=== PATIENT | male | born 1960 | race Caucasian/White ===

== ENCOUNTER 2019-09-05 16:35 | Inpatient (IN) | payer OTHER ==
[~2019-09-05] VITALS: Ht 180.3 cm; Wt 149.7 kg
[2019-09-05] VITALS (7 sets, daily range): BP systolic 113–131; BP diastolic 67–86
--- NOTE | 2019-09-05 16:40 | NUR ---
CODE STEMI CALLED; PT BROUGHT IMMEDIATLEY TO RM 5 FOR TX; DR. VALENZUELA AT BEDSIDE FOR EVAL.
--- NOTE | 2019-09-05 16:51 | NUR ---
PT BEING TRANSPORTED TO SHOT LIGHTER AT THIS TIME.
[2019-09-05] MEDS ORDERED: MIDAZOLAM HCL 2 MG/2 ML VIAL ONE ×2 (16:57→17:15)
[2019-09-05] MEDS ORDERED: ATROPINE SULFATE 0.1 MG/ML 10ML SYR ONE (16:57)
[2019-09-05] MEDS ORDERED: FENTANYL CITRATE/PF 100MCG/2 ML INJ ONE (16:57)
[2019-09-05] MEDS ORDERED: HEPARIN SOD/SOD CHLORIDE 2,000 ML ONE (16:58)
[2019-09-05] MEDS ORDERED: IOPAMIDOL 370 MG/ML 200 ML INFUS..BTL INJ ONE (16:58)
[2019-09-05] MEDS ORDERED: LIDOCAINE HCL 2% LOCAL 20 ML VIAL ONE (16:58)
[2019-09-05] MEDS ORDERED: ONDANSETRON HCL INJ 2MG/ML 2ML 2 MG/ML VIAL IV PRN ×2 (17:00→18:15)
[2019-09-05] MEDS ORDERED: SODIUM CHLORIDE 0.9% 50ML 50 ML ONE (17:00)
[2019-09-05 17:03] LABS: BASOPHILS % 0.6 % (0.0-1.0); EOSINOPHILS # (AUTO) 0.1 (0.0-0.4); EOSINOPHILS % 3.2 % (0.0-6.0); HEMATOCRIT 45.1 % (38.2-49.6); HEMOGLOBIN 16.6 g/dL (14.0-18.0); LYMPHOCYTES % 30.1 % (18.0-39.1); MEAN CORPUSCULAR HEMOGLOBIN 35.1 pg (28-32); MEAN CORPUSCULAR HGB CONC 36.8 g/dL (31-35); MEAN CORPUSCULAR VOLUME 95.3 fL (81-99); MONOCYTES # (AUTO) 0.4 (0.2-0.8); MONOCYTES % 10.4 % (4.4-11.3); NEUTROPHILS # (AUTO) 1.9 (2.1-6.9); NEUTROPHILS % 55.1 % (38.7-80.0); PLATELET COUNT 60 x10e3/uL (140-360); RED BLOOD COUNT 4.73 x10e6/uL (4.3-5.7); RED CELL DISTRIBUTION WIDTH 12.6 % (11.7-14.4)
[2019-09-05 17:19] LABS: INR 1.05; PROTHROMBIN TIME 14.2 seconds (11.9-14.5)
[2019-09-05 17:20] LABS: PARTIAL THROMBOPLASTIN TIME 29.2 seconds (23.8-35.5)
[2019-09-05] MEDS ORDERED: EPTIFIBATIDE 75mg 100ML 0 ML ONE (17:21)
[2019-09-05] MEDS ORDERED: EPTIFIBATIDE 20 ML ONE (17:21)
[2019-09-05 17:29] LABS: ALANINE AMINOTRANSFERASE 42 IU/L (0-55); ALBUMIN 3.4 g/dL (3.5-5.0); ALBUMIN/GLOBULIN RATIO 0.9 (0.8-2.0); ALKALINE PHOSPHATASE 135 IU/L (40-150); ANION GAP 15.7 mmol/L (8-16); BLOOD UREA NITROGEN 13 mg/dL (7-26); BUN/CREATININE RATIO 13 (6-25); CALCIUM 9.8 mg/dL (8.4-10.2); CARBON DIOXIDE 24 mmol/L (22-29); CHLORIDE 99 mmol/L (98-107); CREATINE KINASE 217 IU/L (30-200); CREATININE, SERUM 0.99 mg/dL (0.72-1.25); EST GLOMERULAR FILTRATION RATE > 60 ML/MIN (60-); GLUCOSE 261 mg/dL (74-118); POTASSIUM 3.7 mmol/L (3.5-5.1); SODIUM 135 mmol/L (136-145)
[2019-09-05] MEDS ORDERED: PRASUGREL 10 MG TAB ONE (17:34)
[2019-09-05] MEDS ORDERED: PROMETHAZINE HCL (IM) 25 MG/ML VIAL IV PRN (18:15)
[2019-09-05] MEDS ORDERED: ASPIRIN 81 MG CHEW TAB PO ONE (18:15)
[2019-09-05] MEDS ORDERED: HYDROMORPHONE 1MG/1ML INJ IV PRN (18:15)
[2019-09-05] MEDS ORDERED: NITROGLYCERIN 0.4 MG SUBL SL PRN (18:15)
[2019-09-05] MEDS ORDERED: MORPHINE SULFATE 2 MG/ML SYR 1ML IV PRN (18:15)
[2019-09-05] MEDS: SODIUM CHLORIDE 0.9% 1000ML 1,000 ML IV SCH ×2 (18:43→22:40)
[2019-09-05] MEDS: FAMOTIDINE 20 MG TAB PO SCH (18:43)
[2019-09-05] MEDS: LISINOPRIL 10 MG TAB PO SCH (18:43)
[2019-09-05] MEDS: METOPROLOL SUCCINATE 25 MG TAB XL PO SCH (18:44)
[2019-09-05] MEDS ORDERED: PROMETHAZINE 12.5MG/ NACL 0.9% 50 ML IV PRN (18:45)
--- NOTE | 2019-09-05 19:05 | Diagnostic Imaging Report ---
EXAMINATION: CHEST SINGLE (PORTABLE) COMPARISON: None INDICATION: Chest pain, nausea ^UT ^[id number] ^1830 DISCUSSION: Frontal view of the chest obtained at 1824 hours. HEART AND MEDIASTINUM: The heart is mildly enlarged. The aorta is tortuous LINES: None. LUNGS: Central pulmonary vasculature is prominent. No pneumonia or pulmonary edema. Small focus of atelectasis in the left lung base. PLEURA: No pleural effusion or pneumothorax. BONES AND SOFT TISSUES: No focal osseous lesion. The soft tissues are normal. IMPRESSION: Cardiomegaly and central pulmonary vascular congestion. Signed by: Dr. Laurita Enrique MD on 09/05/2019 7:02 PM
--- NOTE | 2019-09-05 19:18 | Pre Op History & Physical ---
INDICATION: Myocardial infarction. HISTORY OF PRESENT ILLNESS: Mr. Arnett is a 59-year-old gentleman with history of hypertension, hyperlipidemia, who comes into the hospital with 1 hour of chest pain. EKG shows inferior ST elevation. He continues to have persistent pain at the time of evaluation. He has been noncompliant with his metformin. Dr. Bhandari is his primary care physician. He has never had coronary artery disease. PAST MEDICAL HISTORY: Hypertension, diabetes mellitus. SOCIAL HISTORY: The patient does not smoke or drink. He is accompanied by his . FAMILY HISTORY: Significant for coronary artery disease in his grandfather. REVIEW OF SYSTEMS: Negative except as dictated in the history of present illness. PHYSICAL EXAMINATION: VITAL SIGNS: Afebrile. Heart rate 73, blood pressure 147/80, O2 saturation is 99%. CARDIOVASCULAR: Regular rhythm, S4 gallop, systolic murmur. LUNGS: Clear to auscultation bilaterally. ABDOMEN: Distended, soft. 1+ edema. Pedal pulses 1+. LABORATORY DATA: Serum creatinine is normal. Remaining labs are reviewed. ASSESSMENT: Acute inferior ST-elevation myocardial infarction. PLAN: Mr. Niño is taking emergently to the cardiac collaborating supervising physician. Risks, benefits, alternatives of the procedure were discussed with the patient. He is agreeable for the same. Aggressive medical therapy has been initiated. MD ARETHA Mota/AGNES /[id number]
--- NOTE | 2019-09-05 19:44 | NUR ---
Patient arrived to ICU at 1830 with R groin sheath in place. Orders to remove sheath at 2100, bedrest until 0500. Patient educated on importance of bedrest Pedal pulses palpable to bilateral feet. Patient able to wiggle toes and move feet on command. Patient does not appear to be in any distress at this time. Shift report given to manager night RN.
[2019-09-05] MEDS: RIVAROXABAN 10 MG TABLET PO SCH (21:00)
[2019-09-05] MEDS ORDERED: ATORVASTATIN 20 MG TAB PO SCH (21:00)
[2019-09-05 21:33] LABS: CREATINE KINASE MB 109.2 ng/mL (0-5.0)
[2019-09-06] VITALS (20 sets, daily range): BP systolic 94–124; BP diastolic 51–84
[2019-09-06] MEDS ORDERED: LISINOPRIL10 MG PO (02:14)
[2019-09-06] MEDS ORDERED: METFORMIN HCL500 M2 PO (02:14)
--- NOTE | 2019-09-06 03:04 | Operative Report ---
DATE OF PROCEDURE: 09/05/2019 SURGEON: Yahir Ibanez MD INDICATION: Acute inferior ST-elevation myocardial infarction. PROCEDURES PERFORMED: 1. Left heart catheterization, selective coronary angiography. 2. Thrombectomy, PTCA and stent placement to the distal right coronary artery. 3. Deployment of right central venous catheter. COMPLICATIONS: None. RECOMMENDATIONS: Dual antiplatelet therapy. DESCRIPTION OF PROCEDURE: Access obtained in the right femoral artery. A 6-Ethiopian sheath was placed. Access obtained in the right femoral vein. A 6-Ethiopian sheath was placed. 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 Distal right coronary artery is occluded with KATHLEEN zero flow. The patient received Angiomax for anticoagulation. Wire was advanced across the lesion. Thrombectomy with [id number] time of 38 minutes was performed. Using a GuideLiner predilatation with 2.5 mm stent. Following which, a 3.5 x 18 mm Synergy stent was deployed, post dilated with a 4.5 mm balloon. Excellent end result, less than 10% residual stenosis, KATHLEEN-3 flow. No complications. Left coronary system had mild disease. Sheath was secured in place. The patient was transferred to ICU in stable condition. Yahir Ibanez MD KSB/MODL /[id number]
--- NOTE | 2019-09-06 04:10 | NUR ---
R femoral sheath removed at 2210. No s/s of complications. Pedal pulses palpable & strong bilaterally, skin warm to touch. Patient able to move bilateral feet, no c/o numbness or tingling to RLE. VS maintained normal during removal of sheath. Education regarding positing and reporting s/s of complications to staff pharmacist hospital reinforced, patient acknowledges & understands. Will continue to monitor.
[2019-09-06 05:15] LABS: BASOPHILS % 0.4 % (0.0-1.0); EOSINOPHILS # (AUTO) 0.1 (0.0-0.4); EOSINOPHILS % 2.6 % (0.0-6.0); HEMOGLOBIN 14.3 g/dL (14.0-18.0); LYMPHOCYTES # (AUTO) 1.1 (1.0-3.2); LYMPHOCYTES % 22.6 % (18.0-39.1); MEAN CORPUSCULAR HEMOGLOBIN 34.5 pg (28-32); MEAN CORPUSCULAR HGB CONC 35.8 g/dL (31-35); MEAN CORPUSCULAR VOLUME 96.6 fL (81-99); MONOCYTES # (AUTO) 0.5 (0.2-0.8); MONOCYTES % 9.8 % (4.4-11.3); NEUTROPHILS # (AUTO) 3.2 (2.1-6.9); NEUTROPHILS % 64.4 % (38.7-80.0); PLATELET COUNT 63 x10e3/uL (140-360); RED BLOOD COUNT 4.14 x10e6/uL (4.3-5.7); RED CELL DISTRIBUTION WIDTH 13.2 % (11.7-14.4)
[2019-09-06 05:48] LABS: ALANINE AMINOTRANSFERASE 52 IU/L (0-55); ALBUMIN 2.8 g/dL (3.5-5.0); ALBUMIN/GLOBULIN RATIO 0.8 (0.8-2.0); ALKALINE PHOSPHATASE 95 IU/L (40-150); ANION GAP 11.5 mmol/L (8-16); BLOOD UREA NITROGEN 15 mg/dL (7-26); BUN/CREATININE RATIO 21 (6-25); CALCIUM 9.1 mg/dL (8.4-10.2); CARBON DIOXIDE 23 mmol/L (22-29); CHLORIDE 105 mmol/L (98-107); CHOL/HDL RATIO 3.8 (3.9-4.7); CHOLESTEROL 169 MD/DL (0-199); CREATININE, SERUM 0.72 mg/dL (0.72-1.25); EST GLOMERULAR FILTRATION RATE > 60 ML/MIN (60-); GLUCOSE 187 mg/dL (74-118); HDL CHOLESTEROL 45 MG/DL (40-60); LDL CHOLESTEROL 102 MG/DL (60-130); POTASSIUM 3.5 mmol/L (3.5-5.1); SODIUM 136 mmol/L (136-145); TRIGLYCERIDES 110 MG/DL (0-149)
[2019-09-06 06:48] LABS: CREATINE KINASE MB 90.3 ng/mL (0-5.0)
--- NOTE | 2019-09-06 07:00 | NUR ---
Notified Dr. Mederos @ 2190 of elevated trops ([phone]) and BS (189). New orders to recheck cardiac labs in 6 hrs and start pt on low dose SS ACHS. Pt denies pain/discomfort/chest pain. A&Ox4. RA. VS WNL. No complications to R groin. Will continue to monitor.
[2019-09-06] MEDS ORDERED: DEXTROSE 50% SYRINGE 50 ML IV PRN (07:15)
[2019-09-06] MEDS ORDERED: ASPIRIN 81 MG ENTERIC COATED PO SCH (09:00)
[2019-09-06] MEDS ORDERED: CLOPIDOGREL BISULFATE 75 MG TAB PO SCH (09:00)
[2019-09-06] MEDS ORDERED: RIVAROXABAN 15 MG TABLET PO SCH (09:00)
[2019-09-06] MEDS: INSULIN LISPRO 100 UNIT/1 ML 3ML VIAL SQ SCH ×4 (09:15→20:51)
[2019-09-06] MEDS: CLOPIDOGREL BISULFATE 75 MG TAB PO SCH (09:35)
[2019-09-06] MEDS: RIVAROXABAN 10 MG TABLET PO SCH ×2 (09:35→20:50)
[2019-09-06] MEDS: ASPIRIN 81 MG ENTERIC COATED PO SCH (09:35)
[2019-09-06] MEDS: METOPROLOL SUCCINATE 25 MG TAB XL PO SCH (09:35)
[2019-09-06] MEDS: FAMOTIDINE 20 MG TAB PO SCH ×2 (09:35→17:48)
[2019-09-06] MEDS: LISINOPRIL 10 MG TAB PO SCH (09:35)
[2019-09-06 13:06] LABS: CREATINE KINASE MB 56.4 ng/mL (0-5.0)
--- NOTE | 2019-09-06 15:49 | NUR ---
RECEIVED REPORT FROM ESOL TEACHER, AWAITING PT ARRIVAL TO UNIT.
--- NOTE | 2019-09-06 15:50 | NUR ---
Report given to RASHIDA Green for Room 101. Patient transported via wheelchair.
--- NOTE | 2019-09-06 18:43 | Diagnostic Imaging Report ---
HISTORY: Right lower quadrant pain TECHNIQUE: Selected static images from complete abdominal ultrasound provided for INTERPRETATION: COMPARISON: None. FINDINGS: Pancreas: Not visualized due to bowel gas Liver: Measures 14.5 cm in sagittal plane. The echotexture is heterogeneous. The contours are lobulated. No mass in the visualized portions. Portal Vein: Measures 1.0 cm. Hepatopetal flow on spectral Doppler interrogation. Biliary Tree: No intrahepatic biliary ductal dilatation Gallbladder: No evidence of gallstone or gallbladder wall thickening. CBD: 0.5 cm. Right Kidney: Length is 12.8cm. Echotexture is normal. There is mild hydronephrosis. Calculus in the renal pelvis measures 16 x 25 x 26 mm. There is debris in a lower pole calyx versus a cyst containing a soft tissue mass within the overall size of 2.0 x 3.0 cm. Left Kidney: Length is 12.6cm. Echotexture is normal. Cyst in the interpolar cortex measures 2.0 x 2.0 x 2.4 cm. No hydronephrosis.. Spleen: 13.7cm in length. No evidence for mass. Aorta and IVC are poorly visualized due to bowel gas. No free fluid IMPRESSION: 1. Cirrhosis with normal portal vein diameter. Mild splenomegaly. No ascites. 2. 26 mm right intrarenal calculus with mild hydronephrosis. Cystic structure in the lower pole the right kidney may represent a calyx containing debris or cystic mass containing soft tissue. Recommend further characterization with CT urogram if clinically feasible. 3. Normal left kidney. 4. Poor visualization of the pancreas, aorta, and IVC, due to bowel gas. 5. Normal gallbladder and biliary tree. Signed by: Dr. Laurita Enrique MD on 09/06/2019 6:39 PM
--- NOTE | 2019-09-06 18:50 | NUR ---
RECEIVED REPORT FROM PREVIOUS NURSE. CALL LIGHT WITHIN REACH. PATIENT IN BED. AND FRIENDS AT BEDSIDE
--- NOTE | 2019-09-06 19:48 | Progress Note ---
DATE: 09/06/2019 Cardiology Progress Note SUBJECTIVE: No major events overnight. No more chest pain. OBJECTIVE: VITAL SIGNS: Temperature afebrile, pulse 85, blood pressure 114/70, saturating 99% on nasal cannula. GENERAL: Obese white man, in no acute distress. CARDIOVASCULAR: Regular rate and rhythm. No murmurs, rubs, or gallops. LUNGS: Clear to auscultation bilaterally. ABDOMEN: Soft, mildly tender, right lower quadrant nondistended. NEURO AND PSYCH: Alert and oriented to person, place, and time. Normal affect. VASCULAR: Right groin without any hematoma, soft. No bleeding. Good pulses. INPATIENT MEDICATIONS: Reviewed. LABORATORY DATA: Reviewed. TELEMETRY DATA: Reviewed, shows normal sinus rhythm. ASSESSMENT/PLAN: 1. ST-elevation myocardial infarction, status post percutaneous coronary intervention. 2. Coronary artery disease. 3. Hypertension. 4. Hyperlipidemia. PLAN: Continue dual-antiplatelet therapy with aspirin, Plavix with addition of Xarelto 2.5 mg b.i.d. Given significant thrombus burden, continue high-intensity statin, lisinopril, and metoprolol. The patient is okay to be transferred to the floor, so he can ambulate and if he is feeling well, plan to discharge tomorrow. Thank you for this consult. We will continue to follow. MD SOMMER Causey/AGNES /[id number]
[2019-09-06] MEDS: ATORVASTATIN 40 MG TAB PO SCH (20:50)
[2019-09-06] MEDS ORDERED: ATORVASTATIN 20 MG TAB PO SCH (21:00)
[2019-09-07] VITALS (7 sets, daily range): BP systolic 105–114; BP diastolic 56–66
--- NOTE | 2019-09-07 07:31 | NUR ---
Gave report to oncoming nurse. Patient in bed. at bedside. Call light within reach.
[2019-09-07] MEDS: ASPIRIN 81 MG ENTERIC COATED PO SCH (08:39)
[2019-09-07] MEDS: CLOPIDOGREL BISULFATE 75 MG TAB PO SCH (08:39)
[2019-09-07] MEDS: FAMOTIDINE 20 MG TAB PO SCH ×2 (08:39→17:20)
[2019-09-07] MEDS: LISINOPRIL 10 MG TAB PO SCH (08:40)
[2019-09-07] MEDS: METOPROLOL SUCCINATE 25 MG TAB XL PO SCH (08:41)
[2019-09-07] MEDS: RIVAROXABAN 10 MG TABLET PO SCH (08:43)
[2019-09-07] MEDS: INSULIN LISPRO 100 UNIT/1 ML 3ML VIAL SQ SCH ×4 (08:48→21:56)
--- NOTE | 2019-09-07 11:29 | NUR ---
during rounds, pt informed nurse he is urinating blood; moderate amount of dark blood noted in toilet bowl; awaiting Dr Jacobs's arrival on unit. will continue to monitor.
--- NOTE | 2019-09-07 19:05 | NUR ---
Received report from previous nurse. Call light within reach. at bedside. Patient in bed
[2019-09-07 20:46] LABS: BASOPHILS % 0.5 % (0.0-1.0); EOSINOPHILS # (AUTO) 0.2 (0.0-0.4); EOSINOPHILS % 5.2 % (0.0-6.0); HEMATOCRIT 40.2 % (38.2-49.6); HEMOGLOBIN 14.5 g/dL (14.0-18.0); LYMPHOCYTES # (AUTO) 1.6 (1.0-3.2); LYMPHOCYTES % 38.2 % (18.0-39.1); MEAN CORPUSCULAR HEMOGLOBIN 34.8 pg (28-32); MEAN CORPUSCULAR HGB CONC 36.1 g/dL (31-35); MEAN CORPUSCULAR VOLUME 96.4 fL (81-99); MONOCYTES # (AUTO) 0.5 (0.2-0.8); MONOCYTES % 12.8 % (4.4-11.3); NEUTROPHILS # (AUTO) 1.8 (2.1-6.9); NEUTROPHILS % 43.1 % (38.7-80.0); PLATELET COUNT 56 x10e3/uL (140-360); RED BLOOD COUNT 4.17 x10e6/uL (4.3-5.7); RED CELL DISTRIBUTION WIDTH 12.9 % (11.7-14.4)
[2019-09-07 20:51] LABS: INR 1.24; PROTHROMBIN TIME 16.2 seconds (11.9-14.5)
[2019-09-07 20:52] LABS: PARTIAL THROMBOPLASTIN TIME 31.9 seconds (23.8-35.5)
[2019-09-07 20:58] LABS: ALANINE AMINOTRANSFERASE 47 IU/L (0-55); ALBUMIN 2.9 g/dL (3.5-5.0); ALBUMIN/GLOBULIN RATIO 0.8 (0.8-2.0); ALKALINE PHOSPHATASE 93 IU/L (40-150); ANION GAP 10.8 mmol/L (8-16); BLOOD UREA NITROGEN 17 mg/dL (7-26); BUN/CREATININE RATIO 20 (6-25); CALCIUM 9.5 mg/dL (8.4-10.2); CARBON DIOXIDE 23 mmol/L (22-29); CHLORIDE 105 mmol/L (98-107); CREATININE, SERUM 0.87 mg/dL (0.72-1.25); EST GLOMERULAR FILTRATION RATE > 60 ML/MIN (60-); GLUCOSE 204 mg/dL (74-118); POTASSIUM 3.8 mmol/L (3.5-5.1); SODIUM 135 mmol/L (136-145)
[2019-09-07 21:02] LABS: CLARITY,URINE SL CLOUDY (CLEAR); COLOR,URINE AMBER (YELLOW); LEUKOCYTE ESTERASE ,URINE NEGATIVE (NEGATIVE); NITRITE,URINE NEGATIVE (NEGATIVE); PROTEIN,URINE DIPSTICK 2+ (NEGATIVE)
[2019-09-07 21:03] LABS: BILIRUBIN,URINE 1+ (NEGATIVE); KETONES,URINE NEGATIVE (NEGATIVE)
[2019-09-07 21:10] LABS: AMYLASE 42 U/L (25-125); LIPASE 22 U/L (8-78)
[2019-09-07 21:15] LABS: BACTERIA,URINE FEW /HPF; RBC,URINE >50 /HPF (0-5)
[2019-09-07] MEDS: ATORVASTATIN 40 MG TAB PO SCH (21:48)
--- NOTE | 2019-09-07 23:51 | Progress Note ---
DATE: 09/07/2019 SUBJECTIVE: No major events overnight. Transferred to the floor, walking around without issues. OBJECTIVE: VITAL SIGNS: Temperature afebrile, pulse 62, respiratory rate 18, blood pressure 114/66, saturating 98% on room air. GENERAL: Middle-aged man, in no acute distress. CARDIOVASCULAR: Regular rate and rhythm. No murmurs, rubs, or gallops. Right groin site inspected. There was some razor burn and some redness or exudates. A cath site itself looks clean. There was no bleeding. There is no signs of infection or drainage. No evidence of pseudoaneurysm by physical exam. LUNGS: Clear to auscultation bilaterally. ABDOMEN: Soft, nontender, nondistended. Obese. NEURO AND PSYCH: Alert, oriented to person, place, and time. Normal affect. INPATIENT MEDICATIONS: Reviewed. TELEMETRY DATA: Reviewed shows normal sinus rhythm. LABORATORY DATA: Reviewed. IMAGING DATA: Reviewed. Abdominal ultrasound shows right renal calculus with hydronephrosis. ASSESSMENT: 1. ST-elevation myocardial infarction. 2. Hematuria. 3. Hypertension. 4. Hyperlipidemia. PLAN: We will consult Urology given hematuria. We will discontinue 2.5 mg of Xarelto b.i.d. Continue aspirin and Plavix. Continue other cardiovascular medications. Blood pressure is well controlled. Thank you for this consult. We will continue to follow. MD SOMMER Causey/AGNES /[id number]
[2019-09-08] VITALS (7 sets, daily range): BP systolic 105–130; BP diastolic 58–71
--- NOTE | 2019-09-08 01:36 | Consultation ---
DATE OF CONSULTATION: 09/07/2019 Medical Consult ADMITTING DOCTOR: Dr. Yahir Ibanez. HISTORY OF PRESENT ILLNESS: This is a 59-year-old male with past medical history of hypertension, diabetes, and remote history of renal stone, who was in his usual state of health until 3 days ago. He was admitted with chest pain with acute KS and coronary angiogram and coronary stent was placed by Dr. Yahir Ibanez. At that time, the patient was given IV heparin. Today, he was feeling better after the stent. He was started having some intermittent hematuria and right abdominal pain. The patient's distribution warehouse manager Dr. Karel Jacobs asked me to do medical management. The patient was also consulted by Dr. March for renal stone. At the present time, some right-sided abdominal pain. No nausea. No vomiting. He has hematuria. No backache. No chest pain. No shortness of breath. No headache. No focal weakness. No seizure. PAST MEDICAL HISTORY: 1. CAD. 2. Hypertension. 3. Hyperlipidemia. 4. Diabetes mellitus type 2. 5. Morbid obesity. PAST SURGICAL HISTORY: History of coronary stent 2 days ago. SOCIAL HISTORY: The patient is . Lives with his . Habits; denies smoking, denies alcohol use, denies illicit drug use. MEDICATIONS: List attached. PHYSICAL EXAMINATION: GENERAL: This is a 59-year-old male, who is alert and oriented x3. No gross distress. VITAL SIGNS: Temperature 96.7, pulse is 66, respiratory rate 20, blood pressure 112/61. HEENT: Head is atraumatic and normocephalic. Pupils bilaterally equal and reactive to light. Extraocular muscles are intact. NECK: Supple. No JVD. No carotid bruit. LUNGS: Clear to auscultation and percussion bilaterally. No added sounds. HEART: S1 and S2. Regular rate and rhythm. No cyanosis or murmur. ABDOMEN: Soft. Right-sided mild flank tenderness. No guarding. No rigidity. EXTREMITIES: No pedal edema. Peripheral pluses +1. CLEAN RICE GRADER AND REEL TENDER: Grossly nonfocal. IMAGING DATA: Chest x-ray, cardiomegaly and some central vascular congestion. Ultrasound of abdomen showed cirrhosis, 26 mm right internal calculus with mild hydronephrosis. Cystic structure in the lower pole of right kidney, represent debris. Normal left kidney. Normal gallbladder. LABORATORY DATA: No labs today. Yesterday's labs, potassium 3.5, BUN and creatinine normal, sugar 187. LFT mild high. White count 4.99, hemoglobin 14.3, hematocrit 40.0, and platelets 63. ASSESSMENT: 1. Hematuria, rule out possibly from renal stone. 2. Thrombocytopenia, possibly heparin-induced thrombocytopenia. 3. Status post myocardial infarction, coronary artery disease, status post stent by Dr. Ibanez 2 days ago. 4. Diabetes mellitus type 2. 5. Obesity. 6. Hypertension. PLAN: Discussed the case with Dr. Ibanez, distribution warehouse manager. Stop Xarelto. Continue aspirin and Plavix. CBC, CMP, UA, amylase, lipase, and HIT panel. CT abdomen and pelvis in the morning. Urology consult with Dr. March. Continue other medicines. CBC and BMP in the morning. Case discussed with the patient and . Condition and prognosis explained. Case discussed with Dr. Ibanez, distribution warehouse manager. We will follow patient with you. Thank you, Dr. Karel Jacobs, for allowing me to taking care of this patient in medical management. MD CRUZ Tinajero/AGNES /[id number]
[2019-09-08 05:07] LABS: BASOPHILS % 0.7 % (0.0-1.0); EOSINOPHILS # (AUTO) 0.3 (0.0-0.4); EOSINOPHILS % 6.4 % (0.0-6.0); HEMATOCRIT 41.2 % (38.2-49.6); HEMOGLOBIN 14.4 g/dL (14.0-18.0); LYMPHOCYTES # (AUTO) 1.6 (1.0-3.2); LYMPHOCYTES % 38.1 % (18.0-39.1); MEAN CORPUSCULAR HEMOGLOBIN 34.2 pg (28-32); MEAN CORPUSCULAR VOLUME 97.9 fL (81-99); MONOCYTES # (AUTO) 0.6 (0.2-0.8); MONOCYTES % 13.4 % (4.4-11.3); NEUTROPHILS # (AUTO) 1.7 (2.1-6.9); NEUTROPHILS % 40.9 % (38.7-80.0); PLATELET COUNT 58 x10e3/uL (140-360); RED BLOOD COUNT 4.21 x10e6/uL (4.3-5.7); RED CELL DISTRIBUTION WIDTH 12.6 % (11.7-14.4)
[2019-09-08 05:28] LABS: ANION GAP 11.7 mmol/L (8-16); BLOOD UREA NITROGEN 15 mg/dL (7-26); BUN/CREATININE RATIO 20 (6-25); CALCIUM 9.4 mg/dL (8.4-10.2); CARBON DIOXIDE 23 mmol/L (22-29); CHLORIDE 104 mmol/L (98-107); CREATININE, SERUM 0.74 mg/dL (0.72-1.25); EST GLOMERULAR FILTRATION RATE > 60 ML/MIN (60-); GLUCOSE 153 mg/dL (74-118); POTASSIUM 3.7 mmol/L (3.5-5.1); SODIUM 135 mmol/L (136-145)
--- NOTE | 2019-09-08 06:08 | NUR ---
Patient left via wheelchair for CT abd/pelvis. Patient in no pain or distress.
--- NOTE | 2019-09-08 06:18 | NUR ---
Patient arrived back from CT via wheelchair. No pain or distress.
--- NOTE | 2019-09-08 07:21 | NUR ---
Gave report to oncoming nurse. Patient in bed. at bedside. call light within reach.
[2019-09-08] MEDS: FAMOTIDINE 20 MG TAB PO SCH ×2 (07:30→16:30)
[2019-09-08] MEDS: INSULIN LISPRO 100 UNIT/1 ML 3ML VIAL SQ SCH ×4 (07:30→21:32)
--- NOTE | 2019-09-08 07:33 | NUR ---
Rcvd patient in report this am. Patient is asleep in bed at this time. No s/s of distress noted
[2019-09-08] MEDS: LISINOPRIL 10 MG TAB PO SCH (08:52)
[2019-09-08] MEDS: METOPROLOL SUCCINATE 25 MG TAB XL PO SCH (08:52)
--- NOTE | 2019-09-08 08:59 | Diagnostic Imaging Report ---
ADDENDUM #1 An addendum is being issued per request of Dr. March for measurement of prostate volume. The prostate measures 7.4 x 6.8 x 6.1 cm with a volume estimate of 306 cc. Signed by: Elvi Leavitt MD on 09/11/2019 12:24 PM ORIGINAL REPORT EXAM: CT Abdomen and Pelvis WITHOUT intravenous contrast INDICATION: Flank pain COMPARISON: Abdominal ultrasound of 09/06/2019 TECHNIQUE: Abdomen and pelvis were scanned utilizing a multidetector helical scanner from the lung base to the pubic symphysis without administration of IV contrast. Coronal and sagittal reformations were obtained. IV CONTRAST: None ORAL CONTRAST: None COMPLICATIONS: None RADIATION DOSE: Total DLP: 835.5 mGy*cm Dose modulation, iterative reconstruction, and/or weight based adjustment of the mA/kV was utilized to reduce the radiation dose to as low as reasonably achievable. FINDINGS: LOWER THORAX: No focal consolidation. Mild scattered atherosclerotic coronary artery calcifications. HEPATOBILIARY: Subcentimeter calcified granulomas in the left liver. Nodular liver surface contour consistent with hepatic cirrhosis. No other focal liver lesions. Dependent gallstones in the gallbladder. No CT evidence of cholecystitis. SPLEEN: Splenomegaly to 16.7 cm. PANCREAS: No focal masses or ductal dilatation. ADRENALS: No adrenal nodules. KIDNEYS/URETERS: 3.0 cm calculus in the right renal pelvis. 4 mm right upper pole renal calculus. Mild right hydronephrosis. No left renal calculi. No left hydronephrosis. Left lower pole 1.7 cm cyst. PELVIC ORGANS/BLADDER: Prostatomegaly to 7.4 cm with indentation of the posterior bladder. PERITONEUM / RETROPERITONEUM: No free air or fluid. LYMPH NODES: Prominent leena hepatis lymph node measuring 1.3 cm short axis. Scattered prominent retroperitoneal lymph nodes not meeting size criteria for lymphadenopathy. VESSELS: Minimal scattered atherosclerotic calcifications. Nonaneurysmal abdominal aorta. Prominent upper abdominal portosystemic varices. GI TRACT: Diverticulosis without CT evidence of diverticulitis. No abnormal bowel wall thickening. No bowel obstruction. Normal appendix. BONES AND SOFT TISSUES: No acute osseous injury. No suspicious lytic or blastic lesions. IMPRESSION: 3.0 cm calculus in the right renal pelvis and 4 mm right upper pole renal calculus. Mild right hydronephrosis. No left renal calculi or hydronephrosis. Hepatic cirrhosis with splenomegaly and upper abdominal portosystemic varices consistent with portal hypertension. Prostatomegaly to 7.4 cm. Signed by: Elvi Leavitt MD on 09/08/2019 8:55 AM
[2019-09-08] MEDS: CEFTRIAXONE SOD 1 GM/NS 50 ML 50 ML IV SCH (09:37)
[2019-09-08] MEDS ORDERED: LIDOCAINE HCL 2% LOCAL INJ 5 ML SDV VIAL INJ ONE (12:40)
[2019-09-08] MEDS ORDERED: PROPOFOL IV EMULSION 10 MG/ML 20 ML VIAL ONE (12:40)
[2019-09-08] MEDS ORDERED: DEXAMETHASONE SOD PHOS INJ 4 MG/ML VIAL ONE (12:40)
[2019-09-08] MEDS ORDERED: ONDANSETRON HCL INJ 2MG/ML 2ML 2 MG/ML VIAL ONE (12:40)
--- NOTE | 2019-09-08 12:40 | NUR ---
Patient is AAOx3. Patient is post op heart cath. Right groin incision clean and dry. No c/o chest pain. Patient ambulates on his own. Patient has had some hematuria noted. Patient is NPO for stent placement d/t kidney stones. Right AC IV in place.
[2019-09-08] MEDS ORDERED: MIDAZOLAM HCL 2 MG/2 ML VIAL ONE (12:48)
[2019-09-08] MEDS ORDERED: FENTANYL CITRATE/PF 100MCG/2 ML INJ ONE (12:48)
[2019-09-08] MEDS ORDERED: ASPIRIN 81 MG CHEW TAB PO STA (13:49)
[2019-09-08] MEDS ORDERED: CLOPIDOGREL BISULFATE 75 MG TAB PO ONE (14:00)
--- NOTE | 2019-09-08 16:38 | NUR ---
Patient went to OR at this time.
[2019-09-08] MEDS ORDERED: B&O 60MG R/S 60 MG SUPP PR ONE (17:00)
[2019-09-08] MEDS ORDERED: IOPAMIDOL 300MG/ML 50ML INFUS..BTL IV ONE (17:00)
--- NOTE | 2019-09-08 18:45 | NUR ---
Patient returned from surgery at this time. Patient is post op stone removal and adames placement. Noted to have gross hematuria urine noted. no c/o pain. Manual irrigation ordered. Flushed at this time. Informed nurse to call dr. booker if need be to change out catheter and place irrigation
--- NOTE | 2019-09-08 20:21 | Progress Note ---
DATE: 09/08/2019 Cardiology Progress Note SUBJECTIVE: No major events overnight. OBJECTIVE: VITAL SIGNS: Temperature 97.7, pulse 60, respiratory rate 17, blood pressure 116/67, and saturating 98% on room air. GENERAL: Obese, white man, well-developed, well-nourished, no acute distress. CARDIOVASCULAR: Regular rate and rhythm. No murmurs, rubs, or gallops. LUNGS: Clear to auscultation bilaterally. ABDOMEN: Soft, nontender, and nondistended. NEURO AND PSYCH: Alert and oriented to person, place, and time. Normal affect. VASCULAR: Right groin site well healed. No bleeding. No pseudoaneurysm. Razor burn, that is getting better with local wound care. INTPATIENT MEDICATIONS: Reviewed. LABORATORY DATA: Reviewed. TELEMETRY DATA: Reviewed. Shows normal rhythm. ASSESSMENT AND PLAN: 1. ST-elevation myocardial infarction, status post PCI to the RCA. 2. Hematuria. 3. Kidney stones, hydronephrosis. 4. Hypertension. 5. Hyperlipidemia. 6. Diabetes. PLAN: Urology plans on doing ureteral stenting today given very recent stenting and I will stop aspirin and Plavix. Discussed with his urologist, Dr. March and he is in agreement. Given the recent CA, although he has been revascularized, so he will be at high risk for general anesthesia and cardiovascular complications. However, given hydronephrosis and ongoing hematuria, Urology feels like surgery is necessary and they plan to proceed later today. We will monitor closely before and after the surgery for any complication. Meanwhile, he is doing well from a cardiovascular standpoint and he is okay to be discharged once his urological issues resolve. Thank you for this consult. We will continue to follow. MD SOMMER Causey/AGNES /[id number]
[2019-09-08] MEDS: ATORVASTATIN 40 MG TAB PO SCH (21:32)
[2019-09-09] VITALS (8 sets, daily range): BP systolic 89–122; BP diastolic 52–66
--- NOTE | 2019-09-09 05:49 | Consultation ---
DATE OF CONSULTATION: 09/08/2019 Urology Consultation REASON FOR CONSULTATION: Gross hematuria. HISTORY OF PRESENT ILLNESS: Selwyn Niño Jr, is a 59-year-old man, who has had intermittent gross hematuria for at least 3 years. The patient has also had some vague pains in the right side intermittently over the last 3 years. The patient was admitted on September 05 with a myocardial infarction. He emergently went to the [facility] and had a coronary stent placed following angioplasty. The patient has been anticoagulated and yesterday he was noted to have significant gross hematuria, and urological consultation was subsequently sought. The patient denies previous urinary tract infections or urolithiasis. He has never seen urologist. PAST MEDICAL AND SURGICAL HISTORY: 1. Hypertension. 2. Diabetes mellitus. 3. Obesity. ALLERGIES: NONE KNOWN. CURRENT MEDICATIONS: Please refer to the MAR. SOCIAL HISTORY: The patient denies smoking, ethanol, or drug use. He has very supportive family at the bedside. 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 FAMILY HISTORY: Noncontributory to the active urological problems. REVIEW OF SYSTEMS: Consistent with history of present illness and past medical history otherwise negative for all systems. PHYSICAL EXAMINATION: GENERAL: Very pleasant 59-year-old man sitting up in bed, in no apparent distress. VITAL SIGNS: He is currently afebrile. Vitals are currently stable. ABDOMEN: Soft, nondistended, and nontender without costovertebral angle tenderness. Kidneys not palpable without hepatosplenomegaly. The patient is obese. GENITOURINARY: Testes descended bilaterally. Testes and epididymides bilaterally palpably normal. The patient has a normal circumcised male phallus with normal meatus without any lesion. Digital rectal examination is deferred for the operating room. For the remaining physical examination systems, please refer to the admission history and physical on the chart and other documentation. LABORATORY STUDIES: Urine culture is pending. White blood cell count is low at 4250, hemoglobin 14.4, and platelets are low at 58,000. The patient's sodium is low at 135. His calcium is normal at 9.4, creatinine is normal at 0.74. PT is elevated 16.2. Urinalysis significant for greater than 50 rbc's, 2+ protein, and 3+ glucose. Abdominal ultrasound was performed, it revealed cirrhosis as well as a 26 mm right intrarenal calculus with mild hydronephrosis and a cystic structure in the lower pole which may represent a calyx containing debris or cystic mass. CT was recommended. CT scan of the abdomen and pelvis revealed a 3 cm stone in the right renal pelvis and a 4 mm right upper pole stone. There is mild right-sided hydronephrosis and there is a left lower pole 1.7 cm cyst. In the pelvis, there was significant prostatomegaly with a prostate at 7.4 cm in diameter with an indentation of the posterior bladder. ASSESSMENT: 1. Right hydronephrosis. 2. Gross hematuria. 3. Leukopenia. 4. Thrombocytopenia. 5. Hyponatremia. 6. Obesity. 7. Right renal colic. 8. Right renal cyst. 9. Glycosuria. 10. Proteinuria. PLAN: 1. I posted the patient emergently to the operating room for cystoscopy, retrograde pyelograms and insertion of stent. I discussed with the patient's casting operator. He feels the patient is safe to go to the operating room now that his coronary arteries have been revascularized, however, insist that we maintained the patient on Plavix and aspirin despite the gross hematuria. 2. I will follow up on the patient's final urine culture and sensitivity. 3. The patient needs ongoing urological followup. 4. I defer the hematological and electrolyte abnormalities to the admitting physician. Thank you much for involving us in care of your patient. We will be happy to follow him along with you as well as an outpatient. Braxton MD Joaquim [place]/MODL /[id number] cc: MD Juan Mota
[2019-09-09 05:55] LABS: BASOPHILS % 0.2 % (0.0-1.0); EOSINOPHILS % 0.2 % (0.0-6.0); HEMATOCRIT 33.3 % (38.2-49.6); HEMOGLOBIN 12.1 g/dL (14.0-18.0); LYMPHOCYTES # (AUTO) 0.8 (1.0-3.2); LYMPHOCYTES % 12.1 % (18.0-39.1); MEAN CORPUSCULAR HEMOGLOBIN 35.1 pg (28-32); MEAN CORPUSCULAR HGB CONC 36.3 g/dL (31-35); MEAN CORPUSCULAR VOLUME 96.5 fL (81-99); MONOCYTES # (AUTO) 0.5 (0.2-0.8); MONOCYTES % 8.3 % (4.4-11.3); NEUTROPHILS # (AUTO) 5.2 (2.1-6.9); PLATELET COUNT 71 x10e3/uL (140-360); RED BLOOD COUNT 3.45 x10e6/uL (4.3-5.7); RED CELL DISTRIBUTION WIDTH 12.6 % (11.7-14.4)
--- NOTE | 2019-09-09 05:59 | Operative Report ---
DATE OF PROCEDURE: 09/08/2019 SURGEON: Braxton March MD PREOPERATIVE DIAGNOSIS: Right nephrolithiasis with hydronephrosis and gross hematuria. POSTOPERATIVE DIAGNOSES: 1. Right nephrolithiasis with hydronephrosis and gross hematuria. 2. Bladder stones. 3. Severe trilobar benign prostatic hyperplasia. OPERATIONS PERFORMED: 1. Cystourethroscopy with cystolitholapaxy (separately performed to manage the patient's bladder stones). 2. Failed extensive attempt at locating the ureteral orifices performing retrograde ureteropyelography and placing a stent. 3. Injection procedure for cystography. 4. Interpretation of cystography. 5. Supervision of fluoroscopy, no radiologist present. ANESTHESIA: General. COMPLICATIONS: None. CLINICAL SUMMARY: Please refer to consultation dictation from the same date. OPERATIVE PROCEDURE IN DETAIL: Informed consent was verified. Selwyn Niño junior was properly identified, taken to the operating room, placed on the cystoscopy table in supine position. Anesthesia was uneventfully begun. The patient was then carefully and gently repositioned in dorsal lithotomy position with all pressure points well padded. His genitalia were prepared and draped in usual sterile fashion. The cystoscope sheath with the visual obturator in place was atraumatically inserted in the patient's urethra. It was guided down the unremarkable urethra through the normal sphincteric region through the prostate bed. The prostate bed was significant for trilobar prostatic hypertrophy with an intravesical median lobe and an extremely long prostatic urethra with huge lateral lobes causing visual obstruction as they kissed at the level of the prostatic urethra. I went to the patient's bladder and drained it. Panendoscopy was difficult to perform ideally due to ongoing hematuria. The exact source of the hematuria is not clear. A thorough cystoscopy was attempted with both 30 and 70 degree lenses, but there seemed to be significant oozing, which I believe is from the prostate bed, although this is not ideal cystoscopy to completely rule out bladder tumors. Nevertheless, I did not see any bladder tumor today. These stones were visualized. These stones were then extracted. Due to the inability to locate the ureteral orifices and decreased visualization from the hematuria, it was felt best to allow the patient's hematuria to try to clear prior to pursuing another stent attempt. The cystoscope was withdrawn. A 24-[place] Burnette catheter was placed, 15 mL of water were placed into the 10 mL balloon. Catheter was then irrigated to and fro with blood-tinged efflux obtained. A belladonna opium suppository was placed revealing a larger than 50 g prostate that is smooth, nonfluctuant without any nodules. The patient was then uneventfully reversed from anesthesia and taken to recovery room in stable condition. There were no complications to the procedure. The patient tolerated the procedure well. ESTIMATED BLOOD LOSS: Minimal. PLAN: 1. We will leave the Burnette catheter in place, so we can monitor the patient's degree of hematuria. 2. Should the patient's hemoglobin drops, transfusion needs to be performed. This management needs to be carried out due to the fact that we cannot hold the patient's Plavix and aspirin at the present time. 3. We will need to return back to the operating room to perform cystoscopy with retrograde pyelogram and insertion of stent. Hopefully, we will get better visualization once the hematuria has stopped. We need to be prepared to ablate prostatic tissue, specifically the median lobe either by resection or vaporization. Interpretation of cystography: Contrast was instilled in a retrograde fashion via the Burnette catheter. The bladder wall was heavily trabeculated. The bladder seemed to have rather increased capacity probably from years of significant obstruction. The Burnette catheter was in good position with the balloon within the bladder lumen. There was no evidence of extravasation. Braxton March MD OH/MODL /[id number] cc: Juan Ibanez MD
[2019-09-09 06:20] LABS: ANION GAP 12.2 mmol/L (8-16); BLOOD UREA NITROGEN 16 mg/dL (7-26); BUN/CREATININE RATIO 22 (6-25); CALCIUM 8.7 mg/dL (8.4-10.2); CARBON DIOXIDE 23 mmol/L (22-29); CHLORIDE 102 mmol/L (98-107); CREATININE, SERUM 0.74 mg/dL (0.72-1.25); EST GLOMERULAR FILTRATION RATE > 60 ML/MIN (60-); GLUCOSE 230 mg/dL (74-118); POTASSIUM 4.2 mmol/L (3.5-5.1); SODIUM 133 mmol/L (136-145)
--- NOTE | 2019-09-09 06:35 | NUR ---
DAVIS CATH IRRIGATED MANUALLY Q1H PER MD ORDER
[2019-09-09] MEDS: INSULIN LISPRO 100 UNIT/1 ML 3ML VIAL SQ SCH ×4 (07:30→21:00)
[2019-09-09] MEDS: CLOPIDOGREL BISULFATE 75 MG TAB PO SCH (08:21)
[2019-09-09] MEDS: FAMOTIDINE 20 MG TAB PO SCH (08:21)
[2019-09-09] MEDS: CEFTRIAXONE SOD 1 GM/NS 50 ML 50 ML IV SCH (08:21)
[2019-09-09] MEDS: ASPIRIN 81 MG CHEW TAB PO SCH (08:21)
[2019-09-09] MEDS: LISINOPRIL 10 MG TAB PO SCH (08:22)
[2019-09-09] MEDS: METOPROLOL SUCCINATE 25 MG TAB XL PO SCH (08:22)
[2019-09-09] MEDS: PANTOPRAZOLE SOD 40 MG TABEC PO SCH (15:15)
[2019-09-09] MEDS ORDERED: LACTULOSE SYRUP 20 GM/30 ML UDC PO PRN (15:15)
--- NOTE | 2019-09-09 15:30 | Progress Note ---
DATE: 09/09/2019 Cardiology Progress Note SUBJECTIVE: The patient denies chest pain or shortness of breath. OBJECTIVE: VITAL SIGNS: Temperature 98.2 degrees, pulse 70, respiratory rate 15, blood pressure 105/57, oxygen saturation 99%. GENERAL: Awake, alert, in no acute distress. LUNGS: Clear to auscultation bilaterally. No wheezes or crackles. CARDIOVASCULAR: Normal rate, regular rhythm. No murmur. Normal S1, S2. ABDOMEN: Soft, nontender. EXTREMITIES: No edema. CARDIAC MEDICATIONS: Lisinopril 10 mg p.o. daily, metoprolol succinate 25 mg p.o. daily, aspirin 81 mg p.o. daily, Plavix 75 mg p.o. daily, atorvastatin 80 mg p.o. at bedtime. LABORATORY DATA: WBC 6.52, hemoglobin 12.1, hematocrit 33.3, platelets 71. Sodium 133, potassium 4.2, chloride 102, CO2 of 23, BUN 16, and creatinine 0.74. TELEMETRY: Normal sinus rhythm IMPRESSION: 1. ST-elevation myocardial infarction status post percutaneous coronary intervention to the right coronary artery. 2. Hematuria. 3. Kidney stones. 4. Hydronephrosis. 5. Hypertension. 6. Hyperlipidemia. 7. Diabetes mellitus. RECOMMENDATIONS: Given recent stent, continue dual anti-platelet therapy with aspirin and Plavix. Monitor patient closely on telemetry. Continue current cardiac medications. The patient is stable from a cardiac standpoint. He may be discharged to follow up with Dr. Ibanez in the office in two weeks after his urologic issues have improved. Thank you for this consult. We will continue to follow. Jenny Mederos MD ABS/MODL /[id number]
--- NOTE | 2019-09-09 16:15 | NUR ---
PT ATTEMPTED WALKING HALLWAY. QUICKLY BECAME TIRED. REPORTED FEELING "WOOSY". ASSISTED PT TO SIT DOWN. BP 89/52. HEMATURIA DARK RED AFTER MANUAL FLUSHING. DR MAYORGA NOTIFIED WHILE IN FACILITY, CBC ORDER MOVED UP TO CHECK HH. PT HAS BEEN RESTING, CURRENT BP 95/53. AWAITING CBC STAT RESULTS FOR UPDATE TO MD AND POSSIBLE ORDERS.
[2019-09-09 17:52] LABS: BASOPHILS % 0.4 % (0.0-1.0); EOSINOPHILS # (AUTO) 0.2 (0.0-0.4); EOSINOPHILS % 1.5 % (0.0-6.0); HEMOGLOBIN 11.7 g/dL (14.0-18.0); LYMPHOCYTES # (AUTO) 1.9 (1.0-3.2); LYMPHOCYTES % 19.5 % (18.0-39.1); MEAN CORPUSCULAR HGB CONC 36.6 g/dL (31-35); MEAN CORPUSCULAR VOLUME 95.8 fL (81-99); MONOCYTES # (AUTO) 1.1 (0.2-0.8); MONOCYTES % 11.1 % (4.4-11.3); NEUTROPHILS # (AUTO) 6.6 (2.1-6.9); NEUTROPHILS % 67.1 % (38.7-80.0); PLATELET COUNT 85 x10e3/uL (140-360); RED BLOOD COUNT 3.34 x10e6/uL (4.3-5.7); RED CELL DISTRIBUTION WIDTH 12.7 % (11.7-14.4)
[2019-09-09] MEDS: HYDROCODONE/APAP 5MG-325MG TAB PO PRN (20:15)
[2019-09-09] MEDS: ATORVASTATIN 40 MG TAB PO SCH (20:15)
[2019-09-09] MEDS: SODIUM CHLORIDE 0.9% 1000ML 1,000 ML IV SCH (20:40)
[2019-09-10] VITALS (7 sets, daily range): BP systolic 94–116; BP diastolic 54–57
[2019-09-10] MEDS: SODIUM CHLORIDE 0.9% 1000ML 1,000 ML IV SCH ×2 (05:00→12:59)
[2019-09-10 05:39] LABS: BASOPHILS % 0.4 % (0.0-1.0); EOSINOPHILS # (AUTO) 0.2 (0.0-0.4); EOSINOPHILS % 3.1 % (0.0-6.0); HEMATOCRIT 30.5 % (38.2-49.6); HEMOGLOBIN 10.9 g/dL (14.0-18.0); LYMPHOCYTES % 27.6 % (18.0-39.1); MEAN CORPUSCULAR HEMOGLOBIN 34.8 pg (28-32); MEAN CORPUSCULAR HGB CONC 35.7 g/dL (31-35); MEAN CORPUSCULAR VOLUME 97.4 fL (81-99); MONOCYTES # (AUTO) 0.9 (0.2-0.8); NEUTROPHILS % 56.5 % (38.7-80.0); PLATELET COUNT 66 x10e3/uL (140-360); RED BLOOD COUNT 3.13 x10e6/uL (4.3-5.7); RED CELL DISTRIBUTION WIDTH 12.9 % (11.7-14.4)
[2019-09-10 06:06] LABS: ALANINE AMINOTRANSFERASE 31 IU/L (0-55); ALBUMIN 2.5 g/dL (3.5-5.0); ALKALINE PHOSPHATASE 70 IU/L (40-150); ANION GAP 14.8 mmol/L (8-16); BLOOD UREA NITROGEN 21 mg/dL (7-26); BUN/CREATININE RATIO 28 (6-25); CALCIUM 8.6 mg/dL (8.4-10.2); CARBON DIOXIDE 21 mmol/L (22-29); CHLORIDE 103 mmol/L (98-107); CREATININE, SERUM 0.76 mg/dL (0.72-1.25); EST GLOMERULAR FILTRATION RATE > 60 ML/MIN (60-); GLUCOSE 139 mg/dL (74-118); LACTATE DEHYDROGENASE 277 IU/L (125-220); POTASSIUM 3.8 mmol/L (3.5-5.1); SODIUM 135 mmol/L (136-145)
[2019-09-10] MEDS: INSULIN LISPRO 100 UNIT/1 ML 3ML VIAL SQ SCH ×4 (07:30→20:00)
[2019-09-10] MEDS: PANTOPRAZOLE SOD 40 MG TABEC PO SCH (08:00)
[2019-09-10] MEDS: HYDROCODONE/APAP 5MG-325MG TAB PO PRN ×2 (08:08→21:34)
[2019-09-10] MEDS: CEFTRIAXONE SOD 1 GM/NS 50 ML 50 ML IV SCH (08:18)
[2019-09-10] MEDS: LISINOPRIL 10 MG TAB PO SCH (09:00)
[2019-09-10] MEDS: CLOPIDOGREL BISULFATE 75 MG TAB PO SCH (09:00)
[2019-09-10] MEDS: METOPROLOL SUCCINATE 25 MG TAB XL PO SCH (09:00)
[2019-09-10] MEDS: ASPIRIN 81 MG CHEW TAB PO SCH (09:00)
--- NOTE | 2019-09-10 09:29 | NUR ---
PT REPORTS "NOT FEELING WELL" THIS MORNING AND DOESNT WANT MEDS AT THIS TIME
--- NOTE | 2019-09-10 14:43 | Diagnostic Imaging Report ---
Frontal views of the chest - 2 images HISTORY: Chest pain, nausea, shortness of breath, trouble breathing COMPARISON: Chest radiograph September 05, 2019 DISCUSSION: Portable technique, limits sensitivity of the exam. Soft tissue attenuation partially limits sensitivity of the exam. Numerous overlying artifacts. Tubes/Lines: None Lungs and pleura: Minimal left basilar atelectasis. No evidence of a consolidative pneumonia or pulmonary alveolar edema. No definite pleural effusion or pneumothorax is identified. Heart and mediastinum: The cardiomediastinal silhouette appear(s) unremarkable. Bones and soft tissues: Appear unremarkable, given this limited exam. IMPRESSION: 1. Minimal left basilar atelectasis. 2. Otherwise, no significant interval change. Signed by: Dr. Ki Whitlock D.O., M.M.M. on 09/10/2019 2:39 PM
--- NOTE | 2019-09-10 15:01 | Consultation ---
DATE OF CONSULTATION: 09/10/2019 HISTORY OF PRESENT ILLNESS: This is a [id number], who has history of diabetes and history of hypertension. The patient was initially admitted to the hospital because of non-STEMI. The patient also has been having several hematuria and apparently, he did have a CAT scan of the abdomen and pelvis that was done 2 days ago, which shows a 3 cm calculus in the right renal pelvis and also evidence of hepatic cirrhosis with splenomegaly, and possible varices as best portal hypertension. He denies any history of alcohol use. He denies any history of hepatitis in the past or any family history of liver disease in the past. PAST MEDICAL HISTORY: Significant for history of coronary artery disease, hypertension, hyperlipidemia, diabetes, and obesity. ALLERGIES: NONE. SOCIAL HISTORY: Denies any alcohol use. FAMILY HISTORY: Noncontributory. REVIEW OF SYSTEMS: At this point, he denies any chest pain. Denies any shortness of breath. Denies any dysphagia, odynophagia. Denies any dysuria, hematuria, or any kind of syncopal episode. PHYSICAL EXAMINATION: GENERAL: The patient is awake, alert, appears to be stable. VITAL SIGNS: Afebrile currently. HEAD, EYES, EARS, NOSE, AND THROAT: Normocephalic, atraumatic. Sclerae are anicteric. NECK: Supple. HEART: Regular. LUNGS: Clear. ABDOMEN: Soft. There is no distention at this point. He is nontender. EXTREMITIES: At this time shows no clubbing. LABORATORY VALUES: Significant for BUN of 21, creatinine 0.75, AST of 50, total bilirubin 1.4, ALT of 31, ammonia level of 46. WBC of 7.11, hemoglobin of 10.9, and hematocrit of 30.5, platelet count of 66,000. Hepatitis profile is pending. IMPRESSION: 1. Cirrhosis with possible portal hepatitis at this point. Viral hepatitis is pending still. Rule out possibility of fatty liver, also any other kind of autoimmune or hereditary disorder. 2. [id number] myocardial infarction. 3. Kidney stones. RECOMMENDATIONS: Continue current care at this point. We will obtain some blood tests for his workup. The patient will eventually need to have an upper endoscopy at some point as an outpatient when all this problem resolved. MD ROBERT Ricks/AGNES /[id number] cc: Jamal Jacbos MD
--- NOTE | 2019-09-10 15:46 | Progress Note ---
DATE: 09/10/2019 Cardiology Progress Note SUBJECTIVE: The patient denies chest pain, however, he does endorse dyspnea on walking to the bathroom as well as dizziness. He continues to have gross hematuria in his Burnette. OBJECTIVE: VITAL SIGNS: Temperature 96.7 degrees, pulse 93, respiratory rate 15, blood pressure 97/55, and oxygen saturation 93% on room air. GENERAL: Awake, alert, in no acute distress. LUNGS: Clear to auscultation bilaterally. No wheezes or crackles. CARDIOVASCULAR: Normal rate. Regular rhythm. No murmur. Normal S1, S2. ABDOMEN: Soft, nontender. EXTREMITIES: No edema. CARDIAC MEDICATIONS: 1. Atorvastatin 80 mg p.o. at bedtime. 2. Aspirin 81 mg p.o. daily. 3. Plavix 75 mg p.o. daily. 4. Lisinopril 10 mg p.o. daily. 5. Metoprolol succinate 25 mg p.o. daily. LABORATORY DATA: WBC 7.1, hemoglobin 10.9, hematocrit 30.5, platelets 66. Sodium 135, potassium 3.8, chloride 103, CO2 of 21, BUN 29, and creatinine 0.76. TELEMETRY: Normal sinus rhythm. IMPRESSION: 1. ST-elevation myocardial infarction, status post percutaneous coronary intervention to the right coronary artery. 2. Hematuria. 3. Kidney stones. 4. Hydronephrosis. 5. Hypertension. 6. Diabetes mellitus. 7. Hyperlipidemia. RECOMMENDATIONS: Continue recent stent. The patient must be continued on dual antiplatelet therapy with aspirin and Plavix. Monitor the patient closely on telemetry. Check chest x-ray and BNP given dyspnea on exertion. Continue current cardiac medications otherwise. Thank you for this consult. We will continue to follow. Jenny Mederos MD ABS/MODL /[id number]
--- NOTE | 2019-09-10 19:27 | NUR ---
SPOKE TO DR. JOHNSON AT THIS TIME. NEW ORDERS RECEIVED FOR STAT D-DIMER AND ROUTINE BLE VENOUS DOPPLER. CHANGE VENOUS DOPPLER TO STAT IF D-DIMER IS ELEVATED.
--- NOTE | 2019-09-10 21:10 | NUR ---
INFORMED NURSING ASSEMBLY MACHINE TENDER AT THIS TIME REGARDING STAT VENOUS DOPPLER ORDER. PER ASSEMBLY MACHINE TENDER SHE WILL CALL IN DOPPLER TECH.
[2019-09-10] MEDS: ATORVASTATIN 40 MG TAB PO SCH (21:29)
--- NOTE | 2019-09-10 22:46 | NUR ---
INFORMED DR. ZAZUETA REGARDING VENOUS DOPPLER RESULT. NEW ORDER RECEIVED FOR STAT CT OF THE CHEST TO RULE OUT PULMONARY EMBOLISM.
[2019-09-10] MEDS ORDERED: SODIUM CHLORIDE 0.9% 50ML 50 ML ONE (23:24)
[2019-09-10] MEDS ORDERED: IOPAMIDOL 370 MG/ML 200 ML INFUS..BTL INJ ONE (23:24)
[2019-09-11] VITALS (8 sets, daily range): BP systolic 107–141; BP diastolic 50–67
--- NOTE | 2019-09-11 00:25 | Diagnostic Imaging Report ---
EXAM: CT Chest WITH contrast (PE Protocol) INDICATION: ^RULE OUT PULMONARY EMBOLISM ^[id number] ^[id number] COMPARISON: Same day chest x-ray TECHNIQUE: Chest was scanned utilizing a multidetector helical scanner from the lung apex through the level of the diaphragm after administration of IV contrast. Thin section reconstructions were obtained with special concentration on the pulmonary arteries. Coronal and sagittal reformations were obtained. Dose modulation, iterative reconstruction, and/or weight based adjustment of the mA/kV was utilized to reduce the radiation dose to as low as reasonably achievable. Pulmonary embolism protocol was performed. IV CONTRAST: 100 mL of Isovue-370 COMPLICATIONS: None RADIATION DOSE: Total DLP: 679.97 mGy*cm Estimated effective dose: (DLP x 0.014 x size factor) mSv CTDIvol has been reviewed. It is below the limits set by the Radiation Protocol Committee (RPC). FINDINGS: LINES/ TUBES: None. LUNGS AND AIRWAYS: Suboptimal opacification of the pulmonary arteries. No filling defect is identified within the pulmonary arteries to the lobar level. The lungs are unremarkable. Airways are normal. PLEURA: The pleural spaces are clear. HEART AND MEDIASTINUM: Questionable right hypodense thyroid nodule versus artifact. No mediastinal, hilar or axillary lymphadenopathy. The heart is normal in size.. There is no pericardial effusion. . Main pulmonary artery measures 3.8 cm in diameter, suggestive of pulmonary hypertension. UPPER ABDOMEN: Hepatic calcified granulomas. Cirrhotic changes of liver. Splenomegaly. Partially seen 3 cm calculus seen right renal pelvis. Recanalized umbilical vein and splenorenal shunts. Cholelithiasis. Partially seen left renal midpole hypodensity. BONES: Old fracture deformities of the posterior left seventh and eighth ribs. Degenerative changes of spine. SOFT TISSUES: Unremarkable. IMPRESSION: 1. Suboptimal opacification of the pulmonary arteries. Within this context, there is no central pulmonary embolism. Limited for evaluation of segmental and subsegmental branches. 2. No lung consolidation. 3. Dilated main pulmonary artery, suggestive of pulmonary hypertension. 4. Cirrhotic liver with signs of portal hypertension. 5. Right renal calculus. 6. Cholelithiasis without evidence of cholecystitis. Signed by: Dr. Max Hua MD on 09/11/2019 12:22 AM
[2019-09-11] MEDS: SODIUM CHLORIDE 0.9% 1000ML 1,000 ML IV SCH ×3 (01:40→21:39)
[2019-09-11 06:25] LABS: BASOPHILS % 0.7 % (0.0-1.0); EOSINOPHILS # (AUTO) 0.3 (0.0-0.4); EOSINOPHILS % 6.3 % (0.0-6.0); HEMATOCRIT 26.2 % (38.2-49.6); HEMOGLOBIN 9.4 g/dL (14.0-18.0); LYMPHOCYTES # (AUTO) 1.2 (1.0-3.2); LYMPHOCYTES % 25.9 % (18.0-39.1); MEAN CORPUSCULAR HEMOGLOBIN 34.3 pg (28-32); MEAN CORPUSCULAR HGB CONC 35.9 g/dL (31-35); MEAN CORPUSCULAR VOLUME 95.6 fL (81-99); MONOCYTES # (AUTO) 0.7 (0.2-0.8); NEUTROPHILS # (AUTO) 2.3 (2.1-6.9); NEUTROPHILS % 51.9 % (38.7-80.0); PLATELET COUNT 51 x10e3/uL (140-360); RED BLOOD COUNT 2.74 x10e6/uL (4.3-5.7); RED CELL DISTRIBUTION WIDTH 12.8 % (11.7-14.4)
[2019-09-11 06:44] LABS: INR 1.21; PROTHROMBIN TIME 15.9 seconds (11.9-14.5)
[2019-09-11 06:52] LABS: ALANINE AMINOTRANSFERASE 31 IU/L (0-55); ALBUMIN 2.3 g/dL (3.5-5.0); ALBUMIN/GLOBULIN RATIO 0.9 (0.8-2.0); ALKALINE PHOSPHATASE 74 IU/L (40-150); ANION GAP 8.7 mmol/L (8-16); BLOOD UREA NITROGEN 12 mg/dL (7-26); BUN/CREATININE RATIO 19 (6-25); CARBON DIOXIDE 25 mmol/L (22-29); CHLORIDE 104 mmol/L (98-107); CREATININE, SERUM 0.64 mg/dL (0.72-1.25); EST GLOMERULAR FILTRATION RATE > 60 ML/MIN (60-); GLUCOSE 138 mg/dL (74-118); POTASSIUM 3.7 mmol/L (3.5-5.1); SODIUM 134 mmol/L (136-145)
--- NOTE | 2019-09-11 06:53 | NUR ---
Received patient lying in bed. Respiration even and unlabored without SOB. Call light in reach.
[2019-09-11] MEDS: LISINOPRIL 10 MG TAB PO SCH (09:19)
[2019-09-11] MEDS: PANTOPRAZOLE SOD 40 MG TABEC PO SCH (09:19)
[2019-09-11] MEDS: CLOPIDOGREL BISULFATE 75 MG TAB PO SCH (09:19)
[2019-09-11] MEDS: ASPIRIN 81 MG CHEW TAB PO SCH (09:19)
[2019-09-11] MEDS: ENOXAPARIN INJ 80 MG/0.8 ML SYR SC SCH ×2 (09:21→21:39)
[2019-09-11] MEDS: METOPROLOL SUCCINATE 25 MG TAB XL PO SCH (09:21)
[2019-09-11] MEDS: CEFTRIAXONE SOD 1 GM/NS 50 ML 50 ML IV SCH (09:39)
[2019-09-11] MEDS: INSULIN LISPRO 100 UNIT/1 ML 3ML VIAL SQ SCH ×4 (09:42→21:39)
[2019-09-11 11:05] LABS: FERRITIN 198.61 ng/mL (21.81-274.66)
--- NOTE | 2019-09-11 11:37 | NUR ---
New 20G IV inserted to the left forearm
--- NOTE | 2019-09-11 14:47 | NUR ---
Nutrition Screen Note RD Recommendation for Physician: - Continue current diet Plan of Care: RD following, monitoring for tolerance and adequacy Nutrition reason for involvement: LOS Primary Diagnose(s): chest pain, nausea, armpit pain, gas PMH: DM, HTN, HLD Ht: 71 in Wt: 270 lb BMI: 37.7kg/m2 IBW: [address] Assessment: (09/11) 59 YOM admitted for chest pain, seen today for LOS. Pt discussed during am rounds. 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 Pt denies wt loss or GI distress. Pt reports DM controlled with diet and oral medication at home. Chart reviewed. Labs and meds reviewed. No questions or concerns at this time. Current Diet: Cardiac Malnutrition Evaluation (09/11/19) The patient does not meet criteria for a specified degree of malnutrition at this time. Will re-evaluate at follow-up as appropriate. Diet Education Needs Assessment: Diet education not indicated. Nutrition Care Level: Low Signed: Karina Mi RD, LD, [facility]
--- NOTE | 2019-09-11 15:03 | Consultation ---
DATE OF CONSULTATION: 09/11/2019 REASON FOR CONSULTATION: Thrombocytopenia and left lower extremity edema and thrombosis. HISTORY OF PRESENT ILLNESS: A 59-year-old gentleman with history of coronary artery disease, hypertension, hyperlipidemia, diabetes, and morbid obesity. He was recently hospitalized with non-ST elevation myocardial infarction. He was followed with talent buyer. He required a stent placement. He also has a history of chronic liver disease with portal hypertension and splenomegaly. He developed hematuria while in hospital. CAT scan shows 3 cm calculus in the right renal pelvic area. The patient had been followed with carpet cleaner, urologist, and talent buyer. He was on aspirin and Plavix. Hematuria partially improved. Recent blood work shows worsening anemia and thrombocytopenia. He also had left lower extremity swelling. Doppler prelim report shows stable thrombosis. CT angiography did not show any pulmonary embolism. The patient was not alcoholic. PAST MEDICAL HISTORY: Coronary artery disease, hypertension, hyperlipidemia, diabetes, morbid obesity, and history of alcoholic cirrhosis. ALLERGIES: NONE. FAMILY HISTORY: Noncontributory. SOCIAL HISTORY: No history of any alcohol . REVIEW OF SYSTEMS: A 12-point review as per HPI. PHYSICAL EXAMINATION: GENERAL: Alert, awake, and communicative. HEENT: Normocephalic. Conjunctivae clear. NECK: Supple. CHEST: Decreased breath sounds on bases. CARDIOVASCULAR: Regular rate and rhythm. ABDOMEN: Soft. EXTREMITIES: No edema. LABORATORY AND IMAGING DATA: Reviewed. ASSESSMENT AND PLAN: The patient with history of multiple medical conditions. I am currently involved with anemia. The patient with worsening anemia, possibly due to hematuria. Recent history of procedure. Complete the anemia evaluation. Further recommendation and treatment as per workup. Thrombocytopenia. Recent blood work shows persistent thrombocytopenia. The patient had CAT scan which is consistent with chronic liver disease with portal hypertension, likely responsible for current condition. The patient might have fatty liver responsible for chronic liver disease. No history of alcoholism. GI on the case. Avoid thrombocytopenic medication. Deep vein thrombosis, left lower extremity. . RECOMMENDATIONS: We will start the patient on anticoagulation. We will start the patient on Lovenox. We will anticoagulation after Urology procedure. We will monitor CPK. We will monitor platelet count. Non-ST elevation myocardial infarction. The patient is currently on aspirin and Plavix. We will continue Plavix. Hold and discontinue aspirin while he is on anticoagulation treatment. Kidney stone. The patient continue following urologist. The patient scheduled for procedure on Wednesday. We will follow. MD EDIL Gan/AGNES /[id number]
--- NOTE | 2019-09-11 18:00 | Progress Note ---
DATE: 09/11/2019 Cardiology Progress Note SUBJECTIVE: The patient is feeling well. Denies any chest pain, shortness of breath. OBJECTIVE: VITAL SIGNS: Temperature is 99.9, heart rate is 84, respirations are 18, blood pressure is 112/58, ox saturation 97% on 2 L nasal cannula. GENERAL: Well appearing, well built, no apparent distress. CARDIOVASCULAR: Regular rate and rhythm. LUNGS: Clear to auscultation. ABDOMEN: Soft, nontender, nondistended. EXTREMITIES: No edema. LABORATORY DATA: Reviewed. TELEMETRY: Monitoring revealed normal sinus rhythm with premature ventricular complex. IMPRESSION: 1. ST-elevation myocardial infarction, status post percutaneous coronary intervention to the right coronary artery. 2. Nephrolithiasis. 3. Hematuria. 4. Hydronephrosis. 5. Hypertension. 6. Diabetes mellitus. 7. Hyperlipidemia. RECOMMENDATIONS: Continue dual antiplatelet therapy with aspirin and Plavix. Continue all other current cardiovascular medications. Continue to monitor closely on telemetry. Urology workup ongoing. Gerald Goodwin DO BM/MODL /[id number]
--- NOTE | 2019-09-11 19:05 | NUR ---
Walking rounds and report received. Patient up in chair without any complaints voiced. Patient instructed to call for assistance as needed and verbalized understanding.
--- NOTE | 2019-09-11 19:22 | NUR ---
Report given to night nurse. respiration even and unlabored without SOB. Call light in reach.
[2019-09-11] MEDS: HYDROCODONE/APAP 5MG-325MG TAB PO PRN (19:34)
[2019-09-11] MEDS: ATORVASTATIN 40 MG TAB PO SCH (21:39)
[2019-09-12] VITALS (7 sets, daily range): BP systolic 101–136; BP diastolic 69–80
[2019-09-12 07:15] LABS: BASOPHILS % 0.6 % (0.0-1.0); EOSINOPHILS # (AUTO) 0.3 (0.0-0.4); EOSINOPHILS % 8.3 % (0.0-6.0); HEMATOCRIT 25.2 % (38.2-49.6); HEMOGLOBIN 8.8 g/dL (14.0-18.0); LYMPHOCYTES # (AUTO) 1.2 (1.0-3.2); LYMPHOCYTES % 35.1 % (18.0-39.1); MEAN CORPUSCULAR HEMOGLOBIN 34.6 pg (28-32); MEAN CORPUSCULAR HGB CONC 34.9 g/dL (31-35); MEAN CORPUSCULAR VOLUME 99.2 fL (81-99); MONOCYTES # (AUTO) 0.5 (0.2-0.8); MONOCYTES % 13.4 % (4.4-11.3); NEUTROPHILS # (AUTO) 1.5 (2.1-6.9); NEUTROPHILS % 42.3 % (38.7-80.0); RED BLOOD COUNT 2.54 x10e6/uL (4.3-5.7); RED CELL DISTRIBUTION WIDTH 12.7 % (11.7-14.4)
--- NOTE | 2019-09-12 07:22 | NUR ---
Walking rounds and report given. Call simpson within reach.
[2019-09-12] MEDS: INSULIN LISPRO 100 UNIT/1 ML 3ML VIAL SQ SCH ×4 (07:30→21:00)
[2019-09-12 07:34] LABS: PLATELET COUNT 46 x10e3/uL (140-360)
[2019-09-12 07:55] LABS: ANION GAP 10.8 mmol/L (8-16); BLOOD UREA NITROGEN 9 mg/dL (7-26); BUN/CREATININE RATIO 13 (6-25); CALCIUM 8.2 mg/dL (8.4-10.2); CARBON DIOXIDE 25 mmol/L (22-29); CHLORIDE 105 mmol/L (98-107); CREATININE, SERUM 0.68 mg/dL (0.72-1.25); EST GLOMERULAR FILTRATION RATE > 60 ML/MIN (60-); GLUCOSE 129 mg/dL (74-118); POTASSIUM 3.8 mmol/L (3.5-5.1); SODIUM 137 mmol/L (136-145)
[2019-09-12] MEDS: CEFTRIAXONE SOD 1 GM/NS 50 ML 50 ML IV SCH (08:52)
[2019-09-12] MEDS: PANTOPRAZOLE SOD 40 MG TABEC PO SCH (08:52)
[2019-09-12] MEDS: CLOPIDOGREL BISULFATE 75 MG TAB PO SCH (09:09)
[2019-09-12] MEDS: METOPROLOL SUCCINATE 25 MG TAB XL PO SCH (09:10)
[2019-09-12] MEDS: SODIUM CHLORIDE 0.9% 1000ML 1,000 ML IV SCH ×2 (09:10→16:16)
[2019-09-12] MEDS: ENOXAPARIN INJ 80 MG/0.8 ML SYR SC SCH (09:10)
[2019-09-12] MEDS: LISINOPRIL 10 MG TAB PO SCH (09:10)
--- NOTE | 2019-09-12 11:44 | Progress Note ---
DATE: 09/12/2019 SUBJECTIVE: The patient is seen and examined today. The patient appeared comfortable, clinically doing better. No chest pain or shortness of breath. OBJECTIVE: GENERAL: Alert, awake, and communicative. HEENT: Normocephalic, atraumatic. Sclerae are pink. Conjunctivae are clear. NECK: Supple. CHEST: Decreased breath sounds in the bases. ABDOMEN: Soft. EXTREMITIES: No edema. LABORATORY AND IMAGING: Reviewed. ASSESSMENT AND PLAN: The patient with history of multiple medical conditions, currently in the hospital with coronary artery disease, status post cardiac stent. The patient has had postprocedure deep venous thrombosis. He has a history of thrombocytopenia. Workup so far shows chronic liver disease. Current hemoglobin 8.8. Platelet count slightly dropped. RECOMMENDATION: 1. Follow Doppler report. 2. Continue Lovenox. 3. We will discuss with clinical research administrator about continue blood thinner include Eliquis and Plavix, and hold on aspirin. 4. The patient is high risk for any procedure. 5. Thrombocytopenia, likely etiology of chronic liver disease. 6. GI on the case. 7. Recommend to monitor current ferritin, level is pending, we will follow ferritin, might require . MD EDIL Gan/AGNES /[id number]
--- NOTE | 2019-09-12 12:30 | Progress Note ---
DATE: 09/13/2019 Cardiology Progress Note SUBJECTIVE: The patient is feeling well. Denies any chest pain or shortness of breath. OBJECTIVE: VITAL SIGNS: Temperature is 97.5, heart rate is 79, respirations are 19, blood pressure is 107/79, ox saturation is 98% on 2 L nasal cannula. GENERAL: Well appearing, no apparent distress. CARDIOVASCULAR: Regular rate and rhythm. LUNGS: Clear to auscultation. ABDOMEN: Soft, nontender, nondistended. EXTREMITIES: Trace edema. CARDIOVASCULAR MEDICATIONS: Reviewed. LABORATORY DATA: Reviewed. Hemoglobin is 8.8, platelets are 46, creatinine is 0.68. IMPRESSION: 1. ST-elevation myocardial infarction, status post percutaneous coronary intervention to the right coronary artery. 2. Nephrolithiasis. 3. Hematuria. 4. Hydronephrosis. 5. Hypertension. 6. Diabetes mellitus. 7. Hyperlipidemia. 8. Thrombocytopenia. 9. Liver disease. 10. Small deep venous thrombosis. RECOMMENDATIONS: Continue Plavix for his recent percutaneous coronary intervention. Continue all other current cardiovascular medications. His venous Doppler showed a very short small segment of his posterior tibial that possibly has a partial thrombosis. All large vessels were patent. May consider short course of anticoagulation. However, we need to monitor his platelets given significant bleeding risks. Continue his nephrolithiasis treatment per Urology. Gerald Goodwin DO BM/MODL /[id number]
--- NOTE | 2019-09-12 12:34 | NUR ---
call to Dr. Aguilar with result of doppler.
--- NOTE | 2019-09-12 12:36 | NUR ---
call to Dr. Juan Jacobs with results of doppler
--- NOTE | 2019-09-12 14:02 | NUR ---
irrigation done pt tolerated well
[2019-09-12] MEDS: RIVAROXABAN 10 MG TABLET PO SCH (16:16)
--- NOTE | 2019-09-12 18:45 | NUR ---
WALKING ROUNDS AND REPORT RECEIVED. PATIENT IS AWAKE, ALERT, AND ABLE TO MAKE NEEDS KNOWN. SPOUSE AT THE BEDSIDE. BOTH INSTRUCTED TO CALL FOR ASSISTANCE NEEDED AND VERBALIZED UNDERSTANDING. CALL ROSENTHAL WITHIN REACH.
--- NOTE | 2019-09-12 19:26 | NUR ---
report given to oncoming nurse. pt stable.
--- NOTE | 2019-09-12 19:27 | NUR ---
report given to oncoming nurse. pt stable.
[2019-09-12] MEDS: ATORVASTATIN 40 MG TAB PO SCH (21:35)
[2019-09-12] MEDS: B&O 60MG R/S 60 MG SUPP PR PRN (21:35)
[2019-09-13] VITALS (8 sets, daily range): BP systolic 105–130; BP diastolic 54–64
[2019-09-13] MEDS: SODIUM CHLORIDE 0.9% 1000ML 1,000 ML IV SCH ×2 (01:52→13:00)
--- NOTE | 2019-09-13 03:00 | NUR ---
Patient resting in bed in NAD. at bedside. Call simpson within reach.
[2019-09-13 06:16] LABS: BASOPHILS % 0.6 % (0.0-1.0); EOSINOPHILS # (AUTO) 0.2 (0.0-0.4); EOSINOPHILS % 6.7 % (0.0-6.0); HEMATOCRIT 23.4 % (38.2-49.6); HEMOGLOBIN 7.9 g/dL (14.0-18.0); LYMPHOCYTES # (AUTO) 1.4 (1.0-3.2); LYMPHOCYTES % 39.5 % (18.0-39.1); MEAN CORPUSCULAR HEMOGLOBIN 34.6 pg (28-32); MEAN CORPUSCULAR HGB CONC 33.8 g/dL (31-35); MEAN CORPUSCULAR VOLUME 102.6 fL (81-99); MONOCYTES # (AUTO) 0.4 (0.2-0.8); MONOCYTES % 12.8 % (4.4-11.3); NEUTROPHILS # (AUTO) 1.4 (2.1-6.9); NEUTROPHILS % 40.1 % (38.7-80.0); PLATELET COUNT 62 x10e3/uL (140-360); RED BLOOD COUNT 2.28 x10e6/uL (4.3-5.7); RED CELL DISTRIBUTION WIDTH 13.2 % (11.7-14.4)
[2019-09-13 06:24] LABS: ALANINE AMINOTRANSFERASE 27 IU/L (0-55); ALBUMIN 2.2 g/dL (3.5-5.0); ALBUMIN/GLOBULIN RATIO 0.8 (0.8-2.0); ALKALINE PHOSPHATASE 78 IU/L (40-150); ANION GAP 9.7 mmol/L (8-16); BLOOD UREA NITROGEN 8 mg/dL (7-26); BUN/CREATININE RATIO 12 (6-25); CALCIUM 8.1 mg/dL (8.4-10.2); CARBON DIOXIDE 25 mmol/L (22-29); CHLORIDE 105 mmol/L (98-107); CREATININE, SERUM 0.68 mg/dL (0.72-1.25); EST GLOMERULAR FILTRATION RATE > 60 ML/MIN (60-); GLUCOSE 141 mg/dL (74-118); POTASSIUM 3.7 mmol/L (3.5-5.1); SODIUM 136 mmol/L (136-145)
[2019-09-13] MEDS: CLOPIDOGREL BISULFATE 75 MG TAB PO SCH (08:06)
[2019-09-13] MEDS: CEFTRIAXONE SOD 1 GM/NS 50 ML 50 ML IV SCH (08:06)
[2019-09-13] MEDS: PANTOPRAZOLE SOD 40 MG TABEC PO SCH (08:06)
[2019-09-13] MEDS: METOPROLOL SUCCINATE 25 MG TAB XL PO SCH (08:07)
[2019-09-13] MEDS: RIVAROXABAN 10 MG TABLET PO SCH ×2 (08:07→17:20)
[2019-09-13] MEDS: INSULIN LISPRO 100 UNIT/1 ML 3ML VIAL SQ SCH ×4 (08:07→20:00)
[2019-09-13] MEDS ORDERED: SODIUM CHLORIDE 0.9% 250ML 250 ML IV ONE ×2 (08:45→14:00)
--- NOTE | 2019-09-13 08:48 | NUR ---
tele called pt running run of v tach check on pt. pt sitting up walking in room , checked leads pt is in no s/s of distress called tele again. pt is now running sr paged md gill to notify of run awaiting for call back
[2019-09-13] MEDS ORDERED: DEXAMETHASONE SOD PHOS 10 MG/1 ML VIAL IV SCH (09:00)
[2019-09-13] MEDS ORDERED: ACETAMINOPHEN 325 MG TAB PO SCH (09:00)
[2019-09-13] MEDS ORDERED: DIPHENHYDRAMINE HCL INJ 50 MG/ML VIAL IV SCH (09:00)
[2019-09-13] MEDS: LISINOPRIL 2.5 MG TAB PO SCH (09:00)
--- NOTE | 2019-09-13 09:26 | NUR ---
PT HAS SINGED CONSENT FOR BLOOD AT THIS TIME
[2019-09-13] MEDS ORDERED: ONDANSETRON HCL 4 MG ORAL DISINTEGRATING TAB PO PRN (10:30)
[2019-09-13] MEDS: B&O 60MG R/S 60 MG SUPP PR PRN ×2 (11:00→21:10)
--- NOTE | 2019-09-13 11:00 | NUR ---
MD MAYORGA REMOVED CURRENT DAVIS CATH, INSERTED NEW ONE AND STARTED CBI AT THIS TIME
--- NOTE | 2019-09-13 11:54 | Progress Note ---
DATE: 09/13/2019 SUBJECTIVE: The patient is seen and examined. The patient appeared comfortable, clinically doing better. No chest pain or shortness of breath. He has persistent hematuria. Hemoglobin trending down. OBJECTIVE: GENERAL: Alert, awake, and communicative. HEENT: Normocephalic, atraumatic. Slightly conjunctivae clear. NECK: Supple. CHEST: Decreased breath sounds in the bases. ABDOMEN: Soft. EXTREMITIES: No edema. LABORATORY AND IMAGING DATA: Reviewed. ASSESSMENT: The patient with history of multiple medical conditions includin. Nephrolithiasis. 2. Coronary artery disease. 3. Hypertension. 4. Diabetes. 5. Hyperlipidemia. 6. Liver disease. 7. A small deep vein thrombosis, status post recent cardiac intervention. The patient clinically doing okay. 8. The patient had persistent hematuria causing worsening anemia. RECOMMENDATIONS: 1. Blood transfusion. 2. The patient's Doppler report showed very small short segment blood clot involved posterior tibial. 3. It is partial thrombosis. 4. Recommendation at least short course of anticoagulation. Plan to anticoagulate for 6 weeks. 5. Monitor the remaining: a. Platelet counts are trending upward. b. Continue Plavix and Eliquis. c. We will follow the patient. MD EDIL Gan/AGNES /[id number]
[2019-09-13] MEDS ORDERED: DIPHENHYDRAMINE HCL INJ 50 MG/ML VIAL IV ONE (13:45)
[2019-09-13] MEDS ORDERED: SODIUM CHLORIDE 0.9% 250ML 500 ML ONE (13:51)
[2019-09-13] MEDS ORDERED: DEXAMETHASONE SOD PHOS 10 MG/1 ML VIAL IV ONE (14:00)
[2019-09-13] MEDS ORDERED: ACETAMINOPHEN 325 MG TAB PO ONE (14:00)
--- NOTE | 2019-09-13 19:22 | Progress Note ---
DATE: 09/13/2019 Cardiology Progress Note SUBJECTIVE: The patient felt fatigued and lethargic this morning. Denies any chest pain. OBJECTIVE: VITAL SIGNS: Temperature is 97.5, heart rate is 67, respirations are 16, blood pressure is 117/56, oxygen saturation 100% on room air. GENERAL: Well appearing, no apparent distress. Alert and oriented x3. CARDIOVASCULAR: Regular rate and rhythm. LUNGS: Clear to auscultation. ABDOMEN: Soft, nontender, nondistended. EXTREMITIES: No edema. LABORATORY DATA: Reviewed. Hemoglobin 7.9. Creatinine is 0.68. Platelets are 62. Telemetry monitoring revealed a short episode of nonsustained ventricular tachycardia. IMPRESSION: 1. ST-elevation myocardial infarction, status post percutaneous coronary intervention of the right coronary artery. 2. Nephrolithiasis. 3. Hematuria. 4. Hypertension. 5. Hyperlipidemia. 6. Diabetes mellitus. 7. Thrombocytopenia. 8. Liver disease. 9. Deep venous thrombosis in the posterior tibial vein. RECOMMENDATIONS: Continue Plavix for his recent percutaneous coronary intervention. Continue all the current cardiovascular medications. Venous Doppler showed a short small segment of his posterior tibial with partial thrombosis. Continue hematuria treatment per Urology. If needed, we may discontinue his anticoagulation given the extent of his thrombosis was trivial. We will continue to follow along with you. Gerald Goodwin DO BM/MODL /[id number]
--- NOTE | 2019-09-13 19:25 | NUR ---
SHIFT REPORT TAKEN FROM MORNING RN.PT IS LYEING IN THE BED.STABLE CONDITION.ASSESSMENT DONE.NO RESP.DISTRESS.FAMILY MEMBER AT BED SIDE.BED LOCKED AND IN LOWEST POSITION.PHONE AND CALL LIGHT WITHIN REACH.INSTRUCTED TO CALL FOR ASSISTANCE NEEDED.
[2019-09-13] MEDS ORDERED: SODIUM CHLORIDE 0.9% 50ML 50 ML ONE (19:38)
[2019-09-13] MEDS: ATORVASTATIN 40 MG TAB PO SCH (19:59)
--- NOTE | 2019-09-13 20:30 | NUR ---
BLOOD TRANSFUSION STARTED WITH VERIFICATION OF ANOTHER RN.V/S STABLE.BLOOD COLORED URINE DRAINING.ON CONTD.BLADDER IRRIGATION.
--- NOTE | 2019-09-13 23:30 | NUR ---
Blood transfusion completed.stable condition.
[2019-09-14] VITALS (8 sets, daily range): BP systolic 111–149; BP diastolic 53–79
[2019-09-14 06:38] LABS: HEMATOCRIT 24.6 % (38.2-49.6); HEMOGLOBIN 8.8 g/dL (14.0-18.0); LYMPHOCYTES # (AUTO) 0.6 (1.0-3.2); MEAN CORPUSCULAR HEMOGLOBIN 33.5 pg (28-32); MEAN CORPUSCULAR HGB CONC 35.8 g/dL (31-35); MEAN CORPUSCULAR VOLUME 93.5 fL (81-99); MONOCYTES # (AUTO) 0.3 (0.2-0.8); MONOCYTES % 7.1 % (4.4-11.3); NEUTROPHILS # (AUTO) 3.7 (2.1-6.9); PLATELET COUNT 72 x10e3/uL (140-360); RED BLOOD COUNT 2.63 x10e6/uL (4.3-5.7); RED CELL DISTRIBUTION WIDTH 14.6 % (11.7-14.4)
--- NOTE | 2019-09-14 06:50 | NUR ---
Bed side shift report given to oncoming Rn.stable condition.
[2019-09-14 07:09] LABS: BLOOD UREA NITROGEN 13 mg/dL (7-26); BUN/CREATININE RATIO 18 (6-25); CALCIUM 8.3 mg/dL (8.4-10.2); CARBON DIOXIDE 25 mmol/L (22-29); CHLORIDE 106 mmol/L (98-107); CREATININE, SERUM 0.71 mg/dL (0.72-1.25); EST GLOMERULAR FILTRATION RATE > 60 ML/MIN (60-); GLUCOSE 172 mg/dL (74-118); SODIUM 135 mmol/L (136-145)
[2019-09-14] MEDS: LISINOPRIL 2.5 MG TAB PO SCH (08:15)
[2019-09-14] MEDS: CLOPIDOGREL BISULFATE 75 MG TAB PO SCH (08:15)
[2019-09-14] MEDS: METOPROLOL SUCCINATE 25 MG TAB XL PO SCH (08:15)
[2019-09-14] MEDS: SODIUM CHLORIDE 0.9% 1000ML 1,000 ML IV SCH ×2 (08:15→22:07)
[2019-09-14] MEDS: PANTOPRAZOLE SOD 40 MG TABEC PO SCH (08:15)
[2019-09-14] MEDS: CEFTRIAXONE SOD 1 GM/NS 50 ML 50 ML IV SCH (08:15)
[2019-09-14] MEDS: RIVAROXABAN 10 MG TABLET PO SCH (08:15)
[2019-09-14] MEDS: INSULIN LISPRO 100 UNIT/1 ML 3ML VIAL SQ SCH ×4 (08:30→21:01)
--- NOTE | 2019-09-14 11:46 | Progress Note ---
DATE: 09/14/2019 SUBJECTIVE: The patient is seen and examined today. The patient appeared better. Clinical condition has improved. OBJECTIVE: GENERAL: Alert, awake, communicative. HEENT: Normocephalic, atraumatic. Sclerae are pink. Conjunctivae are clear. NECK: Supple. LUNGS: Clear to auscultation. ABDOMEN: Soft, nontender. EXTREMITIES: No edema. LABORATORY AND IMAGING DATA: Reviewed. ASSESSMENT AND PLAN: 1. The patient with history of coronary artery disease, status post stent, currently on Plavix. 2. New onset of left lower extremity deep vein thrombosis, was on low dose Xarelto, changed to the Eliquis. 3. The patient will benefit with short-term of anticoagulation treatment. 4. History of thrombocytopenia related with chronic liver disease, platelet counts are improving. Recommendation, close observation. Avoid thrombocytopenic medication. 5. Hematuria. 6. Urology is on the case. 7. Continue to follow their recommendations. 8. Anemia. 9. Acute blood loss. Hemoglobin stable. 10. Recommendation, treatment as outpatient. 11. We will continue remaining care. 12. We will follow. MD EDIL Gan/AGNES /[id number]
[2019-09-14] MEDS ORDERED: APIXABAN 5 MG TABLET PO SCH (17:00)
--- NOTE | 2019-09-14 17:13 | Progress Note ---
DATE: 09/14/2019 Cardiology Progress Note SUBJECTIVE: The patient is feeling well. Denies any chest pain or shortness of breath. OBJECTIVE: VITAL SIGNS: Temperature is 96.2, heart rate 74, respirations are 14, blood pressure is 121/67, and oxygen saturation 98% on room air. GENERAL: Well-appearing, in no apparent distress. CARDIOVASCULAR: Regular rate and rhythm. LUNGS: Clear to auscultation. ABDOMEN: Soft, nontender, and nondistended. EXTREMITIES: No clubbing, cyanosis, or edema. MEDICATIONS: Cardiovascular medications reviewed include: 1. Metoprolol succinate. 2. Clopidogrel. 3. Lisinopril. 4. Atorvastatin. 5. Eliquis. TELEMETRY: Monitoring revealed normal sinus rhythm. LABORATORY DATA: Reviewed hemoglobin 8.8, creatinine 0.7. IMPRESSION: 1. ST-elevation myocardial infarction, status post percutaneous coronary intervention of the right coronary artery. 2. Nephrolithiasis. 3. Hematuria. 4. Hypertension. 5. Hyperlipidemia. 6. Diabetes mellitus. 7. Thrombocytopenia. 8. Anemia. 9. Liver disease knee. 10. Deep venous thrombosis. RECOMMENDATIONS: Continue clopidogrel for his recent percutaneous coronary intervention. Continue titrated antihypertensives as needed and his current cardiovascular medications. Monitor on telemetry. The patient has continued hematuria. His venous Doppler showed a small short segment of the posterior tibial with partial thrombosis. Treatment of his hematuria per Urology. If needed, we may need to discontinue his anticoagulation given the extent of the thrombosis was not large in burden. Gerald Goodwin DO BM/MODL /[id number]
--- NOTE | 2019-09-14 19:00 | NUR ---
Bed side shift report received from morning rn.stable condition.
[2019-09-14] MEDS: ATORVASTATIN 40 MG TAB PO SCH (21:00)
--- NOTE | 2019-09-14 22:04 | NUR ---
Assessment done.no resp.distress.no pain voiced.bright colored urine draining.on contd.bladder irrigation.bed locked and in lowest position.phone and call light within reach.instructed to call for assistance as needed.
[2019-09-15] VITALS (8 sets, daily range): BP systolic 97–125; BP diastolic 53–70
[2019-09-15] MEDS: SODIUM CHLORIDE 0.9% 1000ML 1,000 ML IV SCH (06:01)
[2019-09-15 06:26] LABS: BASOPHILS % 0.3 % (0.0-1.0); EOSINOPHILS # (AUTO) 0.1 (0.0-0.4); EOSINOPHILS % 2.3 % (0.0-6.0); HEMATOCRIT 21.9 % (38.2-49.6); HEMOGLOBIN 7.7 g/dL (14.0-18.0); LYMPHOCYTES # (AUTO) 1.7 (1.0-3.2); LYMPHOCYTES % 27.2 % (18.0-39.1); MEAN CORPUSCULAR HEMOGLOBIN 33.8 pg (28-32); MEAN CORPUSCULAR HGB CONC 35.2 g/dL (31-35); MEAN CORPUSCULAR VOLUME 96.1 fL (81-99); MONOCYTES # (AUTO) 0.6 (0.2-0.8); MONOCYTES % 9.7 % (4.4-11.3); NEUTROPHILS # (AUTO) 3.7 (2.1-6.9); NEUTROPHILS % 59.8 % (38.7-80.0); PLATELET COUNT 80 x10e3/uL (140-360); RED BLOOD COUNT 2.28 x10e6/uL (4.3-5.7); RED CELL DISTRIBUTION WIDTH 15.8 % (11.7-14.4)
[2019-09-15 06:49] LABS: ALANINE AMINOTRANSFERASE 34 IU/L (0-55); ALBUMIN 2.1 g/dL (3.5-5.0); ALBUMIN/GLOBULIN RATIO 0.9 (0.8-2.0); ALKALINE PHOSPHATASE 75 IU/L (40-150); ANION GAP 8.9 mmol/L (8-16); BLOOD UREA NITROGEN 12 mg/dL (7-26); BUN/CREATININE RATIO 16 (6-25); CALCIUM 8.1 mg/dL (8.4-10.2); CARBON DIOXIDE 25 mmol/L (22-29); CHLORIDE 108 mmol/L (98-107); CREATININE, SERUM 0.74 mg/dL (0.72-1.25); EST GLOMERULAR FILTRATION RATE > 60 ML/MIN (60-); GLUCOSE 138 mg/dL (74-118); POTASSIUM 3.9 mmol/L (3.5-5.1); SODIUM 138 mmol/L (136-145)
--- NOTE | 2019-09-15 07:15 | NUR ---
Bed side shift report given to the oncoming Rn.stable condition.
[2019-09-15] MEDS: PANTOPRAZOLE SOD 40 MG TABEC PO SCH (07:30)
[2019-09-15] MEDS: INSULIN LISPRO 100 UNIT/1 ML 3ML VIAL SQ SCH ×4 (07:30→21:38)
--- NOTE | 2019-09-15 07:56 | NUR ---
Received patient, a/ox3, in bed, call light within reach, bed in low locked position, will monitor.
[2019-09-15] MEDS ORDERED: ACETAMINOPHEN 325 MG TAB PO STA (08:53)
[2019-09-15] MEDS ORDERED: DEXAMETHASONE SOD PHOS 10 MG/1 ML VIAL IV ONE (09:00)
[2019-09-15] MEDS ORDERED: SODIUM CHLORIDE 0.9% 250ML 250 ML IV ONE (09:00)
[2019-09-15] MEDS ORDERED: DIPHENHYDRAMINE HCL INJ 50 MG/ML VIAL IV ONE (09:00)
[2019-09-15] MEDS: APIXABAN 5 MG TABLET PO SCH ×2 (09:19→16:18)
[2019-09-15] MEDS: CLOPIDOGREL BISULFATE 75 MG TAB PO SCH (09:19)
[2019-09-15] MEDS: CEFTRIAXONE SOD 1 GM/NS 50 ML 50 ML IV SCH (09:19)
[2019-09-15] MEDS: LISINOPRIL 2.5 MG TAB PO SCH (09:19)
[2019-09-15] MEDS: METOPROLOL SUCCINATE 25 MG TAB XL PO SCH (09:19)
--- NOTE | 2019-09-15 09:35 | NUR ---
Rounds by Dr. Aguilar, orders for one more unit of blood, patient c/o being tired, Burnette in place draining hematuria, CBI ongoing, denies any pains, will monitor.
--- NOTE | 2019-09-15 12:29 | NUR ---
Patient started blood transfusion at this time, no reaction noted, VSS and no resp distress, no chest pains, pre-medicated as ordered, will monitor.
--- NOTE | 2019-09-15 15:35 | NUR ---
Patient completed blood transfusion x1 unit, no reaction noted, VSS and no c/o pains, will monitor.
--- NOTE | 2019-09-15 19:00 | NUR ---
RECEIVED PATIENT IN BEDSIDE REPORT. PATIENT SITTING IN CHAIR AT BEDSIDE. NO PAIN REPORTED. NO S&S OF DISTRESS NOTED. BED LOCKED IN LOWEST POSITION, SIDE RAILS UPX2, CALL LIGHT IN REACH.
[2019-09-15] MEDS: ATORVASTATIN 40 MG TAB PO SCH (21:19)
--- NOTE | 2019-09-15 23:16 | Progress Note ---
DATE: 09/15/2019 Cardiology Progress Note SUBJECTIVE: The patient denies chest pain or shortness of breath. He continues to have hematuria. OBJECTIVE: VITAL SIGNS: Temperature 96.8 degrees, pulse 68, respiratory rate 18, blood pressure 122/60, oxygen saturation 100% on room air. GENERAL: Awake and alert, in no acute distress. LUNGS: Clear to auscultation bilaterally. No wheezes or crackles. CARDIOVASCULAR: Normal rate, regular rhythm. No murmur. Normal S1 and S2. ABDOMEN: Soft, nontender. EXTREMITIES: No edema. CARDIAC MEDICATIONS: Atorvastatin 80 mg p.o. at bedtime, apixaban 2.5 p.o. b.i.d., lisinopril 2.5 mg p.o. daily, metoprolol succinate 12.5 mg p.o. daily, Plavix 75 mg p.o. daily. LABORATORY DATA: WBC 6.1, hemoglobin 7.7, hematocrit 21.9, and platelets 80. Sodium 138, potassium 3.9, chloride 108, CO2 of 25, BUN 12, creatinine 0.74. TELEMETRY: Normal sinus rhythm with PVCs. IMPRESSION: 1. Myocardial infarction, status post RCA PCI. 2. Nephrolithiasis. 3. Hematuria. 4. Hypertension. 5. Hyperlipidemia. 6. Diabetes mellitus. 7. Cytopenia. 8. Anemia. 9. Posterior tibial vein deep venous thrombosis. RECOMMENDATIONS: Continue current cardiac medications including Plavix given recent PCI. No aspirin given concomitant use of Eliquis. If necessary Eliquis can be stopped due to continued hematuria as DVT is not large or extensive. However, he would need to be placed back on aspirin at that point. Monitor the patient on telemetry. Blood pressure is well controlled. Thank you for this consult. We will continue to follow. Jenny Mederos MD ABS/MODL /[id number]
[2019-09-16] VITALS (7 sets, daily range): BP systolic 108–132; BP diastolic 56–65
[2019-09-16] MEDS: SODIUM CHLORIDE 0.9% 1000ML 1,000 ML IV SCH ×2 (02:40→13:27)
[2019-09-16 06:01] LABS: BASOPHILS % 0.2 % (0.0-1.0); HEMATOCRIT 24.2 % (38.2-49.6); HEMOGLOBIN 8.1 g/dL (14.0-18.0); LYMPHOCYTES # (AUTO) 0.9 (1.0-3.2); LYMPHOCYTES % 14.8 % (18.0-39.1); MEAN CORPUSCULAR HGB CONC 33.5 g/dL (31-35); MEAN CORPUSCULAR VOLUME 95.7 fL (81-99); MONOCYTES # (AUTO) 0.6 (0.2-0.8); MONOCYTES % 8.6 % (4.4-11.3); NEUTROPHILS # (AUTO) 4.8 (2.1-6.9); NEUTROPHILS % 75.5 % (38.7-80.0); PLATELET COUNT 77 x10e3/uL (140-360); RED BLOOD COUNT 2.53 x10e6/uL (4.3-5.7); RED CELL DISTRIBUTION WIDTH 16.2 % (11.7-14.4)
[2019-09-16 06:36] LABS: BLOOD UREA NITROGEN 13 mg/dL (7-26); BUN/CREATININE RATIO 19 (6-25); CALCIUM 7.5 mg/dL (8.4-10.2); CARBON DIOXIDE 23 mmol/L (22-29); CHLORIDE 108 mmol/L (98-107); CREATININE, SERUM 0.68 mg/dL (0.72-1.25); EST GLOMERULAR FILTRATION RATE > 60 ML/MIN (60-); GLUCOSE 173 mg/dL (74-118); SODIUM 136 mmol/L (136-145)
--- NOTE | 2019-09-16 07:14 | NUR ---
Received patient this morning, alert and in bed sleeping,rounds completed, no resp distress, will monitor.
[2019-09-16] MEDS: PANTOPRAZOLE SOD 40 MG TABEC PO SCH (07:30)
[2019-09-16] MEDS: INSULIN LISPRO 100 UNIT/1 ML 3ML VIAL SQ SCH ×4 (07:30→21:25)
[2019-09-16] MEDS: CEFTRIAXONE SOD 1 GM/NS 50 ML 50 ML IV SCH (08:15)
[2019-09-16] MEDS: APIXABAN 5 MG TABLET PO SCH (09:17)
[2019-09-16] MEDS: CLOPIDOGREL BISULFATE 75 MG TAB PO SCH (09:17)
[2019-09-16] MEDS: LISINOPRIL 2.5 MG TAB PO SCH (09:20)
[2019-09-16] MEDS: METOPROLOL SUCCINATE 25 MG TAB XL PO SCH (09:20)
--- NOTE | 2019-09-16 09:34 | NUR ---
Rounds by urology and wants patient to stay and monitor hematuria, cardiology rounded she was going to hold Eliquis temporarily till resolution of hematuria, will monitor.
--- NOTE | 2019-09-16 13:39 | Progress Note ---
DATE: 09/16/2019 Cardiology Progress Note SUBJECTIVE: The patient complains of ongoing hematuria despite irrigation. Denies any chest pain, shortness of breath, edema or palpitations. CARDIOVASCULAR MEDICATIONS: Lisinopril 2.5 mg p.o. daily, metoprolol succinate 12.5 mg p.o. daily, Plavix 75 mg p.o. daily, Eliquis 2.5 mg p.o. b.i.d., atorvastatin 80 mg p.o. at bedtime. LABORATORY DATA: WBC 6.37. Hemoglobin 8.1, hematocrit 24.2, platelets 77. Sodium 136, potassium 4.0. BUN 13, creatinine 0.68, GFR greater than 60. TELEMETRY: Normal sinus rhythm. OBJECTIVE: VITAL SIGNS: Temperature 96.9, pulse 73, respiratory rate 18, blood pressure 108/59, oxygen saturation 98% on room air. GENERAL: Alert and oriented x3. Resting comfortably in bed. Does not appear to be in any acute distress. NECK: Supple. No JVD noted. CARDIOVASCULAR: Regular rate and rhythm. Normal S1 and S2. No murmurs. No gallops. LUNGS: Clear to auscultation throughout. No wheezing. No rhonchi or crackles. ABDOMEN: Soft, nontender. EXTREMITIES: Lower extremities, no edema. 2+ pedal pulses. IMPRESSION: 1. Myocardial infarction, status post RCA PCI. 2. Nephrolithiasis. 3. Hematuria. 4. Hypertension. 5. Hyperlipidemia. 6. Diabetes mellitus. 7. Thrombocytopenia. 8. Anemia. 9. Posterior tibial vein deep venous thrombosis. RECOMMENDATION: Resume aspirin and continue Plavix given recent PCI. Discontinue Eliquis given hematuria as DVT is no larger extensive. We will monitor symptoms of the left lower extremity closely. May resume in a few days. Continue to monitor this patient on telemetry. Monitor blood pressure closely. We will continue to follow this patient very closely. Dictated by Meseret Overton NP MD VONDA Mota/AGNES /[id number]
--- NOTE | 2019-09-16 17:04 | NUR ---
Patient alert and responsive, no resp distress, OOB to chair most of the day, Burnette in place draining still with mild hematuria but much clearer, medicated with Lactulose due to no BM in 3 days, will monitor.
--- NOTE | 2019-09-16 19:00 | NUR ---
RECEIVED PATIENT IN BEDSIDE REPORT. PATIENT RESTING IN BED AT THIS TIME, NO PAIN REPORTED. NO S&S OF DISTRESS NOTED. DAVIS DRAINING TO GRAVITY, MILD HEMATURIA NOTED, CBI RUNNING. BED LOCKED IN LOWEST POSITION, SIDE RAILS UPX2, CALL LIGHT IN REACH.
--- NOTE | 2019-09-16 19:03 | NUR ---
Report given to on coming nurse, rounds completed and patient is stable.
[2019-09-16] MEDS: ATORVASTATIN 40 MG TAB PO SCH (21:13)
--- NOTE | 2019-09-16 21:33 | NUR ---
PATIENT REPORTS HE HAD A BM EARLIER THIS EVENING. REPORTS HE SAW NO BLOOD AND DID NOT STRAIN. REPORTS HE CONTINUES TO HAVE GAS. WILL CONTINUE TO MONITOR.
[2019-09-17] VITALS (8 sets, daily range): BP systolic 107–125; BP diastolic 57–69
[2019-09-17] MEDS: SODIUM CHLORIDE 0.9% 1000ML 1,000 ML IV SCH ×2 (06:13→22:19)
--- NOTE | 2019-09-17 07:25 | NUR ---
Received patient, a/ox3, no c/o pains, call light within reach and bed in low locked position, will monitor.
[2019-09-17] MEDS: INSULIN LISPRO 100 UNIT/1 ML 3ML VIAL SQ SCH ×4 (07:30→21:50)
[2019-09-17] MEDS: PANTOPRAZOLE SOD 40 MG TABEC PO SCH (07:30)
[2019-09-17] MEDS: CEFTRIAXONE SOD 1 GM/NS 50 ML 50 ML IV SCH (08:43)
[2019-09-17] MEDS: LISINOPRIL 2.5 MG TAB PO SCH (09:00)
[2019-09-17] MEDS: CLOPIDOGREL BISULFATE 75 MG TAB PO SCH (09:00)
[2019-09-17] MEDS: METOPROLOL SUCCINATE 25 MG TAB XL PO SCH (09:00)
[2019-09-17] MEDS ORDERED: ASPIRIN 325 MG TAB PO SCH (09:00)
--- NOTE | 2019-09-17 14:04 | Progress Note ---
DATE: 09/17/2019 Cardiology Progress Note SUBJECTIVE: The patient is without any new complaints this morning. He does report that his hematuria is resolving since he stopped his Eliquis yesterday. OBJECTIVE: VITAL SIGNS: Temperature 97, pulse 66, respiratory rate 18, blood pressure 125/60, and oxygen saturation 96% on room air. GENERAL: Alert and oriented x3, resting comfortably in chair. Does not appear to be in acute distress. NECK: Supple. No JVD noted. LUNGS: Clear to auscultation throughout. No wheezing. No rhonchi or crackles. CARDIOVASCULAR: Regular rate and rhythm. Normal S1 and S2. No murmurs. No gallops. ABDOMEN: Soft and nontender. EXTREMITIES: Lower extremity, no edema. 2+ pedal pulses. CARDIOVASCULAR MEDICATIONS: Aspirin 81 mg p.o. daily, lisinopril 2.5 mg p.o. daily, Plavix 75 p.o. daily, atorvastatin 80 p.o. at bedtime. LABORATORY DATA: No new labs today. TELEMETRY: Normal sinus rhythm. IMPRESSION: 1. Myocardial infarction, status post RCA PCI. 2. Nephrolithiasis. 3. Hematuria. 4. Hypertension. 5. Hyperlipidemia. 6. Diabetes mellitus. 7. Thrombocytopenia. 8. Anemia. 9. Posterior tibial vein deep venous thrombosis. RECOMMENDATIONS: Continue dual anti-platelet therapy given recent PCI. We have discontinued Eliquis at this time. Continue to monitor hematuria. DVT was noted to be not large or extensive. We will monitor left lower extremity for any symptoms. We will consider resuming Eliquis in a few days. Continue to monitor this patient on telemetry. Continue to monitor blood pressure closely. Dictated by Meseret Overton NP MD VONDA Mota/AGNES /[id number]
--- NOTE | 2019-09-17 18:49 | NUR ---
Patient alert and responsive, pains well controlled, no resp distress, call light within reach, report given to on coming nurse and rounds completed. Patient stable.
--- NOTE | 2019-09-17 19:00 | NUR ---
RECEIVED PATIENT IN BEDSIDE REPORT. PATIENT RESTING IN BED AT THIS TIME, NO PAIN REPORTED, NO S&S OF DISTRESS NOTED. URINE DRAINING TO GRAVITY, LIGHT AMOL IN COLOR, CBI RUNNING. BED LOCKED IN LOWEST POSITION, SIDE RAILS UPX2, CALL LIGHT IN REACH.
[2019-09-17] MEDS: ATORVASTATIN 40 MG TAB PO SCH (21:47)
[2019-09-18] VITALS (9 sets, daily range): BP systolic 107–132; BP diastolic 63–81
[2019-09-18 06:32] LABS: BASOPHILS % 0.2 % (0.0-1.0); EOSINOPHILS # (AUTO) 0.2 (0.0-0.4); EOSINOPHILS % 3.6 % (0.0-6.0); HEMATOCRIT 25.5 % (38.2-49.6); HEMOGLOBIN 8.6 g/dL (14.0-18.0); LYMPHOCYTES # (AUTO) 1.3 (1.0-3.2); MEAN CORPUSCULAR HEMOGLOBIN 33.2 pg (28-32); MEAN CORPUSCULAR HGB CONC 33.7 g/dL (31-35); MEAN CORPUSCULAR VOLUME 98.5 fL (81-99); MONOCYTES # (AUTO) 0.5 (0.2-0.8); MONOCYTES % 11.6 % (4.4-11.3); NEUTROPHILS # (AUTO) 2.4 (2.1-6.9); NEUTROPHILS % 54.1 % (38.7-80.0); PLATELET COUNT 68 x10e3/uL (140-360); RED BLOOD COUNT 2.59 x10e6/uL (4.3-5.7); RED CELL DISTRIBUTION WIDTH 17.2 % (11.7-14.4)
--- NOTE | 2019-09-18 06:50 | NUR ---
Received patient lying in bed with eyes open. Respiration even and unlabored without SOB. Call light in reach.
[2019-09-18 07:00] LABS: ALANINE AMINOTRANSFERASE 49 IU/L (0-55); ALBUMIN 2.2 g/dL (3.5-5.0); ALBUMIN/GLOBULIN RATIO 0.9 (0.8-2.0); ALKALINE PHOSPHATASE 102 IU/L (40-150); ANION GAP 8.4 mmol/L (8-16); BLOOD UREA NITROGEN 8 mg/dL (7-26); BUN/CREATININE RATIO 13 (6-25); CALCIUM 7.6 mg/dL (8.4-10.2); CARBON DIOXIDE 23 mmol/L (22-29); CHLORIDE 108 mmol/L (98-107); CREATININE, SERUM 0.63 mg/dL (0.72-1.25); EST GLOMERULAR FILTRATION RATE > 60 ML/MIN (60-); GLUCOSE 134 mg/dL (74-118); POTASSIUM 3.4 mmol/L (3.5-5.1); SODIUM 136 mmol/L (136-145)
[2019-09-18] MEDS: INSULIN LISPRO 100 UNIT/1 ML 3ML VIAL SQ SCH ×4 (08:18→20:59)
[2019-09-18] MEDS: PANTOPRAZOLE SOD 40 MG TABEC PO SCH (08:22)
[2019-09-18] MEDS: CLOPIDOGREL BISULFATE 75 MG TAB PO SCH (08:22)
[2019-09-18] MEDS: LISINOPRIL 2.5 MG TAB PO SCH (08:23)
[2019-09-18] MEDS: METOPROLOL SUCCINATE 25 MG TAB XL PO SCH (08:24)
[2019-09-18] MEDS: ASPIRIN 81 MG CHEW TAB PO SCH (08:26)
[2019-09-18] MEDS: SODIUM CHLORIDE 0.9% 1000ML 1,000 ML IV SCH ×2 (10:44→11:23)
[2019-09-18] MEDS ORDERED: POTASSIUM CHLORIDE 10MEQ EA PO ONE (15:30)
--- NOTE | 2019-09-18 17:13 | NUR ---
Nutrition Screen Note RD Recommendation for Physician: - Continue current diet Plan of Care: RD following, monitoring for tolerance and adequacy Nutrition reason for involvement: follow up Primary Diagnose(s): chest pain, nausea, armpit pain, gas PMH: DM, HTN, HLD Ht: 71 in Wt: 270 lb BMI: 37.7kg/m2 IBW: [address] Assessment: 09/18: Follow up. Pt ambulating at time of visit, reports good appetite and po intake. Noted 75-100% intake per chart. Pt denies GI distress. No questions or concerns at time of visit. Labs and meds reviewed. Will monitor and continue to follow. (09/11) 59 YOM admitted for chest pain, seen today for LOS. Pt discussed during am rounds. 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 Pt denies wt loss or GI distress. Pt reports DM controlled with diet and oral medication at home. Chart reviewed. Labs and meds reviewed. No questions or concerns at this time. Current Diet: Cardiac Malnutrition Evaluation (09/11/19) The patient does not meet criteria for a specified degree of malnutrition at this time. Will re-evaluate at follow-up as appropriate. Diet Education Needs Assessment: Diet education not indicated. Nutrition Care Level: Low Signed: Karina Mi RD, LD, [facility]
--- NOTE | 2019-09-18 19:20 | NUR ---
Report given to night club manager. respiration even and unlabored without SOB. Call light in reach.
--- NOTE | 2019-09-18 19:22 | NUR ---
PT IS RESTING IN BED. RESPIRATION IS EVEN AND UNLABORED, NO DISTRESS NOTED. BED IN THE LOWEST POSITION, LOCKED, AND CALL LIGHT WITHIN REACH. WILL CONTINUE TO MONITOR.
--- NOTE | 2019-09-18 20:08 | Progress Note ---
DATE: 09/18/2019 SUBJECTIVE: The patient is seen and examined today. The patient appeared comfortable, clinically doing better. Persistent hematuria. Platelet count also slightly trending down. Hemoglobin stable. OBJECTIVE: GENERAL: Alert, awake, and communicative. HEENT: Normocephalic, atraumatic. Sclerae pale. Conjunctivae clear. NECK: Supple. CHEST: Decreased breath sounds in the bases. ABDOMEN: Soft. EXTREMITIES: No edema. LABORATORY AND IMAGING DATA: Reviewed. ASSESSMENT AND PLAN: The patient with history of multiple medical conditions. I am currently following for : 1. Symptomatic anemia related with hematuria, required blood transfusion. Hemoglobin stable. Recommendation, close observation. 2. Thrombocytopenia related with chronic liver disease. Monitor platelet count very closely. 3. Partial deep vein thrombosis, currently on low-dose of anticoagulation. Recommendation, continue currently. 4. Hematuria. Following urologist. We will follow their recommendation. We will follow the patient. MD EDIL Gan/AGNES /[id number]
[2019-09-18] MEDS: ATORVASTATIN 40 MG TAB PO SCH (20:58)
--- NOTE | 2019-09-18 21:03 | Progress Note ---
DATE: 09/18/2019 Cardiology Progress Note SUBJECTIVE: The patient denies chest pain or shortness of breath. OBJECTIVE: VITAL SIGNS: Temperature 97.3 degrees, pulse 76, respiratory rate 18, blood pressure 120/66, oxygen saturation 100% on room air. GENERAL: Awake, alert, no acute distress. LUNGS: Clear to auscultation bilaterally. No wheezes or crackles. CARDIOVASCULAR: Normal rate, regular rhythm. No murmur. Normal S1, S2. ABDOMEN: Soft and nontender. EXTREMITIES: No edema. GENITOURINARY: Continues to have faint hematuria. CARDIAC MEDICATIONS: 1. Aspirin 81 mg p.o. daily. 2. Metoprolol succinate 12.5 mg p.o. daily. 3. Lisinopril 2.5 mg p.o. daily. 4. Plavix 75 mg p.o. daily. 5. Atorvastatin 80 mg p.o. q.h.s. LABORATORY DATA: WBC 4.4, hemoglobin 8.6, hematocrit 25.5, platelets 68. Sodium 136, potassium 3.4, chloride 108, CO2 of 23, BUN 8, and creatinine 0.63. TELEMETRY: Normal sinus rhythm. IMPRESSION: 1. Mild acute ST-elevation myocardial function, status post right coronary artery percutaneous coronary intervention. 2. Nephrolithiasis. 3. Hematuria. 4. Hypertension. 5. Hyperlipidemia. 6. Diabetes mellitus. 7. Thrombocytopenia. 8. Anemia. 9. Posterior tibial vein deep venous thrombosis. 10. Liver disease. RECOMMENDATIONS: Continue aspirin and Plavix given very recent stent as the posterior vein thrombus was not large or extensive. Eliquis has been stopped due to continued hematuria. Monitor the patient closely on telemetry, monitor for symptoms. Continue current cardiac medications. Resume Eliquis once hematuria has resolved. Thank you for this consult. We will continue to follow. Jenny Mederos MD ABS/MODL /[id number]
[2019-09-19] MEDS: SODIUM CHLORIDE 0.9% 1000ML 1,000 ML IV SCH (01:19)
--- NOTE | 2019-09-19 03:49 | Progress Note ---
DATE: 09/15/2019 SUBJECTIVE: The patient is seen and examined today. The patient appeared lethargic. Still has hematuria. Hemoglobin dropped to 7.7. PHYSICAL EXAMINATION: GENERAL: Alert, awake, communicative. HEENT: Normocephalic and atraumatic. Sclerae pale. Conjunctivae clear. NECK: Supple. CHEST: Decreased breath sounds at the bases. ABDOMEN: Soft, nontender. EXTREMITIES: No clubbing, cyanosis, or edema. LABORATORY AND IMAGING DATA: Reviewed. ASSESSMENT AND PLAN: The patient with history of multiple medical condition. 1. Thrombocytopenia. 2. Workup is consistent with chronic liver disease. 3. Platelet counts are trending upward. We will follow. 4. Acute partial DVT. 5. The patient currently on 5 mg of Eliquis. 6. He has persistent hematuria. RECOMMENDATIONS: 1. Reduced dose 2.5 mg twice a day. 2. Anemia. 3. Related with hematuria. 4. Recommendation blood transfusion. 5. We will monitor the patient. 6. Coronary artery disease. 7. The patient currently on Plavix and Eliquis. We will follow. MD EDIL Gan/AGNES /[id number]
[2019-09-19 04:00] VITALS: BP 123/72
[2019-09-19 06:45] LABS: BASOPHILS % 0.5 % (0.0-1.0); EOSINOPHILS # (AUTO) 0.2 (0.0-0.4); EOSINOPHILS % 4.3 % (0.0-6.0); HEMATOCRIT 25.1 % (38.2-49.6); HEMOGLOBIN 8.4 g/dL (14.0-18.0); LYMPHOCYTES # (AUTO) 1.1 (1.0-3.2); LYMPHOCYTES % 30.1 % (18.0-39.1); MEAN CORPUSCULAR HEMOGLOBIN 33.2 pg (28-32); MEAN CORPUSCULAR HGB CONC 33.5 g/dL (31-35); MEAN CORPUSCULAR VOLUME 99.2 fL (81-99); MONOCYTES # (AUTO) 0.4 (0.2-0.8); MONOCYTES % 11.2 % (4.4-11.3); NEUTROPHILS % 53.6 % (38.7-80.0); PLATELET COUNT 69 x10e3/uL (140-360); RED BLOOD COUNT 2.53 x10e6/uL (4.3-5.7); RED CELL DISTRIBUTION WIDTH 17.2 % (11.7-14.4)
--- NOTE | 2019-09-19 06:58 | NUR ---
Received patient lying in bed with eyes open. Respiration even and unlabored without SOB. Burnette catheter in placed draining dark jorge colored urine to bag. Call light in reach.
[2019-09-19 07:08] LABS: ANION GAP 8.7 mmol/L (8-16); BLOOD UREA NITROGEN 7 mg/dL (7-26); BUN/CREATININE RATIO 11 (6-25); CALCIUM 7.7 mg/dL (8.4-10.2); CARBON DIOXIDE 24 mmol/L (22-29); CHLORIDE 107 mmol/L (98-107); CREATININE, SERUM 0.64 mg/dL (0.72-1.25); EST GLOMERULAR FILTRATION RATE > 60 ML/MIN (60-); GLUCOSE 119 mg/dL (74-118); MAGNESIUM 1.6 MG/DL (1.3-2.1); POTASSIUM 3.7 mmol/L (3.5-5.1); SODIUM 136 mmol/L (136-145)
[2019-09-19 08:02] VITALS: BP 119/75
[2019-09-19 08:03] LABS: ALPHA-1-ANTITRYPSIN 129
[2019-09-19] MEDS: ASPIRIN 81 MG CHEW TAB PO SCH (08:15)
[2019-09-19] MEDS: PANTOPRAZOLE SOD 40 MG TABEC PO SCH (08:15)
[2019-09-19] MEDS: LISINOPRIL 2.5 MG TAB PO SCH (08:15)
[2019-09-19] MEDS: CLOPIDOGREL BISULFATE 75 MG TAB PO SCH (08:15)
[2019-09-19] MEDS: METOPROLOL SUCCINATE 25 MG TAB XL PO SCH (08:16)
[2019-09-19] MEDS: INSULIN LISPRO 100 UNIT/1 ML 3ML VIAL SQ SCH ×3 (08:16→17:52)
--- NOTE | 2019-09-19 09:08 | NUR ---
Removed indwelling adames catheter as ordered, catheter intact, straw colored urine noted draining to bag. Respiration even nd unlabored without SOB.
[2019-09-19 09:27] VITALS: BP 119/75
[2019-09-19] MEDS ORDERED: FINASTERIDE 5 MG TAB PO SCH (09:30)
[2019-09-19 11:41] VITALS: BP 146/86
--- NOTE | 2019-09-19 13:20 | NUR ---
Patient voided and collected the first serial urine at this time.
[2019-09-19 16:24] VITALS: BP 121/70
--- NOTE | 2019-09-19 16:25 | NUR ---
Patient has voided 4 serial urines. Patient has had no complications. Urine noted to improve in color. No clots noted. Call being placed to dr. booker for clearance
--- NOTE | 2019-09-19 16:35 | NUR ---
Spoke with Dr. March and elizabeht to discharge home and follow up in a few weeks
[2019-09-19] MEDS ORDERED: LIPITOR20 MG PO (16:45)
[2019-09-19] MEDS ORDERED: PANTOPRAZOLE SO40 MG PO (16:46)
[2019-09-19] MEDS ORDERED: TOPROL XL25 MG PO (16:46)
[2019-09-19] MEDS ORDERED: LISINOPRIL2.5 MG PO (16:46)
[2019-09-19] MEDS ORDERED: PLAVIX75 MG PO (16:46)
[2019-09-19] MEDS ORDERED: ASPIR 8181 MG PO (16:47)
[2019-09-19] MEDS ORDERED: FLOMAX0.4 MG PO (16:55)
[2019-09-19] MEDS ORDERED: PROSCAR5 MG PO (16:55)
--- NOTE | 2019-09-19 17:53 | NUR ---
PIV to left FA discontinued, catheter intact, no bleeding noted. Respiration even and unlabored.
--- NOTE | 2019-09-19 18:03 | Progress Note ---
DATE: 09/19/2019 Cardiology Progress Note SUBJECTIVE: The patient denies chest pain or shortness of breath. OBJECTIVE: VITAL SIGNS: Temperature 97.1 degrees, pulse 70, respiratory rate 18, blood pressure 119/75, oxygen saturation 98% on room air. GENERAL: Awake, alert, in no acute distress. LUNGS: Clear to auscultation bilaterally. No wheezes or crackles. CARDIOVASCULAR: Normal rate. Regular rhythm. No murmur. Normal S1, S2. ABDOMEN: Soft, nontender. EXTREMITIES: No edema. Burnette removed. CARDIAC MEDICATIONS: 1. Metoprolol succinate 12.5 mg p.o. daily. 2. Aspirin 81 mg p.o. daily. 3. Plavix 75 mg p.o. daily. 4. Atorvastatin 80 mg p.o. at bedtime. LABORATORY DATA: WBC 3.76, hemoglobin 8.4, hematocrit 25.1, platelets 69. Sodium 136, potassium 3.7, chloride 107, CO2 of 24, BUN 7, and creatinine 0.64. TELEMETRY: Normal sinus rhythm. IMPRESSION: 1. Acute ST-elevation myocardial infarction, status post RCA PCI. 2. Posterior tibial vein deep venous thrombosis. 3. Hematuria. 4. Hypertension. 5. Hyperlipidemia. 6. Diabetes mellitus. 7. Anemia. 8. Thrombocytopenia. 9. Liver disease. 10. Nephrolithiasis. RECOMMENDATIONS: Continue aspirin and Plavix given very recent stent. No anticoagulation at this time given thrombocytopenia and small size of the posterior tibial vein DVT and continued hematuria. Monitor patient closely on telemetry. Continue current cardiac medications. If platelets improved and hematuria resolves, we will discuss resuming Eliquis. Continue supportive care. Monitor for symptoms. Thank you for this consult. We will continue to follow. Jenny Mederos MD ABS/MODL /[id number]
[2019-09-19] MEDS: ATORVASTATIN 40 MG TAB PO SCH (18:24)
--- NOTE | 2019-09-19 18:29 | Progress Note ---
DATE: 09/19/2019 SUBJECTIVE: The patient is seen and examined today. The patient appeared comfortable, clinically doing better. No chest pain or shortness of breath. Catheter was discontinued. OBJECTIVE: GENERAL: Alert, awake, communicative. HEENT: Normocephalic, atraumatic. Sclerae pink. Conjunctivae clear. NECK: Supple. CHEST: Decreased breath sounds in the bases. ABDOMEN: Soft. EXTREMITIES: No edema. LABORATORY AND IMAGING DATA: Reviewed. ASSESSMENT AND PLAN: The patient with history of multiple medical conditions including anemia requiring blood transfusion. Clinically doing better. Hemoglobin is stable. Thrombocytopenia related to his chronic liver disease. Platelet count low, but stable. Continue current care. Partial DVT. Currently on low dose of Eliquis. Tolerating very well. Continue current care. We will monitor the patient very closely. MD EDIL Gan/AGNES /[id number]
--- NOTE | 2019-09-19 18:30 | NUR ---
Patient discharged from facility to home. Patient assisted out via staff. Reviewed all discharge paperwork, follow up appts, and RX's given. Reviewed all detailed instructions. No questions or concerns at this time.
[2019-09-19] MEDS ORDERED: TAMSULOSIN HCL 0.4 MG CAP PO SCH (21:00)
--- NOTE | 2019-10-09 17:12 | Discharge Summary ---
DISCHARGE DIAGNOSES: 1. Acute inferior ST-elevation myocardial infarction, status post stent placement with distal right coronary artery. 2. Hematuria due to renal stones. 3. Heparin-induced thrombocytopenia. 4. Cirrhosis of the liver. DISCHARGE CONDITION: Stable. DISCHARGE INSTRUCTIONS: Follow up with primary care physician and Cardiology within 2 weeks off discharge. DISCHARGE MEDICATIONS: Please see MAR. HOSPITAL COURSE: Mr. Niño was admitted with acute inferior ST-elevation myocardial infarction. He underwent intervention to his distal right coronary artery with stent placement. He did well. However, post procedure, he had persistent hematuria for which his anticoagulants needed to undergo cessation. He was seen by Dr. March, Dr. Jamal Jacobs provide primary care and medical management. Overall, he remained chest free during the admission. He did have a DVT for which his anticoagulation was restarted at the time of discharge. His creatinine was 0.6, hemoglobin 8.4. MD ARETHA Mota/AGNES /[id number]
== END 2019-09-19 18:30 | disposition home or self-care (01) | DRG 247 ==
LOC: ER 16:35 → OR 17:48 → ICU 17:49 → MED/SURG 09-06 16:05
PROVIDERS: ADMIT Internal Medicine; ATTEND Internal Medicine
PROC: 027034Z Dilation of Coronary Artery, One Artery with Drug-eluting Intraluminal Device, Percutaneous Approach (ICD-10-PCS; principal; 2019-09-05)
PROC: 4A023N7 Measurement of Cardiac Sampling and Pressure, Left Heart, Percutaneous Approach (ICD-10-PCS; 2019-09-05)
PROC: B2111ZZ Fluoroscopy of Multiple Coronary Arteries using Low Osmolar Contrast (ICD-10-PCS; 2019-09-05)
PROC: B2151ZZ Fluoroscopy of Left Heart using Low Osmolar Contrast (ICD-10-PCS; 2019-09-05)
PROC: 02C03ZZ Extirpation of Matter from Coronary Artery, One Artery, Percutaneous Approach (ICD-10-PCS; 2019-09-05)
PROC: 0TCB8ZZ Extirpation of Matter from Bladder, Via Natural or Artificial Opening Endoscopic (ICD-10-PCS; 2019-09-08)
PROC: BT141ZZ Fluoroscopy of Kidneys, Ureters and Bladder using Low Osmolar Contrast (ICD-10-PCS; 2019-09-08)
PROC: 30233N1 Transfusion of Nonautologous Red Blood Cells into Peripheral Vein, Percutaneous Approach (ICD-10-PCS; 2019-09-13)
DX: I21.19 ST elevation (STEMI) myocardial infarction involving other coronary artery of inferior wall (principal); N13.2 Hydronephrosis with renal and ureteral calculous obstruction; I82.442 Acute embolism and thrombosis of left tibial vein; Z68.42 Body mass index [BMI] 45.0-49.9, adult; E87.1 Hypo-osmolality and hyponatremia; K76.6 Portal hypertension; D62 Acute posthemorrhagic anemia; I10 Essential (primary) hypertension; E11.9 Type 2 diabetes mellitus without complications; E78.5 Hyperlipidemia, unspecified; D69.6 Thrombocytopenia, unspecified; R31.0 Gross hematuria; N21.0 Calculus in bladder; N40.0 Benign prostatic hyperplasia without lower urinary tract symptoms; E66.01 Morbid (severe) obesity due to excess calories; Z82.49 Family history of ischemic heart disease and other diseases of the circulatory system; Z91.14 Patient's other noncompliance with medication regimen; Z87.442 Personal history of urinary calculi; R80.9 Proteinuria, unspecified; N28.1 Cyst of kidney, acquired; R81 Glycosuria; D72.819 Decreased white blood cell count, unspecified; K74.60 Unspecified cirrhosis of liver; K75.89 Other specified inflammatory liver diseases; K52.9 Noninfective gastroenteritis and colitis, unspecified
CPT/HCPCS: 36415; 71045; 71260; 74176; 74430; 76700; 80048; 80053; 80061; 81001; 82103; 82140; 82150; 82390; 82550; 82553; 82607; 82728; 82948; 82977; 83036; 83540; 83615; 83690; 83735; 83880; 84466; 84484; 85025; 85379; 85610; 85730; 86022; 86039; 86255; 86850; 86900; 86920; 87086; 88300; 92928; 92973; 93005; 93306; 93970; 96361; 99152; 99153; 99284; C1725; C1757; C1758; C1769; C1874; J0696; J1100; J1170; J1200; J1327; J1650; J2001; J2250; J2405; J3010; J7030; J7050; P9016; Q9967

== ENCOUNTER → 2019-10-13 | Outpatient (CLI) | payer OTHER ==
[~2019-10-13] MED LIST: ASPIR 8181 MG PO; FLOMAX0.4 MG PO; LIPITOR20 MG PO; LISINOPRIL10 MG PO; LISINOPRIL2.5 MG PO; METFORMIN HCL500 M2 PO; PANTOPRAZOLE SO40 MG PO; PLAVIX75 MG PO; PROSCAR5 MG PO; TOPROL XL25 MG PO
--- NOTE | 2019-10-13 12:07 | Diagnostic Imaging Report ---
Radiographs of the right shoulder - 2 views HISTORY: Pain COMPARISON: None available. FINDINGS: Bones: No acute displaced fracture. Osseous alignment is within normal limits. Joints: Scattered degenerative change. No osseous erosion. Soft tissues: The soft tissues appear unremarkable. IMPRESSION: Scattered degenerative change. No osseous erosion Signed by: Dr. Carlos Hargrove M.D. on 10/13/2019 12:04 PM
== END ==
LOC: RAD 11:42
PROVIDERS: ATTEND Internal Medicine
DX: M25.511 Pain in right shoulder (principal)

== ENCOUNTER → 2019-10-23 | Outpatient (CLI) | payer OTHER ==
--- NOTE | 2019-10-24 09:41 | Diagnostic Imaging Report ---
TECHNIQUE: Magnetic resonance imaging of the RIGHT SHOULDER was performed WITHOUT injected contrast. COMPARISON: None available. HISTORY: Pain FINDINGS: MUSCLES AND TENDONS: Rotator Cuff: Tendons: Rotator cuff tendinosis with full-thickness tear of the anterior supraspinatus tendon measuring approximately 1 cm in AP dimension with posterior propagation as a partial-thickness articular sided tear into the posterior supraspinatus. Tendon retraction up to 1 cm. Subscapularis partial-thickness tearing. Muscles: No focal muscle atrophy. Biceps Tendon: The long head of the biceps tendon is torn and retracted GLENOHUMERAL JOINT: Joint effusion Glenoid Labrum: Superior labral tearing. Articular Cartilage: Partial-thickness cartilage loss AC JOINT AND ACROMION: Moderate hypertrophic degenerative changes of the acromioclavicular joint. Subacromial spurring BONE: Bone marrow edema within the humeral head No acute fracture. SOFT TISSUES: Otherwise, the soft tissues appear unremarkable. IMPRESSION: Supraspinatus full-thickness tear to the anterior fibers with underlying rotator cuff tendinosis. Mild retraction without atrophy. Subscapularis partial-thickness tearing and long head biceps tendon complete tear with retraction. 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 Signed by: Dr. Dillon Yarbrough M.D. on 10/24/2019 9:38 AM
== END ==
LOC: MRI 15:56
PROVIDERS: ATTEND Specialist
DX: M75.121 Complete rotator cuff tear or rupture of right shoulder, not specified as traumatic (principal)

== ENCOUNTER 2020-01-19 09:00 | Outpatient (RCR) | payer OTHER | END 2020-01-20 | LOC: PT 09:00 | PROVIDERS: ATTEND Specialist | DX: M75.01 Adhesive capsulitis of right shoulder (principal); M75.101 Unspecified rotator cuff tear or rupture of right shoulder, not specified as traumatic | CPT/HCPCS: 97139 ==

== ENCOUNTER 2020-01-31 09:00 | Outpatient (RCR) | payer OTHER | END 2020-02-20 | LOC: PT 09:00 | PROVIDERS: ATTEND Specialist | DX: M75.101 Unspecified rotator cuff tear or rupture of right shoulder, not specified as traumatic (principal); M75.01 Adhesive capsulitis of right shoulder | CPT/HCPCS: 97139 ==

== ENCOUNTER 2020-04-30 19:42 | Inpatient (IN) | payer OTHER ==
[~2020-04-30] VITALS: Ht 180.3 cm; Wt 117.9 kg
--- OUTSIDE RECORDS SUMMARY | 2020-04-30 19:47 | XMS REPORT | Continuity of Care Document ---
Author Author [facility] Organization [facility] Address 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 Name Role Phone SERJIO FRANCISCO PCP Sylwia GRAY Attphys Unavailable BANUELOSNAVIN Attphys Unavailable JACOBS, DILIPKRAMON Attphys Unavailable JACOBS, DILIPKUMAR Admphys Unavailable Payers Payer Name Policy Type Policy Number Effective Date Expiration Date Sylwia l[facility] Ppo [id number] [facility] Problems Condition Name Condition Details Condition Category Status Onset Date Resolution Date Last Treatment Date Treating Clinician Comments Source ST elevation myocardial infarction (STEMI) STEMI (ST e levation myocardial infarction) Problem Active [facility] Allergies, Adverse Reactions, Alerts This patient has no known allergies or adverse reactions. Medications Ordered Medication Name Filled Medication Name Start Date Stop Da te Current Medication? Ordering Clinician Indication Dosage Frequency Signature (SIG) Comments Components Source Aspirin (Aspir 81) 81 Mg Tablet. Aspirin (Aspir 81) 81 Mg Tablet. Yes 81 Daily [facility] Atorvastatin Calcium (Lipitor) 20 Mg Tablet Atorvastat in Calcium (Lipitor) 20 Mg Tablet Yes 80 Daily [facility] Clopidogrel Bisulfate (Plavix) 75 Mg Tablet Clopidogre l Bisulfate (Plavix) 75 Mg Tablet Yes 75 Daily [facility] Finasteride (Proscar) 5 Mg Tablet Finasteride (Proscar) 5 Mg Tablet Yes 5 Daily [facility] Lisinopril 2.5 Mg Tablet Lisinopril 2.5 Mg Tablet Yes 2.5 Daily [facility] Metoprolol Succinate (Toprol Xl) 25 Mg Tab.er.24h Meto prolol Succinate (Toprol Xl) 25 Mg Tab.er.24h Yes 12.5 Daily [facility] Pantoprazole Sodium (Protonix) 40 Mg Tablet. Pantopr azole Sodium (Protonix) 40 Mg Tablet. Yes 40 Daily [facility] Tamsulosin Hcl (Flomax*) 0.4 Mg Cap Tamsulosin Hcl (Flomax*) 0.4 Mg C ap Yes .4 Bedtime [facility] Lisinopril 10 Mg Tablet, 20 Mg Oral Lisinopril 10 Mg Tablet, 20 Mg Oral 2019-09-19 00:00:00 No 20 Daily [facility] Metformin Hcl (Metformin Hcl Er) 500 Mg Tab.er.24, 200 0 Mg Oral Metformin Hcl (Metformin Hcl Er) 500 Mg Tab.er.24, 2000 Mg Oral 2019-09-19 00:00:00 No 2000 Daily [facility] Procedures Procedure Date / Time Performed Performing Clinician Sourc e MRI joint upr extrem w/o dye 2019-10-23 00:00:00 NAVIN BANUELOS [facility] TRANSFUSE NONAUT RED BLOOD CELLS IN PERIPH VEIN, PERC 2018-11 0-23 00:00:00 JANICE RABAGO [facility] Computed tomography of chest with contrast 2019-09-10 00:00:00 NATANAEL COX [facility] CT of abdomen and pelvis without contrast 2019-09-08 00:00:00 CHARAN WOLFE [facility] EXTIRPATION OF MATTER FROM BLADDER, ENDO 2019-09-08 00:00:00 TOMMIE PEL, GAVINO [facility] FLUOROSCOPY OF KIDNEY, URETER & BLADDER USING L OSM CO NTRAST 2019-09-08 00:00:00 HAMPEL, GAVINO [facility] US abdomen complete 2019-09-06 00:00:00 BRADY JACOBS V [facility] DILATION OF 1 COR ART WITH DRUG-ELUT INTRA, PERC APPROACH 09-09-15 00:00:00 RAE VALENZUELA [facility] MEASURE OF CARDIAC SAMPL & PRESSURE, L HEART, PERC APPROACH 2019-09-05 00:00:00 RAE VALENZUELA [facility] FLUOROSCOPY OF MULT COR ART USING L OSM CONTRAST 2019-09-05 00:00:00 NICOLAS [facility] FLUOROSCOPY OF LEFT HEART USING LOW OSMOLAR CONTRAST 2019-08 00:00:00 RAE VALENZUELA [facility] EXTIRPATION OF MATTER FROM 1 COR ART, PERC APPROACH 00:00:00 RAE VALENZUELA [facility] Encounters Start Date/Time End Date/Time Encounter Type Admission Type [facility] Care Department Encounter ID Source 2020-01-22 10:13:00 2020-02-20 23:59:00 Discharged Recurring [facility] [id number] [facility] 2019-12-25 09:37:00 2020-01-20 23:59:00 Discharged Recurring [facility] [id number] [facility] 2019-11-27 09:29:00 2019-12-22 23:59:00 Discharged Recurring [facility] [id number] [facility] 2019-12-07 08:58:00 2019-12-07 08:58:00 Registered Clinic 3 CARLY GRAY [facility] [id number] [facility] 2019-11-01 12:51:00 2019-11-21 23:59:00 Discharged Recurring [facility] [id number] [facility] 2019-10-23 15:56:00 2019-10-23 15:56:00 Registered Clinic 3 NAVIN BANUELOS [facility] [id number] [facility] 2019-10-13 11:42:00 2019-10-13 11:42:00 Registered Clinic 3 CHARAN JACOBS [facility] [id number] [facility] 2019-09-05 17:49:00 2019-09-19 18:30:00 Discharged Inpatient 1 CHARAN JACOBS [facility] [id number] [facility] Results Test Description Test Time Test Comments Results Result Comments Source BONE and/or JOINT WHOLE BODY 2019-12-07 20:26:00 [facility] [address] [address] Patient Name: LIZBETH ALANIS JR MR #: [id number] : 1960 Age/Sex: 59/M Req #: [id number] Adm Physician: Ordered by: CARLY GRAY MD Report #: [id number] Location: [place] Room/Bed: Procedure: [id number] NM/BONE and/or JOINT WHOLE BODY Exam Date: 12/07/19 Exam Time: 1000 REPORT STATUS: Signed Bone Scan, delayed phase INDICATION: 59 M with right shoulder mass COMPARISON: MRI shoulder 10/23/2019 REPORT: Approximately 3 hours following intravenous administration of 26.9 mCi of Tc-99m MDP, delayed total body images in the anterior and posterior projections and selected spot images were obtained. Focal markedly increased tracer activity is seen in the right humeral head. Two small round foci of markedly increased tracer are seen in the left 7th and 8th ribs posteriorly in an adjacent pattern. Otherwise, distribution of tracer activity is unremarkable throughout the skeletal system. No abn ormal accumulation of tracer is seen in the soft tissues or renal collecting systems. The patient was not able to completely empty his bladder on void immediately prior to imaging. The full bladder obscures the inferior sacrum and superior pubic rami.. IMPRESSION: 1. Acute osteoblastic lesion in the right humeral head may be due to a posttraumatic, inflammatory or neoplastic process. 2. Acute osteoblastic lesions in the left 7th and 8th ribs posteriorly in an adjacent pattern represent healing rib fractures. 3. No scan pattern of metastatic or metabolic bone disease. Signed by: Dr. Osman Hearn M.D. on 12/07/2019 8:34 PM Dictated By: OSMAN HEARN MD 33 Transcribed By: PETERSON on 12/07/192033 COPY TO: CARLY GRAY MD MRI SHOULDER RIGHT WO 2019-10-24 09:33:[address] [address] Patient Name: LIZBETH ALANIS JR MR #: [id number] : 1960 Age/Sex: 59/M Req #: [id number] Adm Physician: Ordered by: NAVIN BANUELOS MD Report #: [id number] Location: MRI Room/Bed: Procedure: [id number] MRI/MRI SHOULDER RIGHT WO Exam Date: Exam Time: REPORT STATUS: Signed TECHNIQUE: Magnetic resonance imaging of the RIGHT SHOULDER was performed WITHOUT injected contrast. COMPARISON: None available. HISTORY: Pain FINDINGS: MUSCLES AND TENDONS: Rotator Cuff: Tendons: Rotator cuff tendinosis with full-thickness tear of the anterior supraspinatus tendon measuring approximately 1 cm in AP dimension with posterior propagation as a partial-thickness articular sided tear into the posterior supraspinatus. Tendon retraction up to 1 cm. Subscapularis partial-thickness tearing. Muscles: No focal muscle atrophy. Biceps Tendon: The long head of t he biceps tendon is torn and retracted GLENOHUMERAL JOINT: Joint effusion Glenoid Labrum: Superior labral tearing. Articular Cartilage: Partial-thickness cartilage loss AC JOINT AND ACROMION: Moderate hypertrophic degenerative changes of the acromioclavicular joint. Subacromial spurring BONE: Bone marrow edema within the humeral head No acute fracture. SOFT TISSUES: Otherwise, the soft tissues appear unremarkable. IMPRESSION: Supraspinatus full-thickness tear to the anterior fibers with underlying rotator cuff tendinosis. Mild retraction w ithout atrophy. Subscapularis partial-thickness tearing and long head biceps tendon complete tear with retraction. 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 Signed by: Dr. Klaus Sharpe M.D. on 10/24/2019 9:38 AM Dictated By: KLAUS SHARPE MD 7 Transcribed By: PETERSON on 10/24/19937 COPY TO: NAVIN BANUELOS MD SHOULDER RIGHT COMPLETE 2019-10-13 12:03:00 [address] [address] Patient Name: LIZBETH ALANIS JR MR #: [id number] : 1960 Age/Sex: 59/M Req #: [id number] Adm Physician: Ordered by: CHARAN JACOBS MD Report #: [id number] Location: [facility] Room/Bed: Procedure: [id number] DX/SHOULDER RIGHT COMPLETE Exam Date: 10/13/19 Exam Time: 1145 REPORT STATUS: Signed Radiographs of the right shoulder - 2 views HISTORY: Pain COMPARISON: None available. FINDINGS: Bones: No acute displaced fracture. Osseous alignment is within normal limits. Joints: Scattered degenerative change. No osseous erosion. Soft tissues: The soft tissues appear unremarkable. IMPRESSION: Scattered degenerative change. No osseous erosion Signed by: Dr. Josefa Hargrove M.D. on 10/13/2019 12:04 PM Dictated By: JOSEFA HARGROVE MD, MD 03 Transcribed By: PETERSON on 10/13/191203 COPY TO: CHARAN JACOBS MD Bedside Glucose 2019-09-19 16:08:00 Test Item Bedside Glucose (test code = 60099-9) 182 70-120 H Meter ID: [id number] [facility] Glucose 2019-09-19 16:08:00* Test Item Value Reference Range Interpretation Comments Bedside Glucose (test code = 51466-5) 182 70-120 H Meter ID: [id number] [facility] Glucose 2019-09-19 16:08:00* Test Item Value Reference Range Interpretation Comments Bedside Glucose (test code = 04863-2) 182 70-120 H Meter ID: [id number] Glucose 2019-09-19 16:08:00* Test Item Value Reference Range Interpretation Comments Bedside Glucose (test code = 84946-4) 182 70-120 H Meter ID: [id number] [facility] Glucose 2019-09-19 16:08:00* Test Item Value Reference Range Interpretation Comments Bedside Glucose (test code = 51683-8) 182 70-120 H Meter ID: [id number] Health [facility]neAlpha-1-Antitrypsin 2019-09-19 08:03:00* Test Item Value Reference Range Interpretation Comments Kvpiy-3-Tkuldhklcwy (test code = 1825-9) 129 Reference Range: 90 - 200 mg/dL Effective September 18, 2019 Gvqxq-9-Dbzdegwemka , Serum reference interval will be changing to: Age Male Female0 - 7 days 102 - 186 102 - 1868 days - 30 days 73 - 187 73 - 08316 days - 5 years 86 - 173 86 - 1736 years - 12 years 99 - 156 99 - 22422 years - 40 years 95 - 164 100 - 188>40 years 101 - 187 101 - 187[facility] Dweonahlklwsw4383-84-14 08:03:00* Test Item Value Reference Range Interpretation Comments Ceruloplasmin (test code = 2064-4) 18.3 Reference Range:16.0 - 31.0 mg/dLLabCorp [address], [place] [address]Qmg: DHAVAL Bray [facility]- Mitochondrial Keunywag8672-73-44 08:03:00* Test Item Value Reference Range Interpretation Comments Anti-Mitochondrial Antibody (test code = 65869-6) <20.0 Reference Range: 0.0 - 20.0 Units Negative 0.0 - 20.0 Equivocal 20.1 - 24.9 Posi tive >24.9 Mitochondrial (M2) Antibodies are found in 90-96% of patients with primary biliary cirrhosis.[facility]neAnti-Smooth Muscle Dxviddnx8843-97-50 08:03:00* Test Item Value Reference Range Interpretation Comments Anti-Smooth Muscle Antibody (test code = 38806-7) 11 Reference Range: 0 - 19 Units Negative 0 - 19 Weak positive 20 - 30 Moderate to strong positive >30 Actin Antibodies are found in 52-85% of patients with autoimmune hepatitis or chronic active hepatitis and in 22% of patients with primary biliary cirrhosis.[facility] Aqxpy-6-Lbfizxhxynz9780-10-29 08:03:00* Test Item Value Reference Range Interpretation Comments Whllb-5-Epqlsxaskou (test code = 1825-9) 129 Reference Range: 90 - 200 mg/dL Effective September 18, 2019 Ytobu-2-Czhococzazl , Serum reference interval will be changing to: Age Male Female0 - 7 days 102 - 186 102 - 1868 days - 30 days 73 - 187 73 - 19753 days - 5 years 86 - 173 86 - 1736 years - 12 years 99 - 156 99 - 83733 years - 40 years 95 - 164 100 - 188>40 years 101 - 187 101 - 187[facility] Wagtqekvcyvmd1541-97-69 08:03:00* Test Item Value Reference Range Interpretation Comments Ceruloplasmin (test code = 2064-4) 18.3 Reference Range:16.0 - 31.0 mg/dLLabCorp [address], [place] [address]Wfn: DHAVAL Bray [facility]Anti- Mitochondrial Xzkhdhiw9845-86-35 08:03:00* Test Item Value Reference Range Interpretation Comments Anti-Mitochondrial Antibody (test code = 60488-1) <20.0 Reference Range: 0.0 - 20.0 Units Negative 0.0 - 20.0 Equivocal 20.1 - 24.9 Posi tive >24.9 Mitochondrial (M2) Antibodies are found in 90-96% of patients with primary biliary cirrhosis.[facility]neAnti-Smooth Muscle Njmbnsef1439-29-11 08:03:00* Test Item Value Reference Range Interpretation Comments Anti-Smooth Muscle Antibody (test code = 04339-6) 11 Reference Range: 0 - 19 Units Negative 0 - 19 Weak positive 20 - 30 Moderate to strong positive >30 Actin Antibodies are found in 52-85% of patients with autoimmune hepatitis or chronic active hepatitis and in 22% of patients with primary biliary cirrhosis.[facility] Cvjmf-1-Nmaspoaboqj0521-10-29 08:03:00* Test Item Value Reference Range Interpretation Comments Klzji-1-Brodetpqdor (test code = 1825-9) 129 Reference Range: 90 - 200 mg/dL Effective September 18, 2019 Bysdo-8-Azydbgoqqtm , Serum reference interval will be changing to: Age Male Female0 - 7 days 102 - 186 102 - 1868 days - 30 days 73 - 187 73 - 38183 days - 5 years 86 - 173 86 - 1736 years - 12 years 99 - 156 99 - 95668 years - 40 years 95 - 164 100 - 188>40 years 101 - 187 101 - 187[facility] Vxhatqozukpwv5905-13-18 08:03:00* Test Item Value Reference Range Interpretation Comments Ceruloplasmin (test code = 2064-4) 18.3 Reference Range:16.0 - 31.0 mg/dLLabCorp [address], [place] [address]Ckz: DHAVAL Bray [facility]Anti- Mitochondrial Rjhioiro1583-48-29 08:03:00* Test Item Value Reference Range Interpretation Comments Anti-Mitochondrial Antibody (test code = 61860-3) <20.0 Reference Range: 0.0 - 20.0 Units Negative 0.0 - 20.0 Equivocal 20.1 - 24.9 Posi tive >24.9 Mitochondrial (M2) Antibodies are found in 90-96% of patients with primary biliary cirrhosis.[facility]neAnti-Smooth Muscle Uggrzhju0459-09-97 08:03:00* Test Item Value Reference Range Interpretation Comments Anti-Smooth Muscle Antibody (test code = 99073-2) 11 Reference Range: 0 - 19 Units Negative 0 - 19 Weak positive 20 - 30 Moderate to strong positive >30 Actin Antibodies are found in 52-85% of patients with autoimmune hepatitis or chronic active hepatitis and in 22% of patients with primary biliary cirrhosis.[facility] Strln-0-Ipahapqoyoz3961-10-29 08:03:00* Test Item Value Reference Range Interpretation Comments Nujnk-1-Grivlsvznfn (test code = 1825-9) 129 Reference Range: 90 - 200 mg/dL Effective September 18, 2019 Zibil-7-Bylzkkynxlo , Serum reference interval will be changing to: Age Male Female0 - 7 days 102 - 186 102 - 1868 days - 30 days 73 - 187 73 - 99352 days - 5 years 86 - 173 86 - 1736 years - 12 years 99 - 156 99 - 52210 years - 40 years 95 - 164 100 - 188>40 years 101 - 187 101 - 187[facility] Syzuzqfzaxdwq1236-19-46 08:03:00* Test Item Value Reference Range Interpretation Comments Ceruloplasmin (test code = 2064-4) 18.3 Reference Range:16.0 - 31.0 mg/dLLabCorp [address], [place] [address]Dmv: DHAVAL Bray [facility] HospitalAnti- Mitochondrial Cjezdmlj6070-95-08 08:03:00* Test Item Value Reference Range Interpretation Comments Anti-Mitochondrial Antibody (test code = 22980-8) <20.0 Reference Range: 0.0 - 20.0 Units Negative 0.0 - 20.0 Equivocal 20.1 - 24.9 Posi tive >24.9 Mitochondrial (M2) Antibodies are found in 90-96% of patients with primary biliary cirrhosis.[facility]neAnti-Smooth Muscle Hkitkaak7130-69-31 08:03:00* Test Item Value Reference Range Interpretation Comments Anti-Smooth Muscle Antibody (test code = 01714-9) 11 Reference Range: 0 - 19 Units Negative 0 - 19 Weak positive 20 - 30 Moderate to strong positive >30 Actin Antibodies are found in 52-85% of patients with autoimmune hepatitis or chronic active hepatitis and in 22% of patients with primary biliary cirrhosis.[facility] Ezuxt-2-Kclgillknpt3429-10-29 08:03:00* Test Item Value Reference Range Interpretation Comments Pulfq-5-Uquwqqvajdk (test code = 1825-9) 129 Reference Range: 90 - 200 mg/dL Effective September 18, 2019 Vxecs-2-Iawhyhcnxnq , Serum reference interval will be changing to: Age Male Female0 - 7 days 102 - 186 102 - 1868 days - 30 days 73 - 187 73 - 63710 days - 5 years 86 - 173 86 - 1736 years - 12 years 99 - 156 99 - 16713 years - 40 years 95 - 164 100 - 188>40 years 101 - 187 101 - 187[facility] Qcirzcywbxtve8604-77-37 08:03:00* Test Item Value Reference Range Interpretation Comments Ceruloplasmin (test code = 2064-4) 18.3 Reference Range:16.0 - 31.0 mg/dLLabCorp [address] [place], [place] [address]Vpc: DHAVAL Bray [facility]Anti- Mitochondrial Iefrihaw3878-54-25 08:03:00* Test Item Value Reference Range Interpretation Comments Anti-Mitochondrial Antibody (test code = 60120-5) <20.0 Reference Range: 0.0 - 20.0 Units Negative 0.0 - 20.0 Equivocal 20.1 - 24.9 Posi tive >24.9 Mitochondrial (M2) Antibodies are found in 90-96% of patients with primary biliary cirrhosis.[facility]neAnti-Smooth Muscle Wzkbnmgc3349-49-40 08:03:00* Test Item Value Reference Range Interpretation Comments Anti-Smooth Muscle Antibody (test code = 72559-7) 11 Reference Range: 0 - 19 Units Negative 0 - 19 Weak positive 20 - 30 Moderate to strong positive >30 Actin Antibodies are found in 52-85% of patients with autoimmune hepatitis or chronic active hepatitis and in 22% of patients with primary biliary cirrhosis.[facility]neAnti-Nuclear Antibody Gkdnzi6700-38-90 07:54:00* Test Item Value Reference Range Interpretation Comments Anti-Nuclear Antibody Screen (test code = 5048-4) Negative Reference Range:Negative <1:80Borderline 1:80Positive >1:80Testing performed by:[facility] [employer] [place] [address] [phone]: [place] [facility]Anti-Nuclear Antibody Cymqow5822-07-74 07:54:00* Test Item Value Reference Range Interpretation Comments Anti-Nuclear Antibody Screen (test code = 5048-4) Negative Reference Range:Negative <1:80Borderline 1:80Positive >1:80Testing performed by:[employer] [place] [address] [phone]: [place] [facility] HospitalAnti-Nuclear Antibody Sbgjuv3188-04-56 07:54:00* Test Item Value Reference Range Interpretation Comments Anti-Nuclear Antibody Screen (test code = 5048-4) Negative Reference Range:Negative <1:80Borderline 1:80Positive >1:80Testing performed by:[facility] [employer] [place] [address] [phone]: [place] [facility] HospitalAnti-Nuclear Antibody Zzfxvn6591-13-20 07:54:00* Test Item Value Reference Range Interpretation Comments Anti-Nuclear Antibody Screen (test code = 5048-4) Negative Reference Range:Negative <1:80Borderline 1:80Positive >1:80Testing performed by:[facility] [employer] [place] [address] [phone]: [place] [facility] HospitalAnti-Nuclear Antibody Qgwlyj9247-93-18 07:54:00* Test Item Value Reference Range Interpretation Comments Anti-Nuclear Antibody Screen (test code = 5048-4) Negative Reference Range:Negative <1:80Borderline 1:80Positive >1:80Testing performed by:[facility] [address] [place], [place] [phone]: [place] [facility]odium Bctpy8333-49-51 07:08:00* Test Item Value Reference Range Interpretation Comments Sodium Level (test code = 2951-2) 136 136-145 [facility]nePotassium Mleva0033-86-70 07:08:00* Test Item Value Reference Range Interpretation Comments Potassium Level (test code = 2823-3) 3.7 3.5-5.1 [facility]neChloride Cxgiz1679-32-50 07:08:00* Test Item Value Reference Range Interpretation Comments Chloride Level (test code = 2075-0) 107 98-107 [facility] CleburneCarbon Dioxide Npxel2280-00-96 07:08:00* Test Item Value Reference Range Interpretation Comments Carbon Dioxide Level (test code = 2028-9) 24 22- [facility] CleburneAnion Sbc6974-72-05 07:08:00* Test Item Value Reference Range Interpretation Comments Anion Gap (test code = 42047-4) 8.7 8-16 [facility] Cle[facility]neBlood Urea Qzcbnnua9038-73-73 07:08:00* Test Item Value Reference Range Interpretation Comments Blood Urea Nitrogen (test code = 3094-0) 7 7-26 [facility] Cle[facility]neCreatinine2019-10-29 07:08:00* Test Item Value Reference Range Interpretation Comments Creatinine (test code = 2160-0) 0.64 0.72-1.25 L [facility] Cle[facility]neBUN/Creatinine Faztq1012-67-58 07:08:00* Test Item Value Reference Range Interpretation Comments BUN/Creatinine Ratio (test code = 3097-3) 11 6- [facility] CleburneEstimat Glomerular Filtration Rate 2019-09-19 07:08:00* Test Item Value Reference Range Interpretation Comments Estimat Glomerular Filtration Rate (test code = 948072823) > 60 >60 Ranges were taken from the National Kidney Disease Education Program and the [facility] Foundation literature.Reference ranges:60 or greater: Grltra56-78 ( for 3 consecutive months): Chronic kidney disease 15 or less: Kidney failureTexas Health [facility] CleburneGlucose Gggnq0078-44-87 07:08:00* Test Item Value Reference Range Interpretation Comments Glucose Level (test code = KZJ0745) 119 74-118 H [facility]neCalcium Fmogj7889-29-62 07:08:00* Test Item Value Reference Range Interpretation Comments Calcium Level (test code = 16604-1) 7.7 8.4-10.2 L [facility] Cle[facility]neMagnesium Eilho8280-62-01 07:08:00* Test Item Value Reference Range Interpretation Comments Magnesium Level (test code = 31124-0) 1.6 1.3-2.1 [facility] Loarz7189-48-56 07:08:00* Test Item Value Reference Range Interpretation Comments Sodium Level (test code = 2951-2) 136 136-145 [facility]nePotassium Ttqaj3397-06-48 07:08:00* Test Item Value Reference Range Interpretation Comments Potassium Level (test code = 2823-3) 3.7 3.5-5.1 [facility] [facility]neChloride Eyjhf9048-57-79 07:08:00* Test Item Value Reference Range Interpretation Comments Chloride Level (test code = 2075-0) 107 98-107 [facility]neCarbon Dioxide Mgzva1928-26-85 07:08:00* Test Item Value Reference Range Interpretation Comments Carbon Dioxide Level (test code = 2028-9) 24 22-29 [facility]neAnion Bgv9551-60-54 07:08:00* Test Item Value Reference Range Interpretation Comments Anion Gap (test code = 94951-3) 8.7 8-16 [facility]neBlood Urea Szjnqwut7343-30-21 07:08:00* Test Item Value Reference Range Interpretation Comments Blood Urea Nitrogen (test code = 3094-0) 7 7-26 [facility]neCreatinine2019-10-29 07:08:00* Test Item Value Reference Range Interpretation Comments Creatinine (test code = 2160-0) 0.64 0.72-1.25 L [facility]neBUN/Creatinine Nssdf2945-87-41 07:08:00* Test Item Value Reference Range Interpretation Comments BUN/Creatinine Ratio (test code = 3097-3) 11 6-25 [facility]neEstimat Glomerular Filtration Rate 2019-09-19 07:08:00* Test Item Value Reference Range Interpretation Comments Estimat Glomerular Filtration Rate (test code = 426082715) > 60 >60 Ranges were taken from the National Kidney Disease Education Program and the [facility] literature.Reference ranges:60 or greater: Tycjoo81-49 ( for 3 consecutive months): Chronic kidney disease 15 or less: Kid[facility] failureTexas [facility]neGlucose Qcrak6213-79-36 07:08:00* Test Item Value Reference Range Interpretation Comments Glucose Level (test code = YEB9278) 119 74-118 H [facility]neCalcium Fftoz7525-23-35 07:08:00* Test Item Value Reference Range Interpretation Comments Calcium Level (test code = 11933-8) 7.7 8.4-10.2 L [facility]neMagnesium Piwyu0262-64-92 07:08:00* Test Item Value Reference Range Interpretation Comments Magnesium Level (test code = 15900-5) 1.6 1.3-2.1 [facility] Ddrli0263-55-03 07:08:00* Test Item Value Reference Range Interpretation Comments Sodium Level (test code = 2951-2) 136 136-145 [facility]nePotassium Ontwz5918-14-23 07:08:00* Test Item Value Reference Range Interpretation Comments Potassium Level (test code = 2823-3) 3.7 3.5-5.1 [facility]neChloride Dgedu9025-19-68 07:08:00* Test Item Value Reference Range Interpretation Comments Chloride Level (test code = 2075-0) 107 98-107 [facility]neCarbon Dioxide Jqbvl1879-10-87 07:08:00* Test Item Value Reference Range Interpretation Comments Carbon Dioxide Level (test code = 2028-9) 24 - [facility]neAnion Zis2840-37-48 07:08:00* Test Item Value Reference Range Interpretation Comments Anion Gap (test code = 93010-1) 8.7 8-16 [facility]neBlood Urea Sqyifbed7789-34-58 07:08:00* Test Item Value Reference Range Interpretation Comments Blood Urea Nitrogen (test code = 3094-0) 7 7-26 [facility]neCreatinine2019-10-29 07:08:00* Test Item Value Reference Range Interpretation Comments Creatinine (test code = 2160-0) 0.64 0.72-1.25 L [facility]neBUN/Creatinine Enita3861-14-37 07:08:00* Test Item Value Reference Range Interpretation Comments BUN/Creatinine Ratio (test code = 3097-3) 11 05-16 [facility]neEstimat Glomerular Filtration Rate 2019-09-19 07:08:00* Test Item Value Reference Range Interpretation Comments Estimat Glomerular Filtration Rate (test code = 548560878) > 60 >60 Ranges were taken from the National Kidney Disease Education Program and the [facility] literature.Reference ranges:60 or greater: Pkvzzx06-64 ( for 3 consecutive months): Chronic kidney disease 15 or less: Kid[facility] failureTexas [facility]neGlucose Iwkkx2825-94-63 07:08:00* Test Item Value Reference Range Interpretation Comments Glucose Level (test code = SCE9620) 119 74-118 H [facility]neCalcium Thvbl6702-61-73 07:08:00* Test Item Value Reference Range Interpretation Comments Calcium Level (test code = 23879-4) 7.7 8.4-10.2 L [facility]neMagnesium Dghib4556-08-88 07:08:00* Test Item Value Reference Range Interpretation Comments Magnesium Level (test code = 88509-2) 1.6 1.3-2.1 [facility]odium Puftj1130-11-60 07:08:00* Test Item Value Reference Range Interpretation Comments Sodium Level (test code = 2951-2) 136 136-145 [facility]nePotassium Ueosg3927-10-95 07:08:00* Test Item Value Reference Range Interpretation Comments Potassium Level (test code = 2823-3) 3.7 3.5-5.1 [facility]neChloride Kcjoo3075-91-24 07:08:00* Test Item Value Reference Range Interpretation Comments Chloride Level (test code = 2075-0) 107 98-107 [facility]neCarbon Dioxide Pbtlj9613-95-15 07:08:00* Test Item Value Reference Range Interpretation Comments Carbon Dioxide Level (test code = 2028-9) 24 22-29 [facility]neAnion Crg8294-45-84 07:08:00* Test Item Value Reference Range Interpretation Comments Anion Gap (test code = 00437-8) 8.7 8-16 [facility]neBlood Urea Iemdcibw6998-46-69 07:08:00* Test Item Value Reference Range Interpretation Comments Blood Urea Nitrogen (test code = 3094-0) 7 7-26 [facility]neCreatinine2019-10-29 07:08:00* Test Item Value Reference Range Interpretation Comments Creatinine (test code = 2160-0) 0.64 0.72-1.25 L [facility]neBUN/Creatinine Efxnd9800-98-91 07:08:00* Test Item Value Reference Range Interpretation Comments BUN/Creatinine Ratio (test code = 3097-3) 11 6-25 [facility]neEstimat Glomerular Filtration Rate 2019-09-19 07:08:00* Test Item Value Reference Range Interpretation Comments Estimat Glomerular Filtration Rate (test code = 912894545) > 60 >60 Ranges were taken from the National Kidney Disease Education Program and the [facility] literature.Reference ranges:60 or greater: Zlxonh32-97 ( for 3 consecutive months): Chronic kidney disease 15 or less: Kidney failureTexas [facility]neGlucose Gbqrs9326-09-78 07:08:00* Test Item Value Reference Range Interpretation Comments Glucose Level (test code = IVV5185) 119 74-118 H [facility]neCalcium Mxfcp5901-87-94 07:08:00* Test Item Value Reference Range Interpretation Comments Calcium Level (test code = 09219-7) 7.7 8.4-10.2 L [facility]neMagnesium Ryvvi8202-09-96 07:08:00* Test Item Value Reference Range Interpretation Comments Magnesium Level (test code = 71844-0) 1.6 1.3-2.1 [facility]odium Irlel1369-59-52 07:08:00* Test Item Value Reference Range Interpretation Comments Sodium Level (test code = 2951-2) 136 136-145 [facility]nePotassium Wuuly7083-50-88 07:08:00* Test Item Value Reference Range Interpretation Comments Potassium Level (test code = 2823-3) 3.7 3.5-5.1 [facility]neChloride Srbov8037-84-16 07:08:00* Test Item Value Reference Range Interpretation Comments Chloride Level (test code = 2075-0) 107 98-107 [facility]neCarbon Dioxide Fhkyb8244-04-88 07:08:00* Test Item Value Reference Range Interpretation Comments Carbon Dioxide Level (test code = 2028-9) 24 - [facility]neAnion Qoa6151-21-93 07:08:00* Test Item Value Reference Range Interpretation Comments Anion Gap (test code = 15305-2) 8.7 8-16 [facility]neBlood Urea Rfasvadg3684-35-65 07:08:00* Test Item Value Reference Range Interpretation Comments Blood Urea Nitrogen (test code = 3094-0) 7 7-26 [facility]neCreatinine2019-10-29 07:08:00* Test Item Value Reference Range Interpretation Comments Creatinine (test code = 2160-0) 0.64 0.72-1.25 L [facility]neBUN/Creatinine Qmhlw2022-77-96 07:08:00* Test Item Value Reference Range Interpretation Comments BUN/Creatinine Ratio (test code = 3097-3) 11 6-25 [facility]neEstimat Glomerular Filtration Rate 2019-09-19 07:08:00* Test Item Value Reference Range Interpretation Comments Estimat Glomerular Filtration Rate (test code = 409957459) > 60 >60 Ranges were taken from the National Kidney Disease Education Program and the [facility] literature.Reference ranges:60 or greater: Myvqsw21-31 ( for 3 consecutive months): Chronic kidney disease 15 or less: Kidney failureTexas [facility] Cle[facility]neGlucose Exqph8002-65-48 07:08:00* Test Item Value Reference Range Interpretation Comments Glucose Level (test code = KEZ4122) 119 74-118 H [facility]neCalcium Mzcme3458-43-44 07:08:00* Test Item Value Reference Range Interpretation Comments Calcium Level (test code = 01630-3) 7.7 8.4-10.2 L [facility]neMagnesium Sdakb4229-24-81 07:08:00* Test Item Value Reference Range Interpretation Comments Magnesium Level (test code = 88845-6) 1.6 1.3-2.1 [facility]neWhite Blood Iekom3778-81-58 06:47:00* Test Item Value Reference Range Interpretation Comments White Blood Count (test code = 6690-2) 3.76 4.8-10.8 L [facility]neRed Blood Vdqit1881-49-09 06:47:00* Test Item Value Reference Range Interpretation Comments Red Blood Count (test code = 789-8) 2.53 4.3-5.7 L [facility]neHemoglobin2019-10-29 06:47:00* Test Item Value Reference Range Interpretation Comments Hemoglobin (test code = 65405-6) 8.4 14.0-18.0 L [facility]neHematocrit2019-10-29 06:47:00* Test Item Value Reference Range Interpretation Comments Hematocrit (test code = 4544-3) 25.1 38.2-49.6 L [facility]neMean Corpuscular Pglmvg1317-16-16 06:47:00* Test Item Value Reference Range Interpretation Comments Mean Corpuscular Volume (test code = 787-2) 99.2 81-99 H [facility]neMean Corpuscular Iyhtwebmta7079-76-65 06:47:00* Test Item Value Reference Range Interpretation Comments Mean Corpuscular Hemoglobin (test code = 785-6) 33.2 28-32 H [facility]neMean Corpuscular Hemoglobin Concent 2019-09-19 06:47:00* Test Item Value Reference Range Interpretation Comments Mean Corpuscular Hemoglobin Concent (test code = 786-4) 33.5 31-35 [facility]neRed Cell Distribution Mjocq1685-62-97 06:47:00* Test Item Value Reference Range Interpretation Comments Red Cell Distribution Width (test code = 59932-8) 17.2 11.7 -14.4 H [facility]nePlatelet Yvggw6589-31-22 06:47:00* Test Item Value Reference Range Interpretation Comments Platelet Count (test code = 777-3) 69 140-360 L [facility]neNeutrophils (%) (Auto)2019-09-19 06:47:00 * Test Item Value Reference Range Interpretation Comments Neutrophils (%) (Auto) (test code = 35332-3) 53.6 38.7-80.0 [facility]neLymphocytes (%) (Auto)2019-09-19 06:47:00 * Test Item Value Reference Range Interpretation Comments Lymphocytes (%) (Auto) (test code = 736-9) 30.1 18.0-39.1 [facility]neMonocytes (%) (Auto)2019-09-19 06:47:00* Test Item Value Reference Range Interpretation Comments Monocytes (%) (Auto) (test code = 5905-5) 11.2 4.4-11.3 [facility]neEosinophils (%) (Auto)2019-09-19 06:47:00 * Test Item Value Reference Range Interpretation Comments Eosinophils (%) (Auto) (test code = 713-8) 4.3 0.0-6.0 [facility]neBasophils (%) (Auto)2019-09-19 06:47:00* Test Item Value Reference Range Interpretation Comments Basophils (%) (Auto) (test code = 706-2) 0.5 0.0-1.0 [facility]neIM GRANULOCYTES %2019-09-19 06:47:00* Test Item Value Reference Range Interpretation Comments IM GRANULOCYTES % (test code = IM GRANULOCYTES %) 0.3 0.0- 1.0 [facility]neNeutrophils # (Auto)2019-09-19 06:47:00* Test Item Value Reference Range Interpretation Comments Neutrophils # (Auto) (test code = 751-8) 2.0 2.1-6.9 L [facility]neLymphocytes # (Auto)2019-09-19 06:47:00* Test Item Value Reference Range Interpretation Comments Lymphocytes # (Auto) (test code = 16130-8) 1.1 1.0-3.2 [facility]neMonocytes # (Auto)2019-09-19 06:47:00* Test Item Value Reference Range Interpretation Comments Monocytes # (Auto) (test code = 742-7) 0.4 0.2-0.8 [facility]neEosinophils # (Auto)2019-09-19 06:47:00* Test Item Value Reference Range Interpretation Comments Eosinophils # (Auto) (test code = 711-2) 0.2 0.0-0.4 [facility]neBasophils # (Auto)2019-09-19 06:47:00* Test Item Value Reference Range Interpretation Comments Basophils # (Auto) (test code = 704-7) 0.0 0.0-0.1 [facility]neAbsolute Immature Granulocyte (auto 2019-09-19 06:47:00* Test Item Value Reference Range Interpretation Comments Absolute Immature Granulocyte (auto (nir t code = Absolute Immature Granulocyte (auto) 0.01 0-0.1 [facility]neWhite Blood Zkaie1742-40-10 06:47:00* Test Item Value Reference Range Interpretation Comments White Blood Count (test code = 6690-2) 3.76 4.8-10.8 L [facility]neRed Blood Rjbtv6975-32-63 06:47:00* Test Item Value Reference Range Interpretation Comments Red Blood Count (test code = 789-8) 2.53 4.3-5.7 L [facility]neHemoglobin2019-10-29 06:47:00* Test Item Value Reference Range Interpretation Comments Hemoglobin (test code = 60981-0) 8.4 14.0-18.0 L [facility]neHematocrit2019-10-29 06:47:00* Test Item Value Reference Range Interpretation Comments Hematocrit (test code = 4544-3) 25.1 38.2-49.6 L [facility]neMean Corpuscular Kfzrsz0821-03-85 06:47:00* Test Item Value Reference Range Interpretation Comments Mean Corpuscular Volume (test code = 787-2) 99.2 81-99 H [facility]neMean Corpuscular Mcnaeubkoy1887-62-04 06:47:00* Test Item Value Reference Range Interpretation Comments Mean Corpuscular Hemoglobin (test code = 785-6) 33.2 28-[address] [facility] Hemoglobin Concent 2019-09-19 06:47:00* Test Item Value Reference Range Interpretation Comments Mean Corpuscular Hemoglobin Concent (test code = 786-4) 33.5 31-35 [facility]neRed Cell Distribution Rfyej0160-16-81 06:47:00* Test Item Value Reference Range Interpretation Comments Red Cell Distribution Width (test code = 41328-3) 17.2 11.7 -14.4 H [facility] Cle[facility]nePlatelet Dpgxl1451-78-52 06:47:00* Test Item Value Reference Range Interpretation Comments Platelet Count (test code = 777-3) 69 140-360 L [facility]neNeutrophils (%) (Auto)2019-09-19 06:47:00 * Test Item Value Reference Range Interpretation Comments Neutrophils (%) (Auto) (test code = 44324-7) 53.6 38.7-80.0 [facility]neLymphocytes (%) (Auto)2019-09-19 06:47:00 * Test Item Value Reference Range Interpretation Comments Lymphocytes (%) (Auto) (test code = 736-9) 30.1 18.0-39.1 [facility]neMonocytes (%) (Auto)2019-09-19 06:47:00* Test Item Value Reference Range Interpretation Comments Monocytes (%) (Auto) (test code = 5905-5) 11.2 4.4-11.3 [facility]neEosinophils (%) (Auto)2019-09-19 06:47:00 * Test Item Value Reference Range Interpretation Comments Eosinophils (%) (Auto) (test code = 713-8) 4.3 0.0-6.0 [facility]neBasophils (%) (Auto)2019-09-19 06:47:00* Test Item Value Reference Range Interpretation Comments Basophils (%) (Auto) (test code = 706-2) 0.5 0.0-1.0 [facility]neIM GRANULOCYTES %2019-09-19 06:47:00* Test Item Value Reference Range Interpretation Comments IM GRANULOCYTES % (test code = IM GRANULOCYTES %) 0.3 0.0- 1.0 [facility]neNeutrophils # (Auto)2019-09-19 06:47:00* Test Item Value Reference Range Interpretation Comments Neutrophils # (Auto) (test code = 751-8) 2.0 2.1-6.9 L [facility]neLymphocytes # (Auto)2019-09-19 06:47:00* Test Item Value Reference Range Interpretation Comments Lymphocytes # (Auto) (test code = 79028-4) 1.1 1.0-3.2 [facility]neMonocytes # (Auto)2019-09-19 06:47:00* Test Item Value Reference Range Interpretation Comments Monocytes # (Auto) (test code = 742-7) 0.4 0.2-0.8 [facility]neEosinophils # (Auto)2019-09-19 06:47:00* Test Item Value Reference Range Interpretation Comments Eosinophils # (Auto) (test code = 711-2) 0.2 0.0-0.4 [facility]neBasophils # (Auto)2019-09-19 06:47:00* Test Item Value Reference Range Interpretation Comments Basophils # (Auto) (test code = 704-7) 0.0 0.0-0.1 [facility]neAbsolute Immature Granulocyte (auto 2019-09-19 06:47:00* Test Item Value Reference Range Interpretation Comments Absolute Immature Granulocyte (auto (nir t code = Absolute Immature Granulocyte (auto) 0.01 0-0.1 [facility]neWhite Blood Oetok2166-14-71 06:47:00* Test Item Value Reference Range Interpretation Comments White Blood Count (test code = 6690-2) 3.76 4.8-10.8 L [facility]neRed Blood Zymhv9767-13-55 06:47:00* Test Item Value Reference Range Interpretation Comments Red Blood Count (test code = 789-8) 2.53 4.3-5.7 L [facility]neHemoglobin2019-10-29 06:47:00* Test Item Value Reference Range Interpretation Comments Hemoglobin (test code = 73881-5) 8.4 14.0-18.0 L [facility]neHematocrit2019-10-29 06:47:00* Test Item Value Reference Range Interpretation Comments Hematocrit (test code = 4544-3) 25.1 38.2-49.6 L [facility]neMean Corpuscular Hqmuvh3180-43-82 06:47:00* Test Item Value Reference Range Interpretation Comments Mean Corpuscular Volume (test code = 787-2) 99.2 81-99 H [facility]neMean Corpuscular Itsmymcyfp9502-57-74 06:47:00* Test Item Value Reference Range Interpretation Comments Mean Corpuscular Hemoglobin (test code = 785-6) 33.2 28-32 H [facility]neMean Corpuscular Hemoglobin Concent 2019-09-19 06:47:00* Test Item Value Reference Range Interpretation Comments Mean Corpuscular Hemoglobin Concent (test code = 786-4) 33.5 31-35 [facility]neRed Cell Distribution Pupfl8760-82-63 06:47:00* Test Item Value Reference Range Interpretation Comments Red Cell Distribution Width (test code = 89800-5) 17.2 11.7 -14.4 H [facility] Cle[facility]nePlatelet Tdugt3740-87-26 06:47:00* Test Item Value Reference Range Interpretation Comments Platelet Count (test code = 777-3) 69 140-360 L [facility]neNeutrophils (%) (Auto)2019-09-19 06:47:00 * Test Item Value Reference Range Interpretation Comments Neutrophils (%) (Auto) (test code = 54584-7) 53.6 38.7-80.0 [facility]neLymphocytes (%) (Auto)2019-09-19 06:47:00 * Test Item Value Reference Range Interpretation Comments Lymphocytes (%) (Auto) (test code = 736-9) 30.1 18.0-39.1 [facility]neMonocytes (%) (Auto)2019-09-19 06:47:00* Test Item Value Reference Range Interpretation Comments Monocytes (%) (Auto) (test code = 5905-5) 11.2 4.4-11.3 [facility]neEosinophils (%) (Auto)2019-09-19 06:47:00 * Test Item Value Reference Range Interpretation Comments Eosinophils (%) (Auto) (test code = 713-8) 4.3 0.0-6.0 [facility]neBasophils (%) (Auto)2019-09-19 06:47:00* Test Item Value Reference Range Interpretation Comments Basophils (%) (Auto) (test code = 706-2) 0.5 0.0-1.0 [facility]neIM GRANULOCYTES %2019-09-19 06:47:00* Test Item Value Reference Range Interpretation Comments IM GRANULOCYTES % (test code = IM GRANULOCYTES %) 0.3 0.0- 1.0 [facility]neNeutrophils # (Auto)2019-09-19 06:47:00* Test Item Value Reference Range Interpretation Comments Neutrophils # (Auto) (test code = 751-8) 2.0 2.1-6.9 L [facility]neLymphocytes # (Auto)2019-09-19 06:47:00* Test Item Value Reference Range Interpretation Comments Lymphocytes # (Auto) (test code = 56638-5) 1.1 1.0-3.2 [facility]neMonocytes # (Auto)2019-09-19 06:47:00* Test Item Value Reference Range Interpretation Comments Monocytes # (Auto) (test code = 742-7) 0.4 0.2-0.8 [facility]neEosinophils # (Auto)2019-09-19 06:47:00* Test Item Value Reference Range Interpretation Comments Eosinophils # (Auto) (test code = 711-2) 0.2 0.0-0.4 [facility]neBasophils # (Auto)2019-09-19 06:47:00* Test Item Value Reference Range Interpretation Comments Basophils # (Auto) (test code = 704-7) 0.0 0.0-0.1 [facility]neAbsolute Immature Granulocyte (auto 2019-09-19 06:47:00* Test Item Value Reference Range Interpretation Comments Absolute Immature Granulocyte (auto (nir t code = Absolute Immature Granulocyte (auto) 0.01 0-0.1 [facility]neWhite Blood Glsid2343-40-03 06:47:00* Test Item Value Reference Range Interpretation Comments White Blood Count (test code = 6690-2) 3.76 4.8-10.8 L [facility]neRed Blood Nuwli1086-95-12 06:47:00* Test Item Value Reference Range Interpretation Comments Red Blood Count (test code = 789-8) 2.53 4.3-5.7 L [facility]neHemoglobin2019-10-29 06:47:00* Test Item Value Reference Range Interpretation Comments Hemoglobin (test code = 42666-8) 8.4 14.0-18.0 L [facility]neHematocrit2019-10-29 06:47:00* Test Item Value Reference Range Interpretation Comments Hematocrit (test code = 4544-3) 25.1 38.2-49.6 L [facility]neMean Corpuscular Jlqlpv0831-82-36 06:47:00* Test Item Value Reference Range Interpretation Comments Mean Corpuscular Volume (test code = 787-2) 99.2 81-99 H [facility]neMean Corpuscular Ndtmarrttb3893-39-68 06:47:00* Test Item Value Reference Range Interpretation Comments Mean Corpuscular Hemoglobin (test code = 785-6) 33.2 28-32 H [facility]neMean Corpuscular Hemoglobin Concent 2019-09-19 06:47:00* Test Item Value Reference Range Interpretation Comments Mean Corpuscular Hemoglobin Concent (test code = 786-4) 33.5 31-35 [facility]neRed Cell Distribution Umtyh0392-49-92 06:47:00* Test Item Value Reference Range Interpretation Comments Red Cell Distribution Width (test code = 26778-9) 17.2 11.7 -14.4 [facility]nePlatelet Baqlh6867-16-19 06:47:00* Test Item Value Reference Range Interpretation Comments Platelet Count (test code = 777-3) 69 140-360 L [facility]neNeutrophils (%) (Auto)2019-09-19 06:47:00 * Test Item Value Reference Range Interpretation Comments Neutrophils (%) (Auto) (test code = 67501-3) 53.6 38.7-80.0 [facility]neLymphocytes (%) (Auto)2019-09-19 06:47:00 * Test Item Value Reference Range Interpretation Comments Lymphocytes (%) (Auto) (test code = 736-9) 30.1 18.0-39.1 [facility]neMonocytes (%) (Auto)2019-09-19 06:47:00* Test Item Value Reference Range Interpretation Comments Monocytes (%) (Auto) (test code = 5905-5) 11.2 4.4-11.3 [facility]Eosinophils (%) (Auto)2019-09-19 06:47:00 * Test Item Value Reference Range Interpretation Comments Eosinophils (%) (Auto) (test code = 713-8) 4.3 0.0-6.0 [facility]neBasophils (%) (Auto)2019-09-19 06:47:00* Test Item Value Reference Range Interpretation Comments Basophils (%) (Auto) (test code = 706-2) 0.5 0.0-1.0 [facility]neIM GRANULOCYTES %2019-09-19 06:47:00* Test Item Value Reference Range Interpretation Comments IM GRANULOCYTES % (test code = IM GRANULOCYTES %) 0.3 0.0- 1.0 [facility]neNeutrophils # (Auto)2019-09-19 06:47:00* Test Item Value Reference Range Interpretation Comments Neutrophils # (Auto) (test code = 751-8) 2.0 2.1-6.9 L [facility]neLymphocytes # (Auto)2019-09-19 06:47:00* Test Item Value Reference Range Interpretation Comments Lymphocytes # (Auto) (test code = 61446-5) 1.1 1.0-3.2 [facility]neMonocytes # (Auto)2019-09-19 06:47:00* Test Item Value Reference Range Interpretation Comments Monocytes # (Auto) (test code = 742-7) 0.4 0.2-0.8 [facility]neEosinophils # (Auto)2019-09-19 06:47:00* Test Item Value Reference Range Interpretation Comments Eosinophils # (Auto) (test code = 711-2) 0.2 0.0-0.4 [facility]neBasophils # (Auto)2019-09-19 06:47:00* Test Item Value Reference Range Interpretation Comments Basophils # (Auto) (test code = 704-7) 0.0 0.0-0.1 [facility]neAbsolute Immature Granulocyte (auto 2019-09-19 06:47:00* Test Item Value Reference Range Interpretation Comments Absolute Immature Granulocyte (auto (nir t code = Absolute Immature Granulocyte (auto) 0.01 0-0.1 [facility]neWhite Blood Okdlo5674-41-01 06:47:00* Test Item Value Reference Range Interpretation Comments White Blood Count (test code = 6690-2) 3.76 4.8-10.8 L [facility]neRed Blood Zxdvy8054-10-11 06:47:00* Test Item Value Reference Range Interpretation Comments Red Blood Count (test code = 789-8) 2.53 4.3-5.7 L [facility]neHemoglobin2019-10-29 06:47:00* Test Item Value Reference Range Interpretation Comments Hemoglobin (test code = 54377-2) 8.4 14.0-18.0 L [facility]neHematocrit2019-10-29 06:47:00* Test Item Value Reference Range Interpretation Comments Hematocrit (test code = 4544-3) 25.1 38.2-49.6 L [facility]neMean Corpuscular Qyrkwp4832-04-13 06:47:00* Test Item Value Reference Range Interpretation Comments Mean Corpuscular Volume (test code = 787-2) 99.2 81-99 H [facility]neMean Corpuscular Sdqgltzklx9490-92-09 06:47:00* Test Item Value Reference Range Interpretation Comments Mean Corpuscular Hemoglobin (test code = 785-6) 33.2 28-32 H [facility]neMean Corpuscular Hemoglobin Concent 2019-09-19 06:47:00* Test Item Value Reference Range Interpretation Comments Mean Corpuscular Hemoglobin Concent (test code = 786-4) 33.5 31-35 [facility]neRed Cell Distribution Dshbn1333-24-85 06:47:00* Test Item Value Reference Range Interpretation Comments Red Cell Distribution Width (test code = 20774-5) 17.2 11.7 -14.4 H [facility]nePlatelet Hvvdy4271-82-83 06:47:00* Test Item Value Reference Range Interpretation Comments Platelet Count (test code = 777-3) 69 140-360 L [facility]neNeutrophils (%) (Auto)2019-09-19 06:47:00 * Test Item Value Reference Range Interpretation Comments Neutrophils (%) (Auto) (test code = 00282-1) 53.6 38.7-80.0 [facility]neLymphocytes (%) (Auto)2019-09-19 06:47:00 * Test Item Value Reference Range Interpretation Comments Lymphocytes (%) (Auto) (test code = 736-9) 30.1 18.0-39.1 [facility]neMonocytes (%) (Auto)2019-09-19 06:47:00* Test Item Value Reference Range Interpretation Comments Monocytes (%) (Auto) (test code = 5905-5) 11.2 4.4-11.3 [facility]neEosinophils (%) (Auto)2019-09-19 06:47:00 * Test Item Value Reference Range Interpretation Comments Eosinophils (%) (Auto) (test code = 713-8) 4.3 0.0-6.0 [facility]neBasophils (%) (Auto)2019-09-19 06:47:00* Test Item Value Reference Range Interpretation Comments Basophils (%) (Auto) (test code = 706-2) 0.5 0.0-1.0 [facility]neIM GRANULOCYTES %2019-09-19 06:47:00* Test Item Value Reference Range Interpretation Comments IM GRANULOCYTES % (test code = IM GRANULOCYTES %) 0.3 0.0- 1.0 [facility]neNeutrophils # (Auto)2019-09-19 06:47:00* Test Item Value Reference Range Interpretation Comments Neutrophils # (Auto) (test code = 751-8) 2.0 2.1-6.9 L [facility]neLymphocytes # (Auto)2019-09-19 06:47:00* Test Item Value Reference Range Interpretation Comments Lymphocytes # (Auto) (test code = 77616-4) 1.1 1.0-3.2 [facility]neMonocytes # (Auto)2019-09-19 06:47:00* Test Item Value Reference Range Interpretation Comments Monocytes # (Auto) (test code = 742-7) 0.4 0.2-0.8 [facility]neEosinophils # (Auto)2019-09-19 06:47:00* Test Item Value Reference Range Interpretation Comments Eosinophils # (Auto) (test code = 711-2) 0.2 0.0-0.4 [facility]neBasophils # (Auto)2019-09-19 06:47:00* Test Item Value Reference Range Interpretation Comments Basophils # (Auto) (test code = 704-7) 0.0 0.0-0.1 [facility]neAbsolute Immature Granulocyte (auto 2019-09-19 06:47:00* Test Item Value Reference Range Interpretation Comments Absolute Immature Granulocyte (auto (nir t code = Absolute Immature Granulocyte (auto) 0.01 0-0.1 [facility]neTotal Hpbuhgjfn0245-91-35 07:05:00* Test Item Value Reference Range Interpretation Comments Total Bilirubin (test code = 1975-2) 0.7 0.2-1.2 [facility] CleburneAspartate Amino Transf (AST/SGOT) 2019-09-18 07:05:00* Test Item Value Reference Range Interpretation Comments Aspartate Amino Transf (AST/SGOT) (test code = Aspartate Amino Transf (AST/SGOT)) 54 5-34 H [facility]neAlanine Aminotransferase (ALT/SGPT) 2019-09-18 07:05:00* Test Item Value Reference Range Interpretation Comments Alanine Aminotransferase (ALT/SGPT) (test code = 1742-6) 49 0-55 [facility]neTotal Ffmqwjq0973-46-11 07:05:00* Test Item Value Reference Range Interpretation Comments Total Protein (test code = 2885-2) 4.7 6.5-8.1 L [facility]neAlbumin2019-10-28 07:05:00* Test Item Value Reference Range Interpretation Comments Albumin (test code = 1751-7) 2.2 3.5-5.0 L [facility]neGlobulin2019-10-28 07:05:00* Test Item Value Reference Range Interpretation Comments Globulin (test code = 38114-8) 2.5 2.3-3.5 [facility]neAlbumin/Globulin Rdauu2342-81-33 07:05:00 * Test Item Value Reference Range Interpretation Comments Albumin/Globulin Ratio (test code = 1759-0) 0.9 0.8-2.0 [facility]neAlkaline Xlncvjhfhft3942-72-07 07:05:00* Test Item Value Reference Range Interpretation Comments Alkaline Phosphatase (test code = 6768-6) 102 40-150 [facility]neTotal Iqathuaqc1804-92-07 07:05:00* Test Item Value Reference Range Interpretation Comments Total Bilirubin (test code = 1975-2) 0.7 0.2-1.2 [facility]neAspartate Amino Transf (AST/SGOT) 2019-09-18 07:05:00* Test Item Value Reference Range Interpretation Comments Aspartate Amino Transf (AST/SGOT) (test code = Aspartate Amino Transf (AST/SGOT)) 54 5-34 H [facility]neAlanine Aminotransferase (ALT/SGPT) 2019-09-18 07:05:00* Test Item Value Reference Range Interpretation Comments Alanine Aminotransferase (ALT/SGPT) (test code = 1742-6) 49 0-55 [facility]neTotal Avxndtm1114-56-85 07:05:00* Test Item Value Reference Range Interpretation Comments Total Protein (test code = 2885-2) 4.7 6.5-8.1 L [facility]neAlbumin2019-10-28 07:05:00* Test Item Value Reference Range Interpretation Comments Albumin (test code = 1751-7) 2.2 3.5-5.0 L [facility]neGlobulin2019-10-28 07:05:00* Test Item Value Reference Range Interpretation Comments Globulin (test code = 87282-7) 2.5 2.3-3.5 [facility]neAlbumin/Globulin Qeafj4765-07-02 07:05:00 * Test Item Value Reference Range Interpretation Comments Albumin/Globulin Ratio (test code = 1759-0) 0.9 0.8-2.0 [facility]neAlkaline Ycklnggyikw6312-27-89 07:05:00* Test Item Value Reference Range Interpretation Comments Alkaline Phosphatase (test code = 6768-6) 102 40-150 [facility]neTotal Kmfpnhdcu8251-76-96 07:05:00* Test Item Value Reference Range Interpretation Comments Total Bilirubin (test code = 1975-2) 0.7 0.2-1.2 [facility]neAspartate Amino Transf (AST/SGOT) 2019-09-18 07:05:00* Test Item Value Reference Range Interpretation Comments Aspartate Amino Transf (AST/SGOT) (test code = Aspartate Amino Transf (AST/SGOT)) 54 5-34 H [facility]neAlanine Aminotransferase (ALT/SGPT) 2019-09-18 07:05:00* Test Item Value Reference Range Interpretation Comments Alanine Aminotransferase (ALT/SGPT) (test code = 1742-6) 49 0-55 [facility]neTotal Fbycqpy1208-74-68 07:05:00* Test Item Value Reference Range Interpretation Comments Total Protein (test code = 2885-2) 4.7 6.5-8.1 L [facility]neAlbumin2019-10-28 07:05:00* Test Item Value Reference Range Interpretation Comments Albumin (test code = 1751-7) 2.2 3.5-5.0 L [facility]neGlobulin2019-10-28 07:05:00* Test Item Value Reference Range Interpretation Comments Globulin (test code = 91138-5) 2.5 2.3-3.5 [facility]neAlbumin/Globulin Pcmld1746-63-75 07:05:00 * Test Item Value Reference Range Interpretation Comments Albumin/Globulin Ratio (test code = 1759-0) 0.9 0.8-2.0 [facility]neAlkaline Uawovifmwuo2911-60-39 07:05:00* Test Item Value Reference Range Interpretation Comments Alkaline Phosphatase (test code = 6768-6) 102 40-150 [facility] Orxgpsthl4403-88-65 07:05:00* Test Item Value Reference Range Interpretation Comments Total Bilirubin (test code = 1975-2) 0.7 0.2-1.2 [facility]neAspartate Amino Transf (AST/SGOT) 2019-09-18 07:05:00* Test Item Value Reference Range Interpretation Comments Aspartate Amino Transf (AST/SGOT) (test code = Aspartate Amino Transf (AST/SGOT)) 54 5-34 H [facility]neAlanine Aminotransferase (ALT/SGPT) 2019-09-18 07:05:00* Test Item Value Reference Range Interpretation Comments Alanine Aminotransferase (ALT/SGPT) (test code = 1742-6) 49 0-55 [facility] Odcjbds8741-72-86 07:05:00* Test Item Value Reference Range Interpretation Comments Total Protein (test code = 2885-2) 4.7 6.5-8.1 L [facility]neAlbumin2019-10-28 07:05:00* Test Item Value Reference Range Interpretation Comments Albumin (test code = 1751-7) 2.2 3.5-5.0 L [facility]neGlobulin2019-10-28 07:05:00* Test Item Value Reference Range Interpretation Comments Globulin (test code = 22999-7) 2.5 2.3-3.5 [facility]neAlbumin/Globulin Dooze4474-06-95 07:05:00 * Test Item Value Reference Range Interpretation Comments Albumin/Globulin Ratio (test code = 1759-0) 0.9 0.8-2.0 [facility]neAlkaline Reviaponnjg0270-81-35 07:05:00* Test Item Value Reference Range Interpretation Comments Alkaline Phosphatase (test code = 6768-6) 102 40-150 [facility] Frpwahkdr4839-20-58 07:05:00* Test Item Value Reference Range Interpretation Comments Total Bilirubin (test code = 1975-2) 0.7 0.2-1.2 [facility]neAspartate Amino Transf (AST/SGOT) 2019-09-18 07:05:00* Test Item Value Reference Range Interpretation Comments Aspartate Amino Transf (AST/SGOT) (test code = Aspartate Amino Transf (AST/SGOT)) 54 5-34 H [facility]neAlanine Aminotransferase (ALT/SGPT) 2019-09-18 07:05:00* Test Item Value Reference Range Interpretation Comments Alanine Aminotransferase (ALT/SGPT) (test code = 1742-6) 49 0-55 [facility]neTointermount[facility] center Fwnzkhg4245-04-17 07:05:00* Test Item Value Reference Range Interpretation Comments Total Protein (test code = 2885-2) 4.7 6.5-8.1 L [facility]neAlbumin2019-10-28 07:05:00* Test Item Value Reference Range Interpretation Comments Albumin (test code = 1751-7) 2.2 3.5-5.0 L [facility]neGlobulin2019-10-28 07:05:00* Test Item Value Reference Range Interpretation Comments Globulin (test code = 82606-9) 2.5 2.3-3.5 [facility]neAlbumin/Globulin Uwugy4789-17-83 07:05:00 * Test Item Value Reference Range Interpretation Comments Albumin/Globulin Ratio (test code = 1759-0) 0.9 0.8-2.0 [facility]neAlkaline Rcdehnimlcx4284-70-87 07:05:00* Test Item Value Reference Range Interpretation Comments Alkaline Phosphatase (test code = 6768-6) 102 40-150 [facility]neHepatitis A IgM Gbjhbgkn1829-88-89 21:43:00* Test Item Value Reference Range Interpretation Comments Hepatitis A IgM Antibody (test code = 97534-2) NEGATIVE [facility]: [facility] Vltivwv5179-81-33 21:43:00* Test Item Value Reference Range Interpretation Comments Hepatitis B Surface Antigen (test code = 5196-1) NEGATIVE Reference: [facility] Core IgM Fibqylij2336-11-50 21:43:00* Test Item Value Reference Range Interpretation Comments Hepatitis B Core IgM Antibody (test code = 06168-3) NEGATIVE Reference: [facility] Antibody 2019-09-14 21:43:00* Test Item Value Reference Range Interpretation Comments Hepatitis C Antibody (test code = 77427-2) 0.2 s/co ration: 0.0-0.9 Negative: <0.8Intermediate: 0.8-0.9 Positive: >0.9 [facility]neGamma Glutamyl Oehsnezwvsbexm0514-29-13 21:43:00* Test Item Value Reference Range Interpretation Comments Gamma Glutamyl Transpeptidase (test code = 2324-2) 50 Units: IU/LReference: 0-65[facility] A IgM Lyxozfvc5495-19-85 21:43:00* Test Item Value Reference Range Interpretation Comments Hepatitis A IgM Antibody (test code = 58720-1) NEGATIVE Reference: [facility] Surface Jsackrx9179-26-20 21:43:00* Test Item Value Reference Range Interpretation Comments Hepatitis B Surface Antigen (test code = 5196-1) NEGATIVE Reference: [facility] Core IgM Lrshmugg7566-55-12 21:43:00* Test Item Value Reference Range Interpretation Comments Hepatitis B Core IgM Antibody (test code = 05887-3) NEGATIVE Reference: [facility] Antibody 2019-09-14 21:43:00* Test Item Value Reference Range Interpretation Comments Hepatitis C Antibody (test code = 74393-7) 0.2 s/co ration: 0.0-0.9 Negative: <0.8Intermediate: 0.8-0.9 Positive: >0.9 [facility]neGamma Glutamyl Cpicshkqesmann3314-93-92 21:43:00* Test Item Value Reference Range Interpretation Comments Gamma Glutamyl Transpeptidase (test code = 2324-2) 50 Units: IU/LReference: 0-65[facility] A IgM Yrctfjdg4937-51-24 21:43:00* Test Item Value Reference Range Interpretation Comments Hepatitis A IgM Antibody (test code = 12095-7) NEGATIVE Reference: [facility] Surface Bgdrejk6190-83-67 21:43:00* Test Item Value Reference Range Interpretation Comments Hepatitis B Surface Antigen (test code = 5196-1) NEGATIVE Reference: [facility] Core IgM Uvlabjcq4824-83-75 21:43:00* Test Item Value Reference Range Interpretation Comments Hepatitis B Core IgM Antibody (test code = 93154-8) NEGATIVE Reference: [facility] Antibody 2019-09-14 21:43:00* Test Item Value Reference Range Interpretation Comments Hepatitis C Antibody (test code = 93006-0) 0.2 s/co ration: 0.0-0.9 Negative: <0.8Intermediate: 0.8-0.9 Positive: >0.9 [facility]neGamma Glutamyl Flylprfqwowwmk7049-42-70 21:43:00* Test Item Value Reference Range Interpretation Comments Gamma Glutamyl Transpeptidase (test code = 2324-2) 50 Units: IU/LReference: 0-65[facility] A IgM Yfojzjgp5372-96-50 21:43:00* Test Item Value Reference Range Interpretation Comments Hepatitis A IgM Antibody (test code = 24651-1) NEGATIVE Reference: [facility] Surface Frzgsot6890-81-43 21:43:00* Test Item Value Reference Range Interpretation Comments Hepatitis B Surface Antigen (test code = 5196-1) NEGATIVE Reference: [facility] Core IgM Lbmwincj5168-94-89 21:43:00* Test Item Value Reference Range Interpretation Comments Hepatitis B Core IgM Antibody (test code = 38811-7) NEGATIVE Reference: Negative[facility]neHepatitis C Antibody 2019-09-14 21:43:00* Test Item Value Reference Range Interpretation Comments Hepatitis C Antibody (test code = 53928-6) 0.2 s/co ration: 0.0-0.9 Negative: <0.8Intermediate: 0.8-0.9 Positive: >0.9 [facility]neGamma Glutamyl Gctnpvgyztekwn4920-64-25 21:43:00* Test Item Value Reference Range Interpretation Comments Gamma Glutamyl Transpeptidase (test code = 2324-2) 50 Units: IU/LReference: 0-65[facility] A IgM Pxcasfnb2500-03-28 21:43:00* Test Item Value Reference Range Interpretation Comments Hepatitis A IgM Antibody (test code = 97834-0) NEGATIVE Reference: [facility] Surface Ezxoajl9379-59-82 21:43:00* Test Item Value Reference Range Interpretation Comments Hepatitis B Surface Antigen (test code = 5196-1) NEGATIVE Reference: [facility] Core IgM Oamvzplx9224-76-35 21:43:00* Test Item Value Reference Range Interpretation Comments Hepatitis B Core IgM Antibody (test code = 62411-3) NEGATIVE Reference: [facility] Antibody 2019-09-14 21:43:00* Test Item Value Reference Range Interpretation Comments Hepatitis C Antibody (test code = 64477-5) 0.2 s/co ration: 0.0-0.9 Negative: <0.8Intermediate: 0.8-0.9 Positive: >0.9 [facility] Glutamyl Kbcekowkmuwoaj6175-56-09 21:43:00* Test Item Value Reference Range Interpretation Comments Gamma Glutamyl Transpeptidase (test code = 2324-2) 50 Units: IU/LReference: 0-65[facility]neHeparin-Induced Platelet Ancupgcj3675-82-30 22:10:00* Test Item Value Reference Range Interpretation Comments Heparin-Induced Platelet Antibody (test code = 03410-1) 0.354 0.000-0.400 Performed at: [facility] [id number] Forklift Picker: Akanksha Plummer MD, Phone: [phone] Hermann [facility]-Induced Platelet Kcbbsxjo1324-42-85 22:10:00* Test Item Value Reference Range Interpretation Comments Heparin-Induced Platelet Antibody (test code = 43796-8) 0.354 0.000-0.400 Performed at: [address] [id number] Forklift Picker: Akanksha Plummer MD, Phone: [phone] Health [facility] CleburneHeparin-Induced Platelet Izlntcgj5543-13-09 22:10:00* Test Item Value Reference Range Interpretation Comments Heparin-Induced Platelet Antibody (test code = 43614-5) 0.354 0.000-0.400 Performed at: [address] [id number] Forklift Picker: Akanksha Plummer MD, Phone: [phone] Health [facility] Cle[facility]neHeparin-Induced Platelet Vypkmlph2282-83-33 22:10:00* Test Item Value Reference Range Interpretation Comments Heparin-Induced Platelet Antibody (test code = 19570-4) 0.354 0.000-0.400 Performed at: [address] [id number] Forklift Picker: Akanksha Plummer MD, Phone: [phone] Health [facility] CleburneHeparin-Induced Platelet Ryycwxno3724-12-39 22:10:00* Test Item Value Reference Range Interpretation Comments Heparin-Induced Platelet Antibody (test code = 32779-6) 0.354 0.000-0.400 Performed at: [address] [id number] Forklift Picker: Akanksha Plummer MD, Phone: [phone] Health Harris [facility] Hospital CleburneVitamin B12 Ykxde0903-12-17 12:23:00* Test Item Value Reference Range Interpretation Comments Vitamin B12 Level (test code = 44199-9) 219 024-677 [facility] CleburneVitamin B12 Wejef9614-52-60 12:23:00* Test Item Value Reference Range Interpretation Comments Vitamin B12 Level (test code = 86666-8) 501 213-881 [facility] CleburneVitamin B12 Levhf0946-44-67 12:23:00* Test Item Value Reference Range Interpretation Comments Vitamin B12 Level (test code = 99490-4) 605 213-816 [facility] CleburneVitamin B12 Tdndg5325-77-53 12:23:00* Test Item Value Reference Range Interpretation Comments Vitamin B12 Level (test code = 28804-2) 605 213-816 [facility] CleburneVitamin B12 Tmrln9520-24-96 12:23:00* Test Item Value Reference Range Interpretation Comments Vitamin B12 Level (test code = 48661-0) 605 213-816 [facility] CleburneFerritin2019-10-21 11:06:00* Test Item Value Reference Range Interpretation Comments Ferritin (test code = 2276-4) 198.61 21.81-274.66 [facility]neFerritin2019-10-21 11:06:00* Test Item Value Reference Range Interpretation Comments Ferritin (test code = 2276-4) 198.61 21.81-274.66 [facility]neFerritin2019-10-21 11:06:00* Test Item Value Reference Range Interpretation Comments Ferritin (test code = 2276-4) 198.61 21.81-274.66 [facility]neFerritin2019-10-21 11:06:00* Test Item Value Reference Range Interpretation Comments Ferritin (test code = 2276-4) 198.61 21.81-274.66 [facility]burneFerritin2019-10-21 11:06:00* Test Item Value Reference Range Interpretation Comments Ferritin (test code = 2276-4) 198.61 21.81-274.66 [facility] Cle[facility]neIron Dedoo2933-80-44 09:45:00* Test Item Value Reference Range Interpretation Comments Iron Level (test code = 2498-4) 37 65-175 L [facility]ne[facility] Iron Binding Ammbgyed7941-74-11 09:45:00* Test Item Value Reference Range Interpretation Comments Total Iron Binding Capacity (test code = 2500-7) 204 261-4 78 L [facility]nePercent Iron Gnhhmoufro2411-36-84 09:45:00* Test Item Value Reference Range Interpretation Comments Percent Iron Saturation (test code = 2502-3) 18 15-50 [facility]neTransferrin2019-10-21 09:45:00* Test Item Value Reference Range Interpretation Comments Transferrin (test code = 3034-6) 146 174-364 L [facility]neLactate Ptbptvhmmxlvu3207-15-08 09:45:00 * Test Item Value Reference Range Interpretation Comments Lactate Dehydrogenase (test code = 956727768) 262 125-220 [facility] Ncvjs7091-19-24 09:45:00* Test Item Value Reference Range Interpretation Comments Iron Level (test code = 2498-4) 37 65-175 L [facility]neTotal Iron Binding Zrrqgsnm0116-16-26 09:45:00* Test Item Value Reference Range Interpretation Comments Total Iron Binding Capacity (test code = 2500-7) 204 261-4 78 L [facility] Iron Hfyibbncda2935-39-06 09:45:00* Test Item Value Reference Range Interpretation Comments Percent Iron Saturation (test code = 2502-3) 18 15-50 [facility]neTransferrin2019-10-21 09:45:00* Test Item Value Reference Range Interpretation Comments Transferrin (test code = 3034-6) 146 174-364 L [facility]neLactcommunity [facility] Ydzqxschpuyls2705-63-30 09:45:00 * Test Item Value Reference Range Interpretation Comments Lactate Dehydrogenase (test code = 010851154) 262 125-220 H [facility] Hulyt4378-29-05 09:45:00* Test Item Value Reference Range Interpretation Comments Iron Level (test code = 2498-4) 37 65-175 L [facility]neTotal Iron Binding Frvvgtic9614-71-77 09:45:00* Test Item Value Reference Range Interpretation Comments Total Iron Binding Capacity (test code = 2500-7) 204 261-4 78 L [facility] Ueixvvoqzd9030-12-25 09:45:00* Test Item Value Reference Range Interpretation Comments Percent Iron Saturation (test code = 2502-3) 18 50 [facility]neTransferrin2019-10-21 09:45:00* Test Item Value Reference Range Interpretation Comments Transferrin (test code = 3034-6) 146 174-364 L [facility]burneLactate Seyofounyttnm6436-36-84 09:45:00 * Test Item Value Reference Range Interpretation Comments Lactate Dehydrogenase (test code = 527363933) 262 125-220 H [facility]neIron Huykk3756-79-32 09:45:00* Test Item Value Reference Range Interpretation Comments Iron Level (test code = 2498-4) 37 65-175 L [facility]neTotal Iron Binding Rbnvdcpx4336-50-24 09:45:00* Test Item Value Reference Range Interpretation Comments Total Iron Binding Capacity (test code = 2500-7) 204 261-4 78 L [facility]nePercent Iron Pceksibzus5751-56-36 09:45:00* Test Item Value Reference Range Interpretation Comments Percent Iron Saturation (test code = 2502-3) 18 [facility]neTransferrin2019-10-21 09:45:00* Test Item Value Reference Range Interpretation Comments Transferrin (test code = 3034-6) 146 174-364 L [facility]neLactcommunity [facility] Ofgcrqurigadm1784-99-28 09:45:00 * Test Item Value Reference Range Interpretation Comments Lactate Dehydrogenase (test code = 704357523) 262 125-220 H [facility]neIron Nyics9274-55-74 09:45:00* Test Item Value Reference Range Interpretation Comments Iron Level (test code = 2498-4) 37 65-175 L [facility]neTotal Iron Binding Znfcwcty4669-98-94 09:45:00* Test Item Value Reference Range Interpretation Comments Total Iron Binding Capacity (test code = 2500-7) 204 261-4 78 L [facility]nePercent Iron Zadoyrurcb1496-38-80 09:45:00* Test Item Value Reference Range Interpretation Comments Percent Iron Saturation (test code = 2502-3) 18 50 [facility]neTransferrin2019-10-21 09:45:00* Test Item Value Reference Range Interpretation Comments Transferrin (test code = 3034-6) 146 174-364 L [facility] CleburneLactate Oobqokiajokby7846-72-83 09:45:00 * Test Item Value Reference Range Interpretation Comments Lactate Dehydrogenase (test code = 173374168) 262 125-220 H [facility] CleburneProthrombin Nfkt3897-94-85 06:49:00* Test Item Value Reference Range Interpretation Comments Prothrombin Time (test code = 5902-2) 15.9 11.9-14.5 H [facility]burneProthromb Time International Ratio 2019-09-11 06:49:00* Test Item Value Reference Range Interpretation Comments Prothromb Time International Ratio (test code = 6301-6) 1.21 Oral Anticoagulant Therapy INR Values:1. Low Intensity Therapy 1.5 - 2.02 . Moderate Intensity Therapy 2.0 - 3.03. High Intensity Therapy(1) 2.5 - 3. 54. High Intensity Therapy(2) 3.0 - 4.05. Panic Value INR > 5.0 [facility] CleburneProthrombco Thmt0857-81-55 06:49:00* Test Item Value Reference Range Interpretation Comments Prothrombin Time (test code = 5902-2) 15.9 11.9-14.5 H [facility]neProthromb Time International Ratio 2019-09-11 06:49:00* Test Item Value Reference Range Interpretation Comments Prothromb Time International Ratio (test code = 6301-6) 1.21 Oral Anticoagulant Therapy INR Values:1. Low Intensity Therapy 1.5 - 2.02 . Moderate Intensity Therapy 2.0 - 3.03. High Intensity Therapy(1) 2.5 - 3. 54. High Intensity Therapy(2) 3.0 - 4.05. Panic Value INR > 5.0 [facility] Cle[facility]neProthrombin Bksq3782-93-99 06:49:00* Test Item Value Reference Range Interpretation Comments Prothrombin Time (test code = 5902-2) 15.9 11.9-14.5 H [facility]neProthromb Time International Ratio 2019-09-11 06:49:00* Test Item Value Reference Range Interpretation Comments Prothromb Time International Ratio (test code = 6301-6) 1.21 Oral Anticoagulant Therapy INR Values:1. Low Intensity Therapy 1.5 - 2.02 . Moderate Intensity Therapy 2.0 - 3.03. High Intensity Therapy(1) 2.5 - 3. 54. High Intensity Therapy(2) 3.0 - 4.05. Panic Value INR > 5.0 [facility]neProthrombin Nauy5868-34-35 06:49:00* Test Item Value Reference Range Interpretation Comments Prothrombin Time (test code = 5902-2) 15.9 11.9-14.5 H [facility]neProthromb Time International Ratio 2019-09-11 06:49:00* Test Item Value Reference Range Interpretation Comments Prothromb Time International Ratio (test code = 6301-6) 1.21 Oral Anticoagulant Therapy INR Values:1. Low Intensity Therapy 1.5 - 2.02 . Moderate Intensity Therapy 2.0 - 3.03. High Intensity Therapy(1) 2.5 - 3. 54. High Intensity Therapy(2) 3.0 - 4.05. Panic Value INR > 5.0 [facility] Cle[facility]neProthrombin Kpmi5241-39-76 06:49:00* Test Item Value Reference Range Interpretation Comments Prothrombin Time (test code = 5902-2) 15.9 11.9-14.5 H [facility] CleburneProthromb Time International Ratio 2019-09-11 06:49:00* Test Item Value Reference Range Interpretation Comments Prothromb Time International Ratio (test code = 6301-6) 1.21 Oral Anticoagulant Therapy INR Values:1. Low Intensity Therapy 1.5 - 2.02 . Moderate Intensity Therapy 2.0 - 3.03. High Intensity Therapy(1) 2.5 - 3. 54. High Intensity Therapy(2) 3.0 - 4.05. Panic Value INR > 5.0 [facility] CleburneCT CHEST [id number] 00:09:00 [place] [address] Patient Name: LIZBETH ALANIS JR MR #: [id number] : 1960 Age/Sex: 59/M Req #: [id number] [facility] Physician: CHARAN JACOBS MD Ordered by: NATANAEL ZAZUETA MD Report #: [id number] Location: MED/SURG Room/Bed: [facility] Procedure: 1020- 0024 CT/CT CHEST W Exam Date: 09/10/19 Exam Time: 23 35 REPORT STATUS: Signed EXAM: C T Chest WITH contrast (PE Protocol) INDICATION: RULE OUT PULMONARY EM [facility] [id number] COMPARISON: Same day chest x-ray TECHNIQUE: Chest was scanned utilizing a multidetector helical scanner from the lung apex through the level of the diaphragm after administration of IV contrast. Thin section reconstructions were obtained with special concentration on the pulm onary arteries. Coronal and sagittal reformations were obtained. Dose modulati on, iterative reconstruction, and/or weight based adjustment of the mA/kV was utilized to reduce the radiation dose to as low as reasonably achievable. Pulm onary embolism protocol was performed. IV CONTRAST: 100 mL of Isovue-370 COMPLICATIONS: None RADIATION DOSE: Total DLP: 679.97 mGy*cm Estimated effective dose: (DLP x 0.014 x size factor) mSv CTDIvol has been reviewed. It is below the limits set by the Radiation Protocol Committee (RPC). FINDINGS: LINES/ TUBES: None. LUNGS AND AIRWAYS: Subopt imal opacification of the pulmonary arteries. No filling defect is identified within the pulmonary arteries to the lobar level. The lungs are unremarkable. Airways are normal. PLEURA: The pleural spaces are clear. HEART AND MEDIASTINUM: Questionable right hypodense thyroid nodule versus artifact. No mediastinal, hilar or axillary lymphadenopathy. The heart is normal in size.. There is no pericardial effusion. . Main pulmonary artery measures 3.8 cm in diameter, suggestive of pulmonary hypertension. UPPER ABDOMEN: Hepatic calcified granulomas. Cirrhotic changes of liver. Splenomegaly. Partially seen 3 cm calculus seen right renal pelvis. 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 Cholelithiasis. Partially seen left renal midpole hypodensity. BONES: Old fracture deformities of the posterior left seventh and eighth rib s. Degenerative changes of spine. SOFT TISSUES: Unremarkable. IMPRES LUCITA: 1. Suboptimal opacification of the pulmonary arteries. Within this con text, there is no central pulmonary embolism. Limited for evaluation of segmen aislinn and subsegmental branches. 2. No lung consolidation. 3. Dilated main pulmonary artery, suggestive of pulmonary hypertension. 4. Cirrhotic liver w ith signs of portal hypertension. 5. Right renal calculus. 6. Cholelithias is without evidence of cholecystitis. Signed by: Dr. Max Bush MD on 12:22 AM Dictated By: MAX BUSH MD Transcribed By: PETERSON on 09/11/1921 COPY TO: NATANAEL ZAZUETA MD D-Dimer Quantitative (PE/DVT)2019-09-10 20:40:00* Test Item Value Reference Range Interpretation Comments D-Dimer Quantitative (PE/DVT) (test code = 75640-7) 877 0- 400 H The Triage D-Dimer Test has not been evaluated for use as sole evidence for the presence or absence of PE or DVT. As with all in vitro diagnostic tests, the te st results should be interpreted by the physician in conjunction with clinical f indings and other test results.Test results are reported in D-dimer units.[facility]neD-Dimer Quantitative (PE/DVT)2019-09-10 20:40:00* Test Item Value Reference Range Interpretation Comments D-Dimer Quantitative (PE/DVT) (test code = 41965-0) 877 0- 400 H The Triage D-Dimer Test has not been evaluated for use as sole evidence for the presence or absence of PE or DVT. As with all in vitro diagnostic tests, the te st results should be interpreted by the physician in conjunction with clinical f indings and other test results.Test results are reported in D-dimer units.[facility]neD-Dimer Quantitative (PE/DVT)2019-09-10 20:40:00* Test Item Value Reference Range Interpretation Comments D-Dimer Quantitative (PE/DVT) (test code = 41479-6) 877 0- 400 H The Triage D-Dimer Test has not been evaluated for use as sole evidence for the presence or absence of PE or DVT. As with all in vitro diagnostic tests, the te st results should be interpreted by the physician in conjunction with clinical f indings and other test results.Test results are reported in D-dimer units.[facility]neD-Dimer Quantitative (PE/DVT)2019-09-10 20:40:00* Test Item Value Reference Range Interpretation Comments D-Dimer Quantitative (PE/DVT) (test code = 72484-8) 877 0- 400 H The Triage D-Dimer Test has not been evaluated for use as sole evidence for the presence or absence of PE or DVT. As with all in vitro diagnostic tests, the te st results should be interpreted by the physician in conjunction with clinical f indings and other test results.Test results are reported in D-dimer units.[facility]neD-Dimer Quantitative (PE/DVT)2019-09-10 20:40:00* Test Item Value Reference Range Interpretation Comments D-Dimer Quantitative (PE/DVT) (test code = 51496-7) 877 0- 400 H The Triage D-Dimer Test has not been evaluated for use as sole evidence for the presence or absence of PE or DVT. As with all in vitro diagnostic tests, the te st results should be interpreted by the physician in conjunction with clinical f indings and other test results.Test results are reported in D-dimer units.[facility]neB-Type Natriuretic Dmdfsev4393-81-41 15:09:00 * Test Item Value Reference Range Interpretation Comments B-Type Natriuretic Peptide (test code = 65641-7) 11.8 0-100 [facility]neB-Type Natriuretic Ejqonma6254-38-16 15:09:00* Test Item Value Reference Range Interpretation Comments B-Type Natriuretic Peptide (test code = 87367-7) 11.8 0-100 [facility]neB-Type Natriuretic Meguflx7185-32-45 15:09:00* Test Item Value Reference Range Interpretation Comments B-Type Natriuretic Peptide (test code = 68033-2) 11.8 0-100 [facility]neB-Type Natriuretic Gqtdqjj4432-40-94 15:09:00* Test Item Value Reference Range Interpretation Comments B-Type Natriuretic Peptide (test code = 90021-0) 11.8 0-100 [facility]neB-Type Natriuretic Jkdwpwd8301-83-77 15:09:00* Test Item Value Reference Range Interpretation Comments B-Type Natriuretic Peptide (test code = 69493-9) 11.8 0-100 [facility]neCHES SINGLE (PORTABLE)2019-09-10 14:37:00 [facility] [address] [place] [address] Patient Name: LIZBETH ALANIS JR MR #: [id number] : 1960 Age/Sex: 59/M Req #: [id number] Adm Physician: CHARAN JACOBS MD Ordered by: NATANAEL ZAZUETA MD Report #: [id number] Location: MED/SURG Room/Bed: [facility] Procedure: 1020- 0029 DX/CHEST SINGLE (PORTABLE) Exam Date: 09/10/19 Exam Time: 1401 REPORT STATUS: Sign ed Frontal views of the chest - 2 images HISTORY: Chest pain, nausea, s hortness of breath, trouble breathing COMPARISON: Chest radiograph August DISCUSSION: Portable technique, limits sensitivity of the ex am. Soft tissue attenuation partially limits sensitivity of the exam. Marychuy us overlying artifacts. Tubes/Lines: None Lungs and pleura: Minimal left basilar atelectasis. No evidence of a consolidative pneumonia or pulmon mejia alveolar edema. No definite pleural effusion or pneumothorax is identified . Heart and mediastinum: The cardiomediastinal silhouette appear(s) unr emarkable. Bones and soft tissues: Appear unremarkable, given this limi shu exam. IMPRESSION: 1. Minimal left basilar atelectasis. 2. Oth erwise, no significant interval change. Signed by: Dr. Ki Gonzalez D.O., M.M.M. on 09/10/2019 2:39 PM Dictated By: KI GONZALEZ DO E lectronically Signed By: KI GONZALEZ DO on 09/10/191438 Transcribed By: ELOISE Richard on 09/10/191438 COPY TO: NATANAEL ZAZUETA MD Gbjatdp7800-82-79 06:02:00* Test Item Value Reference Range Interpretation Comments Ammonia (test code = 81888-5) 46 31-123 [facility]2019-10-20 06:02:00* Test Item Value Reference Range Interpretation Comments Ammonia (test code = 43598-1) 46 31-123 [facility]2019-10-20 06:02:00* Test Item Value Reference Range Interpretation Comments Ammonia (test code = 14160-2) 46 -123 [facility]2019-10-20 06:02:00* Test Item Value Reference Range Interpretation Comments Ammonia (test code = 42323-8) 46 31-123 [facility]2019-10-20 06:02:00* Test Item Value Reference Range Interpretation Comments Ammonia (test code = 02352-7) 46 31-123 [facility]CT ABDOMEN/PELVIS [id number] 08:45:00 [place] [address] Patient Name: LIZBETH ALANIS JR MR #: [id number] : 1960 Age/Sex: 59/M Req #: [id number] Adm Physician: CHARAN JACOBS MD Ordered by: CHARAN JACOBS MD Report #: [id number] Location: MED/SURG Room/Bed: [facility] Procedure: CT/CT ABDOMEN/PELVIS WO Exam Date: 09/08/19 E xam Time: 06 REPORT STATUS: Helen d ADDENDUM #1 An addendum is being issued per reque st of Dr. March for measurement of prostate volume. The prostate measur es 7.4 x 6.8 x 6.1 cm with a volume estimate of 306 cc. Signed by: Karina Tomlinson MD on 09/11/2019 12:24 PM ORIGINAL REPORT EXAM: CT Abdomen and Pelvis WITHOUT intravenous contrast INDICATION: Flank pain COMPARISON: Abdominal ultrasound of 09/06/2019 TECHNIQUE: Abdomen and pe lvis were scanned utilizing a multidetector helical scanner from the lung base to the pubic symphysis without administration of IV contrast. Coronal and sag ittal reformations were obtained. IV CONTRAST: None ORAL CONTRAST: None COMPLICATIONS: None RADIATION DOSE: Total DLP: 835 .5 mGy*cm Dose modulation, iterative reconstruction, and/or weight based ad justment of the mA/kV was utilized to reduce the radiation dose to as low as r easonably achievable. FINDINGS: LOWER THORAX: No focal consolidation. Mild scattered atherosclerotic coronary artery calcifications. HEPATOBILI MEJIA: Subcentimeter calcified granulomas in the left liver. Nodular liver surfa ce contour consistent with hepatic cirrhosis. No other focal liver lesions. De pendent gallstones in the gallbladder. No CT evidence of cholecystitis. S PLEEN: Splenomegaly to 16.7 cm. PANCREAS: No focal masses or ductal dilatat ion. ADRENALS: No adrenal nodules. KIDNEYS/URETERS: 3.0 cm calculus in the right renal pelvis. 4 mm right upper pole renal calculus. Mild right hydr onephrosis. No left renal calculi. No left hydronephrosis. Left lower pole 1.7 cm cyst. PELVIC ORGANS/BLADDER: Prostatomegaly to 7.4 cm with indentation of the posterior bladder. PERITONEUM / RETROPERITONEUM: No free air or fl uid. LYMPH NODES: Prominent leena hepatis lymph node measuring 1.3 cm short ax is. Scattered prominent retroperitoneal lymph nodes not meeting size criteria for lymphadenopathy. VESSELS: Minimal scattered atherosclerotic calcificatio ns. Nonaneurysmal abdominal aorta. Prominent upper abdominal portosystemic tanesha ices. GI TRACT: Diverticulosis without CT evidence of diverticulitis. No ab normal bowel wall thickening. No bowel obstruction. Normal appendix. BONE S AND SOFT TISSUES: No acute osseous injury. No suspicious lytic or blastic le sions. IMPRESSION: 3.0 cm calculus in the right renal pelvis and 4 mm ri ght upper pole renal calculus. Mild right hydronephrosis. No left renal calcul i or hydronephrosis. Hepatic cirrhosis with splenomegaly and upper abdomina l portosystemic varices consistent with portal hypertension. Prostatomega ly to 7.4 cm. Signed by: Karina Tomlinson MD on 09/08/2019 8:55 AM Dic tated By: KARINA TOMLINSON MD 122 4 Transcribed By: PETERSON on 09/08/19 0855 COPY TO: CHARAN JACOBS MD Hemoglobin A1c Lvalkiu8568-45-02 05:16:00* Test Item Value Reference Range Interpretation Comments Hemoglobin A1c Percent (test code = Hemoglobin A1c Percent) 8.5 4.0-7.0 H [facility]neHemoglobin A1c Kwdxjte5586-82-99 05:16:00 * Test Item Value Reference Range Interpretation Comments Hemoglobin A1c Percent (test code = Hemoglobin A1c Percent) 8.5 4.0-7.0 H [facility]neHemoglobin A1c Kajvoas5154-92-26 05:16:00 * Test Item Value Reference Range Interpretation Comments Hemoglobin A1c Percent (test code = Hemoglobin A1c Percent) 8.5 4.0-7.0 H [facility]neHemoglobin A1c Ayslyva8988-60-58 05:16:00 * Test Item Value Reference Range Interpretation Comments Hemoglobin A1c Percent (test code = Hemoglobin A1c Percent) 8.5 4.0-7.0 H [facility]neHemoglobin A1c Urwoqbl6060-75-97 05:16:00 * Test Item Value Reference Range Interpretation Comments Hemoglobin A1c Percent (test code = Hemoglobin A1c Percent) 8.5 4.0-7.0 H [facility]neUrine [id number] 21:15:00* Test Item Value Reference Range Interpretation Comments Urine WBC (test code = 5821-4) NONE 0-5 [facility]neUrine [id number] 21:15:00* Test Item Value Reference Range Interpretation Comments Urine RBC (test code = 32632-5) >50 0-5 H [facility]neUrine Czwlmhcp2744-34-67 21:15:00* Test Item Value Reference Range Interpretation Comments Urine Bacteria (test code = 62359-7) FEW NONE [facility]neUrine Epithelial Hayme4775-63-64 21:15:00 * Test Item Value Reference Range Interpretation Comments Urine Epithelial Cells (test code = 97196-7) NONE NONE [facility]neU[facility] [id number] 21:15:00* Test Item Value Reference Range Interpretation Comments Urine WBC (test code = 5821-4) NONE 0-5 [facility]neU[facility] [id number] 21:15:00* Test Item Value Reference Range Interpretation Comments Urine RBC (test code = 21554-5) >50 0-5 H [facility]neU[facility] Fifsvpzb7369-45-99 21:15:00* Test Item Value Reference Range Interpretation Comments Urine Bacteria (test code = 64669-9) FEW NONE [facility]neU[facility] Epithelial Nwqwp2189-73-42 21:15:00 * Test Item Value Reference Range Interpretation Comments Urine Epithelial Cells (test code = 14625-7) NONE NONE [facility]neU[facility] [id number] 21:15:00* Test Item Value Reference Range Interpretation Comments Urine WBC (test code = 5821-4) NONE 0-5 [facility]neU[facility] [id number] 21:15:00* Test Item Value Reference Range Interpretation Comments Urine RBC (test code = 62254-7) >50 0-5 H [facility]neU[facility] Lqyycmdz4993-55-76 21:15:00* Test Item Value Reference Range Interpretation Comments Urine Bacteria (test code = 38408-3) FEW NONE [facility]neU[facility] Epithelial Isayc1076-49-21 21:15:00 * Test Item Value Reference Range Interpretation Comments Urine Epithelial Cells (test code = 20908-4) NONE NONE [facility] [id number] 21:15:00* Test Item Value Reference Range Interpretation Comments Urine WBC (test code = 5821-4) NONE 0-5 [facility] [id number] 21:15:00* Test Item Value Reference Range Interpretation Comments Urine RBC (test code = 11268-9) >50 0-5 H [facility] Fcouhktl7822-14-72 21:15:00* Test Item Value Reference Range Interpretation Comments Urine Bacteria (test code = 36636-1) FEW NONE [facility]neUrine Epithelial Lqtoi9797-60-65 21:15:00 * Test Item Value Reference Range Interpretation Comments Urine Epithelial Cells (test code = 42364-7) NONE NONE [facility] [id number] 21:15:00* Test Item Value Reference Range Interpretation Comments Urine WBC (test code = 5821-4) NONE 0-5 [facility] [id number] 21:15:00* Test Item Value Reference Range Interpretation Comments Urine RBC (test code = 32962-9) >50 0-5 H [facility] [facility] Wnthujsc1819-93-44 21:15:00* Test Item Value Reference Range Interpretation Comments Urine Bacteria (test code = 50629-8) FEW NONE [facility] Epithelial Dcpdw1831-51-20 21:15:00 * Test Item Value Reference Range Interpretation Comments Urine Epithelial Cells (test code = 91239-5) NONE NONE [facility] Partial Thromboplast Time 2019-09-07 21:12:00* Test Item Value Reference Range Interpretation Comments Activated Partial Thromboplast Time (test code = 44383-7) 31.9 23.8-35.5 [facility] Ukxbl5159-75-89 21:12:00* Test Item Value Reference Range Interpretation Comments Amylase Level (test code = 1798-8) 42 25-125 [facility]2019-10-17 21:12:00* Test Item Value Reference Range Interpretation Comments Lipase (test code = 3040-3) 78 [facility]ne[facility] Partial Thromboplast Time 2019-09-07 21:12:00* Test Item Value Reference Range Interpretation Comments Activated Partial Thromboplast Time (test code = 02155-3) 31.9 23.8-35.5 [facility] Zwiyx2119-24-29 21:12:00* Test Item Value Reference Range Interpretation Comments Amylase Level (test code = 1798-8) 42 25-125 [facility]2019-10-17 21:12:00* Test Item Value Reference Range Interpretation Comments Lipase (test code = 3040-3) [facility] Partial Thromboplast Time 2019-09-07 21:12:00* Test Item Value Reference Range Interpretation Comments Activated Partial Thromboplast Time (test code = 81093-3) 31.9 23.8-35.5 [facility] Yfncg5774-21-90 21:12:00* Test Item Value Reference Range Interpretation Comments Amylase Level (test code = 1798-8) 42 25-125 [facility]2019-10-17 21:12:00* Test Item Value Reference Range Interpretation Comments Lipase (test code = 3040-3) [facility] Partial Thromboplast Time 2019-09-07 21:12:00* Test Item Value Reference Range Interpretation Comments Activated Partial Thromboplast Time (test code = 84090-3) 31.9 23.8-35.5 [facility] Pqlsq8463-94-35 21:12:00* Test Item Value Reference Range Interpretation Comments Amylase Level (test code = 1798-8) 42 25-125 [facility]2019-10-17 21:12:00* Test Item Value Reference Range Interpretation Comments Lipase (test code = 3040-3) 22 78 [facility]ne[facility] Partial Thromboplast Time 2019-09-07 21:12:00* Test Item Value Reference Range Interpretation Comments Activated Partial Thromboplast Time (test code = 58972-1) 31.9 23.8-35.5 [facility]neAm[facility] Ivrms4171-32-85 21:12:00* Test Item Value Reference Range Interpretation Comments Amylase Level (test code = 1798-8) 42 25-125 [facility]2019-10-17 21:12:00* Test Item Value Reference Range Interpretation Comments Lipase (test code = 3040-3) [facility] Xghdg4522-10-32 21:03:00* Test Item Value Reference Range Interpretation Comments Urine Color (test code = 5778-6) AMOL YELLOW H [facility]neUrine Lhsfylc8017-27-64 21:03:00* Test Item Value Reference Range Interpretation Comments Urine Clarity (test code = 03171-5) SL CLOUDY CLEAR H [facility]neU[facility] Specific Rrnwaye6198-94-69 21:03:00 * Test Item Value Reference Range Interpretation Comments Urine Specific [place] (test code = 5811-5) 1.020 1.010-1.02 5 [facility]neU[facility] vR1109-95-49 21:03:00* Test Item Value Reference Range Interpretation Comments Urine pH (test code = 31570-5) 6 5-7 [facility] Leukocyte Hiuxioff6134-53-68 21:03:00* Test Item Value Reference Range Interpretation Comments Urine Leukocyte Esterase (test code = 5799-2) NEGATIVE NEGATIVE [facility] Iazpvci0291-33-25 21:03:00* Test Item Value Reference Range Interpretation Comments Urine Nitrite (test code = 45656-8) NEGATIVE NEGATIVE [facility] Lmoviij1249-24-68 21:03:00* Test Item Value Reference Range Interpretation Comments Urine Protein (test code = 5804-0) 2+ NEGATIVE H [facility] Glucose (UA)2019-09-07 21:03:00* Test Item Value Reference Range Interpretation Comments Urine Glucose (UA) (test code = 2349-9) 3+ NEGATIVE H [facility] Gaxniqr7418-43-59 21:03:00* Test Item Value Reference Range Interpretation Comments Urine Ketones (test code = 59867-9) NEGATIVE NEGATIVE [facility] Orhzqobdnbpx4565-78-99 21:03:00* Test Item Value Reference Range Interpretation Comments Urine Urobilinogen (test code = 18633-0) 8.0 0.2-1 H [facility] Lqqwuvjab9857-15-83 21:03:00* Test Item Value Reference Range Interpretation Comments Urine Bilirubin (test code = 1978-6) 1+ NEGATIVE H Confirmatory test currently unavailable. False positive results may occur.[facility] Vmsjx3337-08-91 21:03:00* Test Item Value Reference Range Interpretation Comments Urine Blood (test code = 06871-0) 4+ NEGATIVE H [facility] Fnosq6912-61-85 21:03:00* Test Item Value Reference Range Interpretation Comments Urine Color (test code = 5778-6) AMOL YELLOW H [facility] Xdhludk4869-08-54 21:03:00* Test Item Value Reference Range Interpretation Comments Urine Clarity (test code = 11330-5) SL CLOUDY CLEAR H [facility] Specific Pxuagxk8767-66-45 21:03:00 * Test Item Value Reference Range Interpretation Comments Urine Specific [place] (test code = 5811-5) 1.020 1.010-1.02 5 [facility] eU7833-45-88 21:03:00* Test Item Value Reference Range Interpretation Comments Urine pH (test code = 69830-6) 6 5-7 [facility] Leukocyte Shjjesoi3827-42-24 21:03:00* Test Item Value Reference Range Interpretation Comments Urine Leukocyte Esterase (test code = 5799-2) NEGATIVE NEGATIVE [facility] Zdzbwpz7065-89-54 21:03:00* Test Item Value Reference Range Interpretation Comments Urine Nitrite (test code = 16432-5) NEGATIVE NEGATIVE [facility] Ksmgaij3284-98-90 21:03:00* Test Item Value Reference Range Interpretation Comments Urine Protein (test code = 5804-0) 2+ NEGATIVE H [facility] Glucose (UA)2019-09-07 21:03:00* Test Item Value Reference Range Interpretation Comments Urine Glucose (UA) (test code = 2349-9) 3+ NEGATIVE H [facility] Uigvgvf7063-75-82 21:03:00* Test Item Value Reference Range Interpretation Comments Urine Ketones (test code = 52701-1) NEGATIVE NEGATIVE [facility] Dzeewghbegod7484-38-44 21:03:00* Test Item Value Reference Range Interpretation Comments Urine Urobilinogen (test code = 35378-0) 8.0 0.2-1 H [facility] Kufbajxsp1153-65-17 21:03:00* Test Item Value Reference Range Interpretation Comments Urine Bilirubin (test code = 1978-6) 1+ NEGATIVE H Confirmatory test currently unavailable. False positive results may occur.[facility] Bdlik6301-74-19 21:03:00* Test Item Value Reference Range Interpretation Comments Urine Blood (test code = 91094-1) 4+ NEGATIVE H [facility] Mzqud9343-09-96 21:03:00* Test Item Value Reference Range Interpretation Comments Urine Color (test code = 5778-6) AMOL YELLOW H [facility] Gnmrujy4742-82-09 21:03:00* Test Item Value Reference Range Interpretation Comments Urine Clarity (test code = 19758-7) SL CLOUDY CLEAR H [facility]neU[facility] Specific Enxbdnp0855-96-50 21:03:00 * Test Item Value Reference Range Interpretation Comments Urine Specific [place] (test code = 5811-5) 1.020 1.010-1.02 5 [facility] zK1567-08-88 21:03:00* Test Item Value Reference Range Interpretation Comments Urine pH (test code = 64631-0) 6 5-7 [facility] Leukocyte Qdkeorrq7660-26-30 21:03:00* Test Item Value Reference Range Interpretation Comments Urine Leukocyte Esterase (test code = 5799-2) NEGATIVE NEGATIVE [facility] Xrmjgkh8880-58-40 21:03:00* Test Item Value Reference Range Interpretation Comments Urine Nitrite (test code = 36019-6) NEGATIVE NEGATIVE [facility] Moccepf4528-15-07 21:03:00* Test Item Value Reference Range Interpretation Comments Urine Protein (test code = 5804-0) 2+ NEGATIVE H [facility] Glucose (UA)2019-09-07 21:03:00* Test Item Value Reference Range Interpretation Comments Urine Glucose (UA) (test code = 2349-9) 3+ NEGATIVE H [facility] Ytlgrqk7278-04-91 21:03:00* Test Item Value Reference Range Interpretation Comments Urine Ketones (test code = 40001-6) NEGATIVE NEGATIVE [facility] Ivgvmegzasyq7159-52-52 21:03:00* Test Item Value Reference Range Interpretation Comments Urine Urobilinogen (test code = 59534-4) 8.0 0.2-1 H [facility] Mcvmlcupl2647-59-91 21:03:00* Test Item Value Reference Range Interpretation Comments Urine Bilirubin (test code = 1978-6) 1+ NEGATIVE H Confirmatory test currently unavailable. False positive results may occur.[facility] Dfxfq7238-04-73 21:03:00* Test Item Value Reference Range Interpretation Comments Urine Blood (test code = 98123-2) 4+ NEGATIVE H [facility] Flack6605-80-60 21:03:00* Test Item Value Reference Range Interpretation Comments Urine Color (test code = 5778-6) AMOL YELLOW H [facility] Uumjuwq8831-05-71 21:03:00* Test Item Value Reference Range Interpretation Comments Urine Clarity (test code = 39542-4) SL CLOUDY CLEAR H [facility] Specific Wbtxziw8154-71-17 21:03:00 * Test Item Value Reference Range Interpretation Comments Urine Specific [place] (test code = 5811-5) 1.020 1.010-1.02 5 [facility] qB7896-56-66 21:03:00* Test Item Value Reference Range Interpretation Comments Urine pH (test code = 51700-3) 6 5-7 [facility] Leukocyte Alrxvsdc9937-86-22 21:03:00* Test Item Value Reference Range Interpretation Comments Urine Leukocyte Esterase (test code = 5799-2) NEGATIVE NEGATIVE [facility] Uigbwny8245-83-50 21:03:00* Test Item Value Reference Range Interpretation Comments Urine Nitrite (test code = 63818-6) NEGATIVE NEGATIVE [facility] Wxrigbe1600-24-31 21:03:00* Test Item Value Reference Range Interpretation Comments Urine Protein (test code = 5804-0) 2+ NEGATIVE H [facility] Glucose (UA)2019-09-07 21:03:00* Test Item Value Reference Range Interpretation Comments Urine Glucose (UA) (test code = 2349-9) 3+ NEGATIVE H [facility] Boweozq6698-75-33 21:03:00* Test Item Value Reference Range Interpretation Comments Urine Ketones (test code = 87601-4) NEGATIVE NEGATIVE [facility] Bvtcjqbwrfcz7803-78-20 21:03:00* Test Item Value Reference Range Interpretation Comments Urine Urobilinogen (test code = 02252-8) 8.0 0.2-1 H [facility] Jhhfickea0133-62-63 21:03:00* Test Item Value Reference Range Interpretation Comments Urine Bilirubin (test code = 1978-6) 1+ NEGATIVE H Confirmatory test currently unavailable. False positive results may occur.[facility] Cstlg8131-26-68 21:03:00* Test Item Value Reference Range Interpretation Comments Urine Blood (test code = 01532-0) 4+ NEGATIVE H [facility] Qzxvo1278-62-21 21:03:00* Test Item Value Reference Range Interpretation Comments Urine Color (test code = 5778-6) AMOL YELLOW H [facility] Tezqvls8367-97-72 21:03:00* Test Item Value Reference Range Interpretation Comments Urine Clarity (test code = 48196-9) SL CLOUDY CLEAR H [facility] Specific Rnjdqim3860-65-38 21:03:00 * Test Item Value Reference Range Interpretation Comments Urine Specific [place] (test code = 5811-5) 1.020 1.010-1.02 5 [facility] rH1195-84-52 21:03:00* Test Item Value Reference Range Interpretation Comments Urine pH (test code = 96349-1) 6 5-7 [facility] Leukocyte Opqqbnzk7274-96-59 21:03:00* Test Item Value Reference Range Interpretation Comments Urine Leukocyte Esterase (test code = 5799-2) NEGATIVE NEGATIVE [facility] Crbsorg3123-51-40 21:03:00* Test Item Value Reference Range Interpretation Comments Urine Nitrite (test code = 02035-1) NEGATIVE NEGATIVE [facility] Wpewtqz2743-06-76 21:03:00* Test Item Value Reference Range Interpretation Comments Urine Protein (test code = 5804-0) 2+ NEGATIVE H [facility] Glucose (UA)2019-09-07 21:03:00* Test Item Value Reference Range Interpretation Comments Urine Glucose (UA) (test code = 2349-9) 3+ NEGATIVE H [facility] Ektlbmm5859-18-02 21:03:00* Test Item Value Reference Range Interpretation Comments Urine Ketones (test code = 11761-8) NEGATIVE NEGATIVE [facility] Vmshamuwbgte1085-91-49 21:03:00* Test Item Value Reference Range Interpretation Comments Urine Urobilinogen (test code = 04685-6) 8.0 0.2-1 H [facility] Pxadirkhf8613-29-59 21:03:00* Test Item Value Reference Range Interpretation Comments Urine Bilirubin (test code = 1978-6) 1+ NEGATIVE H Confirmatory test currently unavailable. False positive results may occur.[facility] Pnaoy5940-07-84 21:03:00* Test Item Value Reference Range Interpretation Comments Urine Blood (test code = 48498-2) 4+ NEGATIVE H [facility]neUS ABDOMEN CCYXTQZB2539-27-06 18:34:00 [facility] [address] [address] Patient Name: LIZBETH ALANIS JR MR #: [id number] : 1960 Age/Sex: 59/M Req #: [id number] Adm Physician: RAE VALENZUELA MD Ordered by: BRADY JACOBS MD Report #: [id number] Location: MED/SURG Room/Bed: [facility] Procedure: 1016-001 3 US/US ABDOMEN COMPLETE Exam Date: 09/06/19 Exam Ti me: 1637 REPORT STATUS: Signed H ISTORY: Right lower quadrant pain TECHNIQUE: Selected static images from [facility] abdominal ultrasound provided for INTERPRETATION: COMPARISON: None . FINDINGS: Pancreas: Not visualized due to bowel gas Liver: Measures 14.5 cm in sagittal plane. The echotexture is heterogeneous. The cont ours are lobulated. No mass in the visualized portions. Portal Vein: Measures 1.0 cm. Hepatopetal flow on spectral Doppler interrogation. Biliary Tree : No intrahepatic biliary ductal dilatation Gallbladder: No evidence of gal lstone or gallbladder wall thickening. CBD: 0.5 cm. Right Kidney: Ynes th is 12.8cm. Echotexture is normal. There is mild hydronephrosis. Calculus i n the renal pelvis measures 16 x 25 x 26 mm. There is debris in a lower pole calyx versus a cyst containing a soft tissue mass within the overall size of 2 .0 x 3.0 cm. Left Kidney: Length is 12.6cm. Echotexture is normal. Cyst in the interpolar cortex measures 2.0 x 2.0 x 2.4 cm. No hydronephrosis.. Spleen: 13.7cm in length. No evidence for mass. Aorta and IVC are poorly v isualized due to bowel gas. No free fluid IMPRESSION: 1. Cirr hosis with normal portal vein diameter. Mild splenomegaly. No ascites. 2. 2 6 mm right intrarenal calculus with mild hydronephrosis. Cystic structure in t he lower pole the right kidney may represent a calyx containing debris or cyst ic mass containing soft tissue. Recommend further characterization with CT uro gram if clinically feasible. 3. Normal left kidney. 4. Poor visualizat ion of the pancreas, aorta, and IVC, due to bowel gas. 5. Normal gallbladde r and biliary tree. Signed by: Dr. Violeta Castellon MD on 09/06/2019 6:39 PM Dictated By: VIOLETA CASTELLON MD 38 Transcribed By: PETERSON on 09/06/191838 CO PY TO: BRADY JACOBS MD Creatine Kinase [id number] 13:11:00* Test Item Value Reference Range Interpretation Comments Creatine Kinase MB (test code = 37856-6) 56.40 0-5.0 H [facility] C3034-87-25 13:11:00* Test Item Value Reference Range Interpretation Comments Troponin I (test code = HVK2189) 80.154 0-0.300 H Elevated result called to RAFIA FLORES at 1309 on 09/06/19 by Emilio Jacobs.[facility]ne[facility] [id number] 13:11:00* Test Item Value Reference Range Interpretation Comments Creatine Kinase MB (test code = 99002-2) 56.40 0-5.0 H [facility] [id number] 13:11:00* Test Item Value Reference Range Interpretation Comments Troponin I (test code = UBK0126) 80.154 0-0.300 H Elevated result called to RAFIA FLORES at 1309 on 09/06/19 by Emilio Jacobs.[facility] PQ3089-77-66 13:11:00* Test Item Value Reference Range Interpretation Comments Creatine Kinase MB (test code = 28868-4) 56.40 0-5.0 H [place] [id number] 13:11:00* Test Item Value Reference Range Interpretation Comments Troponin I (test code = CXR6674) 80.154 0-0.300 H Elevated result called to RAFIA FLORES at 1309 on 09/06/19 by Emilio Jacobs.[facility] KI3829-87-77 13:11:00* Test Item Value Reference Range Interpretation Comments Creatine Kinase MB (test code = 54208-3) 56.40 0-5.0 H [place] [id number] 13:11:00* Test Item Value Reference Range Interpretation Comments Troponin I (test code = TWI0167) 80.154 0-0.300 H Elevated result called to RAFIA FLORES at 1309 on 09/06/19 by Emilio Jacobs.[facility] GY4487-45-96 13:11:00* Test Item Value Reference Range Interpretation Comments Creatine Kinase MB (test code = 08941-0) 56.40 0-5.0 H [place] [id number] 13:11:00* Test Item Value Reference Range Interpretation Comments Troponin I (test code = 41698-4) 80.154 0-0.300 H Elevated result called to RAFIA FLORES at 1309 on 09/06/19 by Emilio Jacobs.[facility]neCreat[facility] Mnwjht6044-05-29 12:42:00* Test Item Value Reference Range Interpretation Comments Creatine Kinase (test code = 2157-6) 610 30-200 [facility] Exfavn2453-02-84 12:42:00* Test Item Value Reference Range Interpretation Comments Creatine Kinase (test code = 2157-6) 610 30-200 H [facility] Jkgfpb6438-33-29 12:42:00* Test Item Value Reference Range Interpretation Comments Creatine Kinase (test code = 2157-6) 610 30-200 H [facility]neCreat[facility] Bzvbxi0611-92-51 12:42:00* Test Item Value Reference Range Interpretation Comments Creatine Kinase (test code = 2157-6) 610 30-200 H [facility]neCreat[facility] Rrtumc2808-48-04 12:42:00* Test Item Value Reference Range Interpretation Comments Creatine Kinase (test code = 2157-6) 610 30-200 H [facility]neTriglycerides Kghbe5958-82-16 05:49:00* Test Item Value Reference Range Interpretation Comments Triglycerides Level (test code = 2571-8) 110 0-149 [facility]neCh[facility] Dwoop2625-01-33 05:49:00* Test Item Value Reference Range Interpretation Comments Cholesterol Level (test code = 2093-3) 169 0-199 Less than 200 mg/dL Low Qsra188 - 239 mg/dL Borderline Smvp973 m g/dl and greater High Risk [facility]neLDL Srqovnkommy5861-72-63 05:49:00* Test Item Value Reference Range Interpretation Comments LDL Cholesterol (test code = 2089-1) 102 60-130 [facility]neHDL Nhyewpcmavc5794-71-55 05:49:00* Test Item Value Reference Range Interpretation Comments HDL Cholesterol (test code = 2085-9) 45 40-60 [facility]neCh[facility]/HDL Flgvs1352-37-70 05:49:00 * Test Item Value Reference Range Interpretation Comments Cholesterol/HDL Ratio (test code = 9830-1) 3.8 3.9-4.7 L [facility]neTriglycerides Dkopc8224-68-43 05:49:00* Test Item Value Reference Range Interpretation Comments Triglycerides Level (test code = 2571-8) 110 0-149 [facility]neCh[facility] Nttjt5401-93-16 05:49:00* Test Item Value Reference Range Interpretation Comments Cholesterol Level (test code = 2093-3) 169 0-199 Less than 200 mg/dL Low Ykiz486 - 239 mg/dL Borderline Woew949 m g/dl and greater High Risk [facility] Cle[facility]neLDL Sdmllhwlhne8587-52-85 05:49:00* Test Item Value Reference Range Interpretation Comments LDL Cholesterol (test code = 2089-1) 102 60-130 [facility] Kqfzcbapvfk1854-68-02 05:49:00* Test Item Value Reference Range Interpretation Comments HDL Cholesterol (test code = 2085-9) 45 40-60 [facility]Ch[facility]HDL Zjqzh3775-75-74 05:49:00 * Test Item Value Reference Range Interpretation Comments Cholesterol/HDL Ratio (test code = 9830-1) 3.8 3.9-4.7 L [facility]neTriglycerides Ocjvo7780-27-33 05:49:00* Test Item Value Reference Range Interpretation Comments Triglycerides Level (test code = 2571-8) 110 0-149 [facility]Ch[facility] Rtxcs8146-67-74 05:49:00* Test Item Value Reference Range Interpretation Comments Cholesterol Level (test code = 2093-3) 169 0-199 Less than 200 mg/dL Low Tuvn576 - 239 mg/dL Borderline Cgva030 m g/dl and greater High Risk [facility]neLDL Mkroioqevac2735-07-10 05:49:00* Test Item Value Reference Range Interpretation Comments LDL Cholesterol (test code = 2089-1) 102 60-130 [facility] Rlmcglqvpeh0064-31-98 05:49:00* Test Item Value Reference Range Interpretation Comments HDL Cholesterol (test code = 2085-9) 45 40-60 [facility]HDL Cffyv3080-08-19 05:49:00 * Test Item Value Reference Range Interpretation Comments Cholesterol/HDL Ratio (test code = 9830-1) 3.8 3.9-4.7 L [facility]neTriglycer[facility] Dsofs4777-52-25 05:49:00* Test Item Value Reference Range Interpretation Comments Triglycerides Level (test code = 2571-8) 110 0-149 [facility]Ch[facility] Focqe2765-93-90 05:49:00* Test Item Value Reference Range Interpretation Comments Cholesterol Level (test code = 2093-3) 169 0-199 Less than 200 mg/dL Low Nslc996 - 239 mg/dL Borderline Oxjo692 m g/dl and greater High Risk [facility]neLDL Fzbueqchzcv5627-92-72 05:49:00* Test Item Value Reference Range Interpretation Comments LDL Cholesterol (test code = 2089-1) 102 60-130 [facility] Edlrnvnljmc8556-30-33 05:49:00* Test Item Value Reference Range Interpretation Comments HDL Cholesterol (test code = 2085-9) 45 40-60 [facility]Ch[facility]/HDL Agaup1957-67-58 05:49:00 * Test Item Value Reference Range Interpretation Comments Cholesterol/HDL Ratio (test code = 9830-1) 3.8 3.9-4.7 L [facility]neTr[facility]lycer[facility] Dnaos6401-49-92 05:49:00* Test Item Value Reference Range Interpretation Comments Triglycerides Level (test code = 2571-8) 110 0-149 [facility]neCh[facility] Jdwwk5092-00-57 05:49:00* Test Item Value Reference Range Interpretation Comments Cholesterol Level (test code = 2093-3) 169 0-199 Less than 200 mg/dL Low Gogl552 - 239 mg/dL Borderline Utoj902 m g/dl and greater [facility] [place] [id number] 05:49:00* Test Item Value Reference Range Interpretation Comments LDL Cholesterol (test code = 2089-1) 102 60-130 [facility] Eugpeovqhkh6390-35-55 05:49:00* Test Item Value Reference Range Interpretation Comments HDL Cholesterol (test code = 2085-9) 45 40-60 [facility]HDL Zuayc6655-56-49 05:49:00 * Test Item Value Reference Range Interpretation Comments Cholesterol/HDL Ratio (test code = 9830-1) 3.8 3.9-4.7 L [facility]2019-09-05 19:01:00 [facility] [address] [address] Patient Name: LIZBETH ALANIS JR MR #: [id number] : 1960 Age/Sex: 59/M Req #: [id number] Adm Physician: RAE VALENZUELA MD Ordered by: RAE VALENZUELA MD Report #: [id number] Location: ICU Room/Bed: ICU [facility] Procedure: [id number] D X/CHEST SINGLE (PORTABLE) Exam Date: 09/05/19 Exam T paddy: 183 REPORT STATUS: Signed EXAMINATION: CHEST SINGLE (PORTABLE) COMPARISON: None INDICATION: Chest pain, nausea [place] [id number] DISCUSSION: Frontal view of the chest obtained at 1824 hours. HEART AND MEDIASTINUM: The heart is mildly enlarged. The aorta is tortuous LINES: None. LUNGS: Central pulmonary vasculature is prominent. No pneumonia or pulmonary edema. Small fo cus of atelectasis in the left lung base. PLEURA: No pleural effusion or p neumothorax. BONES AND SOFT TISSUES: No focal osseous lesion. The soft tis sues are normal. IMPRESSION: Cardiomegaly and central pulmonary vascu lar congestion. Signed by: Dr. Violeta Castellon MD on 09/05/2019 7:02 PM Dictated By: VIOLETA CASTELLON MD 01 Transcribed By: PETERSON on 09/05/191901 COPY T O: RAE VALENZUELA MD White Blood Kelsh5937-12-74 17:15:00* Test Item Value Reference Range Interpretation Comments White Blood Count (test code = 6690-2) 3.46 4.8-10.8 L [facility]neRed Blood Hnfoi2318-33-85 17:15:00* Test Item Value Reference Range Interpretation Comments Red Blood Count (test code = 789-8) 4.73 4.3-5.7 [facility]neHemoglobin2019-10-15 17:15:00* Test Item Value Reference Range Interpretation Comments Hemoglobin (test code = 83159-0) 16.6 14.0-18.0 [facility]neHematocrit2019-10-15 17:15:00* Test Item Value Reference Range Interpretation Comments Hematocrit (test code = 4544-3) 45.1 38.2-49.6 [facility] [place]neMean Corpuscular Dqzcwh2496-83-73 17:15:00* Test Item Value Reference Range Interpretation Comments Mean Corpuscular Volume (test code = 787-2) 95.3 81-99 [facility]Mean Corpuscular Qvjrwrxrib9871-10-25 17:15:00* Test Item Value Reference Range Interpretation Comments Mean Corpuscular Hemoglobin (test code = 785-6) 35.1 28-32 H [facility] [place]neMean Corpuscular Hemoglobin Concent 2019-09-05 17:15:00* Test Item Value Reference Range Interpretation Comments Mean Corpuscular Hemoglobin Concent (test code = 786-4) 36.8 31-35 H [facility] [place]neRed Cell Distribution Sgoxj4592-06-93 17:15:00* Test Item Value Reference Range Interpretation Comments Red Cell Distribution Width (test code = 48351-7) 12.6 11.7 -14.4 [facility] CleburnePlatelet Qlnnf3278-25-78 17:15:00* Test Item Value Reference Range Interpretation Comments Platelet Count (test code = 777-3) 60 140-360 L [facility]neNeutrophils (%) (Auto)2019-09-05 17:15:00 * Test Item Value Reference Range Interpretation Comments Neutrophils (%) (Auto) (test code = 96655-7) 55.1 38.7-80.0 [facility]neLymphocytes (%) (Auto)2019-09-05 17:15:00 * Test Item Value Reference Range Interpretation Comments Lymphocytes (%) (Auto) (test code = 736-9) 30.1 18.0-39.1 [facility] [place]neMonocytes (%) (Auto)2019-09-05 17:15:00* Test Item Value Reference Range Interpretation Comments Monocytes (%) (Auto) (test code = 5905-5) 10.4 4.4-11.3 [facility]neEosinophils (%) (Auto)2019-09-05 17:15:00 * Test Item Value Reference Range Interpretation Comments Eosinophils (%) (Auto) (test code = 713-8) 3.2 0.0-6.0 [facility] [place]neBasophils (%) (Auto)2019-09-05 17:15:00* Test Item Value Reference Range Interpretation Comments Basophils (%) (Auto) (test code = 706-2) 0.6 0.0-1.0 [facility] [place]neIM GRANULOCYTES %2019-09-05 17:15:00* Test Item Value Reference Range Interpretation Comments IM GRANULOCYTES % (test code = IM GRANULOCYTES %) 0.6 0.0- 1.0 [facility] [place]neNeutrophils # (Auto)2019-09-05 17:15:00* Test Item Value Reference Range Interpretation Comments Neutrophils # (Auto) (test code = 751-8) 1.9 2.1-6.9 L [facility] [place]neLymphocytes # (Auto)2019-09-05 17:15:00* Test Item Value Reference Range Interpretation Comments Lymphocytes # (Auto) (test code = 22481-0) 1.0 1.0-3.2 [facility] [place]neMonocytes # (Auto)2019-09-05 17:15:00* Test Item Value Reference Range Interpretation Comments Monocytes # (Auto) (test code = 742-7) 0.4 0.2-0.8 [facility]neEosinophils # (Auto)2019-09-05 17:15:00* Test Item Value Reference Range Interpretation Comments Eosinophils # (Auto) (test code = 711-2) 0.1 0.0-0.4 [facility] [place]neBasophils # (Auto)2019-09-05 17:15:00* Test Item Value Reference Range Interpretation Comments Basophils # (Auto) (test code = 704-7) 0.0 0.0-0.1 [facility] Cle[place]neAbsolute Immature Granulocyte (auto 2019-09-05 17:15:00* Test Item Value Reference Range Interpretation Comments Absolute Immature Granulocyte (auto (nir t code = Absolute Immature Granulocyte (auto) 0.02 0-0.1 [facility] [place]
[2020-04-30] MEDS ORDERED: SODIUM CHLORIDE 0.9% 1000ML 1,000 ML IV STA ×2 (20:35→22:34)
[2020-04-30] MEDS ORDERED: ACETAMINOPHEN 325 MG TAB PO STA (20:35)
--- NOTE | 2020-04-30 21:24 | Emergency Department Note ---
History of Present Illnes History of Present Illness Chief Complaint: General Medicine Complaints History of Present Illness This is a 59 year old male presents to the ED for malaise and weakness of 2 days duration with fever and cough. Patient sent by PCP for evaluation of possible COVID-19 infection . 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 Any updates have been documented here. Past Medical History Recent Fever: Yes Clinical Suspicion of Infectio: Yes New/Unexplained Change in Ment: No Past Medical History: Hypertension, Diabetes, CAD Other Medical History: non-compliance with DM. Education given to patient and discussed in full detail & reinforced. Past Surgical History: None Other Surgery: CARDIAC STENT X1 KIDNEY STONES Social History Smoking Cessation: Never Smoker Alcohol Use: None Any Illegal Drug Use: No Family History Family history of heart diseas: No Other Last Tetanus: UNKNOWN Review of Systems Review of Systems Constitutional: Reports fever, Reports malaise, Reports weakness EENTM: Reports no symptoms Cardiovascular: Reports no symptoms Respiratory: Reports cough Gastrointestinal: Reports no symptoms Genitourinary: Reports no symptoms Musculoskeletal: Reports muscle pain Integumentary: Reports no symptoms Neurological: Reports no symptoms Psychological: Reports no symptoms Endocrine: Reports no symptoms Hematological/Lymphatic: Reports no symptoms Review of other systems All other systems reviewed and negative. Physical Exam Related Data Allergies: Coded Allergies: No Known Allergies (Unverified , 09/05/19) Triage Vital Signs Vital Signs Date Time Temp Pulse Resp B/P (MAP) Pulse Ox O2 Delivery O2 Flow Rate FiO2 04/30/20 20:17 101.7 113 15 146/84 93 Vital signs reviewed: Yes Physical Exam CONSTITUTIONAL Constitutional: Reports morbidly obese, Reports ill appearing HENT HENT: Reports normocephalic, Reports atraumatic, Reports oropharynx clear/moist, Reports nose normal HENT L/R: Reports left ext ear normal, Reports right ext ear normal EYES Eyes: Reports PERRL, Reports conjunctivae normal NECK Neck: Reports ROM normal PULMONARY Pulmonary: Reports effort normal, Reports breath sounds normal CARDIOVASCULAR Cardiovascular: Reports tachycardia GASTROINTESTINAL Abdominal: Reports soft, Reports nontender, Reports bowel sounds normal GENITOURINARY Genitourinary: Reports exam deferred SKIN Skin: Reports warm, Reports dry MUSCULOSKELETAL Musculoskeletal: Reports ROM normal NEUROLOGICAL Neurological: Reports alert, Reports oriented x 3, Reports no gross motor or sensory deficits PSYCHOLOGICAL Psychological: Reports mood/affect normal, Reports judgement normal Results Laboratory Laboratory Acetaminophen 975 mg ONCE STAT PO Last administered on 04/30/20at 21:35; Admin Dose 975 MG; Start 04/30/20 at 20:35; Stop 04/30/20 at 20:51; Status DC Piperacillin Sod/ Tazobactam Sod 50 ml @ 100 mls/hr 0300,0900,1500,2100 IV Last administered on 04/30/20at 21:36; Admin Dose 100 MLS/HR; Start 04/30/20 at 21:00; Stop 05/07/20 at 20:59 Sodium Chloride 1,000 ml @ 0 mls/hr Q0M STAT IV Last administered on 04/30/20at 21:35; Admin Dose 1,000 MLS/HR; Start 04/30/20 at 20:35; Stop 04/30/20 at 20:39; Status DC Sodium Chloride 1,000 ml @ 0 mls/hr Q0M STAT IV Last administered on 05/01/20at 00:00; Admin Dose 1,000 MLS/HR; Start 04/30/20 at 22:34; Stop 04/30/20 at 22:36; Status DC Lab results reviewed: Yes Imaging Imaging results reviewed: Yes Impressions [address] [address] Patient Name: LIZBETH ALANIS JR MR #: [id number] : 1960 Age/Sex: 59/M Req #: [id number] Adm Physician: Ordered by: CYDNEY MAGDALENO DO Report #: [id number] Location: ER Room/Bed: Procedure: [id number] DX/CHEST SINGLE (PORTABLE) Exam Date: 04/30/20 Exam Time: 2199 REPORT STATUS: Signed EXAMINATION: CHEST SINGLE (PORTABLE) INDICATION: ^Y ^ERMD ORDER ^[id number] ^2199 ^Y COMPARISON: Chest CT dated 09/10/2019 FINDINGS: AP view Limited study due to motion. TUBES and LINES: None. LUNGS: Lungs are well inflated. No definite focal consolidations. PLEURA: No significant pleural effusion or pneumothorax. HEART AND MEDIASTINUM: The cardiomediastinal silhouette is mildly enlarged on this AP view.. BONES AND SOFT TISSUES: No acute osseous lesion. Soft tissues are unremarkable. UPPER ABDOMEN: No free air under the diaphragm. IMPRESSION: Limited study. No definite focal consolidations. Consider repeat x-ray with better technique. Signed by: Dr. 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 COVID-19 test pending. Patient given abx early in the course of ED evaluation for treatment of Sepsis. Plan to admit as an in-patient. DDX : COVID-19, Pneuomnia, UTI, Sepsis Assessment & Plan Final Impression: (1) Sepsis (2) UTI (urinary tract infection) Depart Disposition: ADMITTED Last Vital Signs Date Time Temp Pulse Resp B/P (MAP) Pulse Ox O2 Delivery O2 Flow Rate FiO2 04/30/20 20:17 101.7 113 15 146/84 93 Date Time Temp Pulse Resp B/P (MAP) Pulse Ox O2 Delivery O2 Flow Rate FiO2 04/30/20 20:17 101.7 113 15 146/84 93 Home Meds Reported Medications Finasteride (PROSCAR) 5 Mg Tablet, 5 MG PO DAILY 09/19/19 Tamsulosin Hcl* (FLOMAX*) 0.4 Mg Cap, 0.4 MG PO HS, #30 CAP 09/19/19 Aspirin (ASPIR 81) 81 Mg Tablet.dr, 81 MG PO DAILY 09/19/19 Metoprolol Succinate (TOPROL XL) 25 Mg Tab.er.24h, 12.5 MG PO DAILY, #30 TAB 09/19/19 Lisinopril (LISINOPRIL) 2.5 Mg Tablet, 2.5 MG PO DAILY, #30 TAB 09/19/19 Clopidogrel Bisulfate* (PLAVIX) 75 Mg Tablet, 75 MG PO DAILY, #30 TAB 09/19/19 Discontinued Reported Medications Pantoprazole Sodium* (PROTONIX) 40 Mg Tablet.dr, 40 MG PO DAILY, TAB 09/19/19 Atorvastatin Calcium (LIPITOR) 20 Mg Tablet, 80 MG PO DAILY, #30 TAB 09/19/19 Medications in the ED Acetaminophen 975 mg ONCE STAT PO ; Start 04/30/20 at 20:35; Stop 04/30/20 at 20:51; Status DC Piperacillin Sod/ Tazobactam Sod 50 ml @ 100 mls/hr 0300,0900,1500,2100 IV ; Start 04/30/20 at 21:00; Stop 05/07/20 at 20:59 Sodium Chloride 1,000 ml @ 0 mls/hr Q0M STAT IV ; Start 04/30/20 at 20:35; Stop 04/30/20 at 20:39; Status DC CYDNEY MAGDALENO DO Apr 30, 2020 21:24
[2020-04-30 21:36] LABS: BASOPHILS % 0.3 % (0.0-1.0); EOSINOPHILS % 0.2 % (0.0-6.0); HEMOGLOBIN 15.3 g/dL (14.0-18.0); LYMPHOCYTES # (AUTO) 0.9 (1.0-3.2); LYMPHOCYTES % 14.5 % (18.0-39.1); MEAN CORPUSCULAR HEMOGLOBIN 33.3 pg (28-32); MEAN CORPUSCULAR HGB CONC 34.8 g/dL (31-35); MEAN CORPUSCULAR VOLUME 95.7 fL (81-99); MONOCYTES # (AUTO) 0.8 (0.2-0.8); MONOCYTES % 14.3 % (4.4-11.3); NEUTROPHILS # (AUTO) 4.1 (2.1-6.9); NEUTROPHILS % 70.2 % (38.7-80.0); PLATELET COUNT 62 x10e3/uL (140-360); RED CELL DISTRIBUTION WIDTH 13.2 % (11.7-14.4)
[2020-04-30] MEDS: PIPER-TAZ 3.375 GM 50 ML IV SCH (21:36)
[2020-04-30 21:37] LABS: BILIRUBIN,URINE NEGATIVE (NEGATIVE); CLARITY,URINE CLOUDY (CLEAR); COLOR,URINE STRAW (YELLOW); KETONES,URINE NEGATIVE (NEGATIVE); LEUKOCYTE ESTERASE ,URINE SMALL (NEGATIVE); NITRITE,URINE NEGATIVE (NEGATIVE); PROTEIN,URINE DIPSTICK 1+ (NEGATIVE); URINE UROBILINOGEN 8 mg/dL (0.2 - 1)
[2020-04-30 21:49] LABS: ALANINE AMINOTRANSFERASE 30 IU/L (0-55); ALBUMIN 3.5 g/dL (3.5-5.0); ALBUMIN/GLOBULIN RATIO 0.8 (0.8-2.0); ALKALINE PHOSPHATASE 89 IU/L (40-150); ANION GAP 13.9 mmol/L (8-16); BLOOD UREA NITROGEN 12 mg/dL (7-26); BUN/CREATININE RATIO 15 (6-25); CALCIUM 8.9 mg/dL (8.4-10.2); CARBON DIOXIDE 23 mmol/L (22-29); CHLORIDE 96 mmol/L (98-107); CREATINE KINASE 230 IU/L (30-200); CREATININE, SERUM 0.78 mg/dL (0.72-1.25); EST GLOMERULAR FILTRATION RATE > 60 ML/MIN (60-); GLUCOSE 180 mg/dL (74-118); POTASSIUM 3.9 mmol/L (3.5-5.1); SODIUM 129 mmol/L (136-145)
[2020-04-30 21:50] LABS: BACTERIA,URINE MANY /HPF; EPITHELIAL CELLS,URINE FEW /LPF
--- NOTE | 2020-04-30 22:00 | NUR ---
PT RESTING, VITAL SIGNS STABLE, PT AWARE OF POC, PT VOICES NO COMPLAINTS AT THIS TIME
--- NOTE | 2020-04-30 22:51 | Diagnostic Imaging Report ---
EXAMINATION: CHEST SINGLE (PORTABLE) INDICATION: ^Y ^ERMD ORDER ^[id number] ^0 ^Y COMPARISON: Chest CT dated 09/10/2019 FINDINGS: AP view Limited study due to motion. TUBES and LINES: None. LUNGS: Lungs are well inflated. No definite focal consolidations. PLEURA: No significant pleural effusion or pneumothorax. HEART AND MEDIASTINUM: The cardiomediastinal silhouette is mildly enlarged on this AP view.. BONES AND SOFT TISSUES: No acute osseous lesion. Soft tissues are unremarkable. UPPER ABDOMEN: No free air under the diaphragm. IMPRESSION: Limited study. No definite focal consolidations. Consider repeat x-ray with better technique. Signed by: Dr. Max Hua MD on 04/30/2020 10:47 PM
[2020-04-30] MEDS ORDERED: SODIUM CHLORIDE 0.9% 1000ML 1,000 ML IV SCH (23:45)
[2020-04-30] MEDS ORDERED: MORPHINE SULFATE INJ 4 MG/ML INJ 1ML IV PRN (23:45)
[2020-04-30] MEDS ORDERED: ONDANSETRON HCL INJ 2MG/ML 2ML 2 MG/ML VIAL IV PRN (23:45)
--- OUTSIDE RECORDS SUMMARY | 2020-04-30 23:48 | XMS REPORT | Continuity of Care Document ---
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 [employer] Name Role Phone SERJIO FRANCISCO PCP CYDNEY MAGDALENO Attphys Unavailable BROWN, Sylwia CARROLL Attphys Unavailable NAVIN BANUELOS Attphys Unavailable JACOBS, DILIPKRAMON Attphys Unavailable JACOBS, DILIPKUMAR Admphys Unavailable Payers Payer Name Policy Type Policy Number Effective Date Expiration Date Sylwia lerner [facility] Ppo [id number] [facility] Problems Condition Name Condition Details Condition Category Status Onset Date Resolution Date Last Treatment Date Treating Clinician Comments Source ST elevation myocardial infarction (STEMI) STEMI (ST e levation myocardial infarction) Problem Active [facility] Allergies, Adverse Reactions, Alerts This patient has no known allergies or adverse reactions. Medications Ordered Medication Name Filled Medication Name Start Date Stop Da te Current Medication? Ordering Clinician Indication Dosage Frequency Signature (SIG) Comments Components Source Aspirin (Aspir 81) 81 Mg Tablet. Aspirin (Aspir 81) 81 Mg Tablet. Yes 81 Daily [facility] Atorvastatin Calcium (Lipitor) 20 Mg Tablet Atorvastat in Calcium (Lipitor) 20 Mg Tablet Yes 80 Daily [facility] Clopidogrel Bisulfate (Plavix) 75 Mg Tablet Clopidogre l Bisulfate (Plavix) 75 Mg Tablet Yes 75 Daily [facility] Finasteride (Proscar) 5 Mg Tablet Finasteride (Proscar) 5 Mg Tablet Yes 5 Daily [facility] Lisinopril 2.5 Mg Tablet Lisinopril 2.5 Mg Tablet Yes 2.5 Daily [facility] Metoprolol Succinate (Toprol Xl) 25 Mg Tab.er.24h Meto prolol Succinate (Toprol Xl) 25 Mg Tab.er.24h Yes 12.5 Daily [facility] Pantoprazole Sodium (Protonix) 40 Mg Tablet. Pantopr azole Sodium (Protonix) 40 Mg Tablet. Yes 40 Daily [facility] Tamsulosin Hcl (Flomax*) 0.4 Mg Cap Tamsulosin Hcl (Flomax*) 0.4 Mg C ap Yes .4 Bedtime [facility] Lisinopril 10 Mg Tablet, 20 Mg Oral Lisinopril 10 Mg Tablet, 20 Mg Oral 2019-09-19 00:00:00 No 20 Daily [facility] Metformin Hcl (Metformin Hcl Er) 500 Mg Tab.er.24, 200 0 Mg Oral Metformin Hcl (Metformin Hcl Er) 500 Mg Tab.er.24, 2000 Mg Oral 2019-09-19 00:00:00 No 2000 Daily [facility] Procedures Procedure Date / Time Performed Performing Clinician Sourc e MRI joint upr extrem w/o dye 2019-10-23 00:00:00 NAVIN BANUELOS [facility] TRANSFUSE NONAUT RED BLOOD CELLS IN PERIPH VEIN, PERC 2018- 0-23 00:00:00 JANICE RABAGO [facility] Computed tomography of chest with contrast 2019-09-10 00:00:00 NATANAEL COX [facility] CT of abdomen and pelvis without contrast 2019-09-08 00:00:00 CHARAN WOLFE [facility] EXTIRPATION OF MATTER FROM BLADDER, ENDO 2019-09-08 00:00:00 HAM PEL, GAVINO [facility] FLUOROSCOPY OF KIDNEY, URETER & BLADDER USING L OSM CO NTRAST 2019-09-08 00:00:00 HAMPEL, GAVINO [facility] US abdomen complete 2019-09-06 00:00:00 BRADY JACOBS V [facility] DILATION OF 1 COR ART WITH DRUG-ELUT INTRA, PERC APPROACH 09-09-15 00:00:00 RAE VALENZUELA [facility] MEASURE OF CARDIAC SAMPL & PRESSURE, L HEART, PERC APPROACH 2019-09-05 00:00:00 HEIDI VALENZUELAAN [facility] FLUOROSCOPY OF MULT COR ART USING L OSM CONTRAST 2019-09-05 00:00:00 NICOLAS [facility] FLUOROSCOPY OF LEFT HEART USING LOW OSMOLAR CONTRAST 2019-08 00:00[facility] 1 COR ART, PERC APPROACH 00:00:00 [facility] En[facility] Start Date/Time End Date/Time Encounter Type Admission Type [facility] Care Department Encounter ID Source 2020-01-22 10:13:00 2020-02-20 23:59:00 Discharged Recurring [facility] [id number] [facility] 2019-12-25 09:37:00 2020-01-20 23:59:00 Discharged Recurring [facility] [id number] [facility] 2019-11-27 09:29:00 2019-12-22 23:59:00 Discharged Recurring [facility] [id number] [facility] 2019-12-07 08:58:00 2019-12-07 08:58:00 Registered Clinic 3 CARLY GRAY [facility] [id number] [facility] 2019-11-01 12:51:00 2019-11-21 23:59:00 Discharged Recurring [facility] [id number] [facility] 2019-10-23 15:56:00 2019-10-23 15:56:00 Registered Clinic 3 NAVIN BANUELOS [facility] [id number] [facility] 2019-10-13 11:42:00 2019-10-13 11:42:00 Registered Clinic 3 CHARAN JACOBS [facility] [id number] [facility] 2019-09-05 17:49:00 2019-09-19 18:30:00 Discharged Inpatient 1 CHARAN JACOBS [facility] [id number] [facility] Results Test Description Test Time Test Comments Results Result Comments Source CHEST SINGLE (PORTABLE) 2020-04-30 22:45:00 [facility] [address] [address] Patient Name: LIZBETH ALANIS JR MR #: [id number] : 1960 Age/Sex: 59/M Req #: [id number] Adm Physician: Ordered by: CYDNEY MAGDALENO DO Report #: [id number] Location: ER Room/Bed: Procedure: [id number] DX/CHEST SINGLE (PORTABLE) Exam Date: 04/30/20 Exam Time: 2199 REPORT STATUS: Signed EXAMINATION: CHEST SINGLE (PORTABLE) INDICATION: Y ERMD ORDER [id number] 2199 Y COMPARISON: Chest CT dated 09/10/2019 FINDINGS: AP view Limited study due to motion. TUBES and LINES: None. LUNGS: Lungs are well inflated. No definite focal consolidations. PLEURA: No significant pleural effusion or pneumothorax. HEART AND MEDIASTINUM: The cardiomediastinal silhouette is mildly enlarged on this AP view.. BONES AND SOFT TISSUES: No acute osseous lesion. Soft tissues are unremarkable. UPPER ABDOMEN: No free air under the diaphragm. IMPRESSION: Limited study. No definite focal consolidations. Consider repeat x-ray with better technique. Signed by: Dr. Max Bush MD on 04/30/2020 10:47 PM Dictated By: MAX BUSH MD 46 Transcribed By: PETERSON on 04/30/202246 COPY TO: CYDNEY MAGDALENO DO BONE and/or JOINT WHOLE BODY 2019-12-07 20:26:[address] [address] Patient Name: LIZBETH ALANIS JR MR #: [id number] : 1960 Age/Sex: 59/M Req #: [id number] Adm Physician: Ordered by: CARLY GRAY MD Report #: [id number] Location: [place] Room/Bed: Procedure: [id number] NM/BONE and/or JOINT WHOLE BODY Exam Date: [...] MD MRI SHOULDER RIGHT WO 2019-10-24 09:33:00 [address] [address] Patient Name: LIZBETH ALANIS JR MR #: [id number] : 1960 Age/Sex: 59/M Req #: [id number] Adm Physician: Ordered by: NAVIN BANUELOS MD Report #: [id number] Location: MRI Room/Bed: Procedure: [id number] MRI/MRI SHOULDER RIGHT WO Exam Date: Exam [...] BANUELOS MD SHOULDER RIGHT COMPLETE 2019-10-13 12:03:00 [address] [address] Patient Name: LIZBETH ALANIS JR MR #: [id number] : 1960 Age/Sex: 59/M Req #: [id number] Adm Physician: Ordered by: CHARAN JACOBS MD Report #: [id number] Location: [facility] Room/Bed: Procedure: [id number] DX/SHOULDER RIGHT COMPLETE Exam Date: 10/13/19 Exam [...] PM Dictated By: JOSEFA HARGROVE MD, MD Transcribed By: PETERSON on 10/13/191203 COPY TO: CHARAN JACOBS MD [facility] 2019-09-19 16:08:00 Test Item Bedside Glucose (test code = 77081-2) 182 70-120 H Meter ID: [id number] [facility] Glucose 2019-09-19 16:08:00* Test Item Value Reference Range Interpretation Comments Bedside Glucose (test code = 47555-7) 182 70-120 H Meter ID: [id number] [facility] Glucose 2019-09-19 16:08:00* Test Item Value Reference Range Interpretation Comments Bedside Glucose (test code = 52297-6) 182 70-120 H Meter ID: [id number] [facility] Glucose 2019-09-19 16:08:00* Test Item Value Reference Range Interpretation Comments Bedside Glucose (test code = 02213-5) 182 70-120 H Meter ID: [id number] [facility] Glucose 2019-09-19 16:08:00* Test Item Value Reference Range Interpretation Comments Bedside Glucose (test code = 32032-1) 182 70-120 H Meter ID: [id number] [facility] 2019-09-19 08:03:00* Test Item Value Reference Range Interpretation Comments Joiuq-2-Vtlupkeweoi (test code = 1825-9) 129 Reference Range: 90 - 200 mg/dL Effective September 18, 2019 Evwib-9-Dkbsgnbdfhr , Serum reference interval will be changing to: Age Male Female0 - 7 days 102 - 186 102 - 1868 days - 30 days 73 - 187 73 - 50230 days - 5 years 86 - 173 86 - 1736 years - 12 years 99 - 156 99 - 66443 years - 40 years 95 - 164 100 - 188>40 years 101 - 187 101 - 187[facility] Pdntqqvyiyimn4152-59-91 08:03:00* Test Item Value Reference Range Interpretation Comments Ceruloplasmin (test code = 2064-4) 18.3 Reference Range:16.0 - 31.0 mg/dLLabCorp [address]Bxteyv, [place] [address]Sko: DHAVAL Bray [facility]- Mitochondrial Bkvngjls0946-12-69 08:03:00* Test Item Value Reference Range Interpretation Comments Anti-Mitochondrial Antibody (test code = 98576-0) <20.0 Reference Range: 0.0 - 20.0 Units Negative 0.0 - 20.0 Equivocal 20.1 - 24.9 Posi tive >24.9 Mitochondrial (M2) Antibodies are found in 90-96% of patients with primary biliary cirrhosis.[facility]-Smooth Muscle Mnweovde0502-05-94 08:03:00* Test Item Value Reference Range Interpretation Comments Anti-Smooth Muscle Antibody (test code = 56161-5) 11 Reference Range: 0 - 19 Units Negative 0 - 19 Weak positive 20 - 30 Moderate to strong positive >30 Actin Antibodies are found in 52-85% of patients with autoimmune hepatitis or chronic active hepatitis and in 22% of patients with primary biliary cirrhosis.[facility] Wnzxs-0-Xxzislmkgso5428-10-29 08:03:00* Test Item Value Reference Range Interpretation Comments Dwbdg-5-Jsnpysfrrle (test code = 1825-9) 129 Reference Range: 90 - 200 mg/dL Effective September 18, 2019 Ujomn-9-Heovbnsfjwg , Serum reference interval will be changing to: Age Male Female0 - 7 days 102 - 186 102 - 1868 days - 30 days 73 - 187 73 - 38117 days - 5 years 86 - 173 86 - 1736 years - 12 years 99 - 156 99 - 67291 years - 40 years 95 - 164 100 - 188>40 years 101 - 187 101 - 187[facility] Ozagdzwrlfnmj4854-17-36 08:03:00* Test Item Value Reference Range Interpretation Comments Ceruloplasmin (test code = 2064-4) 18.3 Reference Range:16.0 - 31.0 mg/dLLabCorp [address]Boqjqg, [place] [address]Yrz: DHAVAL Bray [facility] HospitalAnti- Mitochondrial Vvqgreqc8062-87-33 08:03:00* Test Item Value Reference Range Interpretation Comments Anti-Mitochondrial Antibody (test code = 67305-7) <20.0 Reference Range: 0.0 - 20.0 Units Negative 0.0 - 20.0 Equivocal 20.1 - 24.9 Posi tive >24.9 Mitochondrial (M2) Antibodies are found in 90-96% of patients with primary biliary cirrhosis.[facility] SoutheastAnti-Smooth Muscle Jfrrfqok5897-78-39 08:03:00* Test Item Value Reference Range Interpretation Comments Anti-Smooth Muscle Antibody (test code = 91925-5) 11 Reference Range: 0 - 19 Units Negative 0 - 19 Weak positive 20 - 30 Moderate to strong positive >30 Actin Antibodies are found in 52-85% of patients with autoimmune hepatitis or chronic active hepatitis and in 22% of patients with primary biliary cirrhosis.[facility] Yzxzm-0-Lzcaedkzhli8861-10-29 08:03:00* Test Item Value Reference Range Interpretation Comments Kzwzs-4-Oelhticdxpt (test code = 1825-9) 129 Reference Range: 90 - 200 mg/dL Effective September 18, 2019 Anqjj-5-Yfynjditito , Serum reference interval will be changing to: Age Male Female0 - 7 days 102 - 186 102 - 1868 days - 30 days 73 - 187 73 - 32317 days - 5 years 86 - 173 86 - 1736 years - 12 years 99 - 156 99 - 48338 years - 40 years 95 - 164 100 - 188>40 years 101 - 187 101 - 187[facility] Atowqwsdhxfnq0382-23-93 08:03:00* Test Item Value Reference Range Interpretation Comments Ceruloplasmin (test code = 2064-4) 18.3 Reference Range:16.0 - 31.0 mg/dLLabCorp [address]Rcxfod, [place] [address]Xfa: DHAVAL Bray [facility] HospitalAnti- Mitochondrial Msxlvujl6308-62-47 08:03:00* Test Item Value Reference Range Interpretation Comments Anti-Mitochondrial Antibody (test code = 98611-3) <20.0 Reference Range: 0.0 - 20.0 Units Negative 0.0 - 20.0 Equivocal 20.1 - 24.9 Posi tive >24.9 Mitochondrial (M2) Antibodies are found in 90-96% of patients with primary biliary cirrhosis.[facility] SoutheastAnti-Smooth Muscle Fpxqifjn5112-92-80 08:03:00* Test Item Value Reference Range Interpretation Comments Anti-Smooth Muscle Antibody (test code = 01428-0) 11 Reference Range: 0 - 19 Units Negative 0 - 19 Weak positive 20 - 30 Moderate to strong positive >30 Actin Antibodies are found in 52-85% of patients with autoimmune hepatitis or chronic active hepatitis and in 22% of patients with primary biliary cirrhosis.[facility] Ouuzl-3-Ajprsyrrkvm8865-10-29 08:03:00* Test Item Value Reference Range Interpretation Comments Qemrj-6-Tlrmlguagos (test code = 1825-9) 129 Reference Range: 90 - 200 mg/dL Effective September 18, 2019 Bsjov-7-Vfrfwqwdxsa , Serum reference interval will be changing to: Age Male Female0 - 7 days 102 - 186 102 - 1868 days - 30 days 73 - 187 73 - 38467 days - 5 years 86 - 173 86 - 1736 years - 12 years 99 - 156 99 - 95168 years - 40 years 95 - 164 100 - 188>40 years 101 - 187 101 - 187[facility] Notxeqpyierkj3188-03-02 08:03:00* Test Item Value Reference Range Interpretation Comments Ceruloplasmin (test code = 2064-4) 18.3 Reference Range:16.0 - 31.0 mg/dLLabCorp [address] O[address]Mgabuf, [place] [address]Gho: GARRY FraserWise Health System East CampusAnti- Mitochondrial Dxkgpodx6920-86-72 08:03:00* Test Item Value Reference Range Interpretation Comments Anti-Mitochondrial Antibody (test code = 85760-7) <20.0 Reference Range: 0.0 - 20.0 Units Negative 0.0 - 20.0 Equivocal 20.1 - 24.9 Posi tive >24.9 Mitochondrial (M2) Antibodies are found in 90-96% of patients with primary biliary cirrhosis.[facility] SoutheastAnti-Smooth Muscle Rkvfkwpj7810-25-69 08:03:00* Test Item Value Reference Range Interpretation Comments Anti-Smooth Muscle Antibody (test code = 46732-1) 11 Reference Range: 0 - 19 Units Negative 0 - 19 Weak positive 20 - 30 Moderate to strong positive >30 Actin Antibodies are found in 52-85% of patients with autoimmune hepatitis or chronic active hepatitis and in 22% of patients with primary biliary cirrhosis.[facility] Pachd-5-Hsjwbflbjem8622-10-29 08:03:00* Test Item Value Reference Range Interpretation Comments Nakom-8-Brroftyxpgj (test code = 1825-9) 129 Reference Range: 90 - 200 mg/dL Effective September 18, 2019 Toqem-6-Ckyhcvjscfz , Serum reference interval will be changing to: Age Male Female0 - 7 days 102 - 186 102 - 1868 days - 30 days 73 - 187 73 - 96325 days - 5 years 86 - 173 86 - 1736 years - 12 years 99 - 156 99 - 77343 years - 40 years 95 - 164 100 - 188>40 years 101 - 187 101 - 187[facility] Ybiqaxzdbfjsy8519-15-97 08:03:00* Test Item Value Reference Range Interpretation Comments Ceruloplasmin (test code = 2064-4) 18.3 Reference Range:16.0 - 31.0 mg/dLLabCorp [address] U[address]Whzdcw, [place] [address]Kdy: DHAVAL Bray [facility] HospitalAnti- Mitochondrial Cmpimsuu0002-48-81 08:03:00* Test Item Value Reference Range Interpretation Comments Anti-Mitochondrial Antibody (test code = 17241-5) <20.0 Reference Range: 0.0 - 20.0 Units Negative 0.0 - 20.0 Equivocal 20.1 - 24.9 Posi tive >24.9 Mitochondrial (M2) Antibodies are found in 90-96% of patients with primary biliary cirrhosis.[facility] SoutheastAnti-Smooth Muscle Lulydgfr4173-65-14 08:03:00* Test Item Value Reference Range Interpretation Comments Anti-Smooth Muscle Antibody (test code = 99104-4) 11 Reference Range: 0 - 19 Units Negative 0 - 19 Weak positive 20 - 30 Moderate to strong positive >30 Actin Antibodies are found in 52-85% of patients with autoimmune hepatitis or chronic active hepatitis and in 22% of patients with primary biliary cirrhosis.[facility]Anti-Nuclear Antibody Kbfgiu7807-13-22 07:54:00* Test Item Value Reference Range Interpretation Comments Anti-Nuclear Antibody Screen (test code = 5048-4) Negative Reference Range:Negative <1:80Borderline 1:80Positive >1:80Testing performed by:[employer] [place] [address] [phone]: [place] [facility] HospitalAnti-Nuclear Antibody Ooruie5730-77-96 07:54:00* Test Item Value Reference Range Interpretation Comments Anti-Nuclear Antibody Screen (test code = 5048-4) Negative Reference Range:Negative <1:80Borderline 1:80Positive >1:80Testing performed by:[employer] [place] [address] [phone]: [place] [facility] HospitalAnti-Nuclear Antibody Qaqhhn0430-89-95 07:54:00* Test Item Value Reference Range Interpretation Comments Anti-Nuclear Antibody Screen (test code = 5048-4) Negative Reference Range:Negative <1:80Borderline 1:80Positive >1:80Testing performed by:[employer] [place] [address] [phone]: [place] [facility]elyW[facility]Anti-Nuclear Antibody Gtlvye7472-58-86 07:54:00* Test Item Value Reference Range Interpretation Comments Anti-Nuclear Antibody Screen (test code = 5048-4) Negative Reference Range:Negative <1:80Borderline 1:80Positive >1:80Testing performed by:[employer] [place] [address] [phone]: [place] [facility] HospitalAnti-Nuclear Antibody Yygmek7060-01-93 07:54:00* Test Item Value Reference Range Interpretation Comments Anti-Nuclear Antibody Screen (test code = 5048-4) Negative Reference Range:Negative <1:80Borderline 1:80Positive >1:80Testing performed by:[employer] [place] [address] [phone]: [place] [facility] Centerodium Nkxza1024-58-69 07:08:00* Test Item Value Reference Range Interpretation Comments Sodium Level (test code = 2951-2) 136 136-145 [facility] SoutheastPotassium Vmadp3290-56-12 07:08:00* Test Item Value Reference Range Interpretation Comments Potassium Level (test code = 2823-3) 3.7 3.5-5.1 [facility] SoutheastChloride Oacqo7999-22-56 07:08:00* Test Item Value Reference Range Interpretation Comments Chloride Level (test code = 2075-0) 107 98-107 [facility] SoutheastCarbon Dioxide Klbgi6813-02-58 07:08:00* Test Item Value Reference Range Interpretation Comments Carbon Dioxide Level (test code = 2028-9) 24 22-29 [facility] SoutheastAnion Gxf7281-95-49 07:08:00* Test Item Value Reference Range Interpretation Comments Anion Gap (test code = 94003-2) 8.7 8-16 [facility] SoutheastBlood Urea Qsnxdrua3643-87-51 07:08:00* Test Item Value Reference Range Interpretation Comments Blood Urea Nitrogen (test code = 3094-0) 7 7-26 [facility] SoutheastCreatinine2019-10-29 07:08:00* Test Item Value Reference Range Interpretation Comments Creatinine (test code = 2160-0) 0.64 0.72-1.25 L [facility] SoutheastBUN/Creatinine Nxpbb9826-90-21 07:08:00* Test Item Value Reference Range Interpretation Comments BUN/Creatinine Ratio (test code = 3097-3) 11 6- [facility] SoutheastEstimat Glomerular Filtration Rate 2019-09-19 07:08:00* Test Item Value Reference Range Interpretation Comments Estimat Glomerular Filtration Rate (test code = 080518088) > 60 >60 Ranges were taken from the National Kidney Disease Education Program and the [place] [facility] literature.Reference ranges:60 or greater: Eadtzl00-92 ( for 3 consecutive months): Chronic kidney disease 15 or less: Kidney failureHCA Houston Healthcare SoutheastGlucose Lubrx9194-68-17 07:08:00* Test Item Value Reference Range Interpretation Comments Glucose Level (test code = HYW9954) 119 74-118 H [facility] SoutheastCalcium Shgar8366-56-28 07:08:00* Test Item Value Reference Range Interpretation Comments Calcium Level (test code = 56782-7) 7.7 8.4-10.2 L [facility] SoutheastMagnesium Ywqaf9315-31-18 07:08:00* Test Item Value Reference Range Interpretation Comments Magnesium Level (test code = 18961-2) 1.6 1.3-2.1 [facility] Ppnva0759-90-69 07:08:00* Test Item Value Reference Range Interpretation Comments Sodium Level (test code = 2951-2) 136 136-145 [facility] SoutheastPotassium Dqcho7819-13-60 07:08:00* Test Item Value Reference Range Interpretation Comments Potassium Level (test code = 2823-3) 3.7 3.5-5.1 [facility] SoutheastChloride Vmkfb6213-16-78 07:08:00* Test Item Value Reference Range Interpretation Comments Chloride Level (test code = 2075-0) 107 98-107 [facility] SoutheastCarbon Dioxide Lqjiv1838-08-86 07:08:00* Test Item Value Reference Range Interpretation Comments Carbon Dioxide Level (test code = 2028-9) 24 22-29 [facility] SoutheastAnion Mjf8764-29-29 07:08:00* Test Item Value Reference Range Interpretation Comments Anion Gap (test code = 12585-9) 8.7 8-16 [facility] SoutheastBlood Urea Cvokrhcl2180-02-90 07:08:00* Test Item Value Reference Range Interpretation Comments Blood Urea Nitrogen (test code = 3094-0) 7 7-26 [facility] SoutheastCreatinine2019-10-29 07:08:00* Test Item Value Reference Range Interpretation Comments Creatinine (test code = 2160-0) 0.64 0.72-1.25 L [facility] SoutheastBUN/Creatinine Fxalx2640-88-21 07:08:00* Test Item Value Reference Range Interpretation Comments BUN/Creatinine Ratio (test code = 3097-3) 11 6-25 [facility] SoutheastEstimat Glomerular Filtration Rate 2019-09-19 07:08:00* Test Item Value Reference Range Interpretation Comments Estimat Glomerular Filtration Rate (test code = 920174866) > 60 >60 Ranges were taken from the National Kidney Disease Education Program and the [facility] Kidney Foundation literature.Reference ranges:60 or greater: Chvsnz57-06 ( for 3 consecutive months): Chronic kidney disease 15 or less: Kidney failureCHI [facility]rick Medical CenterGlucose Pjwux2302-55-70 07:08:00* Test Item Value Reference Range Interpretation Comments Glucose Level (test code = MGQ9487) 119 74-118 H [facility] SoutheastCalcium Jkodv0036-34-24 07:08:00* Test Item Value Reference Range Interpretation Comments Calcium Level (test code = 43915-6) 7.7 8.4-10.2 L [facility] SoutheastMagnesium Gltvv1874-88-47 07:08:00* Test Item Value Reference Range Interpretation Comments Magnesium Level (test code = 20289-8) 1.6 1.3-2.1 [facility] Alofo6275-83-58 07:08:00* Test Item Value Reference Range Interpretation Comments Sodium Level (test code = 2951-2) 136 136-145 [facility] SoutheastPotassium Owzft2480-22-40 07:08:00* Test Item Value Reference Range Interpretation Comments Potassium Level (test code = 2823-3) 3.7 3.5-5.1 [facility] SoutheastChloride Nkaro5649-47-01 07:08:00* Test Item Value Reference Range Interpretation Comments Chloride Level (test code = 2075-0) 107 98-107 [facility] SoutheastCarbon Dioxide Pscqt3960-45-38 07:08:00* Test Item Value Reference Range Interpretation Comments Carbon Dioxide Level (test code = 2028-9) 24 22-29 [facility] SoutheastAnion Rqt6079-80-45 07:08:00* Test Item Value Reference Range Interpretation Comments Anion Gap (test code = 71274-2) 8.7 8-16 [facility] SoutheastBlood Urea Hchncbnh2540-01-50 07:08:00* Test Item Value Reference Range Interpretation Comments Blood Urea Nitrogen (test code = 3094-0) 7 7-26 [facility] SoutheastCreatinine2019-10-29 07:08:00* Test Item Value Reference Range Interpretation Comments Creatinine (test code = 2160-0) 0.64 0.72-1.25 L [facility] SoutheastBUN/Creatinine Aqwop2312-11-04 07:08:00* Test Item Value Reference Range Interpretation Comments BUN/Creatinine Ratio (test code = 3097-3) 11 - [facility] SoutheastEstimat Glomerular Filtration Rate 2019-09-19 07:08:00* Test Item Value Reference Range Interpretation Comments Estimat Glomerular Filtration Rate (test code = 212771036) > 60 >60 Ranges were taken from the National Kidney Disease Education Program and the [place] [facility] literature.Reference ranges:60 or greater: Zghuvv56-71 ( for 3 consecutive months): Chronic kidney disease 15 or less: Kidney failureH[facility] SoutheastGlucose Jssma7535-38-89 07:08:00* Test Item Value Reference Range Interpretation Comments Glucose Level (test code = OTM5798) 119 74-118 H [facility] SoutheastCalcium Udykr0126-54-03 07:08:00* Test Item Value Reference Range Interpretation Comments Calcium Level (test code = 21559-1) 7.7 8.4-10.2 L [facility] SoutheastMagnesium Xgfip5198-07-12 07:08:00* Test Item Value Reference Range Interpretation Comments Magnesium Level (test code = 83765-4) 1.6 1.3-2.1 [facility] Ytaor5131-90-22 07:08:00* Test Item Value Reference Range Interpretation Comments Sodium Level (test code = 2951-2) 136 136-145 [facility] SoutheastPotassium Xqeqi1492-93-96 07:08:00* Test Item Value Reference Range Interpretation Comments Potassium Level (test code = 2823-3) 3.7 3.5-5.1 [facility] SoutheastChloride Ljqmc4870-67-05 07:08:00* Test Item Value Reference Range Interpretation Comments Chloride Level (test code = 2075-0) 107 98-107 [facility] SoutheastCarbon Dioxide Etkwk6476-22-77 07:08:00* Test Item Value Reference Range Interpretation Comments Carbon Dioxide Level (test code = 2028-9) 24 22-29 [facility] SoutheastAnion Hgv2773-79-73 07:08:00* Test Item Value Reference Range Interpretation Comments Anion Gap (test code = 93718-3) 8.7 8-16 [facility] SoutheastBlood Urea Jqkhbkbg9488-68-04 07:08:00* Test Item Value Reference Range Interpretation Comments Blood Urea Nitrogen (test code = 3094-0) 7 7-26 [facility] SoutheastCreatinine2019-10-29 07:08:00* Test Item Value Reference Range Interpretation Comments Creatinine (test code = 2160-0) 0.64 0.72-1.25 L [facility] SoutheastBUN/Creatinine Ofuwj3202-96-03 07:08:00* Test Item Value Reference Range Interpretation Comments BUN/Creatinine Ratio (test code = 3097-3) 11 - [facility] SoutheastEstimat Glomerular Filtration Rate 2019-09-19 07:08:00* Test Item Value Reference Range Interpretation Comments Estimat Glomerular Filtration Rate (test code = 400664791) > 60 >60 Ranges were taken from the National Kidney Disease Education Program and the [place] [facility] literature.Reference ranges:60 or greater: Emzkey17-33 ( for 3 consecutive months): Chronic kidney disease 15 or less: Kidney failureH[facility] SoutheastGlucose Yujdl2488-59-90 07:08:00* Test Item Value Reference Range Interpretation Comments Glucose Level (test code = GVO6129) 119 74-118 H [facility] SoutheastCalcium Wqurf5246-75-86 07:08:00* Test Item Value Reference Range Interpretation Comments Calcium Level (test code = 73994-9) 7.7 8.4-10.2 L [facility] SoutheastMagnesium Tabtp6830-47-98 07:08:00* Test Item Value Reference Range Interpretation Comments Magnesium Level (test code = 99250-0) 1.6 1.3-2.1 [facility] Effuq5915-94-43 07:08:00* Test Item Value Reference Range Interpretation Comments Sodium Level (test code = 2951-2) 136 136-145 [facility] SoutheastPotassium Agayo9761-35-46 07:08:00* Test Item Value Reference Range Interpretation Comments Potassium Level (test code = 2823-3) 3.7 3.5-5.1 [facility] SoutheastChloride Rleqy9972-89-62 07:08:00* Test Item Value Reference Range Interpretation Comments Chloride Level (test code = 2075-0) 107 98-107 [facility] SoutheastCarbon Dioxide Hmqyy5348-59-31 07:08:00* Test Item Value Reference Range Interpretation Comments Carbon Dioxide Level (test code = 2028-9) 24 22-29 [facility] SoutheastAnion Otr5545-44-45 07:08:00* Test Item Value Reference Range Interpretation Comments Anion Gap (test code = 81377-3) 8.7 8-16 [facility] SoutheastBlood Urea Njgqimuq2124-37-25 07:08:00* Test Item Value Reference Range Interpretation Comments Blood Urea Nitrogen (test code = 3094-0) 7 7-26 [facility] SoutheastCreatinine2019-10-29 07:08:00* Test Item Value Reference Range Interpretation Comments Creatinine (test code = 2160-0) 0.64 0.72-1.25 L [facility] SoutheastBUN/Creatinine Lumoo5976-69-52 07:08:00* Test Item Value Reference Range Interpretation Comments BUN/Creatinine Ratio (test code = 3097-3) 11 6- [facility] SoutheastEstimat Glomerular Filtration Rate 2019-09-19 07:08:00* Test Item Value Reference Range Interpretation Comments Estimat Glomerular Filtration Rate (test code = 066836751) > 60 >60 Ranges were taken from the National Kidney Disease Education Program and the [place] [facility] literature.Reference ranges:60 or greater: Zmyojv18-46 ( for 3 consecutive months): Chronic kidney disease 15 or less: Kidney failureHCA [facility] Healthcare SoutheastGlucose Hhxxi2292-32-03 07:08:00* Test Item Value Reference Range Interpretation Comments Glucose Level (test code = NOS6946) 119 74-118 H [facility] SoutheastCalcium Pircn5290-97-61 07:08:00* Test Item Value Reference Range Interpretation Comments Calcium Level (test code = 38323-0) 7.7 8.4-10.2 L [facility] SoutheastMagnesium Lruri0385-37-40 07:08:00* Test Item Value Reference Range Interpretation Comments Magnesium Level (test code = 76219-2) 1.6 1.3-2.1 [facility] SoutheastWhite Blood Ogmae8360-58-34 06:47:00* Test Item Value Reference Range Interpretation Comments White Blood Count (test code = 6690-2) 3.76 4.8-10.8 L [facility] SoutheastRed Blood Qnucw9546-03-99 06:47:00* Test Item Value Reference Range Interpretation Comments Red Blood Count (test code = 789-8) 2.53 4.3-5.7 L [facility] SoutheastHemoglobin2019-10-29 06:47:00* Test Item Value Reference Range Interpretation Comments Hemoglobin (test code = 83514-6) 8.4 14.0-18.0 L [facility] SoutheastHematocrit2019-10-29 06:47:00* Test Item Value Reference Range Interpretation Comments Hematocrit (test code = 4544-3) 25.1 38.2-49.6 L [facility] SoutheastMean Corpuscular Vwiwdz9083-33-22 06:47:00* Test Item Value Reference Range Interpretation Comments Mean Corpuscular Volume (test code = 787-2) 99.2 81-99 H [facility] SoutheastMean Corpuscular Utetihewwl3081-37-82 06:47:00* Test Item Value Reference Range Interpretation Comments Mean Corpuscular Hemoglobin (test code = 785-6) 33.2 28-32 H [facility] SoutheastMean Corpuscular Hemoglobin Concent 2019-09-19 06:47:00* Test Item Value Reference Range Interpretation Comments Mean Corpuscular Hemoglobin Concent (test code = 786-4) 33.5 31-35 [facility] SoutheastRed Cell Distribution Defwz9904-97-16 06:47:00* Test Item Value Reference Range Interpretation Comments Red Cell Distribution Width (test code = 77801-9) 17.2 11.7 -14.4 H [facility] SoutheastPlatelet Llufs1866-80-59 06:47:00* Test Item Value Reference Range Interpretation Comments Platelet Count (test code = 777-3) 69 140-360 L [facility] SoutheastNeutrophils (%) (Auto)2019-09-19 06:47:00 * Test Item Value Reference Range Interpretation Comments Neutrophils (%) (Auto) (test code = 98359-9) 53.6 38.7-80.0 [facility] SoutheastLymphocytes (%) (Auto)2019-09-19 06:47:00 * Test Item Value Reference Range Interpretation Comments Lymphocytes (%) (Auto) (test code = 736-9) 30.1 18.0-39.1 [facility] SoutheastMonocytes (%) (Auto)2019-09-19 06:47:00* Test Item Value Reference Range Interpretation Comments Monocytes (%) (Auto) (test code = 5905-5) 11.2 4.4-11.3 [facility] SoutheastEosinophils (%) (Auto)2019-09-19 06:47:00 * Test Item Value Reference Range Interpretation Comments Eosinophils (%) (Auto) (test code = 713-8) 4.3 0.0-6.0 [facility] SoutheastBasophils (%) (Auto)2019-09-19 06:47:00* Test Item Value Reference Range Interpretation Comments Basophils (%) (Auto) (test code = 706-2) 0.5 0.0-1.0 [facility] SoutheastIM GRANULOCYTES %2019-09-19 06:47:00* Test Item Value Reference Range Interpretation Comments IM GRANULOCYTES % (test code = IM GRANULOCYTES %) 0.3 0.0- 1.0 [facility] SoutheastNeutrophils # (Auto)2019-09-19 06:47:00* Test Item Value Reference Range Interpretation Comments Neutrophils # (Auto) (test code = 751-8) 2.0 2.1-6.9 L [facility] SoutheastLymphocytes # (Auto)2019-09-19 06:47:00* Test Item Value Reference Range Interpretation Comments Lymphocytes # (Auto) (test code = 15272-8) 1.1 1.0-3.2 [facility] SoutheastMonocytes # (Auto)2019-09-19 06:47:00* Test Item Value Reference Range Interpretation Comments Monocytes # (Auto) (test code = 742-7) 0.4 0.2-0.8 [facility] SoutheastEosinophils # (Auto)2019-09-19 06:47:00* Test Item Value Reference Range Interpretation Comments Eosinophils # (Auto) (test code = 711-2) 0.2 0.0-0.4 [facility] SoutheastBasophils # (Auto)2019-09-19 06:47:00* Test Item Value Reference Range Interpretation Comments Basophils # (Auto) (test code = 704-7) 0.0 0.0-0.1 [facility] SoutheastAbsolute Immature Granulocyte (auto 2019-09-19 06:47:00* Test Item Value Reference Range Interpretation Comments Absolute Immature Granulocyte (auto (nir t code = Absolute Immature Granulocyte (auto) 0.01 0-0.1 [facility] SoutheastWhite Blood Rmbwk6079-17-94 06:47:00* Test Item Value Reference Range Interpretation Comments White Blood Count (test code = 6690-2) 3.76 4.8-10.8 L [facility] SoutheastRed Blood Ziroe3813-96-42 06:47:00* Test Item Value Reference Range Interpretation Comments Red Blood Count (test code = 789-8) 2.53 4.3-5.7 L [facility] SoutheastHemoglobin2019-10-29 06:47:00* Test Item Value Reference Range Interpretation Comments Hemoglobin (test code = 46469-2) 8.4 14.0-18.0 L [facility] SoutheastHematocrit2019-10-29 06:47:00* Test Item Value Reference Range Interpretation Comments Hematocrit (test code = 4544-3) 25.1 38.2-49.6 L [facility] SoutheastMean Corpuscular Ielcrg8097-05-09 06:47:00* Test Item Value Reference Range Interpretation Comments Mean Corpuscular Volume (test code = 787-2) 99.2 81-99 H [facility] SoutheastMean Corpuscular Shwwwcvbhc3022-11-79 06:47:00* Test Item Value Reference Range Interpretation Comments Mean Corpuscular Hemoglobin (test code = 785-6) 33.2 28-32 H [facility] SoutheastMean Corpuscular Hemoglobin Concent 2019-09-19 06:47:00* Test Item Value Reference Range Interpretation Comments Mean Corpuscular Hemoglobin Concent (test code = 786-4) 33.5 31-35 [facility] SoutheastRed Cell Distribution Ionxy3937-44-14 06:47:00* Test Item Value Reference Range Interpretation Comments Red Cell Distribution Width (test code = 57544-9) 17.2 11.7 -14.4 H [facility] SoutheastPlatelet Cfxbj0907-04-42 06:47:00* Test Item Value Reference Range Interpretation Comments Platelet Count (test code = 777-3) 69 140-360 L [facility] SoutheastNeutrophils (%) (Auto)2019-09-19 06:47:00 * Test Item Value Reference Range Interpretation Comments Neutrophils (%) (Auto) (test code = 08853-4) 53.6 38.7-80.0 [facility] SoutheastLymphocytes (%) (Auto)2019-09-19 06:47:00 * Test Item Value Reference Range Interpretation Comments Lymphocytes (%) (Auto) (test code = 736-9) 30.1 18.0-39.1 [facility] SoutheastMonocytes (%) (Auto)2019-09-19 06:47:00* Test Item Value Reference Range Interpretation Comments Monocytes (%) (Auto) (test code = 5905-5) 11.2 4.4-11.3 [facility] SoutheastEosinophils (%) (Auto)2019-09-19 06:47:00 * Test Item Value Reference Range Interpretation Comments Eosinophils (%) (Auto) (test code = 713-8) 4.3 0.0-6.0 [facility] SoutheastBasophils (%) (Auto)2019-09-19 06:47:00* Test Item Value Reference Range Interpretation Comments Basophils (%) (Auto) (test code = 706-2) 0.5 0.0-1.0 [facility] SoutheastIM GRANULOCYTES %2019-09-19 06:47:00* Test Item Value Reference Range Interpretation Comments IM GRANULOCYTES % (test code = IM GRANULOCYTES %) 0.3 0.0- 1.0 [facility] SoutheastNeutrophils # (Auto)2019-09-19 06:47:00* Test Item Value Reference Range Interpretation Comments Neutrophils # (Auto) (test code = 751-8) 2.0 2.1-6.9 L [facility] SoutheastLymphocytes # (Auto)2019-09-19 06:47:00* Test Item Value Reference Range Interpretation Comments Lymphocytes # (Auto) (test code = 30581-8) 1.1 1.0-3.2 [facility] SoutheastMonocytes # (Auto)2019-09-19 06:47:00* Test Item Value Reference Range Interpretation Comments Monocytes # (Auto) (test code = 742-7) 0.4 0.2-0.8 [facility] SoutheastEosinophils # (Auto)2019-09-19 06:47:00* Test Item Value Reference Range Interpretation Comments Eosinophils # (Auto) (test code = 711-2) 0.2 0.0-0.4 [facility] SoutheastBasophils # (Auto)2019-09-19 06:47:00* Test Item Value Reference Range Interpretation Comments Basophils # (Auto) (test code = 704-7) 0.0 0.0-0.1 [facility] SoutheastAbsolute Immature Granulocyte (auto 2019-09-19 06:47:00* Test Item Value Reference Range Interpretation Comments Absolute Immature Granulocyte (auto (nir t code = Absolute Immature Granulocyte (auto) 0.01 0-0.1 [facility] SoutheastWhite Blood Rthpe3441-26-86 06:47:00* Test Item Value Reference Range Interpretation Comments White Blood Count (test code = 6690-2) 3.76 4.8-10.8 L [facility] SoutheastRed Blood Zvgay9892-34-09 06:47:00* Test Item Value Reference Range Interpretation Comments Red Blood Count (test code = 789-8) 2.53 4.3-5.7 L [facility] SoutheastHemoglobin2019-10-29 06:47:00* Test Item Value Reference Range Interpretation Comments Hemoglobin (test code = 31552-8) 8.4 14.0-18.0 L [facility] SoutheastHematocrit2019-10-29 06:47:00* Test Item Value Reference Range Interpretation Comments Hematocrit (test code = 4544-3) 25.1 38.2-49.6 L [facility] SoutheastMean Corpuscular Qkrosh0740-31-73 06:47:00* Test Item Value Reference Range Interpretation Comments Mean Corpuscular Volume (test code = 787-2) 99.2 81-99 H [facility] SoutheastMean Corpuscular Caqodobpbv7206-59-98 06:47:00* Test Item Value Reference Range Interpretation Comments Mean Corpuscular Hemoglobin (test code = 785-6) 33.2 28-32 H [facility] SoutheastMean Corpuscular Hemoglobin Concent 2019-09-19 06:47:00* Test Item Value Reference Range Interpretation Comments Mean Corpuscular Hemoglobin Concent (test code = 786-4) 33.5 31-35 [facility] SoutheastRed Cell Distribution Rtxzd6422-44-86 06:47:00* Test Item Value Reference Range Interpretation Comments Red Cell Distribution Width (test code = 46732-7) 17.2 11.7 -14.4 H [facility] SoutheastPlatelet Xbzez2273-53-71 06:47:00* Test Item Value Reference Range Interpretation Comments Platelet Count (test code = 777-3) 69 140-360 L [facility] SoutheastNeutrophils (%) (Auto)2019-09-19 06:47:00 * Test Item Value Reference Range Interpretation Comments Neutrophils (%) (Auto) (test code = 78145-8) 53.6 38.7-80.0 [facility] SoutheastLymphocytes (%) (Auto)2019-09-19 06:47:00 * Test Item Value Reference Range Interpretation Comments Lymphocytes (%) (Auto) (test code = 736-9) 30.1 18.0-39.1 [facility] SoutheastMonocytes (%) (Auto)2019-09-19 06:47:00* Test Item Value Reference Range Interpretation Comments Monocytes (%) (Auto) (test code = 5905-5) 11.2 4.4-11.3 [facility] SoutheastEosinophils (%) (Auto)2019-09-19 06:47:00 * Test Item Value Reference Range Interpretation Comments Eosinophils (%) (Auto) (test code = 713-8) 4.3 0.0-6.0 [facility] SoutheastBasophils (%) (Auto)2019-09-19 06:47:00* Test Item Value Reference Range Interpretation Comments Basophils (%) (Auto) (test code = 706-2) 0.5 0.0-1.0 [facility] SoutheastIM GRANULOCYTES %2019-09-19 06:47:00* Test Item Value Reference Range Interpretation Comments IM GRANULOCYTES % (test code = IM GRANULOCYTES %) 0.3 0.0- 1.0 [facility] SoutheastNeutrophils # (Auto)2019-09-19 06:47:00* Test Item Value Reference Range Interpretation Comments Neutrophils # (Auto) (test code = 751-8) 2.0 2.1-6.9 L [facility] SoutheastLymphocytes # (Auto)2019-09-19 06:47:00* Test Item Value Reference Range Interpretation Comments Lymphocytes # (Auto) (test code = 00916-7) 1.1 1.0-3.2 [facility] SoutheastMonocytes # (Auto)2019-09-19 06:47:00* Test Item Value Reference Range Interpretation Comments Monocytes # (Auto) (test code = 742-7) 0.4 0.2-0.8 [facility] SoutheastEosinophils # (Auto)2019-09-19 06:47:00* Test Item Value Reference Range Interpretation Comments Eosinophils # (Auto) (test code = 711-2) 0.2 0.0-0.4 [facility] SoutheastBasophils # (Auto)2019-09-19 06:47:00* Test Item Value Reference Range Interpretation Comments Basophils # (Auto) (test code = 704-7) 0.0 0.0-0.1 [facility] SoutheastAbsolute Immature Granulocyte (auto 2019-09-19 06:47:00* Test Item Value Reference Range Interpretation Comments Absolute Immature Granulocyte (auto (nir t code = Absolute Immature Granulocyte (auto) 0.01 0-0.1 [facility] SoutheastWhite Blood Rnsqf3146-50-82 06:47:00* Test Item Value Reference Range Interpretation Comments White Blood Count (test code = 6690-2) 3.76 4.8-10.8 L [facility] SoutheastRed Blood Xfnqh8537-79-31 06:47:00* Test Item Value Reference Range Interpretation Comments Red Blood Count (test code = 789-8) 2.53 4.3-5.7 L [facility] SoutheastHemoglobin2019-10-29 06:47:00* Test Item Value Reference Range Interpretation Comments Hemoglobin (test code = 63200-0) 8.4 14.0-18.0 L [facility] SoutheastHematocrit2019-10-29 06:47:00* Test Item Value Reference Range Interpretation Comments Hematocrit (test code = 4544-3) 25.1 38.2-49.6 L [facility] SoutheastMean Corpuscular Xnygug4802-99-20 06:47:00* Test Item Value Reference Range Interpretation Comments Mean Corpuscular Volume (test code = 787-2) 99.2 81-99 H [facility] SoutheastMean Corpuscular Ztrjzllvel1448-40-54 06:47:00* Test Item Value Reference Range Interpretation Comments Mean Corpuscular Hemoglobin (test code = 785-6) 33.2 28-32 H [facility] SoutheastMean Corpuscular Hemoglobin Concent 2019-09-19 06:47:00* Test Item Value Reference Range Interpretation Comments Mean Corpuscular Hemoglobin Concent (test code = 786-4) 33.5 31-35 [facility] SoutheastRed Cell Distribution Kggcn9056-95-74 06:47:00* Test Item Value Reference Range Interpretation Comments Red Cell Distribution Width (test code = 44866-1) 17.2 11.7 -14.4 H [facility] SoutheastPlatelet Lxynl1724-66-76 06:47:00* Test Item Value Reference Range Interpretation Comments Platelet Count (test code = 777-3) 69 140-360 L [facility] SoutheastNeutrophils (%) (Auto)2019-09-19 06:47:00 * Test Item Value Reference Range Interpretation Comments Neutrophils (%) (Auto) (test code = 28363-1) 53.6 38.7-80.0 [facility] SoutheastLymphocytes (%) (Auto)2019-09-19 06:47:00 * Test Item Value Reference Range Interpretation Comments Lymphocytes (%) (Auto) (test code = 736-9) 30.1 18.0-39.1 [facility] SoutheastMonocytes (%) (Auto)2019-09-19 06:47:00* Test Item Value Reference Range Interpretation Comments Monocytes (%) (Auto) (test code = 5905-5) 11.2 4.4-11.3 [facility] SoutheastEosinophils (%) (Auto)2019-09-19 06:47:00 * Test Item Value Reference Range Interpretation Comments Eosinophils (%) (Auto) (test code = 713-8) 4.3 0.0-6.0 [facility] SoutheastBasophils (%) (Auto)2019-09-19 06:47:00* Test Item Value Reference Range Interpretation Comments Basophils (%) (Auto) (test code = 706-2) 0.5 0.0-1.0 [facility] SoutheastIM GRANULOCYTES %2019-09-19 06:47:00* Test Item Value Reference Range Interpretation Comments IM GRANULOCYTES % (test code = IM GRANULOCYTES %) 0.3 0.0- 1.0 [facility] SoutheastNeutrophils # (Auto)2019-09-19 06:47:00* Test Item Value Reference Range Interpretation Comments Neutrophils # (Auto) (test code = 751-8) 2.0 2.1-6.9 L [facility] SoutheastLymphocytes # (Auto)2019-09-19 06:47:00* Test Item Value Reference Range Interpretation Comments Lymphocytes # (Auto) (test code = 54411-2) 1.1 1.0-3.2 [facility] SoutheastMonocytes # (Auto)2019-09-19 06:47:00* Test Item Value Reference Range Interpretation Comments Monocytes # (Auto) (test code = 742-7) 0.4 0.2-0.8 [facility] SoutheastEosinophils # (Auto)2019-09-19 06:47:00* Test Item Value Reference Range Interpretation Comments Eosinophils # (Auto) (test code = 711-2) 0.2 0.0-0.4 [facility] SoutheastBasophils # (Auto)2019-09-19 06:47:00* Test Item Value Reference Range Interpretation Comments Basophils # (Auto) (test code = 704-7) 0.0 0.0-0.1 [facility] SoutheastAbsolute Immature Granulocyte (auto 2019-09-19 06:47:00* Test Item Value Reference Range Interpretation Comments Absolute Immature Granulocyte (auto (nir t code = Absolute Immature Granulocyte (auto) 0.01 0-0.1 [facility] SoutheastWhite Blood Nsmpk6770-11-78 06:47:00* Test Item Value Reference Range Interpretation Comments White Blood Count (test code = 6690-2) 3.76 4.8-10.8 L [facility] SoutheastRed Blood Nmjat0878-92-60 06:47:00* Test Item Value Reference Range Interpretation Comments Red Blood Count (test code = 789-8) 2.53 4.3-5.7 L [facility] SoutheastHemoglobin2019-10-29 06:47:00* Test Item Value Reference Range Interpretation Comments Hemoglobin (test code = 54610-3) 8.4 14.0-18.0 L [facility] SoutheastHematocrit2019-10-29 06:47:00* Test Item Value Reference Range Interpretation Comments Hematocrit (test code = 4544-3) 25.1 38.2-49.6 L [facility] SoutheastMean Corpuscular Jcwigb3889-29-53 06:47:00* Test Item Value Reference Range Interpretation Comments Mean Corpuscular Volume (test code = 787-2) 99.2 81-99 H [facility] SoutheastMean Corpuscular Vocgbjcmcv0525-30-74 06:47:00* Test Item Value Reference Range Interpretation Comments Mean Corpuscular Hemoglobin (test code = 785-6) 33.2 28-32 H [facility] SoutheastMean Corpuscular Hemoglobin Concent 2019-09-19 06:47:00* Test Item Value Reference Range Interpretation Comments Mean Corpuscular Hemoglobin Concent (test code = 786-4) 33.5 31-35 [facility] SoutheastRed Cell Distribution Nadys0162-51-97 06:47:00* Test Item Value Reference Range Interpretation Comments Red Cell Distribution Width (test code = 38748-0) 17.2 11.7 -14.4 H [facility] SoutheastPlatelet Eipdw5744-01-70 06:47:00* Test Item Value Reference Range Interpretation Comments Platelet Count (test code = 777-3) 69 140-360 L [facility] SoutheastNeutrophils (%) (Auto)2019-09-19 06:47:00 * Test Item Value Reference Range Interpretation Comments Neutrophils (%) (Auto) (test code = 29430-2) 53.6 38.7-80.0 [facility] SoutheastLymphocytes (%) (Auto)2019-09-19 06:47:00 * Test Item Value Reference Range Interpretation Comments Lymphocytes (%) (Auto) (test code = 736-9) 30.1 18.0-39.1 [facility] (%) (Auto)2019-09-19 06:47:00* Test Item Value Reference Range Interpretation Comments Monocytes (%) (Auto) (test code = 5905-5) 11.2 4.4-11.3 [facility] SoutheastEosinophils (%) (Auto)2019-09-19 06:47:00 * Test Item Value Reference Range Interpretation Comments Eosinophils (%) (Auto) (test code = 713-8) 4.3 0.0-6.0 [facility] SoutheastBasophils (%) (Auto)2019-09-19 06:47:00* Test Item Value Reference Range Interpretation Comments Basophils (%) (Auto) (test code = 706-2) 0.5 0.0-1.0 [facility] SoutheastIM GRANULOCYTES %2019-09-19 06:47:00* Test Item Value Reference Range Interpretation Comments IM GRANULOCYTES % (test code = IM GRANULOCYTES %) 0.3 0.0- 1.0 [facility] SoutheastNeutrophils # (Auto)2019-09-19 06:47:00* Test Item Value Reference Range Interpretation Comments Neutrophils # (Auto) (test code = 751-8) 2.0 2.1-6.9 L [facility] SoutheastLymphocytes # (Auto)2019-09-19 06:47:00* Test Item Value Reference Range Interpretation Comments Lymphocytes # (Auto) (test code = 72533-0) 1.1 1.0-3.2 [facility] SoutheastMonocytes # (Auto)2019-09-19 06:47:00* Test Item Value Reference Range Interpretation Comments Monocytes # (Auto) (test code = 742-7) 0.4 0.2-0.8 [facility]Eosinophils # (Auto)2019-09-19 06:47:00* Test Item Value Reference Range Interpretation Comments Eosinophils # (Auto) (test code = 711-2) 0.2 0.0-0.4 [facility]Basophils # (Auto)2019-09-19 06:47:00* Test Item Value Reference Range Interpretation Comments Basophils # (Auto) (test code = 704-7) 0.0 0.0-0.1 [facility] SoutheastAbsolute Immature Granulocyte (auto 2019-09-19 06:47:00* Test Item Value Reference Range Interpretation Comments Absolute Immature Granulocyte (auto (nir t code = Absolute Immature Granulocyte (auto) 0.01 0-0.1 [facility] SoutheastTotal Wgwgthwjj0757-51-85 07:05:00* Test Item Value Reference Range Interpretation Comments Total Bilirubin (test code = 1975-2) 0.7 0.2-1.2 [facility] SoutheastAspartate Amino Transf (AST/SGOT) 2019-09-18 07:05:00* Test Item Value Reference Range Interpretation Comments Aspartate Amino Transf (AST/SGOT) (test code = Aspartate Amino Transf (AST/SGOT)) 54 5-34 H [facility] SoutheastAlanine Aminotransferase (ALT/SGPT) 2019-09-18 07:05:00* Test Item Value Reference Range Interpretation Comments Alanine Aminotransferase (ALT/SGPT) (test code = 1742-6) 49 0-55 [facility] SoutheastTotal Ddyiiea1609-78-51 07:05:00* Test Item Value Reference Range Interpretation Comments Total Protein (test code = 2885-2) 4.7 6.5-8.1 L [facility] SoutheastAlbumin2019-10-28 07:05:00* Test Item Value Reference Range Interpretation Comments Albumin (test code = 1751-7) 2.2 3.5-5.0 L [facility] SoutheastGlobulin2019-10-28 07:05:00* Test Item Value Reference Range Interpretation Comments Globulin (test code = 22989-8) 2.5 2.3-3.5 [facility] SoutheastAlbumin/Globulin Hkwob5259-63-52 07:05:00 * Test Item Value Reference Range Interpretation Comments Albumin/Globulin Ratio (test code = 1759-0) 0.9 0.8-2.0 [facility] SoutheastAlkaline Eouaofdbwss3089-78-52 07:05:00* Test Item Value Reference Range Interpretation Comments Alkaline Phosphatase (test code = 6768-6) 102 40-150 [facility] SoutheastTotal Aryeykpqn0369-32-42 07:05:00* Test Item Value Reference Range Interpretation Comments Total Bilirubin (test code = 1975-2) 0.7 0.2-1.2 [facility] SoutheastAspartate Amino Transf (AST/SGOT) 2019-09-18 07:05:00* Test Item Value Reference Range Interpretation Comments Aspartate Amino Transf (AST/SGOT) (test code = Aspartate Amino Transf (AST/SGOT)) 54 5-34 H [facility] SoutheastAlanine Aminotransferase (ALT/SGPT) 2019-09-18 07:05:00* Test Item Value Reference Range Interpretation Comments Alanine Aminotransferase (ALT/SGPT) (test code = 1742-6) 49 0-55 [facility]Total Rphzjqe3522-66-41 07:05:00* Test Item Value Reference Range Interpretation Comments Total Protein (test code = 2885-2) 4.7 6.5-8.1 L [facility] SoutheastAlbumin2019-10-28 07:05:00* Test Item Value Reference Range Interpretation Comments Albumin (test code = 1751-7) 2.2 3.5-5.0 L [facility] SoutheastGlobulin2019-10-28 07:05:00* Test Item Value Reference Range Interpretation Comments Globulin (test code = 07595-4) 2.5 2.3-3.5 [facility] SoutheastAlbumin/Globulin Pzcog3989-04-87 07:05:00 * Test Item Value Reference Range Interpretation Comments Albumin/Globulin Ratio (test code = 1759-0) 0.9 0.8-2.0 [facility] SoutheastAlkaline Zlbchegnysw1375-28-60 07:05:00* Test Item Value Reference Range Interpretation Comments Alkaline Phosphatase (test code = 6768-6) 102 40-150 [facility] SoutheastTotal Ilyzfqkbc3727-04-98 07:05:00* Test Item Value Reference Range Interpretation Comments Total Bilirubin (test code = 1975-2) 0.7 0.2-1.2 [facility] SoutheastAspartate Amino Transf (AST/SGOT) 2019-09-18 07:05:00* Test Item Value Reference Range Interpretation Comments Aspartate Amino Transf (AST/SGOT) (test code = Aspartate Amino Transf (AST/SGOT)) 54 5-34 H [facility] SoutheastAlanine Aminotransferase (ALT/SGPT) 2019-09-18 07:05:00* Test Item Value Reference Range Interpretation Comments Alanine Aminotransferase (ALT/SGPT) (test code = 1742-6) 49 0-55 [facility]Tostew[facility] Sshisfy9152-29-61 07:05:00* Test Item Value Reference Range Interpretation Comments Total Protein (test code = 2885-2) 4.7 6.5-8.1 L [facility] SoutheastAlbumin2019-10-28 07:05:00* Test Item Value Reference Range Interpretation Comments Albumin (test code = 1751-7) 2.2 3.5-5.0 L [facility] SoutheastGlobulin2019-10-28 07:05:00* Test Item Value Reference Range Interpretation Comments Globulin (test code = 25333-7) 2.5 2.3-3.5 [facility] SoutheastAlbumin/Globulin Qurwj3534-98-48 07:05:00 * Test Item Value Reference Range Interpretation Comments Albumin/Globulin Ratio (test code = 1759-0) 0.9 0.8-2.0 [facility] SoutheastAlkaline Lwmkghjirip8871-66-24 07:05:00* Test Item Value Reference Range Interpretation Comments Alkaline Phosphatase (test code = 6768-6) 102 40-150 [facility] SoutheastTotal Cadfvtolp6270-68-84 07:05:00* Test Item Value Reference Range Interpretation Comments Total Bilirubin (test code = 1975-2) 0.7 0.2-1.2 [facility] SoutheastAspartate Amino Transf (AST/SGOT) 2019-09-18 07:05:00* Test Item Value Reference Range Interpretation Comments Aspartate Amino Transf (AST/SGOT) (test code = Aspartate Amino Transf (AST/SGOT)) 54 5-34 H [facility] SoutheastAlanine Aminotransferase (ALT/SGPT) 2019-09-18 07:05:00* Test Item Value Reference Range Interpretation Comments Alanine Aminotransferase (ALT/SGPT) (test code = 1742-6) 49 0-55 [facility] Wyrdnvb3607-37-44 07:05:00* Test Item Value Reference Range Interpretation Comments Total Protein (test code = 2885-2) 4.7 6.5-8.1 L [facility] SoutheastAlbumin2019-10-28 07:05:00* Test Item Value Reference Range Interpretation Comments Albumin (test code = 1751-7) 2.2 3.5-5.0 L [facility] SoutheastGlobulin2019-10-28 07:05:00* Test Item Value Reference Range Interpretation Comments Globulin (test code = 06691-5) 2.5 2.3-3.5 [facility] SoutheastAlbumin/Globulin Fsjfh3042-88-66 07:05:00 * Test Item Value Reference Range Interpretation Comments Albumin/Globulin Ratio (test code = 1759-0) 0.9 0.8-2.0 [facility] SoutheastAlkaline Rxyhhwvapil7327-94-01 07:05:00* Test Item Value Reference Range Interpretation Comments Alkaline Phosphatase (test code = 6768-6) 102 40-150 [facility] SoutheastTotal Hfvtfrcku3195-54-04 07:05:00* Test Item Value Reference Range Interpretation Comments Total Bilirubin (test code = 1975-2) 0.7 0.2-1.2 [facility] SoutheastAspartate Amino Transf (AST/SGOT) 2019-09-18 07:05:00* Test Item Value Reference Range Interpretation Comments Aspartate Amino Transf (AST/SGOT) (test code = Aspartate Amino Transf (AST/SGOT)) 54 5-34 H [facility] SoutheastAlanine Aminotransferase (ALT/SGPT) 2019-09-18 07:05:00* Test Item Value Reference Range Interpretation Comments Alanine Aminotransferase (ALT/SGPT) (test code = 1742-6) 49 0-55 [facility] SoutheastTotal Cqncwhz2412-44-20 07:05:00* Test Item Value Reference Range Interpretation Comments Total Protein (test code = 2885-2) 4.7 6.5-8.1 L [facility] SoutheastAlbumin2019-10-28 07:05:00* Test Item Value Reference Range Interpretation Comments Albumin (test code = 1751-7) 2.2 3.5-5.0 L [facility] SoutheastGlobulin2019-10-28 07:05:00* Test Item Value Reference Range Interpretation Comments Globulin (test code = 85706-1) 2.5 2.3-3.5 [facility] SoutheastAlbumin/Globulin Lnxmn0274-45-92 07:05:00 * Test Item Value Reference Range Interpretation Comments Albumin/Globulin Ratio (test code = 1759-0) 0.9 0.8-2.0 [facility] SoutheastAlkaline Pxfymngfvvc6525-06-79 07:05:00* Test Item Value Reference Range Interpretation Comments Alkaline Phosphatase (test code = 6768-6) 102 40-150 [facility] SoutheastHepatitis A IgM Wcugynme1189-70-48 21:43:00* Test Item Value Reference Range Interpretation Comments Hepatitis A IgM Antibody (test code = 25571-5) [facility]GATIVE [facility] Wtjqolp3971-79-05 21:43:00* Test Item Value Reference Range Interpretation Comments Hepatitis B Surface Antigen (test code = 5196-1) NEGATIVE [facility]: [facility] Core IgM Yopsesmk9782-18-59 21:43:00* Test Item Value Reference Range Interpretation Comments Hepatitis B Core IgM Antibody (test code = 38256-6) NEGATIVE [facility]: [facility]ody 2019-09-14 21:43:00* Test Item Value Reference Range Interpretation Comments Hepatitis C Antibody (test code = 86120-7) 0.2 s/co ration: 0.0-0.9 Negative: <0.8Intermediate: 0.8-0.9 Positive: >0.9 [facility] SoutheastGamma Glutamyl Xfqjgfuyjcalvj8517-14-92 21:43:00* Test Item Value Reference Range Interpretation Comments Gamma Glutamyl Transpeptidase (test code = 2324-2) 50 Units: IU/LReference: 0-65[facility] A IgM Ixxwtuvh7226-84-23 21:43:00* Test Item Value Reference Range Interpretation Comments Hepatitis A IgM Antibody (test code = 33752-2) NEGATIVE [facility]: [facility] Cclmlcg9202-83-05 21:43:00* Test Item Value Reference Range Interpretation Comments Hepatitis B Surface Antigen (test code = 5196-1) NEGATIVE [facility]: [facility] IgM Innvibfd9989-08-11 21:43:00* Test Item Value Reference Range Interpretation Comments Hepatitis B Core IgM Antibody (test code = 20878-8) NEGATIVE [facility]: [facility]ody 2019-09-14 21:43:00* Test Item Value Reference Range Interpretation Comments Hepatitis C Antibody (test code = 83158-1) 0.2 s/co ration: 0.0-0.9 Negative: <0.8Intermediate: 0.8-0.9 Positive: >0.9 [facility] SoutheastGamma Glutamyl Vnrqxodqtoselv2109-80-25 21:43:00* Test Item Value Reference Range Interpretation Comments Gamma Glutamyl Transpeptidase (test code = 2324-2) 50 Units: IU/LReference: 0-65[facility] A IgM Vgwhbpwb1867-85-07 21:43:00* Test Item Value Reference Range Interpretation Comments Hepatitis A IgM Antibody (test code = 70834-9) NEGATIVE [facility]: [facility] Ycqefxj8399-03-53 21:43:00* Test Item Value Reference Range Interpretation Comments Hepatitis B Surface Antigen (test code = 5196-1) NEGATIVE [facility]: [facility] IgM Ksqtswub9940-91-15 21:43:00* Test Item Value Reference Range Interpretation Comments Hepatitis B Core IgM Antibody (test code = 28576-8) NEGATIVE [facility]: [facility]ody 2019-09-14 21:43:00* Test Item Value Reference Range Interpretation Comments Hepatitis C Antibody (test code = 95433-6) 0.2 s/co ration: 0.0-0.9 Negative: <0.8Intermediate: 0.8-0.9 Positive: >0.9 [facility] SoutheastGamma Glutamyl Luonncsmcyahkn4686-99-34 21:43:00* Test Item Value Reference Range Interpretation Comments Gamma Glutamyl Transpeptidase (test code = 2324-2) 50 Units: IU/LReference: 0-65[facility] A IgM Thavkoqw4600-02-69 21:43:00* Test Item Value Reference Range Interpretation Comments Hepatitis A IgM Antibody (test code = 56035-3) NEGATIVE [facility]: [facility] Ovgeuyl4467-35-83 21:43:00* Test Item Value Reference Range Interpretation Comments Hepatitis B Surface Antigen (test code = 5196-1) NEGATIVE [facility]: [facility] IgM Koqqsgek4885-62-90 21:43:00* Test Item Value Reference Range Interpretation Comments Hepatitis B Core IgM Antibody (test code = 45939-0) NEGATIVE [facility]: [facility]ody 2019-09-14 21:43:00* Test Item Value Reference Range Interpretation Comments Hepatitis C Antibody (test code = 90663-4) 0.2 s/co ration: 0.0-0.9 Negative: <0.8Intermediate: 0.8-0.9 Positive: >0.9 [facility] SoutheastGamma Glutamyl Hholudttgpfsln7872-43-66 21:43:00* Test Item Value Reference Range Interpretation Comments Gamma Glutamyl Transpeptidase (test code = 2324-2) 50 Units: IU/LReference: 0-65[facility] A IgM Hswmfygp1572-02-52 21:43:00* Test Item Value Reference Range Interpretation Comments Hepatitis A IgM Antibody (test code = 59328-9) NEGATIVE [facility]: [facility] Surface Rxieldv1587-91-75 21:43:00* Test Item Value Reference Range Interpretation Comments Hepatitis B Surface Antigen (test code = 5196-1) NEGATIVE [facility]: [facility] IgM Tonazmqk0004-19-10 21:43:00* Test Item Value Reference Range Interpretation Comments Hepatitis B Core IgM Antibody (test code = 90816-0) NEGATIVE [facility]: [facility]ody 2019-09-14 21:43:00* Test Item Value Reference Range Interpretation Comments Hepatitis C Antibody (test code = 20363-3) 0.2 s/co ration: 0.0-0.9 Negative: <0.8Intermediate: 0.8-0.9 Positive: >0.9 [facility] Glutamyl Mqjrvzktlflbth5535-32-27 21:43:00* Test Item Value Reference Range Interpretation Comments Gamma Glutamyl Transpeptidase (test code = 2324-2) 50 Units: IU/LReference: 0-65[facility] SoutheastHeparin-Induced Platelet Hqfgtvaq2983-42-89 22:10:00* Test Item Value Reference Range Interpretation Comments Heparin-Induced Platelet Antibody (test code = 39781-7) 0.354 0.000-0.400 Performed at: [address] [id number] Scrap Baler: Akanksha Plummer MD, Phone: [phone] [facility] SoutheastHeparin-Induced Platelet Hjiybgri1946-88-48 22:10:00* Test Item Value Reference Range Interpretation Comments Heparin-Induced Platelet Antibody (test code = 51204-0) 0.354 0.000-0.400 Performed at: [address] [id number] [employer]: Akanksha Plummer MD, Phone: [phone] [facility] SoutheastHeparin-Induced Platelet Szlihpnw1083-46-10 22:10:00* Test Item Value Reference Range Interpretation Comments Heparin-Induced Platelet Antibody (test code = 95608-8) 0.354 0.000-0.400 Performed at: [address] [id number] Sc[employer] Baler: Akanksha Plummer MD, Phone: [phone] [place], [place] [address]Heparin-Induced Platelet Hpklfxhg0667-03-76 22:10:00* Test Item Value Reference Range Interpretation Comments Heparin-Induced Platelet Antibody (test code = 24405-1) 0.354 0.000-0.400 Performed at: [address] [id number] Scrap Baler: Akanksha Plummer MD, Phone: [phone] [place], [place] [address]Heparin-Induced Platelet Kuchrfak5334-18-45 22:10:00* Test Item Value Reference Range Interpretation Comments Heparin-Induced Platelet Antibody (test code = 49666-7) 0.354 0.000-0.400 Performed at: [address] [id number] Scrap Baler: Akanksha Plummer MD, Phone: [phone] [facility] Healthcare SoutheastVitamin B12 Snszl1792-66-96 12:23:00* Test Item Value Reference Range Interpretation Comments Vitamin B12 Level (test code = 50892-6) 605 213816 [facility] SoutheastVitamin B12 Iocsi2313-43-22 12:23:00* Test Item Value Reference Range Interpretation Comments Vitamin B12 Level (test code = 02972-2) 605 213816 [facility] SoutheastVitamin B12 Yyqqa5911-57-55 12:23:00* Test Item Value Reference Range Interpretation Comments Vitamin B12 Level (test code = 08086-2) 605 213816 [facility] SoutheastVitamin B12 Ihren7009-53-77 12:23:00* Test Item Value Reference Range Interpretation Comments Vitamin B12 Level (test code = 86127-9) 605 213-816 [facility] SoutheastVitamin B12 Hoxkb3357-62-76 12:23:00* Test Item Value Reference Range Interpretation Comments Vitamin B12 Level (test code = 41097-9) 605 213-816 [facility] SoutheastFerritin2019-10-21 11:06:00* Test Item Value Reference Range Interpretation Comments Ferritin (test code = 2276-4) 198.61 21.81-274.66 [facility] SoutheastFerritin2019-10-21 11:06:00* Test Item Value Reference Range Interpretation Comments Ferritin (test code = 2276-4) 198.61 21.81-274.66 [facility] SoutheastFerritin2019-10-21 11:06:00* Test Item Value Reference Range Interpretation Comments Ferritin (test code = 2276-4) 198.61 21.81-274.66 [facility] SoutheastFerritin2019-10-21 11:06:00* Test Item Value Reference Range Interpretation Comments Ferritin (test code = 2276-4) 198.61 21.81-274.66 [facility] SoutheastFerritin2019-10-21 11:06:00* Test Item Value Reference Range Interpretation Comments Ferritin (test code = 2276-4) 198.61 21.81-274.66 [facility] SoutheastIron Kmvzc9740-93-78 09:45:00* Test Item Value Reference Range Interpretation Comments Iron Level (test code = 2498-4) 37 65-175 L [facility] SoutheastTotal Iron Binding Wxmddsnk9655-58-89 09:45:00* Test Item Value Reference Range Interpretation Comments Total Iron Binding Capacity (test code = 2500-7) 204 261-4 78 L [facility] SoutheastPercent Iron Kaxgfoustx6305-73-71 09:45:00* Test Item Value Reference Range Interpretation Comments Percent Iron Saturation (test code = 2502-3) 18 15-50 [facility] SoutheastTransferrin2019-10-21 09:45:00* Test Item Value Reference Range Interpretation Comments Transferrin (test code = 3034-6) 146 174-364 L [facility] SoutheastLactate Edmhxqvhvywzh6672-10-32 09:45:00 * Test Item Value Reference Range Interpretation Comments Lactate Dehydrogenase (test code = 490344591) 262 125-220 H [facility] SoutheastIron Vgbac1672-48-87 09:45:00* Test Item Value Reference Range Interpretation Comments Iron Level (test code = 2498-4) 37 65-175 L [facility] SoutheastTotal Iron Binding Axzbmbvs1209-19-18 09:45:00* Test Item Value Reference Range Interpretation Comments Total Iron Binding Capacity (test code = 2500-7) 204 261-4 78 L [facility] SoutheastPercent Iron Xyjfbfjgfv9200-39-07 09:45:00* Test Item Value Reference Range Interpretation Comments Percent Iron Saturation (test code = 2502-3) 18 15-50 [facility] SoutheastTransferrin2019-10-21 09:45:00* Test Item Value Reference Range Interpretation Comments Transferrin (test code = 3034-6) 146 174-364 L [facility] SoutheastLactbaldwin [facility] hospital Iubffmlmlrmuw7776-57-13 09:45:00 * Test Item Value Reference Range Interpretation Comments Lactate Dehydrogenase (test code = 101703847) 262 125-220 H [facility] Bmazi2054-89-70 09:45:00* Test Item Value Reference Range Interpretation Comments Iron Level (test code = 2498-4) 37 65-175 L [facility] SoutheastTotal Iron Binding Ocgmohil3707-33-46 09:45:00* Test Item Value Reference Range Interpretation Comments Total Iron Binding Capacity (test code = 2500-7) 204 261-4 78 L [facility] SoutheastPercent Iron Hzpuaqiopf8775-48-50 09:45:00* Test Item Value Reference Range Interpretation Comments Percent Iron Saturation (test code = 2502-3) 18 15-50 [facility] SoutheastTransferrin2019-10-21 09:45:00* Test Item Value Reference Range Interpretation Comments Transferrin (test code = 3034-6) 146 174-364 L [facility] SoutheastLactate Rwehjslstfuys9181-46-99 09:45:00 * Test Item Value Reference Range Interpretation Comments Lactate Dehydrogenase (test code = 251999671) 262 125-220 H [facility] SoutheastIron Jondz0691-02-78 09:45:00* Test Item Value Reference Range Interpretation Comments Iron Level (test code = 2498-4) 37 65-175 L [facility] SoutheastTotal Iron Binding Yhitibxa7194-86-81 09:45:00* Test Item Value Reference Range Interpretation Comments Total Iron Binding Capacity (test code = 2500-7) 204 261-4 78 L [facility]Percent Iron Voqtympuql9564-53-47 09:45:00* Test Item Value Reference Range Interpretation Comments Percent Iron Saturation (test code = 2502-3) 18 -50 [facility] SoutheastTransferrin2019-10-21 09:45:00* Test Item Value Reference Range Interpretation Comments Transferrin (test code = 3034-6) 146 174-364 L [facility] SoutheastLacaate Femscwgxbqusb8131-47-43 09:45:00 * Test Item Value Reference Range Interpretation Comments Lactate Dehydrogenase (test code = 587525648) 262 125-220 H [facility] SoutheastIron Wmysp2150-78-71 09:45:00* Test Item Value Reference Range Interpretation Comments Iron Level (test code = 2498-4) 37 65-175 L [facility] SoutheastTotal Iron Binding Sjyvowng3448-15-62 09:45:00* Test Item Value Reference Range Interpretation Comments Total Iron Binding Capacity (test code = 2500-7) 204 261-4 78 L [facility] SoutheastPercent Iron Cjelfcylid8682-06-48 09:45:00* Test Item Value Reference Range Interpretation Comments Percent Iron Saturation (test code = 2502-3) 18 15-50 [facility] SoutheastTransferrin2019-10-21 09:45:00* Test Item Value Reference Range Interpretation Comments Transferrin (test code = 3034-6) 146 174-364 L [facility] SoutheastLactate Rttcdbllafwjj4931-92-94 09:45:00 * Test Item Value Reference Range Interpretation Comments Lactate Dehydrogenase (test code = 434709458) 262 125-220 H [facility] SoutheastProthrombin Vtnl1750-80-50 06:49:00* Test Item Value Reference Range Interpretation Comments Prothrombin Time (test code = 5902-2) 15.9 11.9-14.5 H [facility] SoutheastProthromb Time International Ratio 2019-09-11 06:49:00* Test Item Value Reference Range Interpretation Comments Prothromb Time International Ratio (test code = 6301-6) 1.21 Oral Anticoagulant Therapy INR Values:1. Low Intensity Therapy 1.5 - 2.02 . Moderate Intensity Therapy 2.0 - 3.03. High Intensity Therapy(1) 2.5 - 3. 54. High Intensity Therapy(2) 3.0 - 4.05. Panic Value INR > 5.0 [facility] SoutheastProthrombmd Olez9812-11-82 06:49:00* Test Item Value Reference Range Interpretation Comments Prothrombin Time (test code = 5902-2) 15.9 11.9-14.5 H [facility] SoutheastProthromb Time International Ratio 2019-09-11 06:49:00* Test Item Value Reference Range Interpretation Comments Prothromb Time International Ratio (test code = 6301-6) 1.21 Oral Anticoagulant Therapy INR Values:1. Low Intensity Therapy 1.5 - 2.02 . Moderate Intensity Therapy 2.0 - 3.03. High Intensity Therapy(1) 2.5 - 3. 54. High Intensity Therapy(2) 3.0 - 4.05. Panic Value INR > 5.0 [facility] SoutheastProthrombin Gygj1342-63-43 06:49:00* Test Item Value Reference Range Interpretation Comments Prothrombin Time (test code = 5902-2) 15.9 11.9-14.5 H [facility] SoutheastProthromb Time International Ratio 2019-09-11 06:49:00* Test Item Value Reference Range Interpretation Comments Prothromb Time International Ratio (test code = 6301-6) 1.21 Oral Anticoagulant Therapy INR Values:1. Low Intensity Therapy 1.5 - 2.02 . Moderate Intensity Therapy 2.0 - 3.03. High Intensity Therapy(1) 2.5 - 3. 54. High Intensity Therapy(2) 3.0 - 4.05. Panic Value INR > 5.0 [facility] Jlxu6089-84-83 06:49:00* Test Item Value Reference Range Interpretation Comments Prothrombin Time (test code = 5902-2) 15.9 11.9-14.5 H [facility] SoutheastProthromb Time International Ratio 2019-09-11 06:49:00* Test Item Value Reference Range Interpretation Comments Prothromb Time International Ratio (test code = 6301-6) 1.21 Oral Anticoagulant Therapy INR Values:1. Low Intensity Therapy 1.5 - 2.02 . Moderate Intensity Therapy 2.0 - 3.03. High Intensity Therapy(1) 2.5 - 3. 54. High Intensity Therapy(2) 3.0 - 4.05. Panic Value INR > 5.0 [facility]Prothrombin Nlql0367-18-17 06:49:00* Test Item Value Reference Range Interpretation Comments Prothrombin Time (test code = 5902-2) 15.9 11.9-14.5 H [facility] SoutheastProthromb Time International Ratio 2019-09-11 06:49:00* Test Item Value Reference Range Interpretation Comments Prothromb Time International Ratio (test code = 6301-6) 1.21 Oral Anticoagulant Therapy INR Values:1. Low Intensity Therapy 1.5 - 2.02 . Moderate Intensity Therapy 2.0 - 3.03. High Intensity Therapy(1) 2.5 - 3. 54. High Intensity Therapy(2) 3.0 - 4.05. Panic Value INR > 5.0 [facility]CT [facility] [id number] 00:09:00 [place] [address] Patient Name: LIZBETH ALANIS JR MR #: [id number] : 1960 Age/Sex: 59/M Req #: [id number] Adm Physician: CHARAN JACOBS MD Ordered by: NATANAEL ZAZUETA MD Report #: [id number] Location: MED/SURG Room/Bed: [facility]-1 Procedure: 1020- 0024 CT/CT CHEST W Exam Date: 09/10/19 Exam Time: 23 35 REPORT STATUS: Signed EXAM: C T Chest WITH contrast (PE Protocol) INDICATION: [id number] COMPARISON: Same day chest x-ray TECHNIQUE: [...] Bush MD on 12:22 AM Dictated By: AMX BUSH MD Transcribed By: PETERSON on 09/11/1921 COPY TO: NATANAEL ZAZUETA MD D-Dimer Quantitative (PE/DVT)2019-09-10 20:40:00* Test Item Value Reference Range Interpretation Comments D-Dimer Quantitative (PE/DVT) (test code = 44170-2) 877 0- 400 H The Triage D-Dimer Test has not been evaluated for use as sole evidence for the presence or absence of PE or DVT. As with all in vitro diagnostic tests, the te st results should be interpreted by the physician in conjunction with clinical f indings and other test results.Test results are reported in D-dimer units.[facility]Dimer Quantitative (PE/DVT)2019-09-10 20:40:00* Test Item Value Reference Range Interpretation Comments D-Dimer Quantitative (PE/DVT) (test code = 77347-9) 877 0- 400 H The Triage D-Dimer Test has not been evaluated for use as sole evidence for the presence or absence of PE or DVT. As with all in vitro diagnostic tests, the te st results should be interpreted by the physician in conjunction with clinical f indings and other test results.Test results are reported in D-dimer units.[facility] SoutheastD-Dimer Quantitative (PE/DVT)2019-09-10 20:40:00* Test Item Value Reference Range Interpretation Comments D-Dimer Quantitative (PE/DVT) (test code = 96954-2) 877 0- 400 H The Triage D-Dimer Test has not been evaluated for use as sole evidence for the presence or absence of PE or DVT. As with all in vitro diagnostic tests, the te st results should be interpreted by the physician in conjunction with clinical f indings and other test results.Test results are reported in D-dimer units.[facility] SoutheastD-Dimer Quantitative (PE/DVT)2019-09-10 20:40:00* Test Item Value Reference Range Interpretation Comments D-Dimer Quantitative (PE/DVT) (test code = 35782-6) 877 0- 400 H The Triage D-Dimer Test has not been evaluated for use as sole evidence for the presence or absence of PE or DVT. As with all in vitro diagnostic tests, the te st results should be interpreted by the physician in conjunction with clinical f indings and other test results.Test results are reported in D-dimer units.[facility]D-Dimer Quantitative (PE/DVT)2019-09-10 20:40:00* Test Item Value Reference Range Interpretation Comments D-Dimer Quantitative (PE/DVT) (test code = 30936-1) 877 0- 400 H The Triage D-Dimer Test has not been evaluated for use as sole evidence for the presence or absence of PE or DVT. As with all in vitro diagnostic tests, the te st results should be interpreted by the physician in conjunction with clinical f indings and other test results.Test results are reported in D-dimer units.[facility] SoutheastB-Type Natriuretic Rckswml3527-11-11 15:09:00 * Test Item Value Reference Range Interpretation Comments B-Type Natriuretic Peptide (test code = 28172-3) 11.8 0-100 [facility]B-Type Natriuretic Rjrueov3784-47-15 15:09:00* Test Item Value Reference Range Interpretation Comments B-Type Natriuretic Peptide (test code = 22430-8) 11.8 0-100 [facility] Natriuretic Nfcgyjx4353-71-41 15:09:00* Test Item Value Reference Range Interpretation Comments B-Type Natriuretic Peptide (test code = 28120-0) 11.8 0-100 [facility]B-Type Natriuretic Ivibwdy5700-81-94 15:09:00* Test Item Value Reference Range Interpretation Comments B-Type Natriuretic Peptide (test code = 34465-8) 11.8 0-100 [facility]B-Type Natriuretic Mbnobgf0067-95-74 15:09:00* Test Item Value Reference Range Interpretation Comments B-Type Natriuretic Peptide (test code = 37353-4) 11.8 0-100 [facility] SoutheastCHES SINGLE (PORTABLE)2019-09-10 14:37:00 [facility] [address] [address] Patient Name: LIZBETH ALANIS JR MR #: [id number] : 1960 Age/Sex: 59/M Req #: [id number] Adm Physician: CHARAN JACOBS MD Ordered by: NATANAEL ZAZUETA MD Report #: [id number] Location: MED/SURG Room/Bed: [facility] Procedure: 1020- 0029 DX/CHEST SINGLE (PORTABLE) Exam [...] erwise, no significant interval change. Signed by: Juan HendricksonOSteven, M.M.M. on 09/10/2019 2:39 PM Dictated By: RANDA GONZALEZ DO E lectronically Signed By: RANDA GONZALEZ DO on 09/10/191438 Transcribed By: ELOISE Richard on 09/10/191438 COPY TO: NATANAEL ZAZUETA MD Bmcshfd4293-59-90 06:02:00* Test Item Value Reference Range Interpretation Comments Ammonia (test code = 92753-8) 46 -123 [facility]2019-10-20 06:02:00* Test Item Value Reference Range Interpretation Comments Ammonia (test code = 77396-3) 46 -123 [facility]2019-10-20 06:02:00* Test Item Value Reference Range Interpretation Comments Ammonia (test code = 54878-6) 46 -123 [facility]2019-10-20 06:02:00* Test Item Value Reference Range Interpretation Comments Ammonia (test code = 81628-0) 46 -123 [facility]2019-10-20 06:02:00* Test Item Value Reference Range Interpretation Comments Ammonia (test code = 58865-7) [address] [place], [place] [address]CT ABDOMEN/PELVIS [id number] 08:45:00 [place] [address] Patient Name: LIZBETH ALANIS JR MR #: [id number] : 1960 Age/Sex: 59/M Req #: [id number] Adm Physician: CHARAN JACOBS MD Ordered by: CHARAN JACOBS MD Report #: [id number] Location: MED/SURG Room/Bed: [facility] Procedure: 101 8-0001 CT/CT ABDOMEN/PELVIS WO Exam Date: 09/08/19 E xam Time: 0605 REPORT STATUS: Helen d ADDENDUM #1 An [...] COPY TO: CHARAN JACOBS MD Hemoglobin A1c Jcjmbje1027-09-09 05:16:00* Test Item Value Reference Range Interpretation Comments Hemoglobin A1c Percent (test code = Hemoglobin A1c Percent) 8.5 4.0-7.0 H [facility] SoutheastHemoglobin A1c Uzciqzo2308-54-96 05:16:00 * Test Item Value Reference Range Interpretation Comments Hemoglobin A1c Percent (test code = Hemoglobin A1c Percent) 8.5 4.0-7.0 H [facility] SoutheastHemoglobin A1c Sbfzzkm7316-59-24 05:16:00 * Test Item Value Reference Range Interpretation Comments Hemoglobin A1c Percent (test code = Hemoglobin A1c Percent) 8.5 4.0-7.0 H [facility] SoutheastHemoglobin A1c Zchntuc3456-37-40 05:16:00 * Test Item Value Reference Range Interpretation Comments Hemoglobin A1c Percent (test code = Hemoglobin A1c Percent) 8.5 4.0-7.0 H [facility] SoutheastHemoglobin A1c Sdtafcs9042-93-29 05:16:00 * Test Item Value Reference Range Interpretation Comments Hemoglobin A1c Percent (test code = Hemoglobin A1c Percent) 8.5 4.0-7.0 H [facility] SoutheastUrine MBC2604-26-13 21:15:00* Test Item Value Reference Range Interpretation Comments Urine WBC (test code = 5821-4) NONE 0-5 [facility] PYI9103-91-96 21:15:00* Test Item Value Reference Range Interpretation Comments Urine RBC (test code = 55491-0) >50 0-5 H [facility] Qualrtnf7956-64-36 21:15:00* Test Item Value Reference Range Interpretation Comments Urine Bacteria (test code = 06359-6) FEW NONE [facility] SoutheastU[facility] Epithelial Owdcr2590-95-21 21:15:00 * Test Item Value Reference Range Interpretation Comments Urine Epithelial Cells (test code = 43838-0) NONE NONE [facility] UPU5816-92-86 21:15:00* Test Item Value Reference Range Interpretation Comments Urine WBC (test code = 5821-4) NONE 0-5 [facility] PYA9434-93-54 21:15:00* Test Item Value Reference Range Interpretation Comments Urine RBC (test code = 57174-9) >50 0-5 H [facility] SoutheastU[facility] Puwbdvns4875-72-27 21:15:00* Test Item Value Reference Range Interpretation Comments Urine Bacteria (test code = 66140-9) FEW NONE [facility] Southeast[facility] Epithelial Tzktr4762-39-28 21:15:00 * Test Item Value Reference Range Interpretation Comments Urine Epithelial Cells (test code = 82978-0) NONE NONE [facility] [id number] 21:15:00* Test Item Value Reference Range Interpretation Comments Urine WBC (test code = 5821-4) NONE 0-5 [facility] TDG7833-15-35 21:15:00* Test Item Value Reference Range Interpretation Comments Urine RBC (test code = 45068-2) >50 0-5 H [facility] Syeyinnm4529-73-15 21:15:00* Test Item Value Reference Range Interpretation Comments Urine Bacteria (test code = 37862-0) FEW NONE [facility] Epithelial Fzdig8946-98-70 21:15:00 * Test Item Value Reference Range Interpretation Comments Urine Epithelial Cells (test code = 73846-4) NONE NONE [facility] AXP3872-97-12 21:15:00* Test Item Value Reference Range Interpretation Comments Urine WBC (test code = 5821-4) NONE 0-5 [facility] [id number] 21:15:00* Test Item Value Reference Range Interpretation Comments Urine RBC (test code = 10403-4) >50 0-5 H [facility] Nhxzawxh5583-55-21 21:15:00* Test Item Value Reference Range Interpretation Comments Urine Bacteria (test code = 28122-8) FEW NONE [facility] SoutheastU[facility] Epithelial Oiwjo0454-91-49 21:15:00 * Test Item Value Reference Range Interpretation Comments Urine Epithelial Cells (test code = 50136-6) NONE NONE [facility] QMI3719-88-13 21:15:00* Test Item Value Reference Range Interpretation Comments Urine WBC (test code = 5821-4) NONE 0-5 [facility] [id number] 21:15:00* Test Item Value Reference Range Interpretation Comments Urine RBC (test code = 07677-1) >50 0-5 H [facility] SoutheastU[facility] Aqcipuuz9726-23-89 21:15:00* Test Item Value Reference Range Interpretation Comments Urine Bacteria (test code = 93263-9) FEW NONE [facility] Epithelial Hmfuf0161-87-86 21:15:00 * Test Item Value Reference Range Interpretation Comments Urine Epithelial Cells (test code = 41864-3) NONE NONE [facility] SoutheastActivated Partial Thromboplast Time 2019-09-07 21:12:00* Test Item Value Reference Range Interpretation Comments Activated Partial Thromboplast Time (test code = 23799-0) 31.9 23.8-35.5 [facility] SoutheastAmylase Vpbwy3767-68-48 21:12:00* Test Item Value Reference Range Interpretation Comments Amylase Level (test code = 1798-8) 42 25-125 [facility] SoutheastLipase2019-10-17 21:12:00* Test Item Value Reference Range Interpretation Comments Lipase (test code = 3040-3) [facility] SoutheastAct[facility] Partial Thromboplast Time 2019-09-07 21:12:00* Test Item Value Reference Range Interpretation Comments Activated Partial Thromboplast Time (test code = 73599-2) 31.9 23.8-35.5 [facility] SoutheastAmylase Ybxsr3790-25-86 21:12:00* Test Item Value Reference Range Interpretation Comments Amylase Level (test code = 1798-8) 42 25-125 [facility]2019-10-17 21:12:00* Test Item Value Reference Range Interpretation Comments Lipase (test code = 3040-3) [facility] SoutheastAct[facility] Partial Thromboplast Time 2019-09-07 21:12:00* Test Item Value Reference Range Interpretation Comments Activated Partial Thromboplast Time (test code = 61083-0) 31.9 23.8-35.5 [facility] SoutheastAmylase Ifrza0792-92-57 21:12:00* Test Item Value Reference Range Interpretation Comments Amylase Level (test code = 1798-8) 42 25-125 [facility] SoutheastLipase2019-10-17 21:12:00* Test Item Value Reference Range Interpretation Comments Lipase (test code = 3040-3) 78 [facility] SoutheastAct[facility] Partial Thromboplast Time 2019-09-07 21:12:00* Test Item Value Reference Range Interpretation Comments Activated Partial Thromboplast Time (test code = 93701-7) 31.9 23.8-35.5 [facility] SoutheastAmylase Lmrmo3919-18-05 21:12:00* Test Item Value Reference Range Interpretation Comments Amylase Level (test code = 1798-8) 42 25-125 [facility] SoutheastLipase2019-10-17 21:12:00* Test Item Value Reference Range Interpretation Comments Lipase (test code = 3040-3) [facility] SoutheastAct[facility] Partial Thromboplast Time 2019-09-07 21:12:00* Test Item Value Reference Range Interpretation Comments Activated Partial Thromboplast Time (test code = 85671-5) 31.9 23.8-35.5 [facility] SoutheastAmylase Lfaqy3687-44-27 21:12:00* Test Item Value Reference Range Interpretation Comments Amylase Level (test code = 1798-8) 42 25-125 [facility] SoutheastLipase2019-10-17 21:12:00* Test Item Value Reference Range Interpretation Comments Lipase (test code = 3040-3) [facility] Yujnf3508-61-10 21:03:00* Test Item Value Reference Range Interpretation Comments Urine Color (test code = 5778-6) AMOL YELLOW H [facility] Rtnlljr4413-56-26 21:03:00* Test Item Value Reference Range Interpretation Comments Urine Clarity (test code = 74560-3) SL CLOUDY CLEAR H [facility] SoutheastUrine Specific Ideahqn4835-27-43 21:03:00 * Test Item Value Reference Range Interpretation Comments Urine Specific [place] (test code = 5811-5) 1.020 1.010-1.02 5 [facility] SoutheastU[facility] [id number] 21:03:00* Test Item Value Reference Range Interpretation Comments Urine pH (test code = 67929-7) 6 5-7 [facility] Leukocyte Pzoqyvis9003-20-51 21:03:00* Test Item Value Reference Range Interpretation Comments Urine Leukocyte Esterase (test code = 5799-2) NEGATIVE NEGATIVE [facility] Hvdcoks6872-82-95 21:03:00* Test Item Value Reference Range Interpretation Comments Urine Nitrite (test code = 73219-2) NEGATIVE NEGATIVE [facility] Tlchwdm4785-22-66 21:03:00* Test Item Value Reference Range Interpretation Comments Urine Protein (test code = 5804-0) 2+ NEGATIVE H [facility] Glucose (UA)2019-09-07 21:03:00* Test Item Value Reference Range Interpretation Comments Urine Glucose (UA) (test code = 2349-9) 3+ NEGATIVE H [facility] Nitybmf1049-64-39 21:03:00* Test Item Value Reference Range Interpretation Comments Urine Ketones (test code = 45073-9) NEGATIVE NEGATIVE [facility] Vgxmcuvwxyjx4568-06-45 21:03:00* Test Item Value Reference Range Interpretation Comments Urine Urobilinogen (test code = 05789-8) 8.0 0.2-1 H [facility] Alqehwqqv9222-13-93 21:03:00* Test Item Value Reference Range Interpretation Comments Urine Bilirubin (test code = 1978-6) 1+ NEGATIVE H Confirmatory test currently unavailable. False positive results may occur.[facility] Rvqsm8157-14-60 21:03:00* Test Item Value Reference Range Interpretation Comments Urine Blood (test code = 20464-2) 4+ NEGATIVE H [facility] Hpthk1204-12-82 21:03:00* Test Item Value Reference Range Interpretation Comments Urine Color (test code = 5778-6) AMOL YELLOW H [facility] Axapyqa3596-69-07 21:03:00* Test Item Value Reference Range Interpretation Comments Urine Clarity (test code = 68020-9) SL CLOUDY CLEAR H [facility] Specific Ugcbsff5727-84-57 21:03:00 * Test Item Value Reference Range Interpretation Comments Urine Specific [place] (test code = 5811-5) 1.020 1.010-1.02 5 [facility] eV0651-28-84 21:03:00* Test Item Value Reference Range Interpretation Comments Urine pH (test code = 96225-0) 6 5-7 [facility] Leukocyte Joqwyiih3154-35-49 21:03:00* Test Item Value Reference Range Interpretation Comments Urine Leukocyte Esterase (test code = 5799-2) NEGATIVE NEGATIVE [facility] Yxbmmcj7321-32-39 21:03:00* Test Item Value Reference Range Interpretation Comments Urine Nitrite (test code = 03290-1) NEGATIVE NEGATIVE [facility] Amzmvwz8388-05-64 21:03:00* Test Item Value Reference Range Interpretation Comments Urine Protein (test code = 5804-0) 2+ NEGATIVE H [facility] Glucose (UA)2019-09-07 21:03:00* Test Item Value Reference Range Interpretation Comments Urine Glucose (UA) (test code = 2349-9) 3+ NEGATIVE H [facility] Uivvmxr3452-43-55 21:03:00* Test Item Value Reference Range Interpretation Comments Urine Ketones (test code = 22343-9) NEGATIVE NEGATIVE [facility] Wcjlgvrordyv4561-61-64 21:03:00* Test Item Value Reference Range Interpretation Comments Urine Urobilinogen (test code = 30479-4) 8.0 0.2-1 H [facility] Lwcmakhmw1226-93-09 21:03:00* Test Item Value Reference Range Interpretation Comments Urine Bilirubin (test code = 1978-6) 1+ NEGATIVE H Confirmatory test currently unavailable. False positive results may occur.[facility] Ttcpk9879-09-16 21:03:00* Test Item Value Reference Range Interpretation Comments Urine Blood (test code = 40622-7) 4+ NEGATIVE H [facility] Zrgmd1195-84-30 21:03:00* Test Item Value Reference Range Interpretation Comments Urine Color (test code = 5778-6) AMOL YELLOW H [facility] Dorsogj3208-39-48 21:03:00* Test Item Value Reference Range Interpretation Comments Urine Clarity (test code = 62338-8) SL CLOUDY CLEAR H [facility] Specific Tvfezuk5534-51-86 21:03:00 * Test Item Value Reference Range Interpretation Comments Urine Specific [place] (test code = 5811-5) 1.020 1.010-1.02 5 [facility] kF1653-84-92 21:03:00* Test Item Value Reference Range Interpretation Comments Urine pH (test code = 14688-3) 6 5-7 [facility] Leukocyte Cofmdsfq9958-42-60 21:03:00* Test Item Value Reference Range Interpretation Comments Urine Leukocyte Esterase (test code = 5799-2) NEGATIVE NEGATIVE [facility] Ohniimr6019-08-86 21:03:00* Test Item Value Reference Range Interpretation Comments Urine Nitrite (test code = 20851-4) NEGATIVE NEGATIVE [facility] Bxwjoll9677-40-19 21:03:00* Test Item Value Reference Range Interpretation Comments Urine Protein (test code = 5804-0) 2+ NEGATIVE H [facility] Glucose (UA)2019-09-07 21:03:00* Test Item Value Reference Range Interpretation Comments Urine Glucose (UA) (test code = 2349-9) 3+ NEGATIVE H [facility] Fbpaggx4257-29-80 21:03:00* Test Item Value Reference Range Interpretation Comments Urine Ketones (test code = 89970-9) NEGATIVE NEGATIVE [facility] Gekydscwqfwf1620-59-31 21:03:00* Test Item Value Reference Range Interpretation Comments Urine Urobilinogen (test code = 94260-2) 8.0 0.2-1 H [facility] Ymzzxmbtu4395-15-30 21:03:00* Test Item Value Reference Range Interpretation Comments Urine Bilirubin (test code = 1978-6) 1+ NEGATIVE H Confirmatory test currently unavailable. False positive results may occur.[facility] Zatrm0288-04-72 21:03:00* Test Item Value Reference Range Interpretation Comments Urine Blood (test code = 19186-9) 4+ NEGATIVE H [facility] Nsail0397-15-52 21:03:00* Test Item Value Reference Range Interpretation Comments Urine Color (test code = 5778-6) AMOL YELLOW H [facility] Hmkcqla9298-14-05 21:03:00* Test Item Value Reference Range Interpretation Comments Urine Clarity (test code = 45588-8) SL CLOUDY CLEAR H [facility] Specific Rjvsign6175-18-77 21:03:00 * Test Item Value Reference Range Interpretation Comments Urine Specific [place] (test code = 5811-5) 1.020 1.010-1.02 5 [facility] uL6738-73-95 21:03:00* Test Item Value Reference Range Interpretation Comments Urine pH (test code = 31880-3) 6 5-7 [facility] Leukocyte Konryrbb0441-01-56 21:03:00* Test Item Value Reference Range Interpretation Comments Urine Leukocyte Esterase (test code = 5799-2) NEGATIVE NEGATIVE [facility] Mptnfcz7000-59-16 21:03:00* Test Item Value Reference Range Interpretation Comments Urine Nitrite (test code = 99958-3) NEGATIVE NEGATIVE [facility] Hrnojml0956-95-04 21:03:00* Test Item Value Reference Range Interpretation Comments Urine Protein (test code = 5804-0) 2+ NEGATIVE H [facility] Glucose (UA)2019-09-07 21:03:00* Test Item Value Reference Range Interpretation Comments Urine Glucose (UA) (test code = 2349-9) 3+ NEGATIVE H [facility] Wszdxif7221-25-31 21:03:00* Test Item Value Reference Range Interpretation Comments Urine Ketones (test code = 90492-5) NEGATIVE NEGATIVE [facility] Qitsxfowjtyz1950-35-83 21:03:00* Test Item Value Reference Range Interpretation Comments Urine Urobilinogen (test code = 56791-1) 8.0 0.2-1 H [facility] Jeqhsdgag0667-52-20 21:03:00* Test Item Value Reference Range Interpretation Comments Urine Bilirubin (test code = 1978-6) 1+ NEGATIVE H Confirmatory test currently unavailable. False positive results may occur.[facility] Kadbk1233-00-01 21:03:00* Test Item Value Reference Range Interpretation Comments Urine Blood (test code = 95235-4) 4+ NEGATIVE H [facility] Arrkr8847-51-53 21:03:00* Test Item Value Reference Range Interpretation Comments Urine Color (test code = 5778-6) AMOL YELLOW H [facility] Ueulyxs9551-32-35 21:03:00* Test Item Value Reference Range Interpretation Comments Urine Clarity (test code = 08287-5) SL CLOUDY CLEAR H [facility] [facility] Rrbgrzg5655-38-59 21:03:00 * Test Item Value Reference Range Interpretation Comments Urine Specific [place] (test code = 5811-5) 1.020 1.010-1.02 5 [facility] [id number] 21:03:00* Test Item Value Reference Range Interpretation Comments Urine pH (test code = 19535-1) 6 5-7 [facility] Leukocyte Vhitbvdu6814-40-10 21:03:00* Test Item Value Reference Range Interpretation Comments Urine Leukocyte Esterase (test code = 5799-2) NEGATIVE NEGATIVE [facility] Kywfvnc6765-17-70 21:03:00* Test Item Value Reference Range Interpretation Comments Urine Nitrite (test code = 92335-1) NEGATIVE NEGATIVE [facility] Cqmtuyc6336-18-05 21:03:00* Test Item Value Reference Range Interpretation Comments Urine Protein (test code = 5804-0) 2+ NEGATIVE H [facility] Glucose (UA)2019-09-07 21:03:00* Test Item Value Reference Range Interpretation Comments Urine Glucose (UA) (test code = 2349-9) 3+ NEGATIVE H [facility] Blyrqnx8390-60-46 21:03:00* Test Item Value Reference Range Interpretation Comments Urine Ketones (test code = 63075-9) NEGATIVE NEGATIVE [facility] Jlttuiubxyji6754-62-60 21:03:00* Test Item Value Reference Range Interpretation Comments Urine Urobilinogen (test code = 18739-7) 8.0 0.2-1 H [facility] Krfuwzvip4572-38-55 21:03:00* Test Item Value Reference Range Interpretation Comments Urine Bilirubin (test code = 1978-6) 1+ NEGATIVE H Confirmatory test currently unavailable. False positive results may occur.[facility] Vuujs2130-19-75 21:03:00* Test Item Value Reference Range Interpretation Comments Urine Blood (test code = 90165-1) 4+ NEGATIVE H [facility]US ABDOMEN FJTYCYKS7112-64-11 18:34:00 [facility] [address] [address] Patient Name: LIZBETH ALANIS JR MR #: [id number] : 1960 Age/Sex: 59/M Req #: [id number] Adm Physician: RAE VALENZUELA MD Ordered by: BRADY JACOBS MD Report #: [id number] Location: MED/SURG Room/Bed: [facility] Procedure: 1016-001 3 US/US ABDOMEN COMPLETE Exam Date: 09/06/19 Exam Ti me: 1637 REPORT STATUS: Signed H ISTORY: Right lower quadrant pain TECHNIQUE: Selected static images from [facility] abdominal ultrasound provided for INTERPRETATION: COMPARISON: None [...] PY TO: BRADY JACOBS MD Creatine Kinase [id number] 13:11:00* Test Item Value Reference Range Interpretation Comments Creatine Kinase MB (test code = 29347-3) 56.40 0-5.0 H [facility] [id number] 13:11:00* Test Item Value Reference Range Interpretation Comments Troponin I (test code = ECR1864) 80.154 0-0.300 H Elevated result called to RAFIA FLORES at 1309 on 09/06/19 by Emilio Jacobs.[facility] Southeast[facility] Kinase [id number] 13:11:00* Test Item Value Reference Range Interpretation Comments Creatine Kinase MB (test code = 80030-3) 56.40 0-5.0 H [facility] [id number] 13:11:00* Test Item Value Reference Range Interpretation Comments Troponin I (test code = MWF8199) 80.154 0-0.300 H Elevated result called to RAFIA FLORES at 1309 on 09/06/19 by Emilio Jacobs.[facility] SoutheastCreat[facility] Kinase SQ5829-82-47 13:11:00* Test Item Value Reference Range Interpretation Comments Creatine Kinase MB (test code = 61737-1) 56.40 0-5.0 H [place] [id number] 13:11:00* Test Item Value Reference Range Interpretation Comments Troponin I (test code = OWG4901) 80.154 0-0.300 H Elevated result called to RAFIA FLORES at 1309 on 09/06/19 by Emilio Jacobs.[facility] SoutheastCreatine Kinase [id number] 13:11:00* Test Item Value Reference Range Interpretation Comments Creatine Kinase MB (test code = 24133-2) 56.40 0-5.0 H [place] [id number] 13:11:00* Test Item Value Reference Range Interpretation Comments Troponin I (test code = MNV4787) 80.154 0-0.300 H Elevated result called to RAFIA FLORES at 1309 on 09/06/19 by Emilio Jacobs.[facility] Southeast[facility] Kinase QJ9847-16-77 13:11:00* Test Item Value Reference Range Interpretation Comments Creatine Kinase MB (test code = 67638-8) 56.40 0-5.0 H [place] [id number] 13:11:00* Test Item Value Reference Range Interpretation Comments Troponin I (test code = 06198-3) 80.154 0-0.300 H Elevated result called to RAFIA FLORES at 1309 on 09/06/19 by Emilio Jacobs.[facility] SoutheastCreatine Yjxrtp8515-51-19 12:42:00* Test Item Value Reference Range Interpretation Comments Creatine Kinase (test code = 2157-6) 610 30-200 H [facility] Tiiovq3968-65-43 12:42:00* Test Item Value Reference Range Interpretation Comments Creatine Kinase (test code = 2157-6) 610 30-200 H [facility] Southeast[facility] Jbpakp1149-10-71 12:42:00* Test Item Value Reference Range Interpretation Comments Creatine Kinase (test code = 2157-6) 610 30-200 H [facility] SoutheastCreat[facility] Eckkdl3556-31-87 12:42:00* Test Item Value Reference Range Interpretation Comments Creatine Kinase (test code = 2157-6) 610 30-200 H [facility]Creat[facility] Nmmwql3041-12-91 12:42:00* Test Item Value Reference Range Interpretation Comments Creatine Kinase (test code = 2157-6) 610 30-200 H [facility] SoutheastTriglycerides Qufcs0309-70-09 05:49:00* Test Item Value Reference Range Interpretation Comments Triglycerides Level (test code = 2571-8) 110 0-149 [facility] SoutheastCholesterol Fefpj4356-65-53 05:49:00* Test Item Value Reference Range Interpretation Comments Cholesterol Level (test code = 2093-3) 169 0-199 Less than 200 mg/dL Low Leie770 - 239 mg/dL Borderline Dlkr948 m g/dl and greater High Risk [facility] SoutheastLDL Fxjzlisamyu6292-45-57 05:49:00* Test Item Value Reference Range Interpretation Comments LDL Cholesterol (test code = 2089-1) 102 60-130 [facility] SoutheastHDL Wcnkkhyhvzt4250-83-03 05:49:00* Test Item Value Reference Range Interpretation Comments HDL Cholesterol (test code = 2085-9) 45 40-60 [facility] SoutheastCholesterol/HDL Rncdl6109-18-89 05:49:00 * Test Item Value Reference Range Interpretation Comments Cholesterol/HDL Ratio (test code = 9830-1) 3.8 3.9-4.7 L [facility] SoutheastTriglycerides Vmkiq7140-25-84 05:49:00* Test Item Value Reference Range Interpretation Comments Triglycerides Level (test code = 2571-8) 110 0-149 [facility] SoutheastCholesterol Qkvpf3145-01-87 05:49:00* Test Item Value Reference Range Interpretation Comments Cholesterol Level (test code = 2093-3) 169 0-199 Less than 200 mg/dL Low Rgbw072 - 239 mg/dL Borderline Vgav845 m g/dl and greater High Risk [facility] SoutheastLDL Mzijgxnjqog5175-55-28 05:49:00* Test Item Value Reference Range Interpretation Comments LDL Cholesterol (test code = 2089-1) 102 60-130 [facility] Nlbbzkmchzg5176-09-95 05:49:00* Test Item Value Reference Range Interpretation Comments HDL Cholesterol (test code = 2085-9) 45 40-60 [facility] SoutheastCh[facility]/HDL Dshou1680-37-03 05:49:00 * Test Item Value Reference Range Interpretation Comments Cholesterol/HDL Ratio (test code = 9830-1) 3.8 3.9-4.7 L [facility] SoutheastTriglycerides Eorie2934-55-23 05:49:00* Test Item Value Reference Range Interpretation Comments Triglycerides Level (test code = 2571-8) 110 0-149 [facility] SoutheastCholesterol Isydm1778-25-20 05:49:00* Test Item Value Reference Range Interpretation Comments Cholesterol Level (test code = 2093-3) 169 0-199 Less than 200 mg/dL Low Ajqf936 - 239 mg/dL Borderline Svei021 m g/dl and greater High Risk [facility] SoutheastLDL Dlsbouveajn2720-22-83 05:49:00* Test Item Value Reference Range Interpretation Comments LDL Cholesterol (test code = 2089-1) 102 60-130 [facility] Lepskisjcua2645-25-68 05:49:00* Test Item Value Reference Range Interpretation Comments HDL Cholesterol (test code = 2085-9) 45 40-60 [facility] SoutheastCh[facility]/HDL Ocyib2534-33-35 05:49:00 * Test Item Value Reference Range Interpretation Comments Cholesterol/HDL Ratio (test code = 9830-1) 3.8 3.9-4.7 L [facility] SoutheastTriglycerides Xrbim4029-13-22 05:49:00* Test Item Value Reference Range Interpretation Comments Triglycerides Level (test code = 2571-8) 110 0-149 [facility] SoutheastCholesterol Dbkwu3103-71-51 05:49:00* Test Item Value Reference Range Interpretation Comments Cholesterol Level (test code = 2093-3) 169 0-199 Less than 200 mg/dL Low Mlmw736 - 239 mg/dL Borderline Sgcp029 m g/dl and greater High Risk [facility] SoutheastLDL Vqtmgtdmtbf0805-39-88 05:49:00* Test Item Value Reference Range Interpretation Comments LDL Cholesterol (test code = 2089-1) 102 60-130 [facility] Bvqjigltony0855-27-91 05:49:00* Test Item Value Reference Range Interpretation Comments HDL Cholesterol (test code = 2085-9) 45 40-60 [facility] SoutheastCh[facility]/HDL Llyti5247-84-39 05:49:00 * Test Item Value Reference Range Interpretation Comments Cholesterol/HDL Ratio (test code = 9830-1) 3.8 3.9-4.7 L [facility] SoutheastTriglycerides Akpos8702-80-06 05:49:00* Test Item Value Reference Range Interpretation Comments Triglycerides Level (test code = 2571-8) 110 0-149 [facility] SoutheastCholesterol Exzml4283-03-21 05:49:00* Test Item Value Reference Range Interpretation Comments Cholesterol Level (test code = 2093-3) 169 0-199 Less than 200 mg/dL Low Yyhf993 - 239 mg/dL Borderline Jsjt183 m g/dl and greater High Risk [facility] Bdhyvotxvgk2584-45-49 05:49:00* Test Item Value Reference Range Interpretation Comments LDL Cholesterol (test code = 2089-1) 102 60-130 [facility] Jkddpkvvgue0543-78-88 05:49:00* Test Item Value Reference Range Interpretation Comments HDL Cholesterol (test code = 2085-9) 45 40-60 [facility] SoutheastCh[facility]/HDL Glksv0301-68-37 05:49:00 * Test Item Value Reference Range Interpretation Comments Cholesterol/HDL Ratio (test code = 9830-1) 3.8 3.9-4.7 L [facility] SoutheastCHES SINGLE (PORTABLE)2019-09-05 19:01:00 [facility] [address] [address] Patient Name: LIZBETH ALANIS JR MR #: [id number] : 1960 Age/Sex: 59/M Req #: [id number] Adm Physician: RAE VALENZUELA MD Ordered by: RAE VALENZUELA MD Report #: [id number] Location: ICU Room/Bed: ICU [facility] Procedure: [id number] D X/CHEST SINGLE (PORTABLE) Exam Date: 09/05/19 Exam T paddy: 1829 REPORT STATUS: Signed EXAMINATION: CHEST SINGLE (PORTABLE) COMPARISON: None INDICATION: Chest pain, nausea MA [id number] DISCUSSION: Frontal view of the chest [...] T O: RAE VALENZUELA MD White Blood Txygj9686-11-83 17:15:00* Test Item Value Reference Range Interpretation Comments White Blood Count (test code = 6690-2) 3.46 4.8-10.8 L [facility] SoutheastRed Blood Ikbuv1605-93-71 17:15:00* Test Item Value Reference Range Interpretation Comments Red Blood Count (test code = 789-8) 4.73 4.3-5.7 [facility] SoutheastHemoglobin2019-10-15 17:15:00* Test Item Value Reference Range Interpretation Comments Hemoglobin (test code = 84642-4) 16.6 14.0-18.0 [facility] SoutheastHematocrit2019-10-15 17:15:00* Test Item Value Reference Range Interpretation Comments Hematocrit (test code = 4544-3) 45.1 38.2-49.6 [facility] SoutheastMean Corpuscular Utovsy2527-50-99 17:15:00* Test Item Value Reference Range Interpretation Comments Mean Corpuscular Volume (test code = 787-2) 95.3 81-99 [facility] SoutheastMean Corpuscular Zareucjrhl2498-80-06 17:15:00* Test Item Value Reference Range Interpretation Comments Mean Corpuscular Hemoglobin (test code = 785-6) 35.1 28-32 H [facility] SoutheastMean Corpuscular Hemoglobin Concent 2019-09-05 17:15:00* Test Item Value Reference Range Interpretation Comments Mean Corpuscular Hemoglobin Concent (test code = 786-4) 36.8 31-35 H [facility] SoutheastRed Cell Distribution Krqhp2797-37-96 17:15:00* Test Item Value Reference Range Interpretation Comments Red Cell Distribution Width (test code = 40210-3) 12.6 11.7 -14.4 [facility] SoutheastPlatelet Iaytt8424-01-39 17:15:00* Test Item Value Reference Range Interpretation Comments Platelet Count (test code = 777-3) 60 140-360 L [facility] SoutheastNeutrophils (%) (Auto)2019-09-05 17:15:00 * Test Item Value Reference Range Interpretation Comments Neutrophils (%) (Auto) (test code = 68077-3) 55.1 38.7-80.0 [facility] SoutheastLymphocytes (%) (Auto)2019-09-05 17:15:00 * Test Item Value Reference Range Interpretation Comments Lymphocytes (%) (Auto) (test code = 736-9) 30.1 18.0-39.1 [facility] SoutheastMonocytes (%) (Auto)2019-09-05 17:15:00* Test Item Value Reference Range Interpretation Comments Monocytes (%) (Auto) (test code = 5905-5) 10.4 4.4-11.3 [facility] SoutheastEosinophils (%) (Auto)2019-09-05 17:15:00 * Test Item Value Reference Range Interpretation Comments Eosinophils (%) (Auto) (test code = 713-8) 3.2 0.0-6.0 [facility] SoutheastBasophils (%) (Auto)2019-09-05 17:15:00* Test Item Value Reference Range Interpretation Comments Basophils (%) (Auto) (test code = 706-2) 0.6 0.0-1.0 [facility] SoutheastIM GRANULOCYTES %2019-09-05 17:15:00* Test Item Value Reference Range Interpretation Comments IM GRANULOCYTES % (test code = IM GRANULOCYTES %) 0.6 0.0- 1.0 [facility] SoutheastNeutrophils # (Auto)2019-09-05 17:15:00* Test Item Value Reference Range Interpretation Comments Neutrophils # (Auto) (test code = 751-8) 1.9 2.1-6.9 L [facility] SoutheastLymphocytes # (Auto)2019-09-05 17:15:00* Test Item Value Reference Range Interpretation Comments Lymphocytes # (Auto) (test code = 99941-0) 1.0 1.0-3.2 [facility] SoutheastMonocytes # (Auto)2019-09-05 17:15:00* Test Item Value Reference Range Interpretation Comments Monocytes # (Auto) (test code = 742-7) 0.4 0.2-0.8 [facility] SoutheastEosinophils # (Auto)2019-09-05 17:15:00* Test Item Value Reference Range Interpretation Comments Eosinophils # (Auto) (test code = 711-2) 0.1 0.0-0.4 [facility] SoutheastBasophils # (Auto)2019-09-05 17:15:00* Test Item Value Reference Range Interpretation Comments Basophils # (Auto) (test code = 704-7) 0.0 0.0-0.1 [facility] SoutheastAbsolute Immature Granulocyte (auto 2019-09-05 17:15:00* Test Item Value Reference Range Interpretation Comments Absolute Immature Granulocyte (auto (nir t code = Absolute Immature Granulocyte (auto) 0.02 0-0.1 [facility]
[2020-05-01] VITALS (9 sets, daily range): BP systolic 107–145; BP diastolic 59–81
--- NOTE | 2020-05-01 | NUR ---
PT SLEEPING, VITAL SIGNS STABLE, PT AROUSABLE TO VOICE, PT VOICES NO COMPLAINTS AT THIS TIME
[2020-05-01] MEDS: PIPER-TAZ 3.375 GM 50 ML IV SCH ×2 (04:08→08:12)
--- NOTE | 2020-05-01 07:00 | NUR ---
Received bedside shift report from off going night nurse. Patient in stable condition, no s/s of distress noted. no pain voiced. telemetry applied. Bed in lowest position and locked. Call light within reach.
--- NOTE | 2020-05-01 07:07 | NUR ---
Bedside report and walking rounds completed with on coming nurse. Patient in bed with call light within reach. No issues or concerns noted.
[2020-05-01 08:12] LABS: BASOPHILS % 0.2 % (0.0-1.0); EOSINOPHILS % 0.2 % (0.0-6.0); HEMATOCRIT 39.6 % (38.2-49.6); HEMOGLOBIN 13.9 g/dL (14.0-18.0); LYMPHOCYTES # (AUTO) 0.8 (1.0-3.2); LYMPHOCYTES % 14.8 % (18.0-39.1); MEAN CORPUSCULAR HEMOGLOBIN 33.5 pg (28-32); MEAN CORPUSCULAR HGB CONC 35.1 g/dL (31-35); MEAN CORPUSCULAR VOLUME 95.4 fL (81-99); MONOCYTES # (AUTO) 0.9 (0.2-0.8); MONOCYTES % 16.8 % (4.4-11.3); NEUTROPHILS # (AUTO) 3.7 (2.1-6.9); NEUTROPHILS % 67.8 % (38.7-80.0); PLATELET COUNT 59 x10e3/uL (140-360); RED BLOOD COUNT 4.15 x10e6/uL (4.3-5.7); RED CELL DISTRIBUTION WIDTH 13.3 % (11.7-14.4)
[2020-05-01 08:47] LABS: ALANINE AMINOTRANSFERASE 25 IU/L (0-55); ALBUMIN 2.9 g/dL (3.5-5.0); ALBUMIN/GLOBULIN RATIO 0.8 (0.8-2.0); ALKALINE PHOSPHATASE 71 IU/L (40-150); ANION GAP 12.6 mmol/L (8-16); BLOOD UREA NITROGEN 12 mg/dL (7-26); BUN/CREATININE RATIO 15 (6-25); CALCIUM 8.3 mg/dL (8.4-10.2); CARBON DIOXIDE 23 mmol/L (22-29); CHLORIDE 101 mmol/L (98-107); EST GLOMERULAR FILTRATION RATE > 60 ML/MIN (60-); GLUCOSE 155 mg/dL (74-118); POTASSIUM 3.6 mmol/L (3.5-5.1); SODIUM 133 mmol/L (136-145)
[2020-05-01 09:01] LABS: CREATINE KINASE MB 1.1 ng/mL (0-5.0)
[2020-05-01] MEDS ORDERED: ACETAMINOPHEN 325 MG TAB PO PRN (10:00)
[2020-05-01] MEDS ORDERED: HYDRALAZINE HCL 20 MG/ML VIAL IV PRN (10:00)
[2020-05-01] MEDS ORDERED: DEXTROSE 50% SYRINGE 50 ML IV PRN (10:15)
[2020-05-01] MEDS: CEFTRIAXONE SOD 1 GM/NS 50 ML 50 ML IV SCH (10:42)
[2020-05-01] MEDS: FAMOTIDINE 20 MG/2 ML VIAL IV SCH ×2 (10:44→18:02)
[2020-05-01] MEDS: CLOPIDOGREL BISULFATE 75 MG TAB PO SCH (10:45)
[2020-05-01] MEDS: LISINOPRIL 2.5 MG TAB PO SCH (10:45)
[2020-05-01] MEDS: ASPIRIN 81 MG CHEW TAB PO SCH (10:45)
[2020-05-01] MEDS: METOPROLOL SUCCINATE 25 MG TAB XL PO SCH (10:45)
[2020-05-01] MEDS: FINASTERIDE 5 MG TAB PO SCH (10:45)
[2020-05-01] MEDS: INSULIN LISPRO 100 UNIT/1 ML 3ML VIAL SQ SCH ×3 (11:55→20:40)
[2020-05-01] MEDS ORDERED: ONDANSETRON HCL 4 MG ORAL DISINTEGRATING TAB PO PRN (14:00)
[2020-05-01 16:17] LABS: CREATINE KINASE MB 1.3 ng/mL (0-5.0)
--- NOTE | 2020-05-01 18:39 | Diagnostic Imaging Report ---
EXAM: CT Abdomen and Pelvis WITHOUT contrast INDICATION: ^stone protocol ^[id number] ^1700 COMPARISON: CT abdomen/pelvis, 09/08/2019 TECHNIQUE: Abdomen and pelvis were scanned utilizing a multidetector helical scanner from the lung base to the pubic symphysis without administration of IV contrast. Absence of intravenous contrast decreases sensitivity for detection of focal lesions and vascular pathology. Coronal and sagittal reformations were obtained. Renal stone protocol was performed. Dose modulation, iterative reconstruction, and/or weight based adjustment of the mA/kV was utilized to reduce the radiation dose to as low as reasonably achievable. IV CONTRAST: None. ORAL CONTRAST: None RADIATION DOSE: Total DLP: 907.13 mGy*cm Estimated effective dose: (DLP x 0.015 x size factor) mSv COMPLICATIONS: None FINDINGS: LINES and TUBES: None. LOWER THORAX: Lung bases are clear with mild dependent lower lobe atelectasis. Heart size is normal. There are scattered coronary artery calcifications noted. There is an unchanged metallic density along the inferior cardiac border which may be a stent. HEPATOBILIARY: There are calcified granulomata in the liver. The liver margins are somewhat lobulated suggesting cirrhosis. No focal hepatic lesions. No biliary ductal dilation. GALLBLADDER: Gallstones are seen. No wall thickening. SPLEEN: Spleen measures 17.6 cm, enlarged. PANCREAS: No focal masses or ductal dilatation. ADRENALS: No adrenal nodules KIDNEYS/URETERS: Mild right hydronephrosis. There is a stable poorly seen 1.9 cm hypodensity in the left renal cortex with internal measurement compatible with cyst. Again noted is a large calculus in the right renal pelvis measuring 3.3 x 1.8 x 2.2 cm (previously reported 3.0 cm). There is a 5 mm calculus in the lower pole of the right collecting system, likely representing the same stone that was previously upper pole. GI TRACT: No abnormal distention, wall thickening, or evidence of bowel obstruction. Appendix is normal. PELVIC ORGANS/BLADDER: Urinary bladder shows circumferential wall thickening with moderate distention. The prostate is enlarged measuring approximately 6.5 x 6.8 cm on axial imaging and indenting the bladder base. No other discrete abnormal mass or fluid collection in the pelvis. LYMPH NODES: No dominant lymph node mass is seen in the abdomen, retroperitoneum or pelvis. Stable 1.4 cm prominent node in the leena hepatis. Stable scattered retroperitoneal nodes. VESSELS: There is no dilatation of the abdominal aorta. Again noted are prominent vessels in the parasplenic area likely representing varices. Recanalized umbilical vein noted. PERITONEUM / RETROPERITONEUM: No pneumoperitoneum or ascites. BONES: No acute or suspicious bony lesions. There are degenerative changes in the lumbar spine. SOFT TISSUES: Superficial surrounding soft tissue unremarkable. IMPRESSION: 1. Stable 3.3 cm calculus in the right renal pelvis with mild right hydronephrosis. A 5 mm calculus has migrated from the upper pole to the lower pole of the right collecting system. No left renal calculi. 2. Cirrhotic morphology of the liver with splenomegaly and evidence for varices. Recanalized umbilical vein. 3. Cholelithiasis with no CT evidence for acute cholecystitis. 4. Enlarged prostate. Mildly distended urinary bladder with circumferential wall thickening suggesting outlet obstruction. Staff: Odilia Signed by: Dr. Victoriano Hartley M.D. on 05/01/2020 6:36 PM
--- NOTE | 2020-05-01 19:00 | NUR ---
RECEIVED PATIENT IN BEDSIDE SHIFT REPORT. PATIENT RESTING IN BED AT THIS TIME. NO PAIN REPORTED. NO S&S OF DISTRESS NOTED. BED LOCKED IN LOWEST POSITION, SIDE RAILS UPX2, CALL LIGHT IN REACH.
--- NOTE | 2020-05-01 19:32 | NUR ---
Completed bedside report and rounding with oncoming night nurse. Patient in stable condition, no s/s of distress noted. No pain voiced. Telemetry applied. IV site asymptomatic and patent, dressing C/D/I. Bed in lowest position and locked. Call light within reach.
[2020-05-01] MEDS: TAMSULOSIN HCL 0.4 MG CAP PO SCH (20:39)
[2020-05-02] VITALS (8 sets, daily range): BP systolic 96–130; BP diastolic 56–94
[2020-05-02 06:07] LABS: BASOPHILS % 0.2 % (0.0-1.0); EOSINOPHILS # (AUTO) 0.1 (0.0-0.4); EOSINOPHILS % 1.3 % (0.0-6.0); HEMATOCRIT 37.3 % (38.2-49.6); HEMOGLOBIN 13.4 g/dL (14.0-18.0); LYMPHOCYTES # (AUTO) 1.3 (1.0-3.2); LYMPHOCYTES % 27.9 % (18.0-39.1); MEAN CORPUSCULAR HEMOGLOBIN 34.4 pg (28-32); MEAN CORPUSCULAR HGB CONC 35.9 g/dL (31-35); MEAN CORPUSCULAR VOLUME 95.6 fL (81-99); MONOCYTES % 22.5 % (4.4-11.3); NEUTROPHILS # (AUTO) 2.2 (2.1-6.9); NEUTROPHILS % 47.9 % (38.7-80.0); PLATELET COUNT 59 x10e3/uL (140-360); RED CELL DISTRIBUTION WIDTH 13.2 % (11.7-14.4)
[2020-05-02 06:43] LABS: ALANINE AMINOTRANSFERASE 22 IU/L (0-55); ALBUMIN 2.6 g/dL (3.5-5.0); ALBUMIN/GLOBULIN RATIO 0.7 (0.8-2.0); ALKALINE PHOSPHATASE 62 IU/L (40-150); ANION GAP 12.3 mmol/L (8-16); BLOOD UREA NITROGEN 10 mg/dL (7-26); BUN/CREATININE RATIO 14 (6-25); CALCIUM 8.2 mg/dL (8.4-10.2); CARBON DIOXIDE 19 mmol/L (22-29); CHLORIDE 102 mmol/L (98-107); CREATININE, SERUM 0.69 mg/dL (0.72-1.25); EST GLOMERULAR FILTRATION RATE > 60 ML/MIN (60-); GLUCOSE 160 mg/dL (74-118); POTASSIUM 3.3 mmol/L (3.5-5.1); SODIUM 130 mmol/L (136-145)
[2020-05-02] MEDS: FAMOTIDINE 20 MG/2 ML VIAL IV SCH ×2 (08:54→18:40)
[2020-05-02] MEDS: ASPIRIN 81 MG CHEW TAB PO SCH (08:55)
[2020-05-02] MEDS: CLOPIDOGREL BISULFATE 75 MG TAB PO SCH (08:56)
[2020-05-02] MEDS: METOPROLOL SUCCINATE 25 MG TAB XL PO SCH (08:59)
[2020-05-02] MEDS: LISINOPRIL 2.5 MG TAB PO SCH (09:00)
[2020-05-02] MEDS: FINASTERIDE 5 MG TAB PO SCH (09:00)
[2020-05-02] MEDS: CEFTRIAXONE SOD 1 GM/NS 50 ML 50 ML IV SCH (09:05)
[2020-05-02] MEDS: INSULIN LISPRO 100 UNIT/1 ML 3ML VIAL SQ SCH ×4 (11:46→21:54)
[2020-05-02 12:40] LABS: EOSINOPHILS % (MANUAL) 2 % (0-7); LYMPHOCYTES % (MANUAL) 25 % (19-48); MONOCYTES % (MANUAL) 13 % (3.4-9.0); NEUTROPHILS % (MANUAL) 60 % (40-74)
[2020-05-02 12:41] LABS: PLATELET ESTIMATE MODERATELY DECREASED; PLATELET MORPHOLOGY COMMENT NORMAL; RBC MORPHOLOGY COMMENT NORMAL
--- NOTE | 2020-05-02 14:23 | NUR ---
LAB CALLED TO REPORT GRAM POSITIVE COCCI AND CHAIN IN 3 OUT OF 4 BLOOD CULTURES, CALLED SAE SHERWOOD NP AT [phone] AND [phone], SPOKE TO A SOCIAL WORK ADMINISTRATOR SHE STATED THAT SHE WOULD TEXT HIM FOR A CRITICAL RESULT.
[2020-05-02] MEDS ORDERED: POTASSIUM CHLORIDE 20 MEQ TAB CR PO ONE (15:20)
--- NOTE | 2020-05-02 19:00 | NUR ---
RECEIVED PATIENT IN BEDSIDE SHIFT REPORT. PATIENT SITTING IN RECLINER. NO PAIN REPORTED. NO DISTRESS NOTED. BED LOCKED IN LOWEST POSITION, SIDE RAILS UPX2. WILL CONTINUE TO MONITOR.
[2020-05-02] MEDS: TAMSULOSIN HCL 0.4 MG CAP PO SCH (21:53)
[2020-05-03] VITALS (8 sets, daily range): BP systolic 116–127; BP diastolic 67–83
[2020-05-03 06:53] LABS: BASOPHILS % 0.8 % (0.0-1.0); EOSINOPHILS # (AUTO) 0.3 (0.0-0.4); EOSINOPHILS % 6.4 % (0.0-6.0); HEMATOCRIT 36.8 % (38.2-49.6); HEMOGLOBIN 12.8 g/dL (14.0-18.0); LYMPHOCYTES # (AUTO) 1.4 (1.0-3.2); MEAN CORPUSCULAR HEMOGLOBIN 32.8 pg (28-32); MEAN CORPUSCULAR HGB CONC 34.8 g/dL (31-35); MEAN CORPUSCULAR VOLUME 94.4 fL (81-99); MONOCYTES # (AUTO) 0.7 (0.2-0.8); MONOCYTES % 17.7 % (4.4-11.3); NEUTROPHILS # (AUTO) 1.6 (2.1-6.9); NEUTROPHILS % 39.8 % (38.7-80.0); PLATELET COUNT 65 x10e3/uL (140-360); RED CELL DISTRIBUTION WIDTH 13.4 % (11.7-14.4)
[2020-05-03 07:30] LABS: ANION GAP 11.7 mmol/L (8-16); BLOOD UREA NITROGEN 9 mg/dL (7-26); BUN/CREATININE RATIO 13 (6-25); CALCIUM 7.8 mg/dL (8.4-10.2); CARBON DIOXIDE 23 mmol/L (22-29); CHLORIDE 105 mmol/L (98-107); CREATININE, SERUM 0.67 mg/dL (0.72-1.25); EST GLOMERULAR FILTRATION RATE > 60 ML/MIN (60-); GLUCOSE 147 mg/dL (74-118); MAGNESIUM 1.7 MG/DL (1.3-2.1); PHOSPHORUS 3.6 MG/DL (2.3-4.7); POTASSIUM 3.7 mmol/L (3.5-5.1); SODIUM 136 mmol/L (136-145)
[2020-05-03] MEDS: FAMOTIDINE 20 MG/2 ML VIAL IV SCH ×2 (08:43→16:40)
[2020-05-03] MEDS: ASPIRIN 81 MG CHEW TAB PO SCH (08:43)
[2020-05-03] MEDS: FINASTERIDE 5 MG TAB PO SCH (08:44)
[2020-05-03] MEDS: LISINOPRIL 2.5 MG TAB PO SCH (08:44)
[2020-05-03] MEDS: CLOPIDOGREL BISULFATE 75 MG TAB PO SCH (08:44)
[2020-05-03] MEDS: METOPROLOL SUCCINATE 25 MG TAB XL PO SCH (08:45)
[2020-05-03] MEDS: ASCORBIC ACID 500 MG TAB PO SCH ×2 (08:45→16:40)
[2020-05-03] MEDS: CEFTRIAXONE SOD 1 GM/NS 50 ML 50 ML IV SCH (08:46)
--- NOTE | 2020-05-03 09:58 | NUR ---
ASSESSMENT: Spiritual concern Pt concerned about the nation and the safety of its leaders. Pt identifies as Jew. Intervention: Provided hospitality and empathic listening. Facilitated storytelling and illness review. Provided prayer. Outcome: Pt expressed appreciation for visit. No need to follow at this time. [employer] Spiritual Care Department O: [phone]
[2020-05-03] MEDS: INSULIN LISPRO 100 UNIT/1 ML 3ML VIAL SQ SCH ×4 (09:59→21:55)
[2020-05-03] MEDS ORDERED: CEFTRIAXONE SOD 1 GM/NS 50 ML 50 ML IV SCH (16:30)
--- NOTE | 2020-05-03 19:16 | NUR ---
walking rounds complete, pt stable at shift change. report given to oncoming nurse.
[2020-05-03] MEDS: TAMSULOSIN HCL 0.4 MG CAP PO SCH (21:41)
--- NOTE | 2020-05-03 22:26 | Consultation ---
DATE OF CONSULTATION: REASON FOR CONSULTATION: The patient with fever and chills. HISTORY OF PRESENT ILLNESS: This patient is a very pleasant 59-year-old who has a history of kidney stone, history of coronary artery disease. The patient comes in with fever and chills and not feeling well for 2 days. He was evaluated for COVID-19, came back negative. The patient is admitted. The patient has history of renal stone, history of coronary artery disease, is being admitted. HOME MEDICATIONS: He is also on insulin. He is on Rocephin, vitamin C, metoprolol, lisinopril, Proscar, Plavix, Pepcid, Flomax, Tylenol, and Zofran. Blood culture is growing Strep in 2 sets. He had a chest x-ray and a CT of abdomen and pelvis. The CT showed 3.3 cm calculus in the right renal pelvic. Chest x-ray showed no infiltrate. PHYSICAL EXAMINATION: GENERAL: He is currently alert, oriented, does not seem to be in acute distress. VITAL SIGNS: Stable, currently afebrile. HEENT: He is not icteric. NECK: Supple. CHEST: Clear bilateral. HEART: S1 and S2. ABDOMEN: Soft. Bowel sounds present. No tenderness. EXTREMITIES: No edema. SKIN: No rash. IMPRESSION: 1. Bacteremia with Strep, present on admission. Agree with Rocephin; however, we will change it to 1 g q.12 hours. Recommend to obtain echocardiogram to rule out endocarditis. Recheck blood cultures. 2. C-reactive protein. 3. Renal stone. 4. Benign prostate hypertrophy. 5. Further recommendations to follow. MD MERVIN Farias/AGNES /[id number]
[2020-05-03] MEDS ORDERED: MAGNESIUM SULF 1GRAM/DEXTROSE 100 ML IV ONE ×2 (22:45→23:45)
[2020-05-04] VITALS (8 sets, daily range): BP systolic 105–122; BP diastolic 67–79
[2020-05-04] MEDS ORDERED: MAGNESIUM SULF 1GRAM/DEXTROSE 100 ML IV ONE ×2 (00:07→09:00)
[2020-05-04 06:25] LABS: BASOPHILS % 0.9 % (0.0-1.0); EOSINOPHILS # (AUTO) 0.3 (0.0-0.4); EOSINOPHILS % 8.3 % (0.0-6.0); HEMATOCRIT 36.5 % (38.2-49.6); LYMPHOCYTES # (AUTO) 1.3 (1.0-3.2); LYMPHOCYTES % 37.9 % (18.0-39.1); MEAN CORPUSCULAR HEMOGLOBIN 34.2 pg (28-32); MEAN CORPUSCULAR HGB CONC 35.6 g/dL (31-35); MEAN CORPUSCULAR VOLUME 96.1 fL (81-99); MONOCYTES # (AUTO) 0.4 (0.2-0.8); NEUTROPHILS # (AUTO) 1.4 (2.1-6.9); NEUTROPHILS % 40.6 % (38.7-80.0); PLATELET COUNT 73 x10e3/uL (140-360); RED CELL DISTRIBUTION WIDTH 13.4 % (11.7-14.4)
[2020-05-04 06:52] LABS: ANION GAP 10.8 mmol/L (8-16); BLOOD UREA NITROGEN 10 mg/dL (7-26); BUN/CREATININE RATIO 15 (6-25); CALCIUM 8.8 mg/dL (8.4-10.2); CARBON DIOXIDE 23 mmol/L (22-29); CHLORIDE 107 mmol/L (98-107); CREATININE, SERUM 0.66 mg/dL (0.72-1.25); EST GLOMERULAR FILTRATION RATE > 60 ML/MIN (60-); GLUCOSE 135 mg/dL (74-118); MAGNESIUM 1.9 MG/DL (1.3-2.1); POTASSIUM 3.8 mmol/L (3.5-5.1); SODIUM 137 mmol/L (136-145)
--- NOTE | 2020-05-04 07:00 | NUR ---
RECEIVED PATIENT RESTING IN BED NO S/S OF DISTRESS. BED LOW, WHEELS LOCKED, SIDE RAILS X2. CALL LIGHT IN REACH WILL CONTINUE TO MONITOR PATIENT.
[2020-05-04] MEDS: INSULIN LISPRO 100 UNIT/1 ML 3ML VIAL SQ SCH ×4 (07:30→21:00)
[2020-05-04] MEDS: CLOPIDOGREL BISULFATE 75 MG TAB PO SCH (08:13)
[2020-05-04] MEDS: ASCORBIC ACID 500 MG TAB PO SCH ×2 (08:13→16:17)
[2020-05-04] MEDS: FAMOTIDINE 20 MG/2 ML VIAL IV SCH ×2 (08:13→16:17)
[2020-05-04] MEDS: METOPROLOL SUCCINATE 25 MG TAB XL PO SCH (08:13)
[2020-05-04] MEDS: ASPIRIN 81 MG CHEW TAB PO SCH (08:13)
[2020-05-04] MEDS: LISINOPRIL 2.5 MG TAB PO SCH (08:13)
[2020-05-04] MEDS: FINASTERIDE 5 MG TAB PO SCH (08:13)
[2020-05-04] MEDS: CEFTRIAXONE SOD 1 GM/NS 50 ML 50 ML IV SCH ×2 (10:41→16:17)
--- NOTE | 2020-05-04 11:02 | Progress Note ---
DATE: SUBJECTIVE: The patient is seen and evaluated. Available labs and notes reviewed. Discussed with Dr. Vera. Discussed with the patient. REVIEW OF SYSTEMS: No nausea, vomiting, fever, chills, chest pain, shortness of breath, headache, rash, diarrhea, or cough. PHYSICAL EXAMINATION: VITAL SIGNS: Temperature 97.7, improved from 101.7, pulse 82, respirations 16, and blood pressure 120/77. GENERAL: Alert and oriented x3. No acute distress. CV: S1 and S2. CHEST: Equal expansion. Clear to auscultation. No acute distress. ABDOMEN: Soft and nontender. No distention. HEENT: Moist. No pallor. No JVD. MEDICATIONS: Medication list reviewed and as far as Infectious Disease point of view, the patient is on Rocephin 1 g daily. LABORATORY STUDIES: White count 3.51, hemoglobin 13, and platelet 73, improved from 65. Sodium 137, potassium 3.8, and creatinine 0.66. Serology; coronavirus PCR 04/30, not detected. MICROBIOLOGY: Blood culture, Streptococcus viridans. IMAGING: Status post echo showing 60% ejection fraction and no mention of vegetation, however, official reading pending. CT of the abdomen and pelvis on 05/01/2020, showed stable 3.3 cm calculus in the right renal pelvis with mild right hydronephrosis. A 5 mm calculus has migrated from the upper pole to the lower pole of the right collecting system with no left renal calculi. Cirrhotic morphology of the liver with splenomegaly and evidence of varices. Cholelithiasis with no CT evidence of acute cholecystitis. Also showed enlarged prostate, mildly distended urinary bladder with circumferential wall thickening suggesting outlet obstruction. ASSESSMENT AND PLAN: 1. Bacteremia with Strep. The patient is on Rocephin gram a day. We will change Rocephin to gram twice a day. Discussed with the nurse. Discussed with Dr. Vera. 2. Benign prostatic hyperplasia .. 3. Renal stone. 4. Echo preliminary no evidence of endocarditis, showing ejection fraction of 60%. We will follow with the labs and monitor the patient clinically. Lactic acid improved from 2.5 to 1.9. The patient has estimated GFR of more than 60. We will get ESR and CRP. Please refer to chart for more information. Discussed with Dr. Vera. Dictated by ADONAY Arevalo (Al)C MD JOHN Farias/AGNES /[id number]
--- NOTE | 2020-05-04 11:19 | NUR ---
PT REFUSED TO PARTICIPATE IN DPA, SAID HE HAS NO CONCERNS AND HAS GOOD SUPPORT SYSTEM
--- NOTE | 2020-05-04 11:57 | Consultation ---
DATE OF CONSULTATION: 05/01/2020 Cardiology Consult Note REASON FOR CONSULT: CAD. CHIEF COMPLAINT: Cough. HISTORY OF PRESENT ILLNESS: A 59-year-old man with history of CAD, status post PCI, who presents with several days of fever and viral illness, noted to be hyponatremic with elevated lactate acid on presentation. COVID test was negative. Denies any chest pain. He has been compliant with his aspirin and Plavix. PAST MEDICAL HISTORY: CAD, hypertension, hyperlipidemia. SOCIAL HISTORY: Does not smoke, drink, or abuse drugs. FAMILY HISTORY: Noncontributory. REVIEW OF SYSTEMS: As per HPI, otherwise negative. OUTPATIENT MEDICATIONS: Reviewed. ALLERGIES: NO KNOWN DRUG ALLERGIES. OBJECTIVE: VITAL SIGNS: Temperature afebrile, pulse 61, respiratory rate 20, blood pressure 119/83, saturating 99% on room air. GENERAL: Middle-aged man, in no acute distress. CARDIOVASCULAR: Regular rate and rhythm. No murmurs, rubs, or gallops. LUNGS: Clear to auscultation bilaterally. ABDOMEN: Soft, nontender, and nondistended. NEURO AND PSYCH: Alert and oriented to person, place, and time. Normal affect. INPATIENT MEDICATIONS: Reviewed. LABORATORY DATA: Reviewed. Sodium 129, lactic acid 2.5. CK 230 with a normal troponin and CK-MB. TELEMETRY DATA: Reviewed, shows normal sinus rhythm. IMAGING DATA: Reviewed. CT of the abdomen and pelvis has been ordered. ASSESSMENT: 1. Coronary artery disease, status post percutaneous coronary intervention. 2. Hypertension. 3. Hyperlipidemia. 4. Viral illness. PLAN: The patient is coronavirus negative. Cardiac enzymes are negative. Denies any current ongoing chest pain or CHF symptoms. Continue home cardiovascular medications. Continue monitoring on telemetry. Otherwise, no further cardiovascular workup needed at this time. Thank you for this consult. We will continue to follow. MD SOMMER Causey/AGNES /[id number]
--- NOTE | 2020-05-04 19:25 | NUR ---
Patient received sitting up in bed. AAO x 4. Patient had no complaints of pain. Respirations even and non-labored. Safety measures implemented. Patient instructed to call for assistance when needed. Call light within reach.
--- NOTE | 2020-05-04 19:29 | Progress Note ---
DATE: 05/04/2020 Cardiology Progress Note The patient denies chest pain or shortness of breath. OBJECTIVE: VITAL SIGNS: Temperature 97.6 degrees, pulse 87, respiratory rate 18, blood pressure 110/67, and oxygen saturation 98% on room air. GENERAL: Awake, alert, in no acute distress. LUNGS: Clear to auscultation bilaterally. No wheezes or crackles. CARDIOVASCULAR: Normal rate, regular rhythm. No murmur. Normal S1, S2. ABDOMEN: Soft, nontender. EXTREMITIES: No edema. CARDIAC MEDICATIONS: 1. Metoprolol succinate 12.5 mg p.o. daily. 2. Lisinopril 2.5 mg p.o. daily. 3. Plavix 75 mg p.o. daily. 4. Aspirin 81 mg p.o. daily. LABORATORY DATA: WBC 3.5, hemoglobin 13, hematocrit 36.5, platelets 73. Sodium 137, potassium 3.8, chloride 107, CO2 of 23. BUN 10, creatinine 0.66, magnesium 1.9. TELEMETRY: Telemetry was personally reviewed and interpreted, revealing normal sinus rhythm. Episode of nonsustained ventricular tachycardia was observed. IMPRESSION: 1. Streptococcus viridans bacteremia. 2. Enterococcus faecalis urinary tract infection. 3. Coronary artery disease, status post percutaneous coronary intervention. 4. Hypertension. 5. Hyperlipidemia. RECOMMENDATIONS: The patient denies any cardiac complaints. Continue dual antiplatelet therapy. Continue current cardiac medications. The patient's blood pressure is controlled. Antibiotics per Infectious Disease. Monitor the patient on telemetry. Replete electrolytes. Potassium above 4 and magnesium above 2. Thank you for this consult. We will continue to follow. Jenny Mederos MD ABS/MODL /[id number]
[2020-05-04] MEDS: TAMSULOSIN HCL 0.4 MG CAP PO SCH (21:28)
[2020-05-05] VITALS (8 sets, daily range): BP systolic 106–141; BP diastolic 62–96
--- NOTE | 2020-05-05 07:00 | NUR ---
RECEIVED PATIENT RESTING IN BED NO S/S OF DISTRESS. BED LOW, WHEELS LOCKED, SIDE RAILS X2. CALL LIGHT IN REACH WILL CONTINUE TO MONITOR PATIENT.
--- NOTE | 2020-05-05 07:00 | NUR ---
Patient resting comfortably. Walking rounds done. Shift report given regarding patient's status.
[2020-05-05] MEDS: INSULIN LISPRO 100 UNIT/1 ML 3ML VIAL SQ SCH ×4 (07:30→21:01)
[2020-05-05] MEDS: CLOPIDOGREL BISULFATE 75 MG TAB PO SCH (08:08)
[2020-05-05] MEDS: FAMOTIDINE 20 MG/2 ML VIAL IV SCH ×2 (08:08→17:37)
[2020-05-05] MEDS: ASPIRIN 81 MG CHEW TAB PO SCH (08:08)
[2020-05-05] MEDS: METOPROLOL SUCCINATE 25 MG TAB XL PO SCH (08:08)
[2020-05-05] MEDS: LISINOPRIL 2.5 MG TAB PO SCH (08:08)
[2020-05-05] MEDS: FINASTERIDE 5 MG TAB PO SCH (08:08)
[2020-05-05] MEDS: ASCORBIC ACID 500 MG TAB PO SCH ×2 (08:08→17:37)
[2020-05-05] MEDS: CEFTRIAXONE SOD 1 GM/NS 50 ML 50 ML IV SCH ×2 (08:08→17:37)
[2020-05-05 09:53] LABS: BASOPHILS % 0.7 % (0.0-1.0); EOSINOPHILS # (AUTO) 0.2 (0.0-0.4); EOSINOPHILS % 4.8 % (0.0-6.0); HEMATOCRIT 37.6 % (38.2-49.6); HEMOGLOBIN 13.3 g/dL (14.0-18.0); LYMPHOCYTES % 23.6 % (18.0-39.1); MEAN CORPUSCULAR HEMOGLOBIN 33.4 pg (28-32); MEAN CORPUSCULAR HGB CONC 35.4 g/dL (31-35); MEAN CORPUSCULAR VOLUME 94.5 fL (81-99); MONOCYTES # (AUTO) 0.4 (0.2-0.8); MONOCYTES % 8.6 % (4.4-11.3); NEUTROPHILS # (AUTO) 2.7 (2.1-6.9); NEUTROPHILS % 61.8 % (38.7-80.0); PLATELET COUNT 83 x10e3/uL (140-360); RED BLOOD COUNT 3.98 x10e6/uL (4.3-5.7); RED CELL DISTRIBUTION WIDTH 13.2 % (11.7-14.4)
--- NOTE | 2020-05-05 14:54 | Progress Note ---
DATE: SUBJECTIVE: The patient is seen and evaluated. Available labs and notes reviewed. REVIEW OF SYSTEMS: No nausea, vomiting, fever, chills, chest pain, shortness of breath, headache, rash, dysuria. PHYSICAL EXAMINATION: VITAL SIGNS: Temperature 98.3, pulse 67, respirations 18, and blood pressure 115/71. GENERAL: Alert and oriented, no acute distress. CV: S1, S2. CHEST: Equal expansion, clear to auscultation. No acute distress. ABDOMEN: Soft, nontender. No distention. HEENT: Moist. No pallor. No JVD. EXTREMITIES: Moves all. No significant edema. MEDICATIONS: List reviewed. From ID point of view, the patient is on Rocephin 1 g IV piggyback twice a day. LABORATORY STUDIES: White count of 4.41, hemoglobin 13.3, platelet 83. No new BMP from today. Serology coronavirus PCR 04/30/2020, not detected. MICROBIOLOGY: Blood culture showed strep viridans. I would recheck blood culture negative on 05/04/2020. RADIOLOGY STUDIES: No new radiology studies available. ASSESSMENT AND PLAN: 1. Strep bacteremia. We did check blood culture negative. Cardiology is on the case, patient has had an echo. Echo results as mentioned in the previous note, which showed 60% ejection fraction. CRP still pending with ESR of 23. 2. Benign prostatic hyperplasia. 3. Renal stone. 4. Continue with antibiotics. Monitor the patient clinically. Follow with the labs. Further management of this patient based on daily findings on laboratory and physical examination. Discussed with Dr. Vera in details. Please refer to chart for more information. Dictated by Zain Murrieta PA-C (Al) María Vera MD /MODL /[id number]
--- NOTE | 2020-05-05 15:43 | Progress Note ---
DATE: 05/05/2020 Cardiology Progress Note SUBJECTIVE: The patient denies chest pain or shortness of breath. OBJECTIVE: VITAL SIGNS: Temperature 98.3, pulse 67, respiratory rate 18, blood pressure 115/71, and oxygen saturation 100% on room air. GENERAL: Awake, alert, in no acute distress. LUNGS: Clear to auscultation bilaterally. No wheezes or crackles. CARDIOVASCULAR: Normal rate. Regular rhythm. No murmur. Normal S1, S2. ABDOMEN: Soft, nontender. EXTREMITIES: No edema. CARDIAC MEDICATIONS: Metoprolol succinate 12.5 mg p.o. daily, lisinopril 2.5 mg p.o. daily, Plavix 75 mg p.o. daily, and aspirin 81 mg p.o. daily. LABORATORY DATA: WBC 4.41, hemoglobin 13.3, hematocrit 37.6, and platelets 83. TELEMETRY: Telemetry was personally reviewed interval revealing normal sinus rhythm with PVCs. IMPRESSION: 1. Streptococcus viridans bacteremia. 2. Enterococcus faecalis urinary tract infection. 3. Coronary artery disease status post percutaneous coronary intervention. 4. Hypertension. 5. Hyperlipidemia. RECOMMENDATIONS: Continue dual anti-platelet therapy. Blood pressure is acceptable. Continue current cardiac medications. Given patient's Streptococcus viridans bacteremia, ESTELITA is requested by Infectious Disease. Make the patient n.p.o. after midnight. We will attempt to schedule for tomorrow. Antibiotics per Infectious Disease. Monitor the patient on telemetry. Replete electrolytes and keep potassium above 4 and magnesium above 2. Thank you for this consult. We will continue to follow. Jenny Mederos MD ABS/MODL /[id number]
--- NOTE | 2020-05-05 18:40 | Diagnostic Imaging Report ---
EXAMINATION: CHEST XRAY LINE PLACEMENT INDICATION: ^PICC LINE PLACEMENT ^[id number] ^1817 ^Y None COMPARISON: 04/30/2020. FINDINGS: TUBES and LINES: Multiple overlying wires limit evaluation. A linear density with distal tip terminating at the expected location of the SVC proximal to the cavoatrial junction likely represent represents the PICC line. LUNGS: There is mild prominence of the central pulmonary vasculature, consistent with pulmonary venous congestion. PLEURA: No pleural effusion or pneumothorax. HEART AND MEDIASTINUM: Cardiac size is moderately enlarged. BONES AND SOFT TISSUES: No acute osseous lesion. Soft tissues are unremarkable. UPPER ABDOMEN: No free air under the diaphragm. IMPRESSION: Interval placement of a left upper extremity PICC with distal tip projected on the SVC just proximal to the cavoatrial junction. Moderate cardiomegaly in bilateral pulmonary venous congestion. Signed by: Dr. Ting Mota M.D. on 05/05/2020 6:37 PM
[2020-05-05] MEDS: TAMSULOSIN HCL 0.4 MG CAP PO SCH (20:56)
--- NOTE | 2020-05-05 21:31 | NUR ---
SPOKE TO MD ZAZUETA. NEW ORDERS RECEIVED.
[2020-05-06] VITALS: BP 115/59
--- NOTE | 2020-05-06 03:39 | Progress Note ---
DATE: 05/05/2020 SUBJECTIVE: The patient states he has been ambulating in the prakash today at 12-minute intervals. He denies any palpitations. No chills or dysuria. He states he is having a transesophageal echo in the morning. PHYSICAL EXAMINATION: VITAL SIGNS: Temperature 98.3, heart rate 72, blood pressure 111/69, respirations 18, and oxygen saturation 99%. The patient is seen on 05/05/2020. GENERAL: Awake, alert, and oriented x3. LUNGS: Clear to auscultation. HEENT: EOMI. NECK: Supple. CARDIOVASCULAR: Regular rate and rhythm. No murmur. ABDOMEN: Bowel sounds positive. Soft, nontender. EXTREMITIES: No pitting edema. No clubbing, cyanosis, or notable swelling. No signs or symptoms of DVT. NEUROLOGICAL: GCS 15. LABORATORY DATA: WBC 4.41, hemoglobin 13.3, hematocrit 37.6, platelets 83. C-reactive protein yesterday was 21. Fingerstick blood glucose levels 163, 210, and 191. No new chemistry today. No growth from blood cultures after 24 hours, which was collected on 05/04. Echocardiogram showed an ejection fraction of 60% on 05/04. ASSESSMENT AND PLAN: 1. Enterococcus faecalis urinary tract infection with severe sepsis, present on admission. Infectious Disease following. Continue Rocephin and vitamin C. 2. Streptococcus viridans. The patient is to have a transesophageal echocardiogram in the morning. N.p.o. after midnight. 3. Coronary artery disease with percutaneous coronary intervention. Continue dual antiplatelet therapy with aspirin and Plavix. Cardiology following. 4. Benign prostatic hypertrophy, stones. Continue Proscar/Flomax. Urology following. 5. Controlled hypertension. Continue lisinopril and metoprolol. 6. Uncontrolled type 2 diabetes mellitus with hyperglycemia. Continue sliding scale insulin. Monitor fingerstick blood glucose. 7. Thrombocytopenia. Platelets 83 (73), monitor. 8. Left PICC line. 9. Prophylaxis. Pepcid. 10. Billing code 38885. Time spent 35 minutes. Dictated by Jose Alfredo Parks NP MD CHARITY ChowP/MODL /[id number]
[2020-05-06 04:30] VITALS: BP 110/71
[2020-05-06 07:03] LABS: BASOPHILS % 0.5 % (0.0-1.0); EOSINOPHILS # (AUTO) 0.3 (0.0-0.4); EOSINOPHILS % 6.6 % (0.0-6.0); HEMATOCRIT 35.8 % (38.2-49.6); HEMOGLOBIN 12.9 g/dL (14.0-18.0); LYMPHOCYTES # (AUTO) 1.1 (1.0-3.2); LYMPHOCYTES % 26.6 % (18.0-39.1); MEAN CORPUSCULAR HEMOGLOBIN 35.2 pg (28-32); MEAN CORPUSCULAR VOLUME 97.8 fL (81-99); MONOCYTES # (AUTO) 0.4 (0.2-0.8); MONOCYTES % 10.5 % (4.4-11.3); NEUTROPHILS # (AUTO) 2.3 (2.1-6.9); NEUTROPHILS % 55.6 % (38.7-80.0); PLATELET COUNT 75 x10e3/uL (140-360); RED BLOOD COUNT 3.66 x10e6/uL (4.3-5.7); RED CELL DISTRIBUTION WIDTH 13.6 % (11.7-14.4)
--- NOTE | 2020-05-06 07:14 | NUR ---
REPORT GIVEN TO DAYSHIFT NURSE. RESTING IN BED. IN STABLE CONDITION. NO SIGNS OF IV INFILTRATION. JI LOCKED AND IN LOW POSITION. CALL LIGHT WITHIN REACH.
[2020-05-06] MEDS: INSULIN LISPRO 100 UNIT/1 ML 3ML VIAL SQ SCH ×3 (07:30→16:30)
[2020-05-06 07:42] LABS: ANION GAP 10.8 mmol/L (8-16); BLOOD UREA NITROGEN 7 mg/dL (7-26); BUN/CREATININE RATIO 10 (6-25); CALCIUM 8.4 mg/dL (8.4-10.2); CARBON DIOXIDE 26 mmol/L (22-29); CHLORIDE 106 mmol/L (98-107); CREATININE, SERUM 0.71 mg/dL (0.72-1.25); EST GLOMERULAR FILTRATION RATE > 60 ML/MIN (60-); GLUCOSE 143 mg/dL (74-118); POTASSIUM 3.8 mmol/L (3.5-5.1); SODIUM 139 mmol/L (136-145)
[2020-05-06 08:00] VITALS: BP 111/76
[2020-05-06 09:15] VITALS: BP 111/76
--- NOTE | 2020-05-06 10:36 | Progress Note ---
DATE: SUBJECTIVE: The patient is seen and evaluated, available labs and notes reviewed. Discussed with Dr. Vera. Please refer to chart for more information. REVIEW OF SYSTEMS: No nausea, vomiting, fever, chills, chest pain, or shortness of breath. MEDICATION: From Infectious Disease point of view, the patient is on Rocephin. LABORATORY STUDIES: White count 4.10, hemoglobin 12.9, and platelets 75. Sodium 139, potassium 3.8, and creatinine 0.71. MICROBIOLOGY: Recheck blood culture on 05/04 is negative. He was previously Streptococcus viridans on 04/30/2020. IMAGING: The patient is status post PICC line placement. PHYSICAL EXAMINATION: VITAL SIGNS: Temperature 97.5, pulse 66, respirations 20, and blood pressure 111/76. GENERAL: Alert and oriented, no acute distress. CV: S1-S2. CHEST: Equal expansion. Clear to auscultation. No acute distress. ABDOMEN: Soft. Nontender. No distention. HEENT: Moist. No tenderness. No JVD. EXTREMITIES: No edema. Moves all. ASSESSMENT AND PLAN: 1. Streptococcus viridans bacteremia. Recheck blood cultures negative, had echo which not mentioned any endocarditis, showed ejection fraction of 60%. The patient to be getting ESTELITA today. Continue with Rocephin. 2. Benign prostatic hypertrophy. 3. Renal stones. 4. Thrombocytopenia. CRP was 21 on 05/04/2020. Please refer to chart for more information. Dictated by Zain Murrieta PA-C (Al) María Vera MD /MODL /[id number]
[2020-05-06] MEDS: CEFTRIAXONE SOD 1 GM/NS 50 ML 50 ML IV SCH ×2 (11:28→16:42)
[2020-05-06] MEDS: FAMOTIDINE 20 MG/2 ML VIAL IV SCH ×2 (11:28→16:42)
[2020-05-06 11:50] VITALS: BP 144/85
[2020-05-06] MEDS ORDERED: SODIUM CHLORIDE 0.9% 1000ML 1,000 ML ONE (12:05)
[2020-05-06] MEDS ORDERED: BENZOCAINE 20% SPR 60 ML CAN ONE (12:05)
[2020-05-06] MEDS ORDERED: ETOMIDATE 2 MG/ML 10 ML INJ IV ONE (14:25)
--- NOTE | 2020-05-06 14:25 | NUR ---
Received order for home IV abx. CM to pt's bedside to discuss choice. Pt states he has never had IV abx at home previously. He states to use any company in network with his insurance. CM explained to pt that home health is usually set up by infusion company for labs/teaching. Pt states he was fine with that. Choice letter signed for [facility]. Choice letter placed in chart. Copy to pt. Referral faxed to [facility] at [phone]. Cherie ingram [facility] was notified of referral.
--- NOTE | 2020-05-06 15:01 | NUR ---
Procedure note: 1400-room time-OR3. Patient hooked to monitors and anesthesia at bedside assessing patient. 1418-Physician arrives. 1419- Time out performed with all participating staff 1420- ESTELITA probe in. 1426- ESTELITA probe out. 1428- patient transferred to cath recovery bay #10 with anesthesia.
--- NOTE | 2020-05-06 15:17 | NUR ---
Per [facility], they have received referral. will update CM once benefits come back.
[2020-05-06 15:55] VITALS: BP 110/68
[2020-05-06] MEDS: ASCORBIC ACID 500 MG TAB PO SCH ×2 (16:31→16:32)
[2020-05-06] MEDS: METOPROLOL SUCCINATE 25 MG TAB XL PO SCH (16:31)
[2020-05-06] MEDS: CLOPIDOGREL BISULFATE 75 MG TAB PO SCH (16:31)
[2020-05-06] MEDS: FINASTERIDE 5 MG TAB PO SCH (16:31)
[2020-05-06] MEDS: ASPIRIN 81 MG CHEW TAB PO SCH (16:31)
[2020-05-06] MEDS: LISINOPRIL 2.5 MG TAB PO SCH (16:31)
--- NOTE | 2020-05-06 17:55 | NUR ---
Spoke with Cherie at [facility]. Benefits are good. Home health set up with [facility]. . HH will come out and teach pt abx administration tomorrow morning. [facility] ([phone]) and [facility] contact information was printed and given to pt. Pt states [facility] has already reached out to him. asked him to call home health company if he does not hear from them once he discharges. Addendum: 05/06/20 at 1805 by Anila Dumont CM Pt was instructed by [facility] to give them a call when he discharges so they can deliver medications.
[2020-05-06] MEDS ORDERED: ASCORBIC ACID500 MG PO (18:29)
[2020-05-06] MEDS ORDERED: ACETAMINOPHEN325 M1 PO (18:29)
[2020-05-06] MEDS ORDERED: CEFTRIAXON1 GM/50 M2 IV (18:29)
--- NOTE | 2020-05-06 20:10 | NUR ---
DISCHARGED PATIENT HOME WITH ALL BELONGINGS AND PRESCRIPTIONS. VITAL SIGN STABLE AT THIS TIME. 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
--- NOTE | 2020-05-07 02:22 | Discharge Summary ---
CONSULTING PHYSICIAN: 1. María Vera MD. 2. Gerald Goodwin DO. 3. Braxton March MD. Dr. Kelton Jacobs is the primary care physician. CHIEF COMPLAINT: Weakness and fever. HISTORY OF PRESENT ILLNESS: The patient is 59-year-old male, who admitted with complaints of generalized weakness and fever of 102.5 since the day prior to admission. He denied dysuria and hematuria. He said that he needed a prostate surgery, but due to percutaneous coronary intervention which was on September 05, 2019 is not cleared by Cardiology to be off blood thinners until the one year jihan. PAST MEDICAL HISTORY: Coronary artery disease with PCI, cirrhosis, hypertension, type 2 diabetes mellitus, and BPH. PAST SURGICAL HISTORY: PCI and kidney stones. FAMILY HISTORY: Noncontributory. SOCIAL HISTORY: Noncontributory. ALLERGIES: NO KNOWN ALLERGIES. ADMITTING DIAGNOSES: 1. Urinary tract infection with severe sepsis, POA. 2. Coronary artery disease with PCI. 3. Benign prostatic hyperplasia. 4. Hypertension. 5. Obesity with BMI of 38.9. DISCHARGE DIAGNOSES: 1. Enterococcus faecalis urinary tract infection with severe sepsis, present on admission. 2. Streptococcus viridans bacteremia. 3. Coronary artery disease with percutaneous coronary intervention. 4. Benign prostatic hypertrophy, stones. 5. Controlled hypertension. 6. Uncontrolled type 2 diabetes mellitus with hyperglycemia. 7. Thrombocytopenia. 8. Status post left PICC line placement. ADMITTING LABS: On 04/30, WBC 5.88, hemoglobin 15.3, hematocrit 44, platelets 62. Sodium 129, potassium 3.9, chloride 96, CO2 of 23, anion gap 13.9, BUN 12, creatinine 0.78, estimated GFR greater than 60. Lactic acid 2.5. Hemoglobin A1c 9.2%, calcium 8.9, total bilirubin 2.3. AST 58, ALT 30, alkaline phosphatase 89, creatine kinase 230. Other cardiac enzymes were negative. Coronavirus PCR not detected on 04/30. Blood cultures x2 collected with final results showing Streptococcus viridans. The repeat blood culture x2 was done on 05/04, which show no growth after 48 hours. Chest x-ray on 04/30 showed no definite focal interval infiltrate. CT of the abdomen and pelvis done 05/01 showed stable 3.3 cm calculus in the right renal pelvis with mild right hydronephrosis. Echocardiogram done 6/13, showed an estimated ejection fraction of 60%. The patient did experience a 15-beat run of ventricular tachycardia on 05/03. 12-lead EKG on April 30 that showed sinus rhythm with sinus arrhythmia with occasional premature ventricular contractions. During his stay, he received Rocephin and vitamin C for the urinary tract infection. A transesophageal echocardiogram was completed on 05/06, which was normal. He remained on dual anti-platelet therapy with aspirin and Plavix. Left PICC line was placed. The patient will be receiving Rocephin 1 g IV every 12 hours for 14 days for the Streptococcus viridans bacteremia. The patient states he will wait on having any type of urological procedure for the kidney stones for now as he must remain on his dual anti-platelet therapy. Today vital signs temperature 97.5, heart rate 66, blood pressure 111/76, respirations 20. No change in physical examination. Continue ADA diet. Activity level as tolerated. Follow up with PCP Dr. Kelton Jacobs MD in 1 to 2 weeks. The patient to call Dr. Vera's office to schedule a followup appointment. He will be going home with the left upper extremity PICC line. Follow up with Dr. Goodwin as directed. The patient is expecting to have a nuclear stress test in August. Dictated by Jose Alfredo Parks NP Tyler Duggan MD HWP/MODL /[id number]
--- NOTE | 2020-05-07 08:38 | Progress Note ---
DATE: Cardiology Progress Note SUBJECTIVE: The patient is feeling better. Denies any chest pain, shortness of breath, or palpitations. OBJECTIVE: VITAL SIGNS: Temperature is 97.8, heart rate 65, respirations are 19, blood pressure is 110/68, oxygen saturation 99% on room air. GENERAL: Well appearing, well built, in no apparent distress. CARDIOVASCULAR: Regular rate and rhythm. LUNGS: Clear to auscultation. ABDOMEN: Soft, nontender, nondistended. EXTREMITIES: No edema. LABORATORY DATA: Reviewed. Transesophageal echocardiogram reviewed and showed no vegetations. IMPRESSION: 1. Bacteremia. 2. Urinary tract infection. 3. Coronary artery disease, status post percutaneous coronary intervention. 4. Hypertension. 5. Hyperlipidemia. RECOMMENDATIONS: His transesophageal echocardiogram showed no valvular vegetations. Continue current cardiovascular medications. Antibiotics per primary team. DO JEFERSON [place]/MODL /[id number]
== END 2020-05-06 20:10 | disposition home or self-care (01) | DRG 872 ==
LOC: ER 19:42 → ERHOLD 23:41 → MED/SURG2 05-01 03:33 → OBSVTOIN 05-02 17:11
PROVIDERS: ADMIT Internal Medicine; ATTEND Internal Medicine
PROC: 02HV33Z Insertion of Infusion Device into Superior Vena Cava, Percutaneous Approach (ICD-10-PCS; principal; 2020-04-30)
DX: A41.81 Sepsis due to Enterococcus (principal); N39.0 Urinary tract infection, site not specified; R78.81 Bacteremia; I47.2 Ventricular tachycardia; N13.2 Hydronephrosis with renal and ureteral calculous obstruction; R65.20 Severe sepsis without septic shock; E66.9 Obesity, unspecified; Z68.39 Body mass index [BMI] 39.0-39.9, adult; E11.65 Type 2 diabetes mellitus with hyperglycemia; D69.6 Thrombocytopenia, unspecified; Z11.59 Encounter for screening for other viral diseases; N20.0 Calculus of kidney; N40.1 Benign prostatic hyperplasia with lower urinary tract symptoms; R35.1 Nocturia; I25.10 Atherosclerotic heart disease of native coronary artery without angina pectoris; B95.4 Other streptococcus as the cause of diseases classified elsewhere; K74.60 Unspecified cirrhosis of liver
CPT/HCPCS: 36415; 36569; 71045; 74176; 80048; 80053; 81001; 82550; 82553; 82948; 83036; 83605; 83735; 84100; 84443; 84484; 85025; 85651; 86140; 87040; 87071; 87086; 87186; 87205; 87635; 93005; 93306; 93307; 93312; 93325; 96372; 99284; G0378; J0696; J2543; J3475; J7030

== ENCOUNTER 2020-11-01 18:09 | Emergency (ER) | payer OTHER ==
[~2020-11-01] VITALS: Ht 180.3 cm; Wt 117.9 kg
[~2020-11-01 18:09] MED LIST changes: +ACETAMINOPHEN325 M1 PO; +ASCORBIC ACID500 MG PO; +CEFTRIAXON1 GM/50 M2 IV
== END 2020-11-01 21:24 | disposition home or self-care (01) ==
LOC: ER 18:35
DX: U07.1 COVID-19 (principal); R50.9 Fever, unspecified; R05 Cough; R53.83 Other fatigue; E11.65 Type 2 diabetes mellitus with hyperglycemia; I10 Essential (primary) hypertension
CPT/HCPCS: 36415; 71045; 82948; 99283

== ENCOUNTER → 2020-12-31 | Day surgery (SDC) | payer OTHER ==
[2020-12-26 09:39] LABS: BASOPHILS % 0.7 % (0.0-1.0); EOSINOPHILS # (AUTO) 0.2 (0.0-0.4); EOSINOPHILS % 6.9 % (0.0-6.0); HEMATOCRIT 35.6 % (38.2-49.6); HEMOGLOBIN 12.2 g/dL (14.0-18.0); LYMPHOCYTES % 35.9 % (18.0-39.1); MEAN CORPUSCULAR HGB CONC 34.3 g/dL (31-35); MEAN CORPUSCULAR VOLUME 99.2 fL (81-99); MONOCYTES # (AUTO) 0.3 (0.2-0.8); MONOCYTES % 11.7 % (4.4-11.3); NEUTROPHILS # (AUTO) 1.3 (2.1-6.9); NEUTROPHILS % 44.5 % (38.7-80.0); PLATELET COUNT 65 x10e3/uL (140-360); RED BLOOD COUNT 3.59 x10e6/uL (4.3-5.7); RED CELL DISTRIBUTION WIDTH 14.7 % (11.7-14.4)
[2020-12-26 09:57] LABS: INR 1.25; PROTHROMBIN TIME 16.5 seconds (11.9-14.5)
[2020-12-26 10:06] LABS: ALANINE AMINOTRANSFERASE 30 IU/L (0-55); ALBUMIN/GLOBULIN RATIO 0.8 (0.8-2.0); ALKALINE PHOSPHATASE 130 IU/L (40-150); ANION GAP 12.9 mmol/L (8-16); BLOOD UREA NITROGEN 10 mg/dL (7-26); BUN/CREATININE RATIO 14 (6-25); CALCIUM 8.8 mg/dL (8.4-10.2); CARBON DIOXIDE 24 mmol/L (22-29); CHLORIDE 105 mmol/L (98-107); CREATININE, SERUM 0.73 mg/dL (0.72-1.25); EST GLOMERULAR FILTRATION RATE > 60 ML/MIN (60-); GLUCOSE 188 mg/dL (74-118); POTASSIUM 3.9 mmol/L (3.5-5.1); SODIUM 138 mmol/L (136-145)
[~2020-12-31] MED LIST changes: +AMPICILLIN SOD 1 GM/NS 50ML 50 ML IV ONE; +B&O 60MG R/S 60 MG SUPP PR ONE; +GENTAMICIN 80MG/NS 100 ML 100 ML IV ONE; +IOPAMIDOL 300MG/ML 50ML INFUS..BTL IV ONE
[2020-12-31 09:10] VITALS: BP 124/80
== END | disposition home or self-care (01) ==
LOC: OR 05:21
PROVIDERS: ATTEND Urology
DX: N13.2 Hydronephrosis with renal and ureteral calculous obstruction (principal); N39.0 Urinary tract infection, site not specified; N40.0 Benign prostatic hyperplasia without lower urinary tract symptoms; I25.10 Atherosclerotic heart disease of native coronary artery without angina pectoris; I25.2 Old myocardial infarction; E11.9 Type 2 diabetes mellitus without complications; K76.6 Portal hypertension; I49.3 Ventricular premature depolarization; E66.01 Morbid (severe) obesity due to excess calories; Z88.8 Allergy status to other drugs, medicaments and biological substances; Z01.810 Encounter for preprocedural cardiovascular examination; Z01.812 Encounter for preprocedural laboratory examination; Z01.818 Encounter for other preprocedural examination; Z20.822 Contact with and (suspected) exposure to COVID-19; Z86.16 Personal history of COVID-19; Z95.5 Presence of coronary angioplasty implant and graft
CPT/HCPCS: 36415 ×2; 50590; 52332; 71046; 74018; 80053; 82948; 85025; 85610; 85730; 93005; C1758; C2617; J0290; J1580; Q9967; U0002

== ENCOUNTER 2021-01-15 19:47 | Inpatient (IN) | payer OTHER ==
[~2021-01-15] VITALS: Ht 180.3 cm; Wt 126.3 kg
[2021-01-15] MEDS: SODIUM CHLORIDE 0.9% 1000ML 1,000 ML IV SCH (00:10)
[~2021-01-15 19:47] MED LIST changes: -AMPICILLIN SOD 1 GM/NS 50ML 50 ML IV ONE; -B&O 60MG R/S 60 MG SUPP PR ONE; -GENTAMICIN 80MG/NS 100 ML 100 ML IV ONE; -IOPAMIDOL 300MG/ML 50ML INFUS..BTL IV ONE
[2021-01-15] MEDS ORDERED: SODIUM CHLORIDE 0.9% 1000ML 1,000 ML IV STA ×2 (19:49→22:06)
[2021-01-15] MEDS ORDERED: ASPIRIN 81 MG CHEW TAB PO ONE ×2 (20:00→22:00)
[2021-01-15] MEDS ORDERED: ACETAMINOPHEN 325 MG TAB PO STA (20:12)
[2021-01-15 20:40] LABS: BASOPHILS % 0.2 % (0.0-1.0); HEMATOCRIT 38.3 % (38.2-49.6); HEMOGLOBIN 13.5 g/dL (14.0-18.0); LYMPHOCYTES # (AUTO) 0.5 (1.0-3.2); LYMPHOCYTES % 4.8 % (18.0-39.1); MEAN CORPUSCULAR HEMOGLOBIN 33.4 pg (28-32); MEAN CORPUSCULAR HGB CONC 35.2 g/dL (31-35); MEAN CORPUSCULAR VOLUME 94.8 fL (81-99); MONOCYTES # (AUTO) 0.8 (0.2-0.8); MONOCYTES % 8.7 % (4.4-11.3); NEUTROPHILS # (AUTO) 8.1 (2.1-6.9); NEUTROPHILS % 85.7 % (38.7-80.0); PLATELET COUNT 53 x10e3/uL (140-360); RED BLOOD COUNT 4.04 x10e6/uL (4.3-5.7)
[2021-01-15] MEDS ORDERED: PIPERACILLIN/TAZOBAC 3.375 GM VIAL ONE (20:54)
[2021-01-15 20:59] LABS: ALANINE AMINOTRANSFERASE 16 IU/L (0-55); ALBUMIN 2.9 g/dL (3.5-5.0); ALBUMIN/GLOBULIN RATIO 0.9 (0.8-2.0); ALKALINE PHOSPHATASE 87 IU/L (40-150); ANION GAP 11.7 mmol/L (8-16); BLOOD UREA NITROGEN 13 mg/dL (7-26); BUN/CREATININE RATIO 17 (6-25); CALCIUM 8.5 mg/dL (8.4-10.2); CARBON DIOXIDE 19 mmol/L (22-29); CHLORIDE 102 mmol/L (98-107); CREATINE KINASE 172 IU/L (30-200); CREATININE, SERUM 0.76 mg/dL (0.72-1.25); EST GLOMERULAR FILTRATION RATE > 60 ML/MIN (60-); GLUCOSE 177 mg/dL (74-118); POTASSIUM 3.7 mmol/L (3.5-5.1); SODIUM 129 mmol/L (136-145)
[2021-01-15 21:04] LABS: B-TYPE NATRIURETIC PEPTIDE2 302.9 pg/mL (0-100)
[2021-01-15 21:10] LABS: CLARITY,URINE SL CLOUDY (CLEAR); COLOR,URINE BROWN (YELLOW)
[2021-01-15 21:11] LABS: KETONES,URINE TRACE (NEGATIVE); LEUKOCYTE ESTERASE ,URINE SMALL (NEGATIVE); NITRITE,URINE POSITIVE (NEGATIVE); PROTEIN,URINE DIPSTICK >=300 (NEGATIVE); URINE UROBILINOGEN 1 mg/dL (0.2 - 1)
[2021-01-15 21:25] LABS: BACTERIA,URINE MANY /HPF
[2021-01-15] MEDS ORDERED: DILTIAZEM HCL 5 MG/ML 5 ML VIAL IV STA (21:51)
[2021-01-15] MEDS ORDERED: ONDANSETRON HCL INJ 2MG/ML 2ML 2 MG/ML VIAL IV PRN (22:00)
[2021-01-15] MEDS ORDERED: MORPHINE SULFATE INJ 4 MG/ML INJ 1ML IV PRN (22:00)
[2021-01-15] MEDS ORDERED: KETOROLAC TROMETHAMINE 30 MG/ML VIAL IV STA (22:06)
[2021-01-15] MEDS ORDERED: SODIUM CHLORIDE 0.9% 1000ML 1,000 ML ONE (22:15)
[2021-01-15] MEDS ORDERED: KETOROLAC TROMETHAMINE 30 MG/ML VIAL ONE (22:15)
[2021-01-15 23:46] VITALS: BP 113/69
[2021-01-15 23:55] LABS: ABG HCO3 20 mmol/L (22-26); ABG PCO2 27 mmHg (35-45); ABG PH 7.47 (7.35-7.45); ABG PO2 77 mmHg (80-105); ABG TCO2 21
[2021-01-16] VITALS (9 sets, daily range): BP systolic 87–146; BP diastolic 57–78
[2021-01-16] MEDS: TAMSULOSIN HCL 0.4 MG CAP PO SCH ×2 (00:10→21:25)
[2021-01-16] MEDS: FINASTERIDE 5 MG TAB PO SCH ×2 (00:10→09:06)
[2021-01-16] MEDS: ACETAMINOPHEN 325 MG TAB PO PRN ×2 (03:00→22:34)
[2021-01-16] MEDS ORDERED: VANCOMYCIN HCL 1.25 GM in SODIUM CHLORIDE 0.9% 250ML 300 ML IV SCH (04:30)
[2021-01-16] MEDS ORDERED: METOPROLOL TARTRATE 50 MG TAB PO ONE (04:30)
[2021-01-16 04:39] LABS: BASOPHILS % 0.1 % (0.0-1.0); HEMATOCRIT 36.7 % (38.2-49.6); LYMPHOCYTES # (AUTO) 0.3 (1.0-3.2); MEAN CORPUSCULAR HEMOGLOBIN 33.5 pg (28-32); MEAN CORPUSCULAR HGB CONC 35.4 g/dL (31-35); MEAN CORPUSCULAR VOLUME 94.6 fL (81-99); MONOCYTES # (AUTO) 0.8 (0.2-0.8); MONOCYTES % 8.7 % (4.4-11.3); NEUTROPHILS # (AUTO) 7.6 (2.1-6.9); NEUTROPHILS % 87.6 % (38.7-80.0); PLATELET COUNT 52 x10e3/uL (140-360); RED BLOOD COUNT 3.88 x10e6/uL (4.3-5.7)
[2021-01-16 04:58] LABS: ALANINE AMINOTRANSFERASE 15 IU/L (0-55); ALBUMIN 2.7 g/dL (3.5-5.0); ALBUMIN/GLOBULIN RATIO 0.9 (0.8-2.0); ALKALINE PHOSPHATASE 76 IU/L (40-150); ANION GAP 11.4 mmol/L (8-16); BLOOD UREA NITROGEN 17 mg/dL (7-26); BUN/CREATININE RATIO 22 (6-25); CALCIUM 8.1 mg/dL (8.4-10.2); CARBON DIOXIDE 18 mmol/L (22-29); CHLORIDE 103 mmol/L (98-107); CREATININE, SERUM 0.77 mg/dL (0.72-1.25); EST GLOMERULAR FILTRATION RATE > 60 ML/MIN (60-); GLUCOSE 144 mg/dL (74-118); POTASSIUM 3.4 mmol/L (3.5-5.1); SODIUM 129 mmol/L (136-145)
[2021-01-16] MEDS ORDERED: GUAIFENESIN 200 MG/10 ML UDC PO PRN (05:00)
[2021-01-16] MEDS: PIPERACILLIN/TAZOBAC 3.375 GM in DEXTROSE 5% 50ML 50 ML IV SCH ×3 (05:00→18:27)
[2021-01-16] MEDS ORDERED: PIPERACILLIN/TAZOBAC 3.375 GM VIAL ONE ×2 (05:00→12:46)
[2021-01-16 05:35] LABS: CREATINE KINASE MB 0.9 ng/mL (0-5.0)
[2021-01-16] MEDS: SODIUM CHLORIDE 0.9% 1000ML 1,000 ML IV SCH ×3 (06:30→22:29)
[2021-01-16] MEDS: VANCOMYCIN HCL 1.25 GM in SODIUM CHLORIDE 0.9% 250ML 250 ML IV SCH ×2 (06:50→19:30)
[2021-01-16 14:10] LABS: CREATINE KINASE MB 1.9 ng/mL (0-5.0)
[2021-01-16] MEDS: METOPROLOL TARTRATE 25 MG TAB PO SCH ×2 (14:17→21:25)
[2021-01-16] MEDS ORDERED: PIPERACILLIN/TAZOBAC 3.375 GM in DEXTROSE 5% 50ML 50 ML IV SCH (19:59)
[2021-01-17] VITALS (7 sets, daily range): BP systolic 114–135; BP diastolic 63–87
[2021-01-17] MEDS: PIPERACILLIN/TAZOBAC 3.375 GM in DEXTROSE 5% 50ML 50 ML IV SCH ×6 (05:27→23:53)
[2021-01-17] MEDS: METOPROLOL TARTRATE 25 MG TAB PO SCH ×3 (05:30→20:12)
[2021-01-17 05:55] LABS: BASOPHILS % 0.3 % (0.0-1.0); EOSINOPHILS % 0.5 % (0.0-6.0); HEMATOCRIT 36.8 % (38.2-49.6); HEMOGLOBIN 12.9 g/dL (14.0-18.0); LYMPHOCYTES # (AUTO) 0.9 (1.0-3.2); LYMPHOCYTES % 11.5 % (18.0-39.1); MEAN CORPUSCULAR HEMOGLOBIN 34.3 pg (28-32); MEAN CORPUSCULAR HGB CONC 35.1 g/dL (31-35); MEAN CORPUSCULAR VOLUME 97.9 fL (81-99); MONOCYTES # (AUTO) 1.2 (0.2-0.8); MONOCYTES % 15.9 % (4.4-11.3); NEUTROPHILS # (AUTO) 5.3 (2.1-6.9); NEUTROPHILS % 71.3 % (38.7-80.0); RED BLOOD COUNT 3.76 x10e6/uL (4.3-5.7)
[2021-01-17 06:01] LABS: PLATELET COUNT 55 x10e3/uL (140-360)
[2021-01-17 06:15] LABS: ANION GAP 10.5 mmol/L (8-16); BLOOD UREA NITROGEN 19 mg/dL (7-26); BUN/CREATININE RATIO 28 (6-25); CALCIUM 8.3 mg/dL (8.4-10.2); CARBON DIOXIDE 21 mmol/L (22-29); CHLORIDE 102 mmol/L (98-107); CREATININE, SERUM 0.69 mg/dL (0.72-1.25); EST GLOMERULAR FILTRATION RATE > 60 ML/MIN (60-); GLUCOSE 101 mg/dL (74-118); MAGNESIUM 1.7 MG/DL (1.3-2.1); POTASSIUM 3.5 mmol/L (3.5-5.1); SODIUM 130 mmol/L (136-145)
[2021-01-17] MEDS: VANCOMYCIN HCL 1.25 GM in SODIUM CHLORIDE 0.9% 250ML 250 ML IV SCH (06:20)
[2021-01-17] MEDS: SODIUM CHLORIDE 0.9% 1000ML 1,000 ML IV SCH ×4 (06:20→23:54)
[2021-01-17] MEDS: FINASTERIDE 5 MG TAB PO SCH (08:29)
[2021-01-17 09:45] LABS: BAND NEUTROPHILS % (MANUAL) 3 %; EOSINOPHILS % (MANUAL) 2 % (0-7); LYMPHOCYTES % (MANUAL) 8 % (19-48); MONOCYTES % (MANUAL) 16 % (3.4-9.0); NEUTROPHILS % (MANUAL) 61 % (40-74); PLATELET ESTIMATE MARKEDLY DECREASED; PLATELET MORPHOLOGY COMMENT NORMAL; RBC MORPHOLOGY COMMENT NORMAL
[2021-01-17] MEDS ORDERED: PIPERACILLIN/TAZOBAC 3.375 GM VIAL ONE ×2 (10:38→23:42)
[2021-01-17] MEDS: TAMSULOSIN HCL 0.4 MG CAP PO SCH (20:12)
[2021-01-17] MEDS ORDERED: DEXTROSE 5% 50ML 50 ML IV ONE (23:44)
[2021-01-18 00:40] VITALS: BP 110/73
[2021-01-18 04:44] VITALS: BP 110/71
[2021-01-18] MEDS: SODIUM CHLORIDE 0.9% 1000ML 1,000 ML IV SCH ×2 (05:43→09:13)
[2021-01-18] MEDS ORDERED: SODIUM CHLORIDE 0.9% 50ML 50 ML ONE (05:46)
[2021-01-18] MEDS ORDERED: CEFAZOLIN SOD 1 GM VIAL IV SCH (06:00)
[2021-01-18 08:24] VITALS: BP 110/71
[2021-01-18] MEDS ORDERED: METOPROLOL SUCCINATE 50 MG TAB XL PO SCH (09:00)
[2021-01-18] MEDS: FINASTERIDE 5 MG TAB PO SCH (09:10)
[2021-01-18 09:55] VITALS: BP 131/80
[2021-01-18 09:56] VITALS: BP 121/73
[2021-01-18 14:13] VITALS: BP 108/77
[2021-01-18] MEDS ORDERED: PENICILLIN V P500 MG PO (14:18)
[2021-01-18] MEDS ORDERED: CEFAZOLIN SOD 1 GM/NS 50ML 50 ML IV SCH (14:30)
[2021-01-18] MEDS ORDERED: ENOXAPARIN SOD INJ 40 MG/0.4 ML SYR SC SCH (17:00)
== END 2021-01-18 15:35 | disposition home or self-care (01) | DRG 698 ==
LOC: ER 20:12 → ERHOLD 22:12 → IMCU 23:11
PROVIDERS: ADMIT Internal Medicine; ATTEND Internal Medicine
DX: T83.592A Infection and inflammatory reaction due to indwelling ureteral stent, initial encounter (principal); A41.9 Sepsis, unspecified organism; U07.1 COVID-19; E87.2 Acidosis; E87.1 Hypo-osmolality and hyponatremia; N39.0 Urinary tract infection, site not specified; I47.1 Supraventricular tachycardia; D69.6 Thrombocytopenia, unspecified; E88.09 Other disorders of plasma-protein metabolism, not elsewhere classified; E11.65 Type 2 diabetes mellitus with hyperglycemia; R00.0 Tachycardia, unspecified; I10 Essential (primary) hypertension; I25.10 Atherosclerotic heart disease of native coronary artery without angina pectoris; Z91.19 Patient's noncompliance with other medical treatment and regimen; Z87.442 Personal history of urinary calculi; Z95.1 Presence of aortocoronary bypass graft; Z88.8 Allergy status to other drugs, medicaments and biological substances; E66.01 Morbid (severe) obesity due to excess calories; I48.91 Unspecified atrial fibrillation; N40.0 Benign prostatic hyperplasia without lower urinary tract symptoms; E78.5 Hyperlipidemia, unspecified; Z96.0 Presence of urogenital implants; B95.4 Other streptococcus as the cause of diseases classified elsewhere; E66.9 Obesity, unspecified; Z68.38 Body mass index [BMI] 38.0-38.9, adult
CPT/HCPCS: 36415; 36600; 71045; 80048; 80053; 81001; 82550; 82553; 82728; 82805; 83605; 83735; 83880; 84484; 85025; 87040; 87086; 93005; 93306; 96361; 99285; J0690; J1885; J2405; J2543; J3370; J7030; J7050; U0002

== ENCOUNTER → 2021-02-11 | Outpatient (CLI) | payer OTHER ==
[~2021-02-11] MED LIST changes: +ASPIRIN EC81 MG PO; +CARVEDILOL3.125 MG PO; +PENICILLIN V P500 MG PO
== END ==
LOC: RAD 10:57
PROVIDERS: ATTEND Urology
DX: N20.0 Calculus of kidney (principal)
CPT/HCPCS: 74018

== ENCOUNTER → 2021-02-13 | Day surgery (SDC) | payer OTHER ==
[~2021-02-13] VITALS: Ht 180.3 cm; Wt 113.4 kg
[2021-02-13] VITALS (7 sets, daily range): BP systolic 112–138; BP diastolic 61–79
[~2021-02-13] MED LIST changes: +ASPIRIN81 MG PO; +BACTRIM DS TAB1 EACH PO; +FENTANYL CITRATE/PF 100MCG/2 ML INJ ONE; +HEPARIN SOD/SOD CHLORIDE 1,000 ML ONE; +IOPAMIDOL 370 MG/ML 200 ML INFUS..BTL INJ ONE; +LIDOCAINE HCL 2% LOCAL 20 ML VIAL ONE; +LISINOPRIL5 MG PO; +MIDAZOLAM HCL 2 MG/2 ML VIAL ONE; +SODIUM CHLORIDE 0.9% 1000ML 1,000 ML ONE
== END | disposition home or self-care (01) ==
LOC: CATH LAB 07:15
PROVIDERS: ATTEND Internal Medicine Cardiovascular Disease
DX: I25.10 Atherosclerotic heart disease of native coronary artery without angina pectoris (principal); I82.493 Acute embolism and thrombosis of other specified deep vein of lower extremity, bilateral; I42.8 Other cardiomyopathies; I11.0 Hypertensive heart disease with heart failure; I50.20 Unspecified systolic (congestive) heart failure; I25.2 Old myocardial infarction; E78.5 Hyperlipidemia, unspecified; E13.69 Other specified diabetes mellitus with other specified complication; Z01.812 Encounter for preprocedural laboratory examination; Z20.822 Contact with and (suspected) exposure to COVID-19; Z79.02 Long term (current) use of antithrombotics/antiplatelets; Z79.82 Long term (current) use of aspirin; Z68.37 Body mass index [BMI] 37.0-37.9, adult; Z86.16 Personal history of COVID-19
CPT/HCPCS: 93458; C1769; C1887; J2001; J2250; J3010; J7030; Q9967; U0002; 99152; 99153

== ENCOUNTER → 2021-02-19 | Day surgery (SDC) | payer OTHER ==
[~2021-02-19] MED LIST changes: +DEXAMETHASONE SOD PHOS INJ 4 MG/ML VIAL ONE; +EPHEDRINE SULFATE INJ 50 MG/ML VIAL ONE; -HEPARIN SOD/SOD CHLORIDE 1,000 ML ONE; -IOPAMIDOL 370 MG/ML 200 ML INFUS..BTL INJ ONE; +LIDOCAINE HCL 2% JELLY 5 ML TUBE ONE; -LIDOCAINE HCL 2% LOCAL 20 ML VIAL ONE; +LIDOCAINE HCL 2% LOCAL INJ 5 ML SDV VIAL INJ ONE; +ONDANSETRON HCL INJ 2MG/ML 2ML 2 MG/ML VIAL ONE; +PROPOFOL IV EMULSION 10 MG/ML 20 ML VIAL ONE; +SEVOFLURANE INHAL SOLN 250 ML PEN BTL ONE; -SODIUM CHLORIDE 0.9% 1000ML 1,000 ML ONE
[2021-02-19 08:40] VITALS: BP 114/61
== END | disposition home or self-care (01) ==
LOC: OR 05:19 → MERGE 07:00
PROVIDERS: ATTEND Urology
DX: N20.0 Calculus of kidney (principal); Z96.0 Presence of urogenital implants; N40.1 Benign prostatic hyperplasia with lower urinary tract symptoms; N39.0 Urinary tract infection, site not specified; N13.30 Unspecified hydronephrosis; R81 Glycosuria; I25.10 Atherosclerotic heart disease of native coronary artery without angina pectoris; I25.2 Old myocardial infarction; E11.9 Type 2 diabetes mellitus without complications; K74.60 Unspecified cirrhosis of liver; I11.0 Hypertensive heart disease with heart failure; I50.9 Heart failure, unspecified; E66.9 Obesity, unspecified; Z88.8 Allergy status to other drugs, medicaments and biological substances; Z01.818 Encounter for other preprocedural examination; Z79.82 Long term (current) use of aspirin; Z79.02 Long term (current) use of antithrombotics/antiplatelets; Z68.35 Body mass index [BMI] 35.0-35.9, adult; Z95.5 Presence of coronary angioplasty implant and graft
CPT/HCPCS: 50590; 74018; J1100; J2001 ×2; J2250; J2405; J2704; J3010

== ENCOUNTER 2021-03-01 11:13 | Inpatient (IN) | payer OTHER ==
[~2021-03-01] VITALS: Ht 180.3 cm; Wt 117.0 kg
[2021-03-01] MEDS: SODIUM CHLORIDE 0.9% 1000ML 1,000 ML IV SCH ×2 (05:27→16:15)
[~2021-03-01 11:13] MED LIST changes: -DEXAMETHASONE SOD PHOS INJ 4 MG/ML VIAL ONE; -EPHEDRINE SULFATE INJ 50 MG/ML VIAL ONE; -FENTANYL CITRATE/PF 100MCG/2 ML INJ ONE; -LIDOCAINE HCL 2% JELLY 5 ML TUBE ONE; -LIDOCAINE HCL 2% LOCAL INJ 5 ML SDV VIAL INJ ONE; -MIDAZOLAM HCL 2 MG/2 ML VIAL ONE; -ONDANSETRON HCL INJ 2MG/ML 2ML 2 MG/ML VIAL ONE; -PROPOFOL IV EMULSION 10 MG/ML 20 ML VIAL ONE; -SEVOFLURANE INHAL SOLN 250 ML PEN BTL ONE
[2021-03-01 12:04] LABS: BASOPHILS # (AUTO) 0.1 (0.0-0.1); BASOPHILS % 0.4 % (0.0-1.0); EOSINOPHILS # (AUTO) 0.1 (0.0-0.4); HEMATOCRIT 38.8 % (38.2-49.6); HEMOGLOBIN 14.2 g/dL (14.0-18.0); LYMPHOCYTES # (AUTO) 0.6 (1.0-3.2); LYMPHOCYTES % 4.7 % (18.0-39.1); MEAN CORPUSCULAR HGB CONC 36.6 g/dL (31-35); MEAN CORPUSCULAR VOLUME 92.8 fL (81-99); MONOCYTES # (AUTO) 1.2 (0.2-0.8); NEUTROPHILS # (AUTO) 11.5 (2.1-6.9); RED BLOOD COUNT 4.18 x10e6/uL (4.3-5.7); RED CELL DISTRIBUTION WIDTH 12.9 % (11.7-14.4)
[2021-03-01 12:07] LABS: PLATELET COUNT 60 x10e3/uL (140-360)
[2021-03-01 12:11] LABS: CLARITY,URINE SL CLOUDY (CLEAR); COLOR,URINE BROWN (YELLOW); KETONES,URINE NEGATIVE (NEGATIVE); LEUKOCYTE ESTERASE ,URINE LARGE (NEGATIVE); NITRITE,URINE NEGATIVE (NEGATIVE); PROTEIN,URINE DIPSTICK 2+ (NEGATIVE); URINE UROBILINOGEN >=8 mg/dL (0.2 - 1)
[2021-03-01 12:21] LABS: ALANINE AMINOTRANSFERASE 23 IU/L (0-55); ALBUMIN/GLOBULIN RATIO 0.8 (0.8-2.0); ALKALINE PHOSPHATASE 85 IU/L (40-150); ANION GAP 11.8 mmol/L (8-16); BLOOD UREA NITROGEN 15 mg/dL (7-26); BUN/CREATININE RATIO 18 (6-25); CALCIUM 8.2 mg/dL (8.4-10.2); CARBON DIOXIDE 23 mmol/L (22-29); CHLORIDE 97 mmol/L (98-107); CREATININE, SERUM 0.85 mg/dL (0.72-1.25); EST GLOMERULAR FILTRATION RATE > 60 ML/MIN (60-); GLUCOSE 234 mg/dL (74-118); POTASSIUM 3.8 mmol/L (3.5-5.1); SODIUM 128 mmol/L (136-145)
[2021-03-01 12:23] LABS: BACTERIA,URINE FEW /HPF; WBC,URINE (MAN) >50 /HPF (0-5)
[2021-03-01] MEDS ORDERED: SODIUM CHLORIDE 0.9% 1000ML 1,000 ML IV STA (12:53)
[2021-03-01] MEDS: PIPERACILLIN/TAZOBAC 3.375 GM in SODIUM CHLORIDE 0.9% 50ML 50 ML IV SCH ×2 (13:00→18:15)
[2021-03-01] MEDS ORDERED: ONDANSETRON HCL INJ 2MG/ML 2ML 2 MG/ML VIAL IV PRN (13:15)
[2021-03-01] MEDS ORDERED: SODIUM CHLORIDE 0.9% 1000ML 1,000 ML IV SCH (13:15)
[2021-03-01 13:47] LABS: BAND NEUTROPHILS % (MANUAL) 9 %; LYMPHOCYTES % (MANUAL) 2 % (19-48); METAMYELOCYTES % (MANUAL) 4 % (0-0); MONOCYTES % (MANUAL) 7 % (3.4-9.0); MYELOCYTES % (MANUAL) 1 % (0-0); NEUTROPHILS % (MANUAL) 77 % (40-74)
[2021-03-01 13:50] LABS: PLATELET ESTIMATE MODERATELY DECREASED
[2021-03-01 13:51] LABS: PLATELET MORPHOLOGY COMMENT FEW GIANT
[2021-03-01 13:52] LABS: RBC MORPHOLOGY COMMENT NORMAL
[2021-03-01] MEDS ORDERED: DEXTROSE 50% SYRINGE 50 ML IV PRN (14:45)
[2021-03-01] MEDS ORDERED: FINASTERIDE5 MG (14:54)
[2021-03-01] MEDS ORDERED: SMZ/TMP (14:54)
[2021-03-01] MEDS: ACETAMINOPHEN 325 MG TAB PO PRN ×2 (14:55→22:18)
[2021-03-01 16:01] VITALS: BP 139/78
[2021-03-01 16:13] VITALS: BP 139/78
[2021-03-01] MEDS: INSULIN LISPRO 100 UNIT/1 ML 3ML VIAL SQ SCH ×2 (16:30→21:31)
[2021-03-01] MEDS ORDERED: PIPERACILLIN/TAZOBAC 3.375 GM VIAL ONE ×2 (17:15→21:47)
[2021-03-01] MEDS ORDERED: SODIUM CHLORIDE 0.9% 50ML 50 ML ONE ×2 (17:16→21:47)
[2021-03-01 20:00] VITALS: BP 121/58
[2021-03-01 20:17] VITALS: BP 121/58
[2021-03-02] VITALS (8 sets, daily range): BP systolic 111–125; BP diastolic 49–87
[2021-03-02] MEDS: PIPERACILLIN/TAZOBAC 3.375 GM in SODIUM CHLORIDE 0.9% 50ML 50 ML IV SCH ×5 (05:28→17:22)
[2021-03-02] MEDS ORDERED: PIPERACILLIN/TAZOBAC 3.375 GM VIAL ONE ×4 (05:41→23:52)
[2021-03-02] MEDS ORDERED: SODIUM CHLORIDE 0.9% 50ML 50 ML ONE ×4 (05:42→23:52)
[2021-03-02 07:03] LABS: BASOPHILS % 0.2 % (0.0-1.0); EOSINOPHILS % 0.2 % (0.0-6.0); HEMATOCRIT 35.6 % (38.2-49.6); HEMOGLOBIN 12.4 g/dL (14.0-18.0); LYMPHOCYTES % 7.3 % (18.0-39.1); MEAN CORPUSCULAR HEMOGLOBIN 33.1 pg (28-32); MEAN CORPUSCULAR HGB CONC 34.8 g/dL (31-35); MEAN CORPUSCULAR VOLUME 94.9 fL (81-99); MONOCYTES # (AUTO) 2.2 (0.2-0.8); MONOCYTES % 15.8 % (4.4-11.3); NEUTROPHILS # (AUTO) 10.2 (2.1-6.9); NEUTROPHILS % 75.5 % (38.7-80.0); PLATELET COUNT 61 x10e3/uL (140-360); RED BLOOD COUNT 3.75 x10e6/uL (4.3-5.7)
[2021-03-02] MEDS: INSULIN LISPRO 100 UNIT/1 ML 3ML VIAL SQ SCH ×4 (07:30→21:00)
[2021-03-02 07:45] LABS: ALANINE AMINOTRANSFERASE 19 IU/L (0-55); ALBUMIN 2.7 g/dL (3.5-5.0); ALBUMIN/GLOBULIN RATIO 0.9 (0.8-2.0); ALKALINE PHOSPHATASE 81 IU/L (40-150); ANION GAP 10.4 mmol/L (8-16); BLOOD UREA NITROGEN 15 mg/dL (7-26); BUN/CREATININE RATIO 21 (6-25); CALCIUM 7.9 mg/dL (8.4-10.2); CARBON DIOXIDE 24 mmol/L (22-29); CHLORIDE 99 mmol/L (98-107); CREATININE, SERUM 0.71 mg/dL (0.72-1.25); EST GLOMERULAR FILTRATION RATE > 60 ML/MIN (60-); GLUCOSE 106 mg/dL (74-118); POTASSIUM 3.4 mmol/L (3.5-5.1); SODIUM 130 mmol/L (136-145)
[2021-03-02] MEDS ORDERED: HYDRALAZINE HCL 20 MG/ML VIAL IV PRN (10:45)
[2021-03-02] MEDS ORDERED: ACETAMINOPHEN/CODEINE 300MG - 30MG TAB PO PRN (10:45)
[2021-03-02] MEDS ORDERED: POTASSIUM CHLORIDE 10MEQ EA PO ONE (11:30)
[2021-03-02] MEDS: FAMOTIDINE 20 MG TAB PO SCH (17:21)
[2021-03-02] MEDS: CARVEDILOL 3.125 MG TAB PO SCH (17:22)
[2021-03-02] MEDS: SODIUM CHLORIDE 0.9% 1000ML 1,000 ML IV SCH (21:09)
[2021-03-02] MEDS: TAMSULOSIN HCL 0.4 MG CAP PO SCH (21:09)
[2021-03-03] VITALS (8 sets, daily range): BP systolic 83–124; BP diastolic 51–75
[2021-03-03] MEDS: PIPERACILLIN/TAZOBAC 3.375 GM in SODIUM CHLORIDE 0.9% 50ML 50 ML IV SCH ×2 (00:45→05:23)
[2021-03-03] MEDS ORDERED: PIPERACILLIN/TAZOBAC 3.375 GM VIAL ONE (04:58)
[2021-03-03] MEDS ORDERED: SODIUM CHLORIDE 0.9% 50ML 50 ML ONE (04:59)
[2021-03-03 07:11] LABS: BASOPHILS % 0.4 % (0.0-1.0); EOSINOPHILS # (AUTO) 0.1 (0.0-0.4); EOSINOPHILS % 1.4 % (0.0-6.0); HEMATOCRIT 34.3 % (38.2-49.6); HEMOGLOBIN 12.2 g/dL (14.0-18.0); LYMPHOCYTES # (AUTO) 1.3 (1.0-3.2); LYMPHOCYTES % 16.6 % (18.0-39.1); MEAN CORPUSCULAR HEMOGLOBIN 33.5 pg (28-32); MEAN CORPUSCULAR HGB CONC 35.6 g/dL (31-35); MEAN CORPUSCULAR VOLUME 94.2 fL (81-99); MONOCYTES % 13.4 % (4.4-11.3); NEUTROPHILS # (AUTO) 5.2 (2.1-6.9); PLATELET COUNT 66 x10e3/uL (140-360); RED BLOOD COUNT 3.64 x10e6/uL (4.3-5.7); RED CELL DISTRIBUTION WIDTH 13.1 % (11.7-14.4)
[2021-03-03] MEDS: INSULIN LISPRO 100 UNIT/1 ML 3ML VIAL SQ SCH ×2 (07:30→11:30)
[2021-03-03 07:43] LABS: ANION GAP 9.6 mmol/L (8-16); BLOOD UREA NITROGEN 11 mg/dL (7-26); BUN/CREATININE RATIO 16 (6-25); CALCIUM 7.8 mg/dL (8.4-10.2); CARBON DIOXIDE 25 mmol/L (22-29); CHLORIDE 102 mmol/L (98-107); CREATININE, SERUM 0.68 mg/dL (0.72-1.25); EST GLOMERULAR FILTRATION RATE > 60 ML/MIN (60-); GLUCOSE 99 mg/dL (74-118); POTASSIUM 3.6 mmol/L (3.5-5.1); SODIUM 133 mmol/L (136-145)
[2021-03-03] MEDS: FINASTERIDE 5 MG TAB PO SCH (08:29)
[2021-03-03] MEDS: FAMOTIDINE 20 MG TAB PO SCH ×2 (08:29→16:21)
[2021-03-03] MEDS: CARVEDILOL 3.125 MG TAB PO SCH ×2 (08:30→16:22)
[2021-03-03] MEDS: SODIUM CHLORIDE 0.9% 1000ML 1,000 ML IV SCH ×2 (10:17→21:20)
[2021-03-03] MEDS: AMPICILLIN SOD 1 GM/NS 50ML 50 ML IV SCH ×3 (11:56→17:33)
[2021-03-03] MEDS: TAMSULOSIN HCL 0.4 MG CAP PO SCH (20:55)
[2021-03-04] VITALS: BP 105/69
[2021-03-04 04:00] VITALS: BP 113/72
[2021-03-04] MEDS: AMPICILLIN SOD 1 GM/NS 50ML 50 ML IV SCH ×2 (06:07)
[2021-03-04 06:14] LABS: BASOPHILS % 0.4 % (0.0-1.0); EOSINOPHILS # (AUTO) 0.2 (0.0-0.4); EOSINOPHILS % 3.6 % (0.0-6.0); HEMATOCRIT 32.4 % (38.2-49.6); HEMOGLOBIN 11.4 g/dL (14.0-18.0); LYMPHOCYTES % 19.9 % (18.0-39.1); MEAN CORPUSCULAR HEMOGLOBIN 33.2 pg (28-32); MEAN CORPUSCULAR HGB CONC 35.2 g/dL (31-35); MEAN CORPUSCULAR VOLUME 94.5 fL (81-99); MONOCYTES # (AUTO) 0.7 (0.2-0.8); MONOCYTES % 14.9 % (4.4-11.3); NEUTROPHILS # (AUTO) 2.9 (2.1-6.9); NEUTROPHILS % 60.2 % (38.7-80.0); PLATELET COUNT 58 x10e3/uL (140-360); RED BLOOD COUNT 3.43 x10e6/uL (4.3-5.7); RED CELL DISTRIBUTION WIDTH 13.1 % (11.7-14.4)
[2021-03-04 06:46] LABS: ANION GAP 8.3 mmol/L (8-16); BLOOD UREA NITROGEN 9 mg/dL (7-26); BUN/CREATININE RATIO 14 (6-25); CALCIUM 7.7 mg/dL (8.4-10.2); CARBON DIOXIDE 25 mmol/L (22-29); CHLORIDE 103 mmol/L (98-107); CREATININE, SERUM 0.65 mg/dL (0.72-1.25); EST GLOMERULAR FILTRATION RATE > 60 ML/MIN (60-); GLUCOSE 122 mg/dL (74-118); POTASSIUM 3.3 mmol/L (3.5-5.1); SODIUM 133 mmol/L (136-145)
[2021-03-04 07:54] VITALS: BP 110/75
[2021-03-04 08:21] VITALS: BP 110/75
[2021-03-04] MEDS ORDERED: ONDANSETRON HCL 4 MG ORAL DISINTEGRATING TAB PO PRN (08:30)
[2021-03-04] MEDS: FAMOTIDINE 20 MG TAB PO SCH (08:35)
[2021-03-04] MEDS: CARVEDILOL 3.125 MG TAB PO SCH (08:35)
[2021-03-04] MEDS: FINASTERIDE 5 MG TAB PO SCH (08:35)
[2021-03-04] MEDS: SODIUM CHLORIDE 0.9% 1000ML 1,000 ML IV SCH (08:37)
[2021-03-04] MEDS ORDERED: POTASSIUM CHLORIDE 10MEQ EA PO ONE (08:45)
[2021-03-04 11:43] VITALS: BP 114/71
== END 2021-03-04 12:53 | disposition home or self-care (01) | DRG 699 ==
LOC: ER 11:50 → ERHOLD 13:03 → MED/SURG2 15:55
PROVIDERS: ADMIT Internal Medicine; ATTEND Internal Medicine
DX: T83.592A Infection and inflammatory reaction due to indwelling ureteral stent, initial encounter (principal); N39.0 Urinary tract infection, site not specified; E87.1 Hypo-osmolality and hyponatremia; E11.9 Type 2 diabetes mellitus without complications; B95.4 Other streptococcus as the cause of diseases classified elsewhere; I10 Essential (primary) hypertension; Z20.822 Contact with and (suspected) exposure to COVID-19; D69.6 Thrombocytopenia, unspecified; N40.0 Benign prostatic hyperplasia without lower urinary tract symptoms; Z86.74 Personal history of sudden cardiac arrest; Z86.16 Personal history of COVID-19; I25.10 Atherosclerotic heart disease of native coronary artery without angina pectoris; Z95.5 Presence of coronary angioplasty implant and graft; E66.9 Obesity, unspecified; Z68.36 Body mass index [BMI] 36.0-36.9, adult
CPT/HCPCS: 36415; 74018; 80048; 80053; 81001; 82948; 83036; 83605; 85025; 87040; 87086; 87186; 88300; 96361; 99284; J0290; J2405; J2543; J7030; U0002

== ENCOUNTER → 2021-03-19 | Day surgery (SDC) | payer OTHER ==
[2021-03-18 15:49] LABS: BASOPHILS % 1.2 % (0.0-1.0); EOSINOPHILS # (AUTO) 0.3 (0.0-0.4); EOSINOPHILS % 8.7 % (0.0-6.0); HEMATOCRIT 35.7 % (38.2-49.6); HEMOGLOBIN 12.6 g/dL (14.0-18.0); LYMPHOCYTES # (AUTO) 1.2 (1.0-3.2); LYMPHOCYTES % 35.9 % (18.0-39.1); MEAN CORPUSCULAR HEMOGLOBIN 33.3 pg (28-32); MEAN CORPUSCULAR HGB CONC 35.3 g/dL (31-35); MEAN CORPUSCULAR VOLUME 94.4 fL (81-99); MONOCYTES # (AUTO) 0.4 (0.2-0.8); MONOCYTES % 12.2 % (4.4-11.3); NEUTROPHILS # (AUTO) 1.4 (2.1-6.9); NEUTROPHILS % 41.7 % (38.7-80.0); PLATELET COUNT 89 x10e3/uL (140-360); RED BLOOD COUNT 3.78 x10e6/uL (4.3-5.7); RED CELL DISTRIBUTION WIDTH 13.3 % (11.7-14.4)
[2021-03-18 16:05] LABS: BLOOD UREA NITROGEN 8 mg/dL (7-26); BUN/CREATININE RATIO 10 (6-25); CALCIUM 8.6 mg/dL (8.4-10.2); CARBON DIOXIDE 25 mmol/L (22-29); CHLORIDE 104 mmol/L (98-107); CREATININE, SERUM 0.79 mg/dL (0.72-1.25); EST GLOMERULAR FILTRATION RATE > 60 ML/MIN (60-); GLUCOSE 316 mg/dL (74-118); SODIUM 137 mmol/L (136-145)
[~2021-03-19] MED LIST changes: +ACETAMINOPHEN/CODEINE 300MG - 30MG TAB ONE; +AMPICILLIN SOD 1 GM/NS 50ML 50 ML IV ONE; +DEXAMETHASONE SOD PHOS INJ 4 MG/ML VIAL ONE; +FENTANYL CITRATE/PF 100MCG/2 ML INJ ONE; +FINASTERIDE5 MG; +GENTAMICIN 80MG/NS 100 ML 100 ML IV ONE; +LIDOCAINE HCL 2% LOCAL INJ 5 ML SDV VIAL INJ ONE; +MIDAZOLAM HCL 2 MG/2 ML VIAL ONE; +ONDANSETRON HCL INJ 2MG/ML 2ML 2 MG/ML VIAL ONE; +PENICILLIN PO; +POVIDONE IODINE 0.05% 0.05 % ML PO ONE; +PROPOFOL IV EMULSION 10 MG/ML 20 ML VIAL ONE; +SEVOFLURANE INHAL SOLN 250 ML PEN BTL ONE; +SMZ/TMP
[2021-03-19 14:46] VITALS: BP 124/79
== END | disposition home or self-care (01) ==
LOC: OR 12:34
PROVIDERS: ATTEND Urology
DX: N20.1 Calculus of ureter (principal); N20.0 Calculus of kidney; Z46.6 Encounter for fitting and adjustment of urinary device; N40.1 Benign prostatic hyperplasia with lower urinary tract symptoms; N13.8 Other obstructive and reflux uropathy; N13.30 Unspecified hydronephrosis; N39.0 Urinary tract infection, site not specified; R35.1 Nocturia; D64.9 Anemia, unspecified; R81 Glycosuria; E11.9 Type 2 diabetes mellitus without complications; E66.01 Morbid (severe) obesity due to excess calories; I25.10 Atherosclerotic heart disease of native coronary artery without angina pectoris; I25.2 Old myocardial infarction; Z95.5 Presence of coronary angioplasty implant and graft; K74.60 Unspecified cirrhosis of liver; Z01.812 Encounter for preprocedural laboratory examination; Z01.818 Encounter for other preprocedural examination; Z79.02 Long term (current) use of antithrombotics/antiplatelets; Z79.82 Long term (current) use of aspirin; Z68.35 Body mass index [BMI] 35.0-35.9, adult
CPT/HCPCS: 36415 ×2; 52356; 74018; 74420; 80048; 82948; 84550; 85025; C1758 ×2; C1769; C2617; J0290; J1100; J1580; J2001; J2250; J2405; J2704; J3010; Q9967

== ENCOUNTER → 2021-05-21 | Day surgery (SDC) | payer OTHER ==
[2021-05-19 10:44] LABS: BASOPHILS % 0.8 % (0.0-1.0); EOSINOPHILS # (AUTO) 0.3 (0.0-0.4); EOSINOPHILS % 6.6 % (0.0-6.0); HEMOGLOBIN 14.4 g/dL (14.0-18.0); LYMPHOCYTES # (AUTO) 0.9 (1.0-3.2); LYMPHOCYTES % 24.9 % (18.0-39.1); MEAN CORPUSCULAR HEMOGLOBIN 33.6 pg (28-32); MEAN CORPUSCULAR HGB CONC 35.1 g/dL (31-35); MEAN CORPUSCULAR VOLUME 95.6 fL (81-99); MONOCYTES # (AUTO) 0.5 (0.2-0.8); MONOCYTES % 13.3 % (4.4-11.3); NEUTROPHILS % 53.9 % (38.7-80.0); PLATELET COUNT 60 x10e3/uL (140-360); RED BLOOD COUNT 4.29 x10e6/uL (4.3-5.7); RED CELL DISTRIBUTION WIDTH 13.2 % (11.7-14.4)
[2021-05-19 11:09] LABS: CALCIUM 8.5 mg/dL (8.4-10.2); CREATININE, SERUM 0.78 mg/dL (0.72-1.25)
[~2021-05-21] MED LIST changes: -ACETAMINOPHEN/CODEINE 300MG - 30MG TAB ONE; -AMPICILLIN SOD 1 GM/NS 50ML 50 ML IV ONE; +B&O 60MG R/S 60 MG SUPP PR ONE; +CEFTRIAXONE 1 GM VIAL ONE; -FENTANYL CITRATE/PF 100MCG/2 ML INJ ONE; -GENTAMICIN 80MG/NS 100 ML 100 ML IV ONE; +IOPAMIDOL 300MG/ML 50ML INFUS..BTL IV ONE; +METFORMIN HCL500 MG PO; -MIDAZOLAM HCL 2 MG/2 ML VIAL ONE; +SODIUM CHLORIDE 0.9% 50ML 50 ML ONE; +TUMS200 MG PO; +VITAMIN C500 MG PO; +VITAMIN D3250 MCG PO
[2021-05-21 14:00] VITALS: BP 121/73
== END | disposition home or self-care (01) ==
LOC: OR 08:51
PROVIDERS: ATTEND Urology
DX: N20.1 Calculus of ureter (principal); Z46.6 Encounter for fitting and adjustment of urinary device; N40.1 Benign prostatic hyperplasia with lower urinary tract symptoms; N13.8 Other obstructive and reflux uropathy; N13.30 Unspecified hydronephrosis; E11.9 Type 2 diabetes mellitus without complications; I11.0 Hypertensive heart disease with heart failure; I50.9 Heart failure, unspecified; I25.10 Atherosclerotic heart disease of native coronary artery without angina pectoris; Z88.8 Allergy status to other drugs, medicaments and biological substances; Z01.810 Encounter for preprocedural cardiovascular examination; Z01.812 Encounter for preprocedural laboratory examination; Z01.818 Encounter for other preprocedural examination; Z20.822 Contact with and (suspected) exposure to COVID-19; Z79.84 Long term (current) use of oral hypoglycemic drugs; Z98.61 Coronary angioplasty status
CPT/HCPCS: 36415 ×2; 52356; 74018; 74420; 80048; 82948; 85025; 86850; 86900; 88300; 93005; C1769; C2617; J0696; J1100; J2001; J2405; J2704; Q9967; U0002

== ENCOUNTER → 2021-06-09 | Day surgery (SDC) | payer OTHER ==
[2021-06-06 11:28] LABS: BASOPHILS % 0.8 % (0.0-1.0); EOSINOPHILS # (AUTO) 0.3 (0.0-0.4); EOSINOPHILS % 7.2 % (0.0-6.0); HEMATOCRIT 41.6 % (38.2-49.6); HEMOGLOBIN 14.6 g/dL (14.0-18.0); LYMPHOCYTES # (AUTO) 1.1 (1.0-3.2); LYMPHOCYTES % 29.2 % (18.0-39.1); MEAN CORPUSCULAR HEMOGLOBIN 33.2 pg (28-32); MEAN CORPUSCULAR HGB CONC 35.1 g/dL (31-35); MEAN CORPUSCULAR VOLUME 94.5 fL (81-99); MONOCYTES # (AUTO) 0.4 (0.2-0.8); MONOCYTES % 10.2 % (4.4-11.3); NEUTROPHILS % 52.3 % (38.7-80.0); PLATELET COUNT 59 x10e3/uL (140-360); RED CELL DISTRIBUTION WIDTH 13.1 % (11.7-14.4)
[2021-06-06 11:45] LABS: ANION GAP 13.2 mmol/L (8-16); CALCIUM 8.6 mg/dL (8.4-10.2); CREATININE, SERUM 0.77 mg/dL (0.72-1.25); POTASSIUM 4.2 mmol/L (3.5-5.1)
[~2021-06-09] MED LIST changes: -CEFTRIAXONE 1 GM VIAL ONE; +EPHEDRINE SULFATE INJ 50 MG/ML VIAL ONE; +FENTANYL CITRATE/PF 100MCG/2 ML INJ ONE; -LIDOCAINE HCL 2% LOCAL INJ 5 ML SDV VIAL INJ ONE; +MIDAZOLAM HCL 2 MG/2 ML VIAL ONE; +PIPERACILLIN/TAZOBACTAM 3.375 GM VIAL ONE
[2021-06-09 18:15] VITALS: BP 110/66
== END | disposition home or self-care (01) ==
LOC: OR 02:05
PROVIDERS: ATTEND Urology
DX: N20.1 Calculus of ureter (principal); N20.0 Calculus of kidney; N21.0 Calculus in bladder; Z46.6 Encounter for fitting and adjustment of urinary device; N40.1 Benign prostatic hyperplasia with lower urinary tract symptoms; N13.8 Other obstructive and reflux uropathy; N39.0 Urinary tract infection, site not specified; R35.1 Nocturia; N13.30 Unspecified hydronephrosis; R81 Glycosuria; R39.14 Feeling of incomplete bladder emptying; E11.9 Type 2 diabetes mellitus without complications; I25.10 Atherosclerotic heart disease of native coronary artery without angina pectoris; I25.2 Old myocardial infarction; I10 Essential (primary) hypertension; E66.9 Obesity, unspecified; D64.9 Anemia, unspecified; Z88.8 Allergy status to other drugs, medicaments and biological substances; Z01.812 Encounter for preprocedural laboratory examination; Z01.818 Encounter for other preprocedural examination; Z20.822 Contact with and (suspected) exposure to COVID-19; Z79.84 Long term (current) use of oral hypoglycemic drugs; Z79.02 Long term (current) use of antithrombotics/antiplatelets; Z79.82 Long term (current) use of aspirin; Z68.36 Body mass index [BMI] 36.0-36.9, adult; Z98.61 Coronary angioplasty status; Z86.16 Personal history of COVID-19
CPT/HCPCS: 36415 ×2; 52356; 74018; 74420; 80048; 82948; 84550; 85025; 88300; C1758; C1766; C1769; C2617; J1100; J2250; J2405; J2543; J2704; J3010; Q9967; U0002

== ENCOUNTER → 2021-07-16 | Day surgery (SDC) | payer OTHER ==
[2021-07-14 13:54] LABS: EOSINOPHILS # (AUTO) 0.3 (0.0-0.4); EOSINOPHILS % 7.7 % (0.0-6.0); HEMOGLOBIN 14.3 g/dL (14.0-18.0); LYMPHOCYTES # (AUTO) 1.1 (1.0-3.2); LYMPHOCYTES % 27.9 % (18.0-39.1); MEAN CORPUSCULAR HEMOGLOBIN 33.5 pg (28-32); MEAN CORPUSCULAR HGB CONC 34.9 g/dL (31-35); MONOCYTES # (AUTO) 0.4 (0.2-0.8); MONOCYTES % 10.4 % (4.4-11.3); NEUTROPHILS # (AUTO) 2.1 (2.1-6.9); NEUTROPHILS % 52.8 % (38.7-80.0); PLATELET COUNT 64 x10e3/uL (140-360); RED BLOOD COUNT 4.27 x10e6/uL (4.3-5.7)
[2021-07-14 14:13] LABS: ANION GAP 13.2 mmol/L (8-16); CALCIUM 8.8 mg/dL (8.4-10.2); CREATININE, SERUM 0.91 mg/dL (0.72-1.25); POTASSIUM 4.2 mmol/L (3.5-5.1)
[2021-07-14 14:23] LABS: ALBUMIN 3.4 g/dL (3.5-5.0)
[2021-07-14 14:26] LABS: ALBUMIN/GLOBULIN RATIO 1.1 (0.8-2.0)
[2021-07-14 14:46] LABS: INR 1.16
[~2021-07-16] MED LIST changes: -B&O 60MG R/S 60 MG SUPP PR ONE; +BELLADONNA/OPIUM 30 MG SUPP RC ONE; -DEXAMETHASONE SOD PHOS INJ 4 MG/ML VIAL ONE; -FENTANYL CITRATE/PF 100MCG/2 ML INJ ONE; -MIDAZOLAM HCL 2 MG/2 ML VIAL ONE; -ONDANSETRON HCL INJ 2MG/ML 2ML 2 MG/ML VIAL ONE; -PIPERACILLIN/TAZOBACTAM 3.375 GM VIAL ONE; -POVIDONE IODINE 0.05% 0.05 % ML PO ONE; -PROPOFOL IV EMULSION 10 MG/ML 20 ML VIAL ONE; -SEVOFLURANE INHAL SOLN 250 ML PEN BTL ONE; -SODIUM CHLORIDE 0.9% 50ML 50 ML ONE
[2021-07-16 13:10] VITALS: BP 118/76
== END | disposition home or self-care (01) ==
LOC: OR 08:22
PROVIDERS: ATTEND Urology
DX: N20.0 Calculus of kidney (principal); N40.1 Benign prostatic hyperplasia with lower urinary tract symptoms; R39.14 Feeling of incomplete bladder emptying; R35.1 Nocturia; R31.0 Gross hematuria; N39.0 Urinary tract infection, site not specified; E66.9 Obesity, unspecified; D64.9 Anemia, unspecified; N13.30 Unspecified hydronephrosis; R81 Glycosuria; N20.1 Calculus of ureter; E11.9 Type 2 diabetes mellitus without complications; I25.2 Old myocardial infarction; K74.60 Unspecified cirrhosis of liver; Z96.0 Presence of urogenital implants; Z01.812 Encounter for preprocedural laboratory examination; Z01.818 Encounter for other preprocedural examination; Z20.822 Contact with and (suspected) exposure to COVID-19; Z68.35 Body mass index [BMI] 35.0-35.9, adult
CPT/HCPCS: 36415 ×2; 52352; 52353; 74018; 74420; 80053; 82948; 85025; 85610; 85730; 88300; C1766; C1769; C2617; Q9967; U0002

== ENCOUNTER → 2021-08-15 | Day surgery (SDC) | payer OTHER ==
[2021-08-13 10:04] LABS: BASOPHILS % 0.9 % (0.0-1.0); EOSINOPHILS # (AUTO) 0.2 (0.0-0.4); EOSINOPHILS % 6.8 % (0.0-6.0); HEMATOCRIT 40.9 % (38.2-49.6); HEMOGLOBIN 14.5 g/dL (14.0-18.0); LYMPHOCYTES # (AUTO) 1.2 (1.0-3.2); LYMPHOCYTES % 36.1 % (18.0-39.1); MEAN CORPUSCULAR HEMOGLOBIN 34.3 pg (28-32); MEAN CORPUSCULAR HGB CONC 35.5 g/dL (31-35); MEAN CORPUSCULAR VOLUME 96.7 fL (81-99); MONOCYTES # (AUTO) 0.4 (0.2-0.8); MONOCYTES % 10.9 % (4.4-11.3); NEUTROPHILS # (AUTO) 1.5 (2.1-6.9); NEUTROPHILS % 44.1 % (38.7-80.0); PLATELET COUNT 61 x10e3/uL (140-360); RED BLOOD COUNT 4.23 x10e6/uL (4.3-5.7); RED CELL DISTRIBUTION WIDTH 12.9 % (11.7-14.4)
[2021-08-13 10:29] LABS: ANION GAP 11.1 mmol/L (8-16); CALCIUM 8.5 mg/dL (8.4-10.2); CREATININE, SERUM 0.69 mg/dL (0.72-1.25); POTASSIUM 4.1 mmol/L (3.5-5.1)
[~2021-08-15] MED LIST changes: +AMPICILLIN SOD 1 GM/NS 50ML 100 ML IV ONE; -EPHEDRINE SULFATE INJ 50 MG/ML VIAL ONE; +GENTAMICIN 80MG/NS 100 ML 200 ML IV ONE; +MULTIVITAMIN1 EACH PO
[2021-08-15 13:30] VITALS: BP 121/74
== END | disposition home or self-care (01) ==
LOC: OR 07:57
PROVIDERS: ATTEND Urology
DX: N20.1 Calculus of ureter (principal); N20.0 Calculus of kidney; N13.30 Unspecified hydronephrosis; Z46.6 Encounter for fitting and adjustment of urinary device; N40.0 Benign prostatic hyperplasia without lower urinary tract symptoms; D69.6 Thrombocytopenia, unspecified; I25.10 Atherosclerotic heart disease of native coronary artery without angina pectoris; I25.2 Old myocardial infarction; E11.9 Type 2 diabetes mellitus without complications; I10 Essential (primary) hypertension; E66.9 Obesity, unspecified; K74.60 Unspecified cirrhosis of liver; K76.6 Portal hypertension; Z01.812 Encounter for preprocedural laboratory examination; Z01.818 Encounter for other preprocedural examination; Z20.822 Contact with and (suspected) exposure to COVID-19; Z79.84 Long term (current) use of oral hypoglycemic drugs; Z95.5 Presence of coronary angioplasty implant and graft
CPT/HCPCS: 36415 ×2; 52332; 52352; 74018; 74420; 80048; 82948; 84550; 85025; 88300; C1758; C1766; C1769; C2617; J0290; J1580; Q9967; U0002

== ENCOUNTER 2021-09-15 12:10 | Inpatient (IN) | payer OTHER ==
[2021-09-12 15:48] LABS: EOSINOPHILS # (AUTO) 0.3 (0.0-0.4); HEMATOCRIT 41.1 % (38.2-49.6); HEMOGLOBIN 14.4 g/dL (14.0-18.0); LYMPHOCYTES # (AUTO) 1.5 (1.0-3.2); LYMPHOCYTES % 34.9 % (18.0-39.1); MEAN CORPUSCULAR HEMOGLOBIN 34.1 pg (28-32); MEAN CORPUSCULAR VOLUME 97.4 fL (81-99); MONOCYTES # (AUTO) 0.5 (0.2-0.8); MONOCYTES % 11.3 % (4.4-11.3); NEUTROPHILS # (AUTO) 1.9 (2.1-6.9); NEUTROPHILS % 45.6 % (38.7-80.0); PLATELET COUNT 62 x10e3/uL (140-360); RED BLOOD COUNT 4.22 x10e6/uL (4.3-5.7); RED CELL DISTRIBUTION WIDTH 12.9 % (11.7-14.4)
[2021-09-12 16:03] LABS: ANION GAP 8.3 mmol/L (8-16); CALCIUM 9.2 mg/dL (8.4-10.2); CREATININE, SERUM 0.81 mg/dL (0.72-1.25); POTASSIUM 4.3 mmol/L (3.5-5.1)
[~2021-09-15] VITALS: Ht 180.3 cm; Wt 122.9 kg
[~2021-09-15 12:10] MED LIST changes: -AMPICILLIN SOD 1 GM/NS 50ML 100 ML IV ONE; -BELLADONNA/OPIUM 30 MG SUPP RC ONE; -GENTAMICIN 80MG/NS 100 ML 200 ML IV ONE; -IOPAMIDOL 300MG/ML 50ML INFUS..BTL IV ONE
[2021-09-15] MEDS ORDERED: GENTAMICIN 80MG/NS 100 ML 200 ML IV ONE (12:59)
[2021-09-15] MEDS ORDERED: SODIUM CHLORIDE 0.9% 1000ML 1,000 ML ONE (13:00)
[2021-09-15] MEDS ORDERED: AMPICILLIN SOD 1 GM/NS 50ML 100 ML IV ONE (13:00)
[2021-09-15] MEDS ORDERED: LIDOCAINE HCL 2% LOCAL INJ 5 ML SDV VIAL INJ ONE (13:09)
[2021-09-15] MEDS ORDERED: PROPOFOL IV EMULSION 10 MG/ML 20 ML VIAL ONE (13:09)
[2021-09-15] MEDS ORDERED: POVIDONE IODINE 0.05% 0.05 % ML PO ONE (13:09)
[2021-09-15] MEDS ORDERED: ONDANSETRON HCL INJ 2MG/ML 2ML 2 MG/ML VIAL ONE (13:09)
[2021-09-15] MEDS ORDERED: SEVOFLURANE INHAL SOLN 250 ML PEN BTL ONE (13:09)
[2021-09-15] MEDS ORDERED: KETOROLAC TROMETHAMINE 30 MG/ML VIAL ONE (13:09)
[2021-09-15] MEDS ORDERED: DEXAMETHASONE SOD PHOS INJ 4 MG/ML SDV ONE (13:09)
[2021-09-15] MEDS ORDERED: IOPAMIDOL 300MG/ML 50ML INFUS..BTL IV ONE (15:22)
[2021-09-15] MEDS ORDERED: BELLADONNA/OPIUM 30 MG SUPP RC ONE (15:22)
[2021-09-15] MEDS ORDERED: ONDANSETRON HCL INJ 2MG/ML 2ML 2 MG/ML VIAL IV PRN (17:30)
[2021-09-15] MEDS ORDERED: PHENAZOPYRIDINE HCL 100 MG TAB PO PRN (17:30)
[2021-09-15] MEDS ORDERED: ACETAMINOPHEN/CODEINE 300MG - 30MG TAB PO PRN (17:30)
[2021-09-15] MEDS ORDERED: ACETAMINOPHEN 1000 MG/100 ML IV PRN (17:30)
[2021-09-15] MEDS ORDERED: DIPHENHYDRAMINE HCL 25 MG CAP PO PRN (17:30)
[2021-09-15] MEDS ORDERED: B&O 60MG R/S 60 MG SUPP PR PRN (17:30)
[2021-09-15 17:45] LABS: BASOPHILS % 0.4 % (0.0-1.0); EOSINOPHILS # (AUTO) 0.1 (0.0-0.4); HEMATOCRIT 40.9 % (38.2-49.6); HEMOGLOBIN 14.3 g/dL (14.0-18.0); LYMPHOCYTES # (AUTO) 0.6 (1.0-3.2); LYMPHOCYTES % 22.1 % (18.0-39.1); MEAN CORPUSCULAR HEMOGLOBIN 34.3 pg (28-32); MEAN CORPUSCULAR VOLUME 98.1 fL (81-99); MONOCYTES # (AUTO) 0.1 (0.2-0.8); MONOCYTES % 4.3 % (4.4-11.3); NEUTROPHILS # (AUTO) 1.9 (2.1-6.9); NEUTROPHILS % 68.8 % (38.7-80.0); PLATELET COUNT 57 x10e3/uL (140-360); RED BLOOD COUNT 4.17 x10e6/uL (4.3-5.7)
[2021-09-15 18:00] LABS: CALCIUM 8.1 mg/dL (8.4-10.2); CREATININE, SERUM 0.73 mg/dL (0.72-1.25)
[2021-09-15 18:23] VITALS: BP 132/74
[2021-09-15] MEDS: SOD CHL 0.45%/POT CHL 20MEQ 1,000 ML IV SCH (19:02)
[2021-09-15 20:00] VITALS: BP 136/80
[2021-09-15] MEDS: AMPICILLIN SOD 1 GM/NS 50ML 50 ML IV SCH (20:48)
[2021-09-15 21:00] VITALS: BP 136/80
[2021-09-15] MEDS: GENTAMICIN 80MG/NS 100 ML 100 ML IV SCH (21:52)
[2021-09-16] VITALS: BP 132/79
[2021-09-16] MEDS: SOD CHL 0.45%/POT CHL 20MEQ 1,000 ML IV SCH ×5 (01:30→22:00)
[2021-09-16 04:00] VITALS: BP 117/75
[2021-09-16] MEDS: AMPICILLIN SOD 1 GM/NS 50ML 50 ML IV SCH ×3 (04:02→20:38)
[2021-09-16] MEDS: GENTAMICIN 80MG/NS 100 ML 100 ML IV SCH ×3 (05:46→22:00)
[2021-09-16 06:28] LABS: BASOPHILS % 0.3 % (0.0-1.0); EOSINOPHILS % 0.2 % (0.0-6.0); HEMOGLOBIN 14.3 g/dL (14.0-18.0); LYMPHOCYTES # (AUTO) 0.7 (1.0-3.2); LYMPHOCYTES % 10.2 % (18.0-39.1); MEAN CORPUSCULAR HEMOGLOBIN 34.1 pg (28-32); MEAN CORPUSCULAR HGB CONC 35.8 g/dL (31-35); MEAN CORPUSCULAR VOLUME 95.5 fL (81-99); MONOCYTES # (AUTO) 0.5 (0.2-0.8); MONOCYTES % 7.2 % (4.4-11.3); NEUTROPHILS # (AUTO) 5.5 (2.1-6.9); NEUTROPHILS % 81.8 % (38.7-80.0); PLATELET COUNT 69 x10e3/uL (140-360); RED BLOOD COUNT 4.19 x10e6/uL (4.3-5.7); RED CELL DISTRIBUTION WIDTH 12.5 % (11.7-14.4)
[2021-09-16 06:49] LABS: ANION GAP 13.6 mmol/L (8-16); CALCIUM 8.2 mg/dL (8.4-10.2); CREATININE, SERUM 0.77 mg/dL (0.72-1.25); POTASSIUM 4.6 mmol/L (3.5-5.1)
[2021-09-16 07:52] VITALS: BP 137/77
[2021-09-16] MEDS: DOCUSATE SODIUM 100 MG CAP PO SCH ×2 (08:16→15:50)
[2021-09-16] MEDS ORDERED: DEXTROSE 50% SYRINGE 50 ML IV PRN (12:45)
[2021-09-16] MEDS: CARVEDILOL 3.125 MG TAB PO SCH (15:50)
[2021-09-16] MEDS: INSULIN LISPRO 100 UNIT/1 ML 3ML VIAL SQ SCH ×2 (16:30→21:00)
[2021-09-16 20:00] VITALS: BP 127/68
[2021-09-16] MEDS: TAMSULOSIN HCL 0.4 MG CAP PO SCH (20:38)
[2021-09-16] MEDS ORDERED: METFORMIN HCL 500 MG TAB PO SCH (21:00)
[2021-09-16 21:42] VITALS: BP 135/69
[2021-09-17] VITALS (7 sets, daily range): BP systolic 110–142; BP diastolic 69–85
[2021-09-17] MEDS: AMPICILLIN SOD 1 GM/NS 50ML 50 ML IV SCH ×3 (04:00→22:30)
[2021-09-17] MEDS: GENTAMICIN 80MG/NS 100 ML 100 ML IV SCH (06:10)
[2021-09-17 06:17] LABS: BASOPHILS % 0.4 % (0.0-1.0); EOSINOPHILS # (AUTO) 0.2 (0.0-0.4); EOSINOPHILS % 3.5 % (0.0-6.0); HEMATOCRIT 39.4 % (38.2-49.6); HEMOGLOBIN 13.7 g/dL (14.0-18.0); LYMPHOCYTES # (AUTO) 1.6 (1.0-3.2); LYMPHOCYTES % 30.1 % (18.0-39.1); MEAN CORPUSCULAR HEMOGLOBIN 34.2 pg (28-32); MEAN CORPUSCULAR HGB CONC 34.8 g/dL (31-35); MEAN CORPUSCULAR VOLUME 98.3 fL (81-99); MONOCYTES # (AUTO) 0.5 (0.2-0.8); MONOCYTES % 9.4 % (4.4-11.3); NEUTROPHILS # (AUTO) 2.9 (2.1-6.9); NEUTROPHILS % 56.4 % (38.7-80.0); PLATELET COUNT 56 x10e3/uL (140-360); RED BLOOD COUNT 4.01 x10e6/uL (4.3-5.7); RED CELL DISTRIBUTION WIDTH 12.9 % (11.7-14.4)
[2021-09-17] MEDS: SOD CHL 0.45%/POT CHL 20MEQ 1,000 ML IV SCH ×2 (06:48→16:59)
[2021-09-17 06:52] LABS: ALBUMIN 2.7 g/dL (3.5-5.0); CALCIUM 7.8 mg/dL (8.4-10.2); CREATININE, SERUM 0.67 mg/dL (0.72-1.25)
[2021-09-17 06:53] LABS: MAGNESIUM 1.5 MG/DL (1.3-2.1)
[2021-09-17] MEDS: INSULIN LISPRO 100 UNIT/1 ML 3ML VIAL SQ SCH ×4 (07:30→21:00)
[2021-09-17] MEDS: CALCIUM CARBONATE 500 MG CHEWABLE TABS PO SCH (09:00)
[2021-09-17] MEDS: LISINOPRIL 2.5 MG TAB PO SCH (09:00)
[2021-09-17] MEDS: FINASTERIDE 5 MG TAB PO SCH (09:00)
[2021-09-17] MEDS: CARVEDILOL 3.125 MG TAB PO SCH ×2 (09:00→16:59)
[2021-09-17] MEDS: DOCUSATE SODIUM 100 MG CAP PO SCH ×2 (09:53→16:58)
[2021-09-17] MEDS: LEVOFLOXACIN 500 MG TAB PO SCH (14:30)
[2021-09-17] MEDS: TAMSULOSIN HCL 0.4 MG CAP PO SCH (21:00)
[2021-09-17] MEDS: POLYETHYLENE GLYCOL 3350 17 GM PACK PO PRN (22:50)
[2021-09-18] VITALS (8 sets, daily range): BP systolic 112–151; BP diastolic 71–81
[2021-09-18] MEDS: SOD CHL 0.45%/POT CHL 20MEQ 1,000 ML IV SCH ×3 (02:06→17:30)
[2021-09-18] MEDS: AMPICILLIN SOD 1 GM/NS 50ML 50 ML IV SCH ×3 (04:45→20:00)
[2021-09-18 05:46] LABS: BASOPHILS % 0.7 % (0.0-1.0); EOSINOPHILS # (AUTO) 0.2 (0.0-0.4); HEMATOCRIT 37.8 % (38.2-49.6); HEMOGLOBIN 13.6 g/dL (14.0-18.0); LYMPHOCYTES # (AUTO) 1.5 (1.0-3.2); LYMPHOCYTES % 38.3 % (18.0-39.1); MEAN CORPUSCULAR HEMOGLOBIN 34.3 pg (28-32); MEAN CORPUSCULAR VOLUME 95.2 fL (81-99); MONOCYTES # (AUTO) 0.4 (0.2-0.8); MONOCYTES % 10.4 % (4.4-11.3); NEUTROPHILS # (AUTO) 1.8 (2.1-6.9); NEUTROPHILS % 44.4 % (38.7-80.0); PLATELET COUNT 53 x10e3/uL (140-360); RED BLOOD COUNT 3.97 x10e6/uL (4.3-5.7); RED CELL DISTRIBUTION WIDTH 12.6 % (11.7-14.4)
[2021-09-18 06:03] LABS: ALBUMIN 2.6 g/dL (3.5-5.0); ANION GAP 12.1 mmol/L (8-16); CALCIUM 7.8 mg/dL (8.4-10.2); CREATININE, SERUM 0.67 mg/dL (0.72-1.25); POTASSIUM 4.1 mmol/L (3.5-5.1)
[2021-09-18] MEDS: INSULIN LISPRO 100 UNIT/1 ML 3ML VIAL SQ SCH ×4 (07:30→20:32)
[2021-09-18] MEDS: LISINOPRIL 2.5 MG TAB PO SCH (09:00)
[2021-09-18] MEDS: CARVEDILOL 3.125 MG TAB PO SCH ×2 (09:00→17:00)
[2021-09-18] MEDS: LEVOFLOXACIN 500 MG TAB PO SCH (09:00)
[2021-09-18] MEDS: FINASTERIDE 5 MG TAB PO SCH (09:00)
[2021-09-18] MEDS: DOCUSATE SODIUM 100 MG CAP PO SCH ×2 (09:00→17:00)
[2021-09-18] MEDS: CALCIUM CARBONATE 500 MG CHEWABLE TABS PO SCH (09:00)
[2021-09-18] MEDS: POLYETHYLENE GLYCOL 3350 17 GM PACK PO PRN (10:00)
[2021-09-18] MEDS ORDERED: DESMOPRESSIN ACETATE 4 MCG/ML VIAL IV ONE (12:15)
[2021-09-18] MEDS: TAMSULOSIN HCL 0.4 MG CAP PO SCH (20:32)
[2021-09-19] VITALS: BP 135/75
[2021-09-19 04:00] VITALS: BP 125/74
[2021-09-19] MEDS: SOD CHL 0.45%/POT CHL 20MEQ 1,000 ML IV SCH ×2 (04:00→09:30)
[2021-09-19] MEDS: AMPICILLIN SOD 1 GM/NS 50ML 50 ML IV SCH ×2 (04:00→12:27)
[2021-09-19 05:23] LABS: BASOPHILS % 0.6 % (0.0-1.0); EOSINOPHILS # (AUTO) 0.3 (0.0-0.4); EOSINOPHILS % 5.6 % (0.0-6.0); HEMATOCRIT 36.5 % (38.2-49.6); HEMOGLOBIN 13.1 g/dL (14.0-18.0); LYMPHOCYTES # (AUTO) 1.2 (1.0-3.2); LYMPHOCYTES % 23.8 % (18.0-39.1); MEAN CORPUSCULAR HEMOGLOBIN 34.4 pg (28-32); MEAN CORPUSCULAR HGB CONC 35.9 g/dL (31-35); MEAN CORPUSCULAR VOLUME 95.8 fL (81-99); MONOCYTES # (AUTO) 0.7 (0.2-0.8); MONOCYTES % 12.5 % (4.4-11.3); NEUTROPHILS % 57.1 % (38.7-80.0); PLATELET COUNT 58 x10e3/uL (140-360); RED BLOOD COUNT 3.81 x10e6/uL (4.3-5.7); RED CELL DISTRIBUTION WIDTH 12.3 % (11.7-14.4)
[2021-09-19 05:59] LABS: ANION GAP 12.9 mmol/L (8-16); CREATININE, SERUM 0.6 mg/dL (0.72-1.25); POTASSIUM 3.9 mmol/L (3.5-5.1)
[2021-09-19 07:21] VITALS: BP 131/80
[2021-09-19 07:35] VITALS: BP 131/80
[2021-09-19] MEDS: DOCUSATE SODIUM 100 MG CAP PO SCH (07:58)
[2021-09-19] MEDS: INSULIN LISPRO 100 UNIT/1 ML 3ML VIAL SQ SCH ×2 (07:58→12:34)
[2021-09-19] MEDS: CARVEDILOL 3.125 MG TAB PO SCH (07:59)
[2021-09-19] MEDS: LEVOFLOXACIN 500 MG TAB PO SCH (07:59)
[2021-09-19 08:00] VITALS: BP 131/80
[2021-09-19] MEDS: CALCIUM CARBONATE 500 MG CHEWABLE TABS PO SCH (08:00)
[2021-09-19] MEDS: LISINOPRIL 2.5 MG TAB PO SCH (08:00)
[2021-09-19] MEDS: FINASTERIDE 5 MG TAB PO SCH (08:00)
[2021-09-19 10:58] VITALS: BP 132/77
[2021-09-19] MEDS ORDERED: ONDANSETRON HCL 4 MG ORAL DISINTEGRATING TAB PO PRN (13:00)
[2021-09-19] MEDS ORDERED: LEVOFLOXACIN250 MG PO (14:18)
== END 2021-09-19 15:44 | disposition home or self-care (01) | DRG 713 ==
LOC: OR 12:10 → MED/SURG 17:29
PROVIDERS: ADMIT Internal Medicine; ATTEND Internal Medicine
PROC: 0TP98DZ Removal of Intraluminal Device from Ureter, Via Natural or Artificial Opening Endoscopic (ICD-10-PCS; 2021-09-15)
PROC: BT1F1ZZ Fluoroscopy of Left Kidney, Ureter and Bladder using Low Osmolar Contrast (ICD-10-PCS; principal; 2021-09-15 14:00)
PROC: 0V508ZZ Destruction of Prostate, Via Natural or Artificial Opening Endoscopic (ICD-10-PCS; 2021-09-15 14:00)
DX: N40.1 Benign prostatic hyperplasia with lower urinary tract symptoms (principal); N13.8 Other obstructive and reflux uropathy; N39.0 Urinary tract infection, site not specified; N13.2 Hydronephrosis with renal and ureteral calculous obstruction; E66.9 Obesity, unspecified; R81 Glycosuria; R31.29 Other microscopic hematuria; D69.6 Thrombocytopenia, unspecified; I25.2 Old myocardial infarction; I25.10 Atherosclerotic heart disease of native coronary artery without angina pectoris; I10 Essential (primary) hypertension; E11.9 Type 2 diabetes mellitus without complications; Z96.0 Presence of urogenital implants; Z87.442 Personal history of urinary calculi; Z68.37 Body mass index [BMI] 37.0-37.9, adult; E83.51 Hypocalcemia; E11.65 Type 2 diabetes mellitus with hyperglycemia; K74.60 Unspecified cirrhosis of liver; K80.20 Calculus of gallbladder without cholecystitis without obstruction; Z20.822 Contact with and (suspected) exposure to COVID-19
CPT/HCPCS: 36415; 74018; 74420; 76705; 80048; 80053; 80061; 80170; 82948; 83036; 83735; 85025; 86850; 86900; 93005; 96361; C1766; J0290; J1100; J1580; J1885; J2001; J2405; J7030; U0002

== ENCOUNTER 2022-02-04 14:31 | Observation (INO) | payer OTHER ==
[~2022-02-04] VITALS: Ht 180.3 cm; Wt 129.8 kg
[~2022-02-04 14:31] MED LIST changes: +LEVOFLOXACIN250 MG PO
[2022-02-04] MEDS ORDERED: SODIUM CHLORIDE 0.9% 1000ML 1,000 ML IV SCH (14:45)
[2022-02-04 15:01] LABS: BASOPHILS % 0.3 % (0.0-1.0); EOSINOPHILS # (AUTO) 0.1 (0.0-0.4); EOSINOPHILS % 1.8 % (0.0-6.0); HEMATOCRIT 42.1 % (38.2-49.6); HEMOGLOBIN 15.3 g/dL (14.0-18.0); LYMPHOCYTES # (AUTO) 0.4 (1.0-3.2); LYMPHOCYTES % 9.1 % (18.0-39.1); MEAN CORPUSCULAR HEMOGLOBIN 33.8 pg (28-32); MEAN CORPUSCULAR HGB CONC 36.3 g/dL (31-35); MEAN CORPUSCULAR VOLUME 92.9 fL (81-99); MONOCYTES # (AUTO) 0.4 (0.2-0.8); MONOCYTES % 10.4 % (4.4-11.3); NEUTROPHILS % 78.1 % (38.7-80.0); RED BLOOD COUNT 4.53 x10e6/uL (4.3-5.7); RED CELL DISTRIBUTION WIDTH 13.6 % (11.7-14.4)
[2022-02-04 15:03] LABS: PLATELET COUNT 59 x10e3/uL (140-360)
[2022-02-04 15:13] LABS: CLARITY,URINE CLOUDY (CLEAR); COLOR,URINE AMBER (YELLOW); KETONES,URINE NEGATIVE (NEGATIVE); LEUKOCYTE ESTERASE ,URINE TRACE (NEGATIVE); NITRITE,URINE NEGATIVE (NEGATIVE); PROTEIN,URINE DIPSTICK 1+ (NEGATIVE); URINE UROBILINOGEN 0.2 mg/dL (0.2 - 1)
[2022-02-04 15:20] LABS: AMORPHOUS SEDIMENT,URINE FEW (FEW); BACTERIA,URINE MODERATE /HPF; EPITHELIAL CELLS,URINE RARE /LPF; RBC,URINE 21-50 /HPF (0-5); WBC,URINE (MAN) 0-5 /HPF (0-5)
[2022-02-04 15:28] LABS: ALBUMIN 3.3 g/dL (3.5-5.0); ALBUMIN/GLOBULIN RATIO 0.9 (0.8-2.0); ANION GAP 10.8 mmol/L (8-16); CALCIUM 9.1 mg/dL (8.4-10.2); CREATININE, SERUM 0.91 mg/dL (0.72-1.25); POTASSIUM 3.8 mmol/L (3.5-5.1)
[2022-02-04] MEDS: CEFTRIAXONE 1 GM in SODIUM CHLORIDE 0.9% 50ML 50 ML IV SCH (16:02)
[2022-02-04] MEDS: SODIUM CHLORIDE 0.9% 1000ML 1,000 ML IV SCH ×2 (16:02→23:27)
[2022-02-04] MEDS ORDERED: CEFTRIAXONE 1 GM VIAL ONE (16:08)
[2022-02-04] MEDS: Ampicillin INJ 2 GM in SODIUM CHLORIDE 0.9% 100 ML IV SCH (18:21)
[2022-02-04 20:00] VITALS: BP 118/60
[2022-02-04] MEDS ORDERED: CEFTRIAXONE 1 GM VIAL IV SCH (21:00)
[2022-02-04] MEDS ORDERED: ACETAMINOPHEN 325 MG TAB PO PRN (21:15)
[2022-02-05] VITALS (7 sets, daily range): BP systolic 116–130; BP diastolic 60–80
[2022-02-05] MEDS ORDERED: ASPIRIN CHEW81 MG PO (00:26)
[2022-02-05] MEDS: SODIUM CHLORIDE 0.9% 1000ML 1,000 ML IV SCH ×2 (00:30→11:10)
[2022-02-05] MEDS: CEFTRIAXONE 1 GM in SODIUM CHLORIDE 0.9% 50ML 50 ML IV SCH ×2 (04:00→16:11)
[2022-02-05] MEDS: Ampicillin INJ 2 GM in SODIUM CHLORIDE 0.9% 100 ML IV SCH ×3 (04:30→17:02)
[2022-02-05 05:03] LABS: BASOPHILS % 0.4 % (0.0-1.0); EOSINOPHILS # (AUTO) 0.1 (0.0-0.4); HEMATOCRIT 38.6 % (38.2-49.6); HEMOGLOBIN 13.6 g/dL (14.0-18.0); LYMPHOCYTES # (AUTO) 0.8 (1.0-3.2); LYMPHOCYTES % 29.3 % (18.0-39.1); MEAN CORPUSCULAR HEMOGLOBIN 33.1 pg (28-32); MEAN CORPUSCULAR HGB CONC 35.2 g/dL (31-35); MEAN CORPUSCULAR VOLUME 93.9 fL (81-99); MONOCYTES # (AUTO) 0.5 (0.2-0.8); MONOCYTES % 20.5 % (4.4-11.3); NEUTROPHILS # (AUTO) 1.2 (2.1-6.9); NEUTROPHILS % 46.8 % (38.7-80.0); PLATELET COUNT 55 x10e3/uL (140-360); RED BLOOD COUNT 4.11 x10e6/uL (4.3-5.7); RED CELL DISTRIBUTION WIDTH 13.7 % (11.7-14.4)
[2022-02-05 05:36] LABS: ALBUMIN 2.7 g/dL (3.5-5.0); ALBUMIN/GLOBULIN RATIO 0.9 (0.8-2.0); ANION GAP 7.5 mmol/L (8-16); CALCIUM 8.5 mg/dL (8.4-10.2); CHOL/HDL RATIO 3.2 (3.9-4.7); CREATININE, SERUM 0.77 mg/dL (0.72-1.25); POTASSIUM 3.5 mmol/L (3.5-5.1)
[2022-02-05] MEDS: CARVEDILOL 3.125 MG TAB PO SCH ×2 (09:07→16:13)
[2022-02-05] MEDS: LISINOPRIL 2.5 MG TAB PO SCH (09:07)
[2022-02-05] MEDS ORDERED: DEXTROSE 50% SYRINGE 50 ML IV PRN (13:00)
[2022-02-05] MEDS ORDERED: SODIUM CHLORIDE 0.9% 1000ML 1,000 ML IV SCH (13:00)
[2022-02-05] MEDS: INSULIN LISPRO 100 UNIT/1 ML 3ML VIAL SQ SCH ×2 (16:13→20:55)
[2022-02-05] MEDS ORDERED: METFORMIN HCL 500 MG TAB PO SCH (21:00)
[2022-02-05] MEDS ORDERED: TAMSULOSIN HCL 0.4 MG CAP PO SCH (21:00)
[2022-02-06 00:07] VITALS: BP 131/81
[2022-02-06] MEDS: SODIUM CHLORIDE 0.9% 1000ML 1,000 ML IV SCH ×2 (00:14→03:46)
[2022-02-06 03:46] VITALS: BP 119/63
[2022-02-06] MEDS: CEFTRIAXONE 1 GM in SODIUM CHLORIDE 0.9% 50ML 50 ML IV SCH (04:00)
[2022-02-06] MEDS: Ampicillin INJ 2 GM in SODIUM CHLORIDE 0.9% 100 ML IV SCH (04:30)
[2022-02-06 08:00] VITALS: BP 115/66
[2022-02-06 08:10] VITALS: BP 127/79
[2022-02-06] MEDS ORDERED: ASPIRIN 81 MG CHEW TAB PO SCH (09:00)
[2022-02-06] MEDS ORDERED: FINASTERIDE 5 MG TAB PO SCH (09:00)
[2022-02-06] MEDS: CARVEDILOL 3.125 MG TAB PO SCH (09:07)
[2022-02-06] MEDS: LISINOPRIL 2.5 MG TAB PO SCH (09:08)
[2022-02-06] MEDS: INSULIN LISPRO 100 UNIT/1 ML 3ML VIAL SQ SCH (09:11)
[2022-02-06 11:31] VITALS: BP 124/86
[2022-02-06] MEDS ORDERED: CEFUROXIME250 MG PO (12:14)
[2022-02-06] MEDS ORDERED: AMOXICILLIN500 MG PO (12:15)
== END 2022-02-06 13:02 | disposition home or self-care (01) ==
LOC: ER 15:01 → ERHOLD 15:32 → MED/SURG 21:42
PROVIDERS: ADMIT Internal Medicine; ATTEND Internal Medicine
DX: N39.0 Urinary tract infection, site not specified (principal); I11.9 Hypertensive heart disease without heart failure; E11.65 Type 2 diabetes mellitus with hyperglycemia; Z16.24 Resistance to multiple antibiotics; E66.9 Obesity, unspecified; Z68.39 Body mass index [BMI] 39.0-39.9, adult; N40.1 Benign prostatic hyperplasia with lower urinary tract symptoms; N13.8 Other obstructive and reflux uropathy; I25.10 Atherosclerotic heart disease of native coronary artery without angina pectoris; I25.2 Old myocardial infarction; D69.6 Thrombocytopenia, unspecified; M35.9 Systemic involvement of connective tissue, unspecified; K75.81 Nonalcoholic steatohepatitis (NASH); Z82.49 Family history of ischemic heart disease and other diseases of the circulatory system; Z87.440 Personal history of urinary (tract) infections; Z95.5 Presence of coronary angioplasty implant and graft; Z96.0 Presence of urogenital implants; Z88.8 Allergy status to other drugs, medicaments and biological substances; Z86.16 Personal history of COVID-19
CPT/HCPCS: 36415 ×3; 80053 ×2; 80061; 81001; 82948 ×2; 83036; 83605; 85025 ×2; 87040; 87086; 94799; 99284; G0378 ×3; J0696 ×3; J7030 ×3; J7050 ×2; U0002